=== PATIENT | female | born 1950 | race Hispanic/Latino ===

== ENCOUNTER 2017-10-15 10:19 | Outpatient (CLI) | payer MEDICARE ==
--- NOTE | 2017-10-15 12:25 | XRay Report ---
LEFT FOOT, 3 views: History: Left foot pain The bony architecture is intact. Bony alignment is normal. No soft tissue abnormalities are seen. The joint spaces appear preserved. Moderate plantar spur is noted. IMPRESSION: Plantar spur.
--- NOTE | 2017-10-15 15:50 | Mammography Report ---
BONE DEXA:10/15/17 09:45:00 CLINICAL: Postmenopausal. No comparison. TECHNIQUE: Two site bone DEXA performed on an Hologic scanner. FINDINGS: The average BMD of the lumbar spine L1-L4 is 0.831g/cm squared with a T-score of -2.0 and a Z-score of -0.1. The average BMD of the left hip is 0.734g/cm squared with a T-score of -1.7 and a Z-score of -0.4. IMPRESSION: 1. WHO classification: Osteopenia with increase fracture risk based on both spine and left hip measurements. 2. The FRAX 10 year fracture probability for a major osteoporotic fracture is 12%. 3. The FRAX 10 year fracture probability for hip fracture is 2.1%. Note: FRAX version 3.01. Fracture probability calculated for an untreated patient. Fracture probability may be lower if the patient has received treatment. RECOMMENDATION: Clinical correlation and routine screening. DEFINITIONS: BMD = Bone Mineral Density T-score = BMD related to mean peak bone mass of young adult (mean expressed in Standard Deviation) Z-score = Age matched BMD expressed in SD World Health Organization (WHO) Diagnostic Criteria Normal T-score > -1 SD Osteopenia T-score between -1 and -2.4 SD Osteoporosis T-score -2.5 SD or below NOTE: BMD is not the only risk factor for fracture; also consider factors such as the patient's age, risk of falling, previous osteoporotic fracture, family history of osteoporotic fractures, current smoker, and low body weight. All treatment decisions require clinical judgment and consideration of individual patient factors, including patient preferences, comorbidities, previous drug use and risk factors not captured in the FRAX model (e.g. frailty, falls, vitamin D deficiency, increased bone turnover, interval significant decline in BMD). Fracture probability is calculated for an untreated patient. Fracture probability may be lower if the patient has received treatment. Z-scores are not calculated if >80 years of age.
== END 2017-10-15 10:20 | disposition home or self-care (01) ==
LOC: MAMMO 10:19
PROVIDERS: ATTEND Orthopaedic Surgery
DX: M85.88 Other specified disorders of bone density and structure, other site (principal); M25.872 Other specified joint disorders, left ankle and foot; Z78.0 Asymptomatic menopausal state
CPT/HCPCS: 77080

== ENCOUNTER 2017-11-27 09:46 | Emergency (ER) | payer MEDICARE ==
--- NOTE | 2017-11-27 15:12 | Emergency Department Report ---
ED Fall HPI - General Chief Complaint: Fall Stated Complaint: FALL Time Seen by Provider: 11/27/17 14:32 Source: patient, family Mode of arrival: Ambulatory - History of Present Illness Initial Comments: Patient reports that she slipped and fell down a couple stairs today. She is complaining that she hit her head and she has headache on the right side of her head. She denies any loss of consciousness. Pain is locally advised to the right side of her head she is also complaining of bilateral hip pain and lumbar spine pain. Pain is 10 out of 10 and aching. Denies any loss of bowel or bladder control. Denies any neck pain or stiffness. Denies any numbness or tingling to extremities. No [id number] medication taken for pain. Patient records indicated that she is allergic to codeine which causes her throat to close up. Patient clarified that it doesn't close her throat up because she is taken hydrocodone and oxycodone in the past. 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 denies: neck pain, numbness, weakness, chest paint, shortness of breath, abdominal pain, hematuria, unable to walk, lightheaded, vertigo, confusion - Related Data Previous Rx's Medication Instructions Recorded Last Taken Type traMADol [Ultram] 50 mg PO Q12H PRN #6 tablet 11/27/17 Unknown Rx Allergies Allergy/AdvReac Type Severity Reaction Status Date / Time codeine Allergy THROAT Unverified 10/15/17 10:22 CLOSES Iodinated Contrast- Oral and Allergy ITCHES, Unverified 10/15/17 10:22 IV Dye FEELS LIKE SHE IS ON FIRE ketorolac [From Toradol] Allergy Headache Unverified 10/15/17 10:22 methocarbamol [From Robaxin] Allergy Headache Unverified 10/15/17 10:22 Penicillins Allergy Swelling Unverified 10/15/17 10:22 OF FACE HAND AND THROAT CLOSES strawberry Allergy Rash Unverified 10/15/17 10:22 ED Review of Systems ROS: Stated complaint: FALL Other details as noted in HPI Comment: All other systems reviewed and negative Constitutional: no symptoms reported Eyes: denies: eye pain, eye discharge ENT: denies: hearing loss, epistaxis Respiratory: no symptoms reported Cardiovascular: denies: chest pain, palpitations, dyspnea on exertion, edema, syncope, paroxysmal nocturnal dyspnea Gastrointestinal: denies: abdominal pain, nausea, vomiting, hematemesis Genitourinary: denies: dysuria, hematuria Musculoskeletal: back pain, arthralgia. denies: joint swelling Skin: denies: rash Neurological: headache. denies: weakness, numbness, paresthesias, confusion ED Past Medical Hx - Past Medical History Previous Medical History?: Yes Hx Hypertension: Yes Hx Arthritis: Yes Hx COPD: Yes Additional medical history: Fibromyalgia, MVP, - Surgical History Past Surgical History?: Yes Hx Cholecystectomy: Yes Additional Surgical History: right wrist metal plate, Right ovarian cyst removal - Family History Family history: hypertension - Social History Smoking Status: Current Every Day Smoker Substance Use Type: None, Non Opiate Pain, Prescribed - Medications Home Medications: Home Medications Medication Instructions Recorded Confirmed Last Taken Type traMADol [Ultram] 50 mg PO Q12H PRN #6 tablet 11/27/17 Unknown Rx ED Physical Exam - General Limitations: No Limitations General appearance: alert, in no apparent distress - Head Head exam: Present: atraumatic, normocephalic, normal inspection - Eye Eye exam: Present: normal appearance, PERRL, EOMI Pupils: Present: normal accommodation - ENT ENT exam: Present: normal exam, normal orophraynx, mucous membranes moist - Neck Neck exam: Present: normal inspection, full ROM, other. Absent: tenderness, meningismus, lymphadenopathy, thyromegaly - Respiratory Respiratory exam: Present: normal lung sounds bilaterally. Absent: respiratory distress, chest wall tenderness, accessory muscle use - Cardiovascular Cardiovascular Exam: Present: regular rate, normal rhythm, normal heart sounds. Absent: systolic murmur, diastolic murmur - GI/Abdominal GI/Abdominal exam: Present: soft, normal bowel sounds. Absent: distended, tenderness, guarding, rebound, rigid - Extremities Exam Extremities exam: Present: normal inspection, full ROM, normal capillary refill , other. Absent: tenderness, pedal edema, joint swelling, calf tenderness - Back Exam Back exam: Present: normal inspection, full ROM. Absent: tenderness, CVA tenderness (R), CVA tenderness (L), muscle spasm, paraspinal tenderness, vertebral tenderness, rash noted - Neurological Exam Neurological exam: Present: alert, oriented X3, normal gait - Psychiatric Psychiatric exam: Present: normal affect, normal mood - Skin Skin exam: Present: warm, dry, intact, normal color. Absent: rash ED Course Vital Signs 11/27/17 11/27/17 11/27/17 10:08 17:35 17:44 Temperature 97.6 F Pulse Rate 95 H 90 Respiratory 20 18 18 Rate Blood Pressure 168/91 Blood Pressure 162/88 [Right] O2 Sat by Pulse 98 97 Oximetry - Reevaluation(s) Reevaluation #1: 11/27/17 17:32 Patient given Ultram 50 mg by mouth in emergency room for pain. ED Medical Decision Making - Radiology Data Radiology results: report reviewed CT scan of head without contrast revealed no acute intracranial findings. CT scan of lumbar spine reveals no acute fracture or subluxation but degenerative disease seen. Ct scan of the pelvis or reveals patient with degenerative disease without any acute findings. - Medical Decision Making ED course: Patient is status post fall complaining of headache after she slipped on stairs and hit her head and also bilateral hip pain and lumbar spine pain. Physical findings are tenderness to lumbar spine and pain with movement of both hips. Head exam is normal and she is neurologically intact. CT finding of brain/head negative for intracranial findings, CT scan of pelvis reveals no acute fracture but patient has degenerative disease. CT scan of lumbar spine reveals degenerative disc disease without any acute fracture or subluxation. This was explained to patient and she voiced understanding. I discussed the patient if she has arthritis in her back and in her hips. I discussed with her she will need to follow-up with her primary care physician who will refer her to orthopedic doctor if necessary. I also discussed with her that she needs to have follow-up visit within 24 hours of incident since she has fall with closed head injury. Patient received Ultram 50 mg when necessary emergency room. Discharged home with her family member with prescription for Ultram. Critical care attestation.: If time is entered above; I have spent that time in minutes in the direct care of this critically ill patient, excluding procedure time. ED Disposition Clinical Impression: Fall from ground level, Acute post-traumatic headache, not intractable, Musculoskeletal pain Closed head injury without concussion Qualifiers: Encounter type: initial encounter Qualified Code(s): S09.90XA - Unspecified injury of head, initial encounter Back pain Qualifiers: Back pain location: low back pain Chronicity: acute Back pain laterality: midline Sciatica presence: without sciatica Qualified Code(s): M54.5 - Low back pain Disposition: DC-01 TO HOME OR SELFCARE Is pt being admited?: No Does the pt Need Aspirin: No Condition: Stable Instructions: Osteoarthritis (ED), Fall Prevention for Older Adults (ED), Minor Head Injury (ED), Acute Headache (ED), Back Pain (ED) Additional Instructions: Please follow up with a primary care physician tomorrow for follow-up exam status post fall with closed head injury Read-discharge instruction and closed head injury and if you experience any signs or symptoms return to emergency room Take Ultram for pain but please do not drive or operate heavy machinery while taking this medication. Prescriptions: traMADol [Ultram] 50 mg PO Q12H PRN #6 tablet PRN Reason: Pain Referrals: PAT ACOSTA MD [Primary Care Provider] - 11/28/17
--- NOTE | 2017-11-27 16:32 | Cat Scan Report ---
FINAL REPORT EXAM: CT HEAD/BRAIN WO CON HISTORY: fall with pain and head injury TECHNIQUE: CT head without contrast PRIORS: None. FINDINGS: No acute intra-axial or extra-axial hemorrhage is identified. There is no evidence of midline shift or mass effect. The ventricles and sulci are within normal limits. Carpenter-white matter differentiation is intact. No acute parenchymal abnormalities seen. Bony calvarium is grossly intact. Visualized portions of the mastoids and paranasal sinuses are unremarkable. IMPRESSION: Negative CT head
--- NOTE | 2017-11-27 16:38 | Cat Scan Report ---
FINAL REPORT EXAM: CT LUMBAR SPINE WO CON HISTORY: fall with lumbar spine pain TECHNIQUE: CT lumbar spine without contrast PRIORS: None. FINDINGS: Vertebral bodies demonstrate normal height and alignment. There is disc space narrowing at L5-S1 with vacuum disc. Few small marginal vertebral body osteophytes are noted. There is no evidence of spondylolisthesis. Transverse and spinous processes are intact SI joints are unremarkable. IMPRESSION: Degenerative disc disease at L5-S1 No acute traumatic abnormality identified
--- NOTE | 2017-11-27 16:44 | Cat Scan Report ---
FINAL REPORT EXAM: CT PELVIS WO CON HISTORY: fall with pelvis pain TECHNIQUE: CT pelvis PRIORS: None. FINDINGS: No acute fractures are identified. The pubic symphysis and SI joints are intact. No evidence of hip fracture or dislocation. No bony lesions are identified. No acute soft tissue abnormality identified Noted are degenerative disc changes at L5-S1 IMPRESSION: Degenerative disc change at L5-S1 No acute abnormality identified
[2017-11-27] MEDS ORDERED: ULTRAM PO ONE (17:28)
[2017-11-27] MEDS ORDERED: ZOFRAN ODT PO ONE (17:34)
[2017-11-27 17:45] VITALS: BP 162/88
== END 2017-11-27 17:45 | disposition home or self-care (01) ==
LOC: ED 09:46
DX: S09.8XXA Other specified injuries of head, initial encounter (principal); G44.319 Acute post-traumatic headache, not intractable; M25.551 Pain in right hip; M25.552 Pain in left hip; I10 Essential (primary) hypertension; M19.90 Unspecified osteoarthritis, unspecified site; J44.9 Chronic obstructive pulmonary disease, unspecified; Z88.0 Allergy status to penicillin; Z91.018 Allergy to other foods; Z88.5 Allergy status to narcotic agent; F17.200 Nicotine dependence, unspecified, uncomplicated; Z90.49 Acquired absence of other specified parts of digestive tract; W10.8XXA Fall (on) (from) other stairs and steps, initial encounter; Y93.89 Activity, other specified; Y92.89 Other specified places as the place of occurrence of the external cause; Y99.8 Other external cause status
CPT/HCPCS: 70450; 72131; 72192; Q0162

== ENCOUNTER 2017-12-19 17:07 | Emergency (ER) | payer MEDICARE ==
[2017-12-19 19:51] VITALS: BP 124/68
--- NOTE | 2017-12-19 23:28 | Emergency Department Report ---
HPI - General Chief Complaint: Fall Time Seen by Provider: 12/19/17 23:09 - HPI HPI: This is a 67-year-old female presents to the emergency department from home after she accidentally fell off the bed. She was playing with her grandchildren when she fell backwards off of her bed which she says is "high" and fell onto her back and left side. She says that she did hit her head and had some brief loss of consciousness. She now complains of a generalized headache, pain to the left heel up through the hip, pain to the left shoulder, and pain to the mid to lower back. She denies any numbness or paresthesias or any neurological deficits. She did not take anything for her symptoms prior to presentation. She has a past medical history of asthma, COPD , GERD, hypertension, fibromyalgia. The patient says that she usually takes hydrocodone for her discomfort. There is a listing for codeine as an allergy but she says that that was when she was younger and she thinks she has "outgrown it" but she does not have any allergy to hydrocodone. ED Past Medical Hx - Past Medical History Hx Hypertension: Yes Hx Heart Attack/AMI: No Hx Congestive Heart Failure: No Hx Diabetes: No Hx Deep Vein Thrombosis: No Hx Pulmonary Embolism: Yes (41yr age) Hx GERD: Yes Hx Sickle Cell Disease: No Hx Arthritis: Yes Hx Headaches / Migraines: Yes (MIGRAINES) Hx Kidney Stones: Yes Hx Asthma: Yes Hx COPD: Yes Hx HIV: No Additional medical history: Fibromyalgia, MVP, - Surgical History Hx Pacemaker: No Hx Internal Defibrillator: No Hx Cholecystectomy: Yes Additional Surgical History: right wrist metal plate, Right ovarian cyst removal - Social History Smoking Status: Never Smoker Substance Use Type: None - Medications Home Medications: Home Medications Medication Instructions Recorded Confirmed Last Taken Type Acetaminophen 1,000 mg PO Q6HR PRN #30 tablet 09/16/17 09/18/17 09/17/17 Rx ALBUTEROL Inhaler [ProAir HFA 2 puff IH QID PRN #1 inhalation 09/21/17 Unknown Rx Inhaler] ALBUTEROL NEB's [Proventil 0.083% 2.5 mg IH BID #60 nebu 09/21/17 Unknown Rx NEBS] ALPRAZolam [Xanax TAB] 1 mg PO BID PRN #30 tablet 09/21/17 Unknown Rx Amlodipine Besylate [Norvasc] 5 mg PO QDAY #30 tablet 09/21/17 Unknown Rx Gabapentin [Gralise] 300 mg PO TID #90 tab.er.24h 09/21/17 Unknown Rx methylPREDNISolone [Medrol Dose 4 mg PO QAM #1 tab.ds.pk 09/21/17 Unknown Rx Sriram] Levofloxacin [Levaquin TAB] 750 mg PO QDAY #7 tablet 09/22/17 Unknown Rx HYDROcodone/APAP 5-325 [Carlyle 1 each PO Q6H PRN #10 tablet 09/29/17 Unknown Rx 5-325 mg TAB] Cyclobenzaprine [Flexeril 10 MG 10 mg PO TID PRN #30 tablet 11/07/17 Unknown Rx TAB] traMADol [Ultram] 50 mg PO Q12H PRN #6 tablet 11/27/17 Unknown Rx Famotidine [Pepcid] 20 mg PO BID #60 tablet 12/14/17 Unknown Rx HYDROcodone/APAP 5-325 [Carlyle 1 each PO Q6HR PRN #6 tablet 12/20/17 Unknown Rx 5/325] ED Review of Systems ROS: Stated complaint: FALL/HEAD INJURY Other details as noted in HPI Comment: All other systems reviewed and negative Constitutional: denies: chills, fever Eyes: denies: eye pain, eye discharge, vision change ENT: denies: ear pain, throat pain Cardiovascular: denies: chest pain, palpitations Gastrointestinal: denies: abdominal pain, nausea, diarrhea Genitourinary: denies: urgency, dysuria, discharge Musculoskeletal: back pain, arthralgia, myalgia. denies: joint swelling Skin: denies: rash, lesions Neurological: headache. denies: numbness, paresthesias Physical Exam - Physical Exam Vital Signs: Vital Signs 12/19/17 19:44 Temperature 98.3 F Pulse Rate 93 H Respiratory 16 Rate Blood Pressure 124/68 O2 Sat by Pulse 97 Oximetry Physical Exam: GENERAL: The patient is well-developed well-nourished. HENT: Normocephalic. Atraumatic. Patient has moist mucous membranes. No septal hematoma. EYES: Extraocular motions are intact. Pupils equal reactive to light bilaterally. No nystagmus. NECK: Supple. Trachea is midline. No midline tenderness to palpation, step- off or deformity. CHEST/LUNGS: Clear to auscultation. There is no respiratory distress noted. HEART/CARDIOVASCULAR: Regular. There is no tachycardia. There is no murmur. ABDOMEN: Abdomen is soft, nontender. Patient has normal bowel sounds. There is no abdominal distention. SKIN: Skin is warm and dry. NEURO: The patient is awake, alert, and oriented. The patient is cooperative. The patient has no focal neurologic deficits. The patient has normal speech. Cranial nerves II through XII grossly intact. MUSCULOSKELETAL: There is tenderness to palpation to the left shoulder and the entire left lower extremity. No obvious deformity. There is no limitation range of motion. Neurovascularly intact. ED Course Vital Signs 12/19/17 19:44 Temperature 98.3 F Pulse Rate 93 H Respiratory 16 Rate Blood Pressure 124/68 O2 Sat by Pulse 97 Oximetry ED Medical Decision Making - Radiology Data Radiology results: report reviewed, image reviewed interpreted by me: X-ray of the left shoulder, left femur, left tib-fib, and left foot did not show any fracture, dislocation or any acute process. CT of the head does not show any acute intracranial process including no ischemia, shift, mass, bleeding or skull fracture. CT of the cervical spine does not show any fracture, subluxation or any acute process. - Medical Decision Making Patient presents after having fallen off her bed and having some questionable loss of consciousness. She has a headache and pain to the left shoulder and entire left leg. The left shoulder and left leg were x-rayed and did not show any fracture, dislocation or any acute process. CT of the head and cervical spine were done and were negative for any acute process. Vital signs stable. I looked at the [place] prescription monitoring and the patient has multiple visits and refills of medication for hydrocodone and follows with Dr. Romero, orthopedist. Patient declined crutches. She was given a handful of pain medication by prescription and encouraged to follow up with the orthopedist. She was encouraged to return with any worsening of her symptoms or any acute distress. - Differential Diagnosis fracture, dislocation, sprain, strain, concussion, brain bleed Critical Care Time: No Critical care attestation.: If time is entered above; I have spent that time in minutes in the direct care of this critically ill patient, excluding procedure time. ED Disposition Clinical Impression: Left leg pain, Minor head injury Fall Qualifiers: Encounter type: initial encounter Qualified Code(s): W19.XXXA - Unspecified fall, initial encounter Left shoulder pain Qualifiers: Chronicity: acute Qualified Code(s): M25.512 - Pain in left shoulder Back pain Qualifiers: Back pain location: low back pain Chronicity: unspecified Back pain laterality : bilateral Sciatica presence: without sciatica Qualified Code(s): M54.5 - Low back pain Disposition: TO HOME OR SELFCARE Is pt being admited?: No Condition: Stable Instructions: Minor Head Injury (ED), Arthralgia (ED) Additional Instructions: Please follow-up with your primary care physician in the next few days. Return to the emergency Department with any worsening of your symptoms or any acute distress. Please follow-up with your orthopedist, Dr. Romero, regarding your leg and arm pain. You have been prescribed a medication that is sedating and therefore should not be taken prior to driving, working, and responsible for children and in no way should be mixed with alcohol of any quantity. Prescriptions: HYDROcodone/APAP 5-325 [Carlyle 5/325] 1 each PO Q6HR PRN #6 tablet PRN Reason: Pain Referrals: PAT ACOSTA MD [Primary Care Provider] - 3-5 Days TEE ROMERO MD [Staff Physician] - 3-5 Days Time of Disposition: 02:16
[2017-12-19] MEDS ORDERED: NORCO 5/325 PO ONE (23:36)
--- NOTE | 2017-12-20 00:17 | XRay Report ---
FINAL REPORT EXAM: XR TIBIA FIBULA 2V LT HISTORY: Trauma TECHNIQUE: Three views of the left tibia-fibula were submitted. FINDINGS: There is osteoporosis. There is no evidence of fracture or soft tissue injury. IMPRESSION: Osteoporosis. No acute injury.
--- NOTE | 2017-12-20 00:17 | XRay Report ---
FINAL REPORT EXAM: XR FEMUR 2+V LT HISTORY: Trauma TECHNIQUE: Four views of the left femur were submitted. FINDINGS: There is no evidence of fracture or soft tissue injury. The hip and knee joints are well maintained. The soft tissues are unremarkable. IMPRESSION: No evidence of acute injury.
--- NOTE | 2017-12-20 00:18 | XRay Report ---
FINAL REPORT EXAM: XR SHOULDER 2+V LT HISTORY: Trauma TECHNIQUE: Three views of the left shoulder were submitted. FINDINGS: There is no evidence of acute fracture or soft tissue injury. The glenohumeral and AC joints appear intact. There is a well-healed fracture of the posterior aspect of the left 5th rib. IMPRESSION: No acute injury.
--- NOTE | 2017-12-20 00:19 | XRay Report ---
FINAL REPORT EXAM: XR FOOT 3+V LT HISTORY: Trauma TECHNIQUE: Three views of the left foot were submitted. FINDINGS: There is no evidence of fracture or soft tissue injury. There is spurring along the posterior and plantar margin of the calcaneus. IMPRESSION: Calcaneal spurs. No acute injury
--- NOTE | 2017-12-20 00:20 | XRay Report ---
FINAL REPORT EXAM: XR SPINE LUMBOSACRAL 2-3V HISTORY: back pain TECHNIQUE: Three images of the lumbar spine were submitted. FINDINGS: There is generalized osteoporosis. There is multilevel disc degeneration throughout the lumbar spine severe narrowing of the L5-S1 disc. There is a chronic compression deformity of the superior endplate of L5. No definite acute fracture is seen. The SI joints appear normal. The soft tissues reveal calcification of the abdominal aorta. IMPRESSION: Multilevel disc degeneration with chronic compression deformity of the superior endplate of L1. No acute injury identified.
--- NOTE | 2017-12-20 00:21 | XRay Report ---
FINAL REPORT EXAM: XR SPINE THORACIC 3V HISTORY: back pain TECHNIQUE: Three views of the thoracic spine were submitted. FINDINGS: There is generalized osteoporosis. There is no evidence of acute compression fracture. The disc heights reveal mild degenerative changes in the mid upper thoracic spine. The soft tissue lines otherwise are well maintained. IMPRESSION: Osteoporosis. Mild disc degeneration in the upper mid thoracic spine. No acute fracture.
--- NOTE | 2017-12-20 02:04 | Cat Scan Report ---
FINAL REPORT EXAM: CT HEAD/BRAIN WO CON HISTORY: head injury TECHNIQUE: Routine axial imaging was obtained of the brain without IV contrast. Comparison is made to the study of 11/27/2017. FINDINGS: There is diminished attenuation of the periventricular and deep white matter compatible with chronic microvascular disease changes. There is no evidence of acute stroke or hemorrhage. There is mild atrophy. There are benign basal ganglial calcifications. The ventricular system is appropriate in size. The visualized sinuses are clear. The mastoid air cells are well pneumatized. The calvarium appears intact IMPRESSION: Mild atrophy with chronic microvascular disease changes. No evidence of acute stroke or hemorrhage.
--- NOTE | 2017-12-20 02:07 | Cat Scan Report ---
FINAL REPORT EXAM: CT CERVICAL SPINE WO CON HISTORY: fall TECHNIQUE: Routine axial imaging was obtained of the cervical spine without IV contrast with sagittal and coronal reconstructions FINDINGS: There moderate to severe narrowing of the C5-C6 disc. There is mild left-sided neural foraminal corrosion at this level by spurring. The remaining disc heights and alignment appear normal. There is no evidence of fracture. The prevertebral soft tissues and C1-C2 articulation appear intact IMPRESSION: Degenerative arthritic changes of the C5-C6 level. No acute injury.
== END 2017-12-20 02:30 | disposition home or self-care (01) ==
LOC: ED 17:07
DX: S09.90XA Unspecified injury of head, initial encounter (principal); M25.512 Pain in left shoulder; M54.5 Low back pain; M79.605 Pain in left leg; I10 Essential (primary) hypertension; K21.9 Gastro-esophageal reflux disease without esophagitis; G43.909 Migraine, unspecified, not intractable, without status migrainosus; J44.9 Chronic obstructive pulmonary disease, unspecified; M79.7 Fibromyalgia; Z86.711 Personal history of pulmonary embolism; Z87.442 Personal history of urinary calculi; Z90.49 Acquired absence of other specified parts of digestive tract; Z98.890 Other specified postprocedural states; Z88.5 Allergy status to narcotic agent; Z91.041 Radiographic dye allergy status; Z88.6 Allergy status to analgesic agent; W06.XXXA Fall from bed, initial encounter; Y93.89 Activity, other specified; Y99.8 Other external cause status; Y92.009 Unspecified place in unspecified non-institutional (private) residence as the place of occurrence of the external cause
CPT/HCPCS: 70450; 72072; 72100; 72125

== ENCOUNTER 2018-01-10 10:22 | Emergency (ER) | payer MEDICARE ==
[2018-01-10 10:58] VITALS: BP 138/62
[2018-01-10 11:50] LABS: Bilirubin,Urine NEG (Negative); Blood,Urine LG (Negative); Color,Urine Yellow (Yellow); Mucus,Urine FEW /HPF; Protein,Urine <15 mg/dL mg/dL (Negative); Urobilinogen,Urine < 2.0 mg/dL (<2.0)
[2018-01-10 11:51] LABS: RBC,Urine > 182.0 /HPF (0.0-6.0)
[2018-01-10] MEDS ORDERED: TORADOL ONE (12:41)
[2018-01-10] MEDS ORDERED: NORCO 5/325 PO ONE (13:37)
[2018-01-10] MEDS ORDERED: XYLOCAINE 1% MPF 5 mL INFILTRATI ONE (13:38)
[2018-01-10] MEDS ORDERED: ROCEPHIN IM ONE (13:38)
[2018-01-10] MEDS ORDERED: BENADRYL PO ONE (13:39)
--- NOTE | 2018-01-10 13:40 | Emergency Department Report ---
HPI - General Chief Complaint: Urogenital-Female Time Seen by Provider: 01/10/18 13:10 - HPI HPI: Patient is a 67-year-old female who states she has a history of kidney stones who presents today complaining of left flank pain and hematuria 1 day. Patient states yesterday she started x-ray this flank pain and today when she went to urinate she saw that her urine was different change to it some pink blood. She admits nausea but denies vomiting. She admits pain as throbbing in aching some localized to her left flank region ED Past Medical Hx - Past Medical History Hx Hypertension: Yes Hx Heart Attack/AMI: No Hx Congestive Heart Failure: No Hx Diabetes: No Hx Deep Vein Thrombosis: No Hx Pulmonary Embolism: Yes (41yr age) Hx GERD: Yes Hx Sickle Cell Disease: No Hx Arthritis: Yes Hx Headaches / Migraines: Yes (MIGRAINES) Hx Kidney Stones: Yes Hx Asthma: Yes Hx COPD: Yes Hx HIV: No Additional medical history: Fibromyalgia, MVP, - Surgical History Hx Pacemaker: No Hx Internal Defibrillator: No Hx Cholecystectomy: Yes Additional Surgical History: right wrist metal plate, Right ovarian cyst removal - Social History Smoking Status: Never Smoker Substance Use Type: None - Medications Home Medications: Home Medications Medication Instructions Recorded Confirmed Last Taken Type Acetaminophen 1,000 mg PO Q6HR PRN #30 tablet 09/16/17 09/18/17 09/17/17 Rx ALBUTEROL Inhaler [ProAir HFA 2 puff IH QID PRN #1 inhalation 09/21/17 Unknown Rx Inhaler] ALBUTEROL NEB's [Proventil 0.083% 2.5 mg IH BID #60 nebu 09/21/17 Unknown Rx NEBS] ALPRAZolam [Xanax TAB] 1 mg PO BID PRN #30 tablet 09/21/17 Unknown Rx Amlodipine Besylate [Norvasc] 5 mg PO QDAY #30 tablet 09/21/17 Unknown Rx Gabapentin [Gralise] 300 mg PO TID #90 tab.er.24h 09/21/17 Unknown Rx methylPREDNISolone [Medrol Dose 4 mg PO QAM #1 tab.ds.pk 09/21/17 Unknown Rx Sriram] Levofloxacin [Levaquin TAB] 750 mg PO QDAY #7 tablet 09/22/17 Unknown Rx HYDROcodone/APAP 5-325 [[place] 1 each PO Q6H PRN #10 tablet 09/29/17 Unknown Rx 5-325 mg TAB] Cyclobenzaprine [Flexeril 10 MG 10 mg PO TID PRN #30 tablet 11/07/17 Unknown Rx TAB] traMADol [Ultram] 50 mg PO Q12H PRN #6 tablet 11/27/17 Unknown Rx Famotidine [Pepcid] 20 mg PO BID #60 tablet 12/14/17 Unknown Rx HYDROcodone/APAP 5-325 [[place] 1 each PO Q6HR PRN #6 tablet 01/10/18 Unknown Rx 5-325 mg TAB] Naproxen [Naprosyn] 500 mg PO BID #30 tablet 01/10/18 Unknown Rx Ondansetron [Zofran ODT TAB] 8 mg PO Q12HR #20 tab.rapdis 01/10/18 Unknown Rx ED Review of Systems ROS: Stated complaint: FLANK PAIN Other details as noted in HPI Constitutional: denies: chills, fever Eyes: denies: eye pain, eye discharge, vision change ENT: denies: ear pain, throat pain Respiratory: denies: cough, shortness of breath, wheezing Cardiovascular: denies: chest pain, palpitations Endocrine: no symptoms reported Gastrointestinal: nausea. denies: abdominal pain, vomiting, diarrhea, constipation Genitourinary: frequency, hematuria. denies: urgency, dysuria, discharge Musculoskeletal: denies: back pain, joint swelling, arthralgia Skin: denies: rash, lesions Neurological: denies: headache, weakness, paresthesias Psychiatric: denies: anxiety, depression Hematological/Lymphatic: denies: easy bleeding, easy bruising Physical Exam - Physical Exam Vital Signs: Vital Signs 01/10/18 10:53 Temperature 97.6 F Pulse Rate 67 Respiratory 20 Rate Blood Pressure 138/62 O2 Sat by Pulse 97 Oximetry Physical Exam: GENERAL: Alert and oriented x3, no apparent distress, Normal Gait, atraumatic. HEAD: Head is normocephalic and a-traumatic. LUNGS: Symetrical with respiration, No wheezing, no rales or crackles, CTAB. HEART: S1, S2 present, regular rate and rhythm without murmur, no rubs, no gallops. ABDOMEN: No organomegaly was noted,Positive bowel sounds, soft, and non- distended. Nontender to palpation on all Quadrants, right CVA tenderness. BACK: Full range of motion, no spinal tenderness, nontender to palpation. SKIN: Warm and dry, No lesions, No ulceration or induration present. ED Course Vital Signs 01/10/18 10:53 Temperature 97.6 F Pulse Rate 67 Respiratory 20 Rate Blood Pressure 138/62 O2 Sat by Pulse 97 Oximetry ED Medical Decision Making - Radiology Data This 67-year-old presents with flank pain ED course: Urinalysis positive for hematuria Patient received pain medication, Rocephin in ED I discussed the patient that she is getting prophylaxis treatment for urinary tract infection. Discussed the patient follow up with primary care physician Discussed the patient's symptoms worsen to return to ED vital signs are normal patient in no acute distress Critical care attestation.: If time is entered above; I have spent that time in minutes in the direct care of this critically ill patient, excluding procedure time. ED Disposition Clinical Impression: Hematuria, Hx of renal calculi Disposition: TO HOME OR SELFCARE Is pt being admited?: No Does the pt Need Aspirin: No Condition: Stable Instructions: Kidney Stones (ED), Urinary Tract Infection in Women (ED) Additional Instructions: Make sure to follow up with the primary care physician as discussed. Take all your medications as you've been prescribed. If you have any worsening symptoms or develop new symptoms please return to ED immediately. Prescriptions: HYDROcodone/APAP 5-325 [[place] 5-325 mg TAB] 1 each PO Q6HR PRN #6 tablet PRN Reason: Pain Naproxen [Naprosyn] 500 mg PO BID #30 tablet Ondansetron [Zofran ODT TAB] 8 mg PO Q12HR #20 tab.josette Referrals: PRIMARY CARE, [Primary Care Provider] - 3-5 Days [facility] [Outside] - 3-5 Days [facility] [Outside] - 3-5 Days [facility] [Outside] - 3-5 Days Forms: Accompanied Note, Work/School Release Form(ED) Time of Disposition: 13:53
[2018-01-10] MEDS ORDERED: TORADOL IM ONE (13:44)
== END 2018-01-10 14:09 | disposition home or self-care (01) ==
LOC: ED 10:22
DX: R31.9 Hematuria, unspecified (principal); I10 Essential (primary) hypertension; K21.9 Gastro-esophageal reflux disease without esophagitis; J44.9 Chronic obstructive pulmonary disease, unspecified
CPT/HCPCS: 81001; 96372; 99283; J0696; J1885

== ENCOUNTER 2018-01-20 16:54 | Emergency (ER) | payer MEDICARE ==
[2018-01-20 19:54] LABS: Basophils % (Auto) 0.3 % (0.0-1.8); Eosinophils # (Auto) 0.1 K/mm3 (0.0-0.4); Eosinophils % (Auto) 1.3 % (0.0-4.3); Hematocrit 44.1 % (30.3-42.9); Hemoglobin 14.1 gm/dl (10.1-14.3); Lymphocytes # (Auto) 2.7 K/mm3 (1.2-5.4); Lymphocytes % (Auto) 35.6 % (13.4-35.0); Mean Corpuscular HGB Conc 32 % (30-34); Mean Corpuscular Hemoglobin 28 pg (28-32); Mean Corpuscular Volume 88 fl (79-97); Monocytes # (Auto) 0.6 K/mm3 (0.0-0.8); Monocytes % (Auto) 7.3 % (0.0-7.3); Platelet Count 209 K/mm3 (140-440); Red Blood Count 4.98 M/mm3 (3.65-5.03); Red Cell Distribution Width 14.4 % (13.2-15.2)
[2018-01-20 20:12] LABS: BUN/Creatinine Ratio 15; Blood Urea Nitrogen 9 mg/dL (7-17); Calcium 9.2 mg/dL (8.4-10.2); Hemolysis Index 10
[2018-01-21 06:20] VITALS: BP 157/69
[2018-01-21] MEDS ORDERED: NORCO 5/325 PO ONE (06:29)
--- NOTE | 2018-01-21 06:40 | Emergency Department Report ---
ED Chest Pain HPI - General Chief Complaint: Chest Pain Stated Complaint: CP Time Seen by Provider: 01/21/18 06:13 Source: patient Mode of arrival: Ambulatory Limitations: No Limitations - History of Present Illness Initial Comments: 67-year-old female presents to the emergency department with complaint of several days of nausea and vomiting, heartburn. However, at this point, 2 nights ago the patient had some left shoulder pain radiated down under her armpit and down towards the ribs that was a sharp and aching discomfort. This brought her into an urgent care where she was found to have a blood pressure of 200/94 and some low heart rate and she was sent to the emergency department. At the time it was associated with some shortness of breath. She did not take anything or receive anything for her symptoms by presentation. The patient was here last month and admitted to [facility] and at that time had an echocardiogram that showed an ejection fraction of 55-60% and she had a normal stress test. She has a past medical history of asthma, arthritis, migraine headaches, hypertension, kidney stones, fibromyalgia, mitral valve prolapse and remote pulmonary embolism. Her primary care physician is Dr. Pat Acosta and her statistician applied is Dr. Chaves. No recent travel or sick contacts at home. Severity scale (0 -10): 10 - Related Data Previous Rx's Medication Instructions Recorded Last Taken Type Acetaminophen 1,000 mg PO Q6HR PRN #30 tablet 09/16/17 09/17/17 Rx ALBUTEROL Inhaler [ProAir HFA 2 puff IH QID PRN #1 inhalation 09/21/17 Unknown Rx Inhaler] ALBUTEROL NEB's [Proventil 0.083% 2.5 mg IH BID #60 nebu 09/21/17 Unknown Rx NEBS] ALPRAZolam [Xanax TAB] 1 mg PO BID PRN #30 tablet 09/21/17 Unknown Rx Amlodipine Besylate [Norvasc] 5 mg PO QDAY #30 tablet 09/21/17 Unknown Rx Gabapentin [Gralise] 300 mg PO TID #90 tab.er.24h 09/21/17 Unknown Rx methylPREDNISolone [Medrol Dose 4 mg PO QAM #1 tab.ds.pk 09/21/17 Unknown Rx Sriram] Levofloxacin [Levaquin TAB] 750 mg PO QDAY #7 tablet 11/19/17 Unknown Rx HYDROcodone/APAP 5-325 [[place] 1 each PO Q6H PRN #10 tablet 09/29/17 Unknown Rx 5-325 mg TAB] Cyclobenzaprine [Flexeril 10 MG 10 mg PO TID PRN #30 tablet 11/07/17 Unknown Rx TAB] traMADol [Ultram] 50 mg PO Q12H PRN #6 tablet 11/27/17 Unknown Rx Famotidine [Pepcid] 20 mg PO BID #60 tablet 12/14/17 Unknown Rx HYDROcodone/APAP 5-325 [[place] 1 each PO Q6HR PRN #6 tablet 01/10/18 Unknown Rx 5-325 mg TAB] Naproxen [Naprosyn] 500 mg PO BID #30 tablet 01/10/18 Unknown Rx Ondansetron [Zofran ODT TAB] 8 mg PO Q12HR #20 tab.rapdis 01/10/18 Unknown Rx Allergies Allergy/AdvReac Type Severity Reaction Status Date / Time codeine Allergy THROAT Unverified 10/15/17 10:22 CLOSES Iodinated Contrast- Oral and Allergy ITCHES, Unverified 10/15/17 10:22 IV Dye FEELS LIKE SHE IS ON FIRE ketorolac [From Toradol] Allergy Headache Unverified 10/15/17 10:22 ketorolac tromethamine Allergy Headache Verified 12/13/17 09:02 [From Toradol] methocarbamol [From Robaxin] Allergy Headache Unverified 10/15/17 10:22 Penicillins Allergy Swelling Unverified 10/15/17 10:22 OF FACE HAND AND THROAT CLOSES strawberry Allergy Rash Unverified 10/15/17 10:22 aspirin AdvReac Bleeding Verified 01/20/18 19:36 strawberry Allergy Hives Uncoded 12/13/17 09:02 Heart Score - HEART Score History: Slightly suspicious EKG: Non-specific Age: > 65 Risk factors: 1-2 risk factors Troponin: < normal limit HEART Score: 4 - Critical Actions Critical Actions: 4-6 pts:12-16.6% risk of adverse cardiac event. Should be admitted ED Review of Systems ROS: Stated complaint: CP Other details as noted in HPI Comment: All other systems reviewed and negative Constitutional: denies: chills, fever Eyes: denies: eye pain, eye discharge, vision change ENT: denies: ear pain, throat pain Respiratory: shortness of breath. denies: cough Cardiovascular: chest pain. denies: palpitations Gastrointestinal: nausea. denies: abdominal pain, diarrhea Genitourinary: denies: urgency, dysuria, discharge Musculoskeletal: arthralgia. denies: joint swelling Skin: denies: rash, lesions Neurological: denies: headache, weakness, paresthesias ED Past Medical Hx - Past Medical History Previous Medical History?: Yes Hx Hypertension: Yes Hx Heart Attack/AMI: No Hx Congestive Heart Failure: No Hx Diabetes: No Hx Deep Vein Thrombosis: No Hx Pulmonary Embolism: Yes (41yr age) Hx GERD: Yes Hx Sickle Cell Disease: No Hx Arthritis: Yes Hx Headaches / Migraines: Yes (MIGRAINES) Hx Kidney Stones: Yes Hx Asthma: Yes Hx COPD: Yes Hx HIV: No Additional medical history: Fibromyalgia, MVP, peptic ulcers - Surgical History Past Surgical History?: Yes Hx Pacemaker: No Hx Internal Defibrillator: No Hx Cholecystectomy: Yes Additional Surgical History: right wrist metal plate, Right ovarian cyst removal. cataract - Social History Smoking Status: Never Smoker Substance Use Type: None - Medications Home Medications: Home Medications Medication Instructions Recorded Confirmed Last Taken Type Acetaminophen 1,000 mg PO Q6HR PRN #30 tablet 09/16/17 09/18/17 09/17/17 Rx ALBUTEROL Inhaler [ProAir HFA 2 puff IH QID PRN #1 inhalation 09/21/17 Unknown Rx Inhaler] ALBUTEROL NEB's [Proventil 0.083% 2.5 mg IH BID #60 nebu 09/21/17 Unknown Rx NEBS] ALPRAZolam [Xanax TAB] 1 mg PO BID PRN #30 tablet 09/21/17 Unknown Rx Amlodipine Besylate [Norvasc] 5 mg PO QDAY #30 tablet 09/21/17 Unknown Rx Gabapentin [Gralise] 300 mg PO TID #90 tab.er.24h 09/21/17 Unknown Rx methylPREDNISolone [Medrol Dose 4 mg PO QAM #1 tab.ds.pk 09/21/17 Unknown Rx Sriram] Levofloxacin [Levaquin TAB] 750 mg PO QDAY #7 tablet 09/22/17 Unknown Rx HYDROcodone/APAP 5-325 [[place] 1 each PO Q6H PRN #10 tablet 09/29/17 Unknown Rx 5-325 mg TAB] Cyclobenzaprine [Flexeril 10 MG 10 mg PO TID PRN #30 tablet 11/07/17 Unknown Rx TAB] traMADol [Ultram] 50 mg PO Q12H PRN #6 tablet 11/27/17 Unknown Rx Famotidine [Pepcid] 20 mg PO BID #60 tablet 12/14/17 Unknown Rx HYDROcodone/APAP 5-325 [[place] 1 each PO Q6HR PRN #6 tablet 01/10/18 Unknown Rx 5-325 mg TAB] Naproxen [Naprosyn] 500 mg PO BID #30 tablet 01/10/18 Unknown Rx Ondansetron [Zofran ODT TAB] 8 mg PO Q12HR #20 tab.rapdis 01/10/18 Unknown Rx ED Physical Exam - General Limitations: No Limitations - Other Other exam information: GENERAL: The patient is well-developed well-nourished. HENT: Normocephalic. Atraumatic. Patient has moist mucous membranes. EYES: Extraocular motions are intact. Pupils equal reactive to light bilaterally. NECK: Supple. Trachea is midline. CHEST/LUNGS: Clear to auscultation. There is no respiratory distress noted. HEART/CARDIOVASCULAR: Regular. There is no tachycardia. There is no murmur. ABDOMEN: Abdomen is soft, nontender. Patient has normal bowel sounds. There is no abdominal distention. SKIN: Skin is warm and dry. NEURO: The patient is awake, alert, and oriented. The patient is cooperative. The patient has no focal neurologic deficits. The patient has normal speech and gait. MUSCULOSKELETAL: There is some reproducible tenderness to palpation along the left shoulder but no obvious deformity. There is no limitation range of motion. There is no evidence of acute injury. ED Course Vital Signs 01/20/18 01/20/18 01/21/18 19:28 22:24 03:11 Temperature 97.6 F 97.5 F L 97.8 F Pulse Rate 61 54 L 67 Respiratory 18 18 16 Rate Blood Pressure 169/69 195/59 164/84 O2 Sat by Pulse 100 100 Oximetry 01/21/18 01/21/18 01/21/18 05:10 05:15 05:20 Temperature Pulse Rate 60 48 L Respiratory 13 11 L 11 L Rate Blood Pressure 175/67 O2 Sat by Pulse 99 99 Oximetry 01/21/18 01/21/1801/21/18 05:30 05:45 06:01 Temperature Pulse Rate 49 L 49 L 64 Respiratory 15 14 16 Rate Blood Pressure 154/61 157/69 157/69 O2 Sat by Pulse 100 99 98 Oximetry 01/21/18 06:15 Temperature Pulse Rate 63 Respiratory 11 L Rate Blood Pressure 157/69 O2 Sat by Pulse 98 Oximetry JOSE score - Jose Score Age > 65: (1) Yes Aspirin use within the Past 7 Days: (0) No 3 or more CAD Risk Factors: (1) Yes 2 or more Angina events in past 24 hrs: (0) No Known CAD with more than 50% Stenosis: (0) No Elevated Cardiac Markers: (0) No ST Deviation Greater than 0.5mm: (0) No JOSE Score: 2 ED Medical Decision Making - Lab Data Result diagrams: 01/20/18 19:38 01/20/18 19:38 - EKG Data EKG shows normal: sinus rhythm, axis, intervals, QRS complexes (Q waves to the septal and anterior leads), ST-T waves Rate: bradycardia (51 bpm) - EKG Data When compared to previous EKG there are: no significant change Interpretation: unchanged when compared t (12/13/17) - Radiology Data Radiology results: image reviewed interpreted by me: Chest x-ray does not show any acute process. There are no pleural effusions, obvious pneumonia and there is no pneumothorax. X-ray of the left shoulder does not show any fracture, dislocation or any acute process. - Medical Decision Making Patient came in with elevated blood pressure and some left shoulder pain with radiation down the left side of the chest but more laterally over the axilla and rib cage. I do not see any lesions on the skin concerning for shingles. EKG does not show any signs of ST elevation [place] and is unchanged from her previous EKG. Chest and shoulder x-rays were done that did not show any fractures, dislocation, pneumonia, pneumothorax or any other acute process. Labs were mostly unremarkable including negative troponins 2 and a negative d- dimer. The patient had reasonable blood pressure since I have seen her in the emergency department since 6 AM. She has been in the emergency department for many hours and has remained stable and her symptoms have improved. She was just here last month and had a negative echocardiogram and a negative stress test. She has good follow-up with primary care, orthopedics and cardiology. For all these reasons, the patient appears safe for discharge home at this time. I checked the [place] prescription monitoring system and she should have some tramadol available for pain control. She has been encouraged to return to the emergency Department with any worsening of her symptoms or any acute distress. - Differential Diagnosis [place], PE, osteoarthritis, shingles, Critical Care Time: No Critical care attestation.: If time is entered above; I have spent that time in minutes in the direct care of this critically ill patient, excluding procedure time. ED Disposition Clinical Impression: Rib pain on left side Left shoulder pain Qualifiers: Chronicity: unspecified Qualified Code(s): M25.512 - Pain in left shoulder Hypertension Qualifiers: Hypertension type: essential hypertension Qualified Code(s): I10 - Essential ( primary) hypertension Disposition: TO HOME OR SELFCARE Is pt being admited?: No Condition: Stable Instructions: Chest Pain (ED), Hypertension (ED) Additional Instructions: Please follow-up with your primary care physician, orthopedist and statistician applied in the next few days if possible. Return to the emergency Department with any worsening of your symptoms or any acute distress. Referrals: PAT ACOSTA MD [Staff Physician] - 3-5 Days RENÉ CHAVES MD [Staff Physician] - 3-5 Days TEE ROMERO MD [Staff Physician] - 3-5 Days Time of Disposition: 07:48
--- NOTE | 2018-01-21 06:44 | XRay Report ---
FINAL REPORT EXAM: XR CHEST ROUTINE 2V HISTORY: CP TECHNIQUE: PA and lateral views of the chest were submitted. FINDINGS: The heart size and mediastinum appear normal. The lungs are clear. Pleural fluid is not seen. The bones and soft tissues do not show any acute changes. IMPRESSION: No active chest disease.
--- NOTE | 2018-01-21 07:55 | XRay Report ---
LEFT SHOULDER: History: Shoulder pain. Routine views demonstrate normal bony and soft tissue structures with normal joint alignment of the shoulder. Healed or healing left lateral fifth rib fracture is noted. IMPRESSION: Left shoulder within normal limits. No significant change since 12/19/17.
== END 2018-01-21 08:25 | disposition home or self-care (01) ==
LOC: ED 16:54
DX: M25.512 Pain in left shoulder (principal); R07.81 Pleurodynia; I10 Essential (primary) hypertension; K21.9 Gastro-esophageal reflux disease without esophagitis; M19.90 Unspecified osteoarthritis, unspecified site; G43.909 Migraine, unspecified, not intractable, without status migrainosus; J44.9 Chronic obstructive pulmonary disease, unspecified; Z88.6 Allergy status to analgesic agent; Z91.041 Radiographic dye allergy status; Z88.8 Allergy status to other drugs, medicaments and biological substances; Z91.018 Allergy to other foods
CPT/HCPCS: 36415; 71046; 80048; 84484; 85025; 85379; 93005; 93010; 99284

== ENCOUNTER 2018-02-05 15:08 | Emergency (ER) | payer MEDICAID, MEDICARE ==
[2018-02-05 15:36] VITALS: BP 174/89
[2018-02-05 16:19] LABS: Bilirubin,Urine NEG (Negative); Blood,Urine LG (Negative); Color,Urine Yellow (Yellow); Mucus,Urine FEW /HPF; Protein,Urine <15 mg/dL mg/dL (Negative); Urobilinogen,Urine < 2.0 mg/dL (<2.0)
[2018-02-05] MEDS ORDERED: PERCOCET 5/325 PO ONE (19:28)
[2018-02-05] MEDS ORDERED: ZOFRAN ODT PO ONE (19:28)
--- NOTE | 2018-02-05 20:40 | Cat Scan Report ---
FINAL REPORT PROCEDURE: CT ABDOMEN PELVIS WO CON TECHNIQUE: Computerized axial tomography of the abdomen and pelvis was performed without intravenous contrast. This study is performed without intravascular contrast material and its sensitivity for abdominal and pelvic pathology, including neoplasms, inflammation, abscess, free fluid, thrombosis, arterial dissection and infarction, is reduced compared with a contrast enhanced study. HISTORY: hematuria and flank pain (bilateral) COMPARISON: No prior studies are available for comparison. FINDINGS: Lower Lung elizabeth: No focal abnormality seen. Upper Abdomen: Gallbladder appears to be surgically absent. The intrahepatic ducts are not distended. The liver showed no focal abnormality. The adrenal glands, the pancreas and spleen are unremarkable. Kidneys, Ureters and Urinary bladder: There is an 8 millimeter low-density nodule projecting anteriorly from the lower 3rd of the left kidney which appears to represent a small renal cortical cyst.. The kidneys, the ureters and urinary bladder otherwise are unremarkable. No solid masses are seen. No renal or ureteral calculi are visualized. The urinary bladder showed no focal abnormality. Calcifications are seen in the lower pelvis which appear to represent phleboliths. Retroperitoneum: Atherosclerotic changes are seen in the abdominal aorta. No aneurysm is visualized. Nonspecific subcentimeter lymph nodes are seen in the retroperitoneum. No pathologically enlarged lymph nodes are identified. Bowel: Mild to moderate sigmoid diverticulosis is visualized without evidence of diverticulitis. Bowel loops otherwise unremarkable. No evidence of bowel obstruction or ascites. There is no free intraperitoneal gas. Normal-appearing appendix is seen in the right lower quadrant. Small umbilical hernia containing adipose tissue is visualized. No herniated loops of bowel are seen. Reproductive organs: Uterus is visualized in the midline and unremarkable. No abnormal adnexal masses are identified. Other: No acute bony abnormalities are seen. IMPRESSION: No acute abnormalities are identified. Small renal cortical cysts appears to be present on the left. Kidneys ureters and urinary bladder otherwise are unremarkable. Prior cholecystectomy and hysterectomy. Colonic diverticulosis without evidence of diverticulitis..
--- NOTE | 2018-02-05 21:23 | Emergency Department Report ---
ED Abdominal Pain HPI - General Chief Complaint: Abdominal Pain Stated Complaint: LWR ABD PAIN/KIDNEY PAIN Time Seen by Provider: 02/05/18 19:17 Source: patient Mode of arrival: Ambulatory Limitations: No Limitations - History of Present Illness Initial Comments: This is a 67-year-old female nontoxic, well nourished in appearance, no acute signs of distress presents to the ED with c/o of bilateral flank pain that started this morning. Patient describes pain as sharp with level of 8/10. Patient denies any trauma. Patient stated that currently his pain symptoms has subsided in the ED. Patient also stated that he has hematuria. Patient denies any abdominal pain, chest pain, shortness of breath, fever, chills, nausea, vomiting, headache, stiff neck. Patient denies any other urinary symptoms. MD Complaint: flank pain -: This morning Location: L flank, R flank Radiation: none Migration to: no migration Severity: mild Severity scale (0 -10): 4 Quality: cramping Consistency: now resolved Improves With: nothing Worsens With: nothing Associated Symptoms: hematuria. denies: nausea, vomiting, diarrhea, fever, chills, constipation, dysuria, hematemesis, hematochezia, melena, anorexia, syncope - Related Data Previous Rx's Medication Instructions Recorded Last Taken Type Acetaminophen 1,000 mg PO Q6HR PRN #30 tablet 09/16/17 09/17/17 Rx ALBUTEROL Inhaler [ProAir HFA 2 puff IH QID PRN #1 inhalation 09/21/17 Unknown Rx Inhaler] ALBUTEROL NEB's [Proventil 0.083% 2.5 mg IH BID #60 nebu 09/21/17 Unknown Rx NEBS] ALPRAZolam [Xanax TAB] 1 mg PO BID PRN #30 tablet 09/21/17 Unknown Rx Amlodipine Besylate [Norvasc] 5 mg PO QDAY #30 tablet 09/21/17 Unknown Rx Gabapentin [Gralise] 300 mg PO TID #90 tab.er.24h 09/21/17 Unknown Rx methylPREDNISolone [Medrol Dose 4 mg PO QAM #1 tab.ds.pk 09/21/17 Unknown Rx Sriram] Levofloxacin [Levaquin TAB] 750 mg PO QDAY #7 tablet 09/22/17 Unknown Rx HYDROcodone/APAP 5-325 [[place] 1 each PO Q6H PRN #10 tablet 09/29/17 Unknown Rx 5-325 mg TAB] Cyclobenzaprine [Flexeril 10 MG 10 mg PO TID PRN #30 tablet 11/07/17 Unknown Rx TAB] traMADol [Ultram] 50 mg PO Q12H PRN #6 tablet 11/27/17 Unknown Rx Famotidine [Pepcid] 20 mg PO BID #60 tablet 12/14/17 Unknown Rx HYDROcodone/APAP 5-325 [[place] 1 each PO Q6HR PRN #6 tablet 01/10/18 Unknown Rx 5-325 mg TAB] Naproxen [Naprosyn] 500 mg PO BID #30 tablet 01/10/18 Unknown Rx Ondansetron [Zofran ODT TAB] 8 mg PO Q12HR #20 tab.rapdis 01/10/18 Unknown Rx HYDROcodone/ACETAMINOPHEN [[place] 1 each PO Q8H PRN #8 tablet 01/21/18 Unknown Rx 5-325 Tablet] Ciprofloxacin [Ciprofloxacin ORAL 500 mg PO Q12H #14 ml 02/05/18 Unknown Rx LIQ] Allergies Allergy/AdvReac Type Severity Reaction Status Date / Time codeine Allergy THROAT Unverified 10/15/17 10:22 CLOSES Iodinated Contrast- Oral and Allergy ITCHES, Unverified 10/15/17 10:22 IV Dye FEELS LIKE SHE IS ON FIRE ketorolac [From Toradol] Allergy Headache Unverified 10/15/17 10:22 ketorolac tromethamine Allergy Headache Verified 12/13/17 09:02 [From Toradol] methocarbamol [From Robaxin] Allergy Headache Unverified 10/15/17 10:22 Penicillins Allergy Swelling Unverified 10/15/17 10:22 OF FACE HAND AND THROAT CLOSES strawberry Allergy Rash Unverified 10/15/17 10:22 aspirin AdvReac Bleeding Verified 01/20/18 19:36 strawberry Allergy Hives Uncoded 12/13/17 09:02 ED Review of Systems ROS: Stated complaint: LWR ABD PAIN/KIDNEY PAIN Other details as noted in HPI Constitutional: denies: chills, fever Eyes: denies: eye pain, eye discharge, vision change ENT: denies: ear pain, throat pain Respiratory: denies: cough, shortness of breath, wheezing Cardiovascular: denies: chest pain, palpitations Endocrine: no symptoms reported Gastrointestinal: denies: abdominal pain, nausea, diarrhea Genitourinary: hematuria. denies: urgency, dysuria, discharge Musculoskeletal: back pain. denies: joint swelling, arthralgia Skin: denies: rash, lesions Neurological: denies: headache, weakness, paresthesias Psychiatric: denies: anxiety, depression Hematological/Lymphatic: denies: easy bleeding, easy bruising ED Past Medical Hx - Past Medical History Previous Medical History?: Yes Hx Hypertension: Yes Hx Heart Attack/AMI: No Hx Congestive Heart Failure: No Hx Diabetes: No Hx Deep Vein Thrombosis: No Hx Pulmonary Embolism: Yes (41yr age) Hx GERD: Yes Hx Sickle Cell Disease: No Hx Arthritis: Yes Hx Headaches / Migraines: Yes (MIGRAINES) Hx Kidney Stones: Yes Hx Asthma: Yes Hx COPD: Yes Hx HIV: No Additional medical history: Fibromyalgia, MVP, peptic ulcers - Surgical History Past Surgical History?: Yes Hx Pacemaker: No Hx Internal Defibrillator: No Hx Cholecystectomy: Yes Additional Surgical History: right wrist metal plate, Right ovarian cyst removal. cataract - Social History Smoking Status: Never Smoker Substance Use Type: None - Medications Home Medications: Home Medications Medication Instructions Recorded Confirmed Last Taken Type Acetaminophen 1,000 mg PO Q6HR PRN #30 tablet 09/16/17 09/18/17 09/17/17 Rx ALBUTEROL Inhaler [ProAir HFA 2 puff IH QID PRN #1 inhalation 09/21/17 Unknown Rx Inhaler] ALBUTEROL NEB's [Proventil 0.083% 2.5 mg IH BID #60 nebu 09/21/17 Unknown Rx NEBS] ALPRAZolam [Xanax TAB] 1 mg PO BID PRN #30 tablet 09/21/17 Unknown Rx Amlodipine Besylate [Norvasc] 5 mg PO QDAY #30 tablet 09/21/17 Unknown Rx Gabapentin [Gralise] 300 mg PO TID #90 tab.er.24h 09/21/17 Unknown Rx methylPREDNISolone [Medrol Dose 4 mg PO QAM #1 tab.ds.pk 09/21/17 Unknown Rx Sriram] Levofloxacin [Levaquin TAB] 750 mg PO QDAY #7 tablet 09/22/17 Unknown Rx HYDROcodone/APAP 5-325 [[place] 1 each PO Q6H PRN #10 tablet 09/29/17 Unknown Rx 5-325 mg TAB] Cyclobenzaprine [Flexeril 10 MG 10 mg PO TID PRN #30 tablet 11/07/17 Unknown Rx TAB] traMADol [Ultram] 50 mg PO Q12H PRN #6 tablet 11/27/17 Unknown Rx Famotidine [Pepcid] 20 mg PO BID #60 tablet 12/14/17 Unknown Rx HYDROcodone/APAP 5-325 [[place] 1 each PO Q6HR PRN #6 tablet 01/10/18 Unknown Rx 5-325 mg TAB] Naproxen [Naprosyn] 500 mg PO BID #30 tablet 01/10/18 Unknown Rx Ondansetron [Zofran ODT TAB] 8 mg PO Q12HR #20 tab.rapdis 01/10/18 Unknown Rx HYDROcodone/ACETAMINOPHEN [[place] 1 each PO Q8H PRN #8 tablet 01/21/18 Unknown Rx 5-325 Tablet] Ciprofloxacin [Ciprofloxacin ORAL 500 mg PO Q12H #14 ml 02/05/18 Unknown Rx LIQ] ED Physical Exam - General Limitations: No Limitations General appearance: alert, in no apparent distress - Head Head exam: Present: atraumatic, normocephalic - Eye Eye exam: Present: normal appearance Pupils: Present: normal accommodation - ENT ENT exam: Present: normal exam, mucous membranes moist - Neck Neck exam: Present: normal inspection, full ROM - Respiratory Respiratory exam: Present: normal lung sounds bilaterally. Absent: respiratory distress, wheezes, rales, rhonchi, stridor, chest wall tenderness, accessory muscle use, decreased breath sounds, prolonged expiratory - Cardiovascular Cardiovascular Exam: Present: regular rate, normal rhythm, normal heart sounds. Absent: irregular rhythm, systolic murmur, diastolic murmur, rubs, gallop - GI/Abdominal GI/Abdominal exam: Present: soft, normal bowel sounds. Absent: distended, tenderness, guarding, rebound, rigid, diminished bowel sounds - Rectal Rectal exam: Present: deferred - Extremities Exam Extremities exam: Present: normal inspection, full ROM, normal capillary refill - Back Exam Back exam: Present: normal inspection, full ROM, CVA tenderness (R), CVA tenderness (L). Absent: tenderness, muscle spasm, paraspinal tenderness, vertebral tenderness, rash noted - Neurological Exam Neurological exam: Present: alert, oriented X3, normal gait - Psychiatric Psychiatric exam: Present: normal affect, normal mood - Skin Skin exam: Present: warm, dry, intact, normal color. Absent: rash ED Course Vital Signs 02/05/18 15:23 Temperature 97.8 F Pulse Rate 85 Respiratory 18 Rate Blood Pressure 174/89 O2 Sat by Pulse 98 Oximetry - Reevaluation(s) Reevaluation #1: 02/05/18 21:48 Patient is speaking in full sentences with no signs of distress noted. - Consultations Consultation #1: 02/05/18 21:48 Patient has been consulted with Dr. Thompson about patient history, physical exam , and labs and examined and screened patient and agrees to ED plan of care and discharge plan of care. ED Medical Decision Making - Medical Decision Making This is a 67-year-old female that presents with bilateral flank pain and hematuria area with possible UTI. Patient is stable and was examined by me and Dr. Thompson. CT obtained and dictated by the radiologist. I will treat patient with ciprofloxacin. Currently patient denies any flank pain and she stated it is subsided. Patient is discharged with Motrin. Patient was referred to Follow -up with a primary care doctor in 3-5 days or if symptoms worsen and continue return to emergency room as soon as possible. At time of discharge, the patient does not seem toxic or ill in appearance. No acute signs of distress noted. Patient agrees to discharge treatment plan of care. No further questions noted by the patient. Critical care attestation.: If time is entered above; I have spent that time in minutes in the direct care of this critically ill patient, excluding procedure time. ED Disposition Clinical Impression: Flank pain UTI (urinary tract infection) Qualifiers: Urinary tract infection type: site unspecified Hematuria presence: with hematuria Qualified Code(s): N39.0 - Urinary tract infection, site not specified ; R31.9 - Hematuria, unspecified Disposition: DC-01 TO HOME OR SELFCARE Is pt being admited?: No Does the pt Need Aspirin: No Condition: Stable Instructions: Urinary Tract Infection in Women (ED), Ciprofloxacin (By mouth) Additional Instructions: Follow-up with a primary care doctor in 3-5 days or if symptoms worsen and continue return to emergency room as soon as possible. Prescriptions: Ciprofloxacin [Ciprofloxacin ORAL LIQ] 500 mg PO Q12H #14 ml Referrals: PRIMARY CARE, [Primary Care Provider] - 3-5 Days PAT SYKES MD [Staff Physician] - 3-[address] [facility] [Outside] - 3-5 Days [facility] [Outside] - 3-5 Days Forms: Work/School Release Form(ED)
== END 2018-02-05 22:00 | disposition home or self-care (01) ==
LOC: ED 15:08
DX: N39.0 Urinary tract infection, site not specified (principal); I10 Essential (primary) hypertension; K21.9 Gastro-esophageal reflux disease without esophagitis; G43.909 Migraine, unspecified, not intractable, without status migrainosus; J44.9 Chronic obstructive pulmonary disease, unspecified; Z88.6 Allergy status to analgesic agent; Z91.041 Radiographic dye allergy status; Z88.0 Allergy status to penicillin; Z88.8 Allergy status to other drugs, medicaments and biological substances; Z91.018 Allergy to other foods
CPT/HCPCS: 74176; 81001; 87086; 99284; Q0162

== ENCOUNTER 2018-02-15 12:27 | Emergency (ER) | payer MEDICARE ==
--- NOTE | 2018-02-15 14:18 | Emergency Department Report ---
ED Lower Extremity HPI - General Chief Complaint: Extremity Injury, Lower Stated Complaint: LEFT FOOT PAIN Time Seen by Provider: 02/15/18 13:53 Source: patient Mode of arrival: Ambulatory Limitations: No Limitations - History of Present Illness Initial Comments: This is a 67 y.o. female that presents with left ankle pain from twisting foot yesterday on curb. Patient reports stepping out of car yesterday and missing the curb. She felt her foot twist outward and she fell to the ground. She is going to Dr. Gupta at [facility] next Saturday but don't think she can deal with the pain until then. The pain is worse with weight bearing and touch on the lateral side of left ankle and the top of left foot. She soaked foot last night in [place] salt and applied ice with no improvement of pain. Denies numbness , tingling, swelling, deformity, LOC, and redness. MD Complaint: ankle injury (left) -: Last night Injury: Ankle: Left, Foot: Left Type of Injury: eversion Place: street/outdoors Severity: moderate Severity scale (0 -10): 8 Improves With: nothing Worsens With: weight bearing, movement, palpation Context: fall Associated Symptoms: able to partially bear weight, ambulatory. denies: snap/ pop sensation, swelling, numbness, tingling, unable to bear weight Treatments Prior to Arrival: cold therapy - Related Data Previous Rx's Medication Instructions Recorded Last Taken Type Acetaminophen 1,000 mg PO Q6HR PRN #30 tablet 09/16/17 09/17/17 Rx ALBUTEROL Inhaler [ProAir HFA 2 puff IH QID PRN #1 inhalation 09/21/17 Unknown Rx Inhaler] ALBUTEROL NEB's [Proventil 0.083% 2.5 mg IH BID #60 nebu 09/21/17 Unknown Rx NEBS] ALPRAZolam [Xanax TAB] 1 mg PO BID PRN #30 tablet 09/21/17 Unknown Rx Amlodipine Besylate [Norvasc] 5 mg PO QDAY #30 tablet 09/21/17 Unknown Rx Gabapentin [Gralise] 300 mg PO TID #90 tab.er.24h 09/21/17 Unknown Rx methylPREDNISolone [Medrol Dose 4 mg PO QAM #1 tab.ds.pk 09/21/17 Unknown Rx Sriram] Levofloxacin [Levaquin TAB] 750 mg PO QDAY #7 tablet 09/22/17 Unknown Rx HYDROcodone/APAP 5-325 [[place] 1 each PO Q6H PRN #10 tablet 09/29/17 Unknown Rx 5-325 mg TAB] Cyclobenzaprine [Flexeril 10 MG 10 mg PO TID PRN #30 tablet 11/07/17 Unknown Rx TAB] traMADol [Ultram] 50 mg PO Q12H PRN #6 tablet 11/27/17 Unknown Rx Famotidine [Pepcid] 20 mg PO BID #60 tablet 12/14/17 Unknown Rx HYDROcodone/APAP 5-325 [[place] 1 each PO Q6HR PRN #6 tablet 01/10/18 Unknown Rx 5-325 mg TAB] Naproxen [Naprosyn] 500 mg PO BID #30 tablet 01/10/18 Unknown Rx Ondansetron [Zofran ODT TAB] 8 mg PO Q12HR #20 tab.rapdis 01/10/18 Unknown Rx HYDROcodone/ACETAMINOPHEN [[place] 1 each PO Q8H PRN #8 tablet 01/21/18 Unknown Rx 5-325 Tablet] Ciprofloxacin [Ciprofloxacin ORAL 500 mg PO Q12H #14 ml 02/05/18 Unknown Rx LIQ] traMADol [Ultram 50 MG tab] 50 mg PO Q6HR PRN #10 tablet 02/15/18 Unknown Rx Allergies Allergy/AdvReac Type Severity Reaction Status Date / Time codeine Allergy THROAT Verified 02/15/18 12:29 CLOSES Iodinated Contrast- Oral and Allergy ITCHES, Verified 02/15/18 12:29 IV Dye FEELS LIKE SHE IS ON FIRE ketorolac [From Toradol] Allergy Headache Verified 02/15/18 12:29 ketorolac tromethamine Allergy Headache Verified 02/15/18 12:29 [From Toradol] methocarbamol [From Robaxin] Allergy Headache Verified 02/15/18 12:29 Penicillins Allergy Swelling Verified 02/15/18 12:29 OF FACE HAND AND THROAT CLOSES strawberry Allergy Rash Verified 02/15/18 12:29 aspirin AdvReac Bleeding Verified 02/15/18 12:29 strawberry Allergy Hives Uncoded 12/13/17 09:02 ED Review of Systems ROS: Stated complaint: LEFT FOOT PAIN Other details as noted in HPI Constitutional: denies: chills, fever Respiratory: denies: cough, shortness of breath, wheezing Cardiovascular: denies: chest pain, palpitations Gastrointestinal: denies: abdominal pain, nausea, diarrhea Musculoskeletal: arthralgia (left foot and left ankle pain). denies: back pain , joint swelling Skin: denies: rash, lesions Neurological: denies: headache, weakness, numbness, paresthesias Psychiatric: denies: anxiety, depression ED Past Medical Hx - Past Medical History Hx Hypertension: Yes Hx Heart Attack/AMI: No Hx Congestive Heart Failure: No Hx Diabetes: No Hx Deep Vein Thrombosis: No Hx Pulmonary Embolism: Yes (41yr age) Hx GERD: Yes Hx Sickle Cell Disease: No Hx Arthritis: Yes Hx Headaches / Migraines: Yes (MIGRAINES) Hx Kidney Stones: Yes Hx Asthma: Yes Hx COPD: Yes Hx HIV: No Additional medical history: Fibromyalgia, MVP, peptic ulcers - Surgical History Hx Pacemaker: No Hx Internal Defibrillator: No Hx Cholecystectomy: Yes Additional Surgical History: right wrist metal plate, Right ovarian cyst removal. cataract - Social History Smoking Status: Never Smoker Substance Use Type: None - Medications Home Medications: Home Medications Medication Instructions Recorded Confirmed Last Taken Type Acetaminophen 1,000 mg PO Q6HR PRN #30 tablet 09/16/17 09/18/17 09/17/17 Rx ALBUTEROL Inhaler [ProAir HFA 2 puff IH QID PRN #1 inhalation 09/21/17 Unknown Rx Inhaler] ALBUTEROL NEB's [Proventil 0.083% 2.5 mg IH BID #60 nebu 09/21/17 Unknown Rx NEBS] ALPRAZolam [Xanax TAB] 1 mg PO BID PRN #30 tablet 09/21/17 Unknown Rx Amlodipine Besylate [Norvasc] 5 mg PO QDAY #30 tablet 09/21/17 Unknown Rx Gabapentin [Gralise] 300 mg PO TID #90 tab.er.24h 09/21/17 Unknown Rx methylPREDNISolone [Medrol Dose 4 mg PO QAM #1 tab.ds.pk 09/21/17 Unknown Rx Sriram] Levofloxacin [Levaquin TAB] 750 mg PO QDAY #7 tablet 09/22/17 Unknown Rx HYDROcodone/APAP 5-325 [[place] 1 each PO Q6H PRN #10 tablet 09/29/17 Unknown Rx 5-325 mg TAB] Cyclobenzaprine [Flexeril 10 MG 10 mg PO TID PRN #30 tablet 11/07/17 Unknown Rx TAB] traMADol [Ultram] 50 mg PO Q12H PRN #6 tablet 11/27/17 Unknown Rx Famotidine [Pepcid] 20 mg PO BID #60 tablet 12/14/17 Unknown Rx HYDROcodone/APAP 5-325 [[place] 1 each PO Q6HR PRN #6 tablet 01/10/18 Unknown Rx 5-325 mg TAB] Naproxen [Naprosyn] 500 mg PO BID #30 tablet 01/10/18 Unknown Rx Ondansetron [Zofran ODT TAB] 8 mg PO Q12HR #20 tab.rapdis 01/10/18 Unknown Rx HYDROcodone/ACETAMINOPHEN [[place] 1 each PO Q8H PRN #8 tablet 01/21/18 Unknown Rx 5-325 Tablet] Ciprofloxacin [Ciprofloxacin ORAL 500 mg PO Q12H #14 ml 02/05/18 Unknown Rx LIQ] traMADol [Ultram 50 MG tab] 50 mg PO Q6HR PRN #10 tablet 02/15/18 Unknown Rx ED Physical Exam - General Limitations: No Limitations General appearance: alert, in no apparent distress - Respiratory Respiratory exam: Present: normal lung sounds bilaterally. Absent: respiratory distress, wheezes, rales, rhonchi, stridor, accessory muscle use, decreased breath sounds - Cardiovascular Cardiovascular Exam: Present: regular rate, normal rhythm, normal heart sounds. Absent: systolic murmur, diastolic murmur, rubs, gallop - GI/Abdominal GI/Abdominal exam: Present: soft, normal bowel sounds. Absent: distended, tenderness, guarding, rebound, rigid, organomegaly, mass - Extremities Exam Extremities exam: Present: normal inspection, full ROM, normal capillary refill. Absent: pedal edema, joint swelling, calf tenderness - Expanded Lower Extremity Exam Left Hip exam: Present: normal inspection, full ROM Upper Leg exam: Present: normal inspection, full ROM Knee exam: Present: normal inspection, full ROM Lower Leg exam: Present: normal inspection, full ROM Ankle exam: Present: full ROM, tenderness (tenderness to deep palpation on lateral). Absent: swelling, abrasion, laceration, ecchymosis, deformity, crepidus, dislocation, erythema, anterior draw sign Foot/Toe exam: Present: normal inspection, full ROM. Absent: tenderness, swelling, abrasion, laceration, ecchymosis, deformity, crepidus, erythema, foreign body Neuro vascular tendon exam: Present: no vascular compromise Gait: Positive: observed and limited by pain - Neurological Exam Neurological exam: Present: alert, oriented X3 - Psychiatric Psychiatric exam: Present: normal affect, normal mood - Skin Skin exam: Present: warm, dry, intact, normal color. Absent: rash ED Course Vital Signs 02/15/18 02/15/18 12:29 16:06 Temperature 97.5 F L Pulse Rate 76 61 Respiratory 18 Rate Blood Pressure 171/78 177/62 O2 Sat by Pulse 98 100 Oximetry ED Lower Extremity MDM - Radiology Data Radiology results: report reviewed XR of left foot: No acute soft tissue or bony abnormality noted. No interval change. XR of left ankle: No acute bony abnormality noted. Mild soft tissue swelling in the medial malleolus. - Medical Decision Making This is a 67 y.o. female that presents with left ankle and foot pain from fall last night. Patient is stable and examined by me. Xray of left ankle and foot obtained and read by radiologist. No acute signs of distress noted. XR of left foot: No acute soft tissue or bony abnormality noted. No interval change. XR of left ankle: No acute bony abnormality noted. Mild soft tissue swelling in the medial malleolus. Given tramadol 50 mg po once in ER. Applied sloane wrap and post op shoe to Left ankle and foot. Discussed results with patient and start tramadol 50 mg po q6h for pain #10. F/U with PCP in 2-3 days for ankle sprain. Critical care attestation.: If time is entered above; I have spent that time in minutes in the direct care of this critically ill patient, excluding procedure time. ED Disposition Clinical Impression: Sprain and strain of deltoid (ligament) of ankle Qualifiers: Encounter type: initial encounter Laterality: left Qualified Code(s): S93.422A - Sprain of deltoid ligament of left ankle, initial encounter Disposition: TO HOME OR SELFCARE Is pt being admited?: No Does the pt Need Aspirin: No Condition: Stable Instructions: Ankle Sprain (ED) Additional Instructions: Rest Use ice or heat on affected area for 20 minutes and off for 2 hours. Take pain medication as needed for pain. Follow up with Primary Care Provider in 2-3 days. Prescriptions: traMADol [Ultram 50 MG tab] 50 mg PO Q6HR PRN #10 tablet PRN Reason: Pain Referrals: PRIMARY CARE, [Primary Care Provider] - 3-5 Days [facility] [Outside] - 3-5 Days [facility] [Outside] - 3-5 Days [facility] [Outside] - 3-5 Days Time of Disposition: 16:44 Print Language: GHANAIAN
--- NOTE | 2018-02-15 16:07 | XRay Report ---
FINAL REPORT EXAM: XR ANKLE 3+V LT HISTORY: left ankle pain, s/p fall TECHNIQUE: AP, lateral, and oblique views of the left ankle PRIORS: None. FINDINGS: There is no evidence for acute fracture or dislocation. There is mild soft tissue swelling in the medial malleolus. No radiopaque foreign bodies are seen. The ankle mortise is intact. Bony mineralization is normal and joint spaces are maintained. Spurring off the posterior and plantar aspects of the calcaneus is seen. IMPRESSION: No acute bony abnormality noted. Mild soft tissue swelling in the medial malleolus.
--- NOTE | 2018-02-15 16:10 | XRay Report ---
FINAL REPORT EXAM: XR FOOT 3+V LT HISTORY: left foot pain s/p fall TECHNIQUE: AP, lateral, and oblique views of the left foot PRIORS: X-rays left foot 12/19/2017 FINDINGS: There is no evidence for acute fracture or dislocation. No soft tissue swelling or radiopaque foreign bodies are seen. Bony mineralization is normal. Joint spaces are maintained. Spurring off the plantar and posterior aspects of the calcaneus is again noted. IMPRESSION: No acute soft tissue or bony abnormality noted. No interval change.
[2018-02-15 16:13] VITALS: BP 177/62
[2018-02-15] MEDS ORDERED: ULTRAM ONE (16:36)
[2018-02-15] MEDS ORDERED: ULTRAM PO ONE (16:36)
== END 2018-02-15 16:56 | disposition home or self-care (01) ==
LOC: ED 12:27
DX: S93.422A Sprain of deltoid ligament of left ankle, initial encounter (principal); I10 Essential (primary) hypertension; K21.9 Gastro-esophageal reflux disease without esophagitis; J44.9 Chronic obstructive pulmonary disease, unspecified; W18.39XA Other fall on same level, initial encounter; Y93.89 Activity, other specified; Y92.89 Other specified places as the place of occurrence of the external cause; Y99.8 Other external cause status

== ENCOUNTER 2018-04-01 15:58 | Emergency (ER) | payer MEDICARE ==
[2018-04-01] MEDS ORDERED: ULTRAM PO ONE (17:32)
--- NOTE | 2018-04-01 17:32 | Emergency Department Report ---
HPI - General Chief Complaint: Extremity Injury, Lower Time Seen by Provider: 04/01/18 17:20 - HPI HPI: 67-year-old female presents to the emergency department via EMS from home with a complaint of left foot pain that is postsurgical after she had some type of surgery done [address] Kevin Contreras of [facility]. Patient says that she has a surgery in which they "took out part of my Achilles, part of my heel and I think a ganglion cyst." She says she has been using some type of chair or scooter to get around since this surgery but has trouble using that to take care of her ADLs. She says that she contacted the orthopedic group and was told to come to the emergency department. She denies any fever but says that she had some chills earlier today. She says that her pain is not controlled but there is a prescription seen from 03/26/18 which the patient filled 40 Percocet seen on the [place] prescription monitoring service. She also has a past medical history of asthma, COPD, GERD, migraine headaches, hypertension, fibromyalgia. ED Past Medical Hx - Past Medical History Previous Medical History?: Yes Hx Hypertension: Yes Hx Heart Attack/AMI: No Hx Congestive Heart Failure: No Hx Diabetes: No Hx Deep Vein Thrombosis: No Hx Pulmonary Embolism: Yes (41yr age) Hx GERD: Yes Hx Sickle Cell Disease: No Hx Arthritis: Yes Hx Headaches / Migraines: Yes (MIGRAINES) Hx Kidney Stones: Yes Hx Asthma: Yes Hx COPD: Yes Hx HIV: No Additional medical history: Fibromyalgia, MVP, peptic ulcers - Surgical History Past Surgical History?: Yes Hx Pacemaker: No Hx Internal Defibrillator: No Hx Cholecystectomy: Yes Additional Surgical History: right wrist metal plate, Right ovarian cyst removal. cataract - Social History Smoking Status: Never Smoker - Medications Home Medications: Home Medications Medication Instructions Recorded Confirmed Last Taken Type Acetaminophen 1,000 mg PO Q6HR PRN #30 tablet 09/16/17 09/18/17 09/17/17 Rx ALBUTEROL Inhaler [ProAir HFA 2 puff IH QID PRN #1 inhalation 09/21/17 Unknown Rx Inhaler] ALBUTEROL NEB's [Proventil 0.083% 2.5 mg IH BID #60 nebu 09/21/17 Unknown Rx NEBS] ALPRAZolam [Xanax TAB] 1 mg PO BID PRN #30 tablet 09/21/17 Unknown Rx Amlodipine Besylate [Norvasc] 5 mg PO QDAY #30 tablet 09/21/17 Unknown Rx Gabapentin [Gralise] 300 mg PO TID #90 tab.er.24h 09/21/17 Unknown Rx methylPREDNISolone [Medrol Dose 4 mg PO QAM #1 tab.ds.pk 09/21/17 Unknown Rx Sriram] Levofloxacin [Levaquin TAB] 750 mg PO QDAY #7 tablet 09/22/17 Unknown Rx HYDROcodone/APAP 5-325 [[place] 1 each PO Q6H PRN #10 tablet 09/29/17 Unknown Rx 5-325 mg TAB] Cyclobenzaprine [Flexeril 10 MG 10 mg PO TID PRN #30 tablet 11/07/17 Unknown Rx TAB] traMADol [Ultram] 50 mg PO Q12H PRN #6 tablet 11/27/17 Unknown Rx Famotidine [Pepcid] 20 mg PO BID #60 tablet 12/14/17 Unknown Rx HYDROcodone/APAP 5-325 [[place] 1 each PO Q6HR PRN #6 tablet 01/10/18 Unknown Rx 5-325 mg TAB] Naproxen [Naprosyn] 500 mg PO BID #30 tablet 01/10/18 Unknown Rx Ondansetron [Zofran ODT TAB] 8 mg PO Q12HR #20 tab.rapdis 01/10/18 Unknown Rx HYDROcodone/ACETAMINOPHEN [[place] 1 each PO Q8H PRN #8 tablet 01/21/18 Unknown Rx 5-325 Tablet] Ciprofloxacin [Ciprofloxacin ORAL 500 mg PO Q12H #14 ml 02/05/18 Unknown Rx LIQ] traMADol [Ultram 50 MG tab] 50 mg PO Q6HR PRN #10 tablet 02/15/18 Unknown Rx ED Review of Systems ROS: Stated complaint: LT FOOT PAIN Other details as noted in HPI Comment: All other systems reviewed and negative Constitutional: denies: chills, fever Eyes: denies: eye pain, eye discharge, vision change ENT: denies: ear pain, throat pain Respiratory: denies: cough, shortness of breath, wheezing Cardiovascular: denies: chest pain, palpitations Gastrointestinal: denies: abdominal pain, nausea, diarrhea Genitourinary: denies: urgency, dysuria, discharge Musculoskeletal: arthralgia. denies: back pain Skin: denies: rash, lesions Neurological: denies: headache, weakness, paresthesias Physical Exam - Physical Exam Vital Signs: Vital Signs 04/01/18 16:33 Temperature 98.3 F Pulse Rate 84 Respiratory 15 Rate Blood Pressure 132/74 [Right] O2 Sat by Pulse 98 Oximetry Physical Exam: GENERAL: The patient is well-developed well-nourished. HENT: Normocephalic. Atraumatic. Patient has moist mucous membranes. EYES: Extraocular motions are intact. Pupils equal reactive to light bilaterally. NECK: Supple. Trachea is midline. CHEST/LUNGS: Clear to auscultation. There is no respiratory distress noted. HEART/CARDIOVASCULAR: Regular. There is no tachycardia. There is no murmur. ABDOMEN: Abdomen is soft, nontender. Patient has normal bowel sounds. There is no abdominal distention. SKIN: Skin is warm and dry. NEURO: The patient is awake, alert, and oriented. The patient is cooperative. The patient has no focal neurologic deficits. The patient has normal speech. MUSCULOSKELETAL: There is tenderness palpation to the left foot which is in a splint. Cap refill of less than 2 seconds to the toes of the left foot. Palpable +2 over 4 left dorsalis pedis pulse. ED Course Vital Signs 04/01/18 16:33 Temperature 98.3 F Pulse Rate 84 Respiratory 15 Rate Blood Pressure 132/74 [Right] O2 Sat by Pulse 98 Oximetry - Consultations Consultation #1: I [facility] Dr Ba, who listened to the case presentation including the lab and imaging results and the patient's status and agrees that the patient can be discharged home to follow up with Dr. Contreras tomorrow in the office. 04/01/18 19:46 - Pulse Oximetry Interpretation Digit-Finger Initial Pulse Oximetry Readin O2 Sat by Pulse Oximetry: 94 Actions Taken: none Additional Comments: normal ED Medical Decision Making - Lab Data Result diagrams: 04/01/18 17:42 04/01/18 17:42 - Radiology Data Radiology results: image reviewed interpreted by me: X-ray of the left foot and ankle does not show any acute process including no fracture, dislocation. - Medical Decision Making The patient is a few days postop from some type of surgery on her left foot. There is no leukocytosis and she has a normal metabolic panel. X-ray of the left foot and ankle do not show any acute process. Vital signs stable including being afebrile. The patient has or should have pain medication as per the [place] prescription monitoring system. I spoke with the orthopedic surgeon pressure control supervisor for her orthopedic service, Dr. Ba, who agrees the patient appears safe for discharge home and that she can follow up tomorrow with Dr. Contreras in the office. All the labs and imaging results were discussed with the patient and the plan for follow-up tomorrow and she understands and agrees to the plan. - Differential Diagnosis compartment syndrome, cellulitis, fracture, postop pain Critical Care Time: No Critical care attestation.: If time is entered above; I have spent that time in minutes in the direct care of this critically ill patient, excluding procedure time. ED Disposition Clinical Impression: Left foot pain, Post-operative pain Disposition: DC-01 TO HOME OR SELFCARE Is pt being admited?: No Condition: Stable Instructions: Arthralgia (ED) Additional Instructions: Please follow up with Dr Contreras tomorrow in the office. Call prior to showing up but they are expecting you as we spoke with Dr Ba this evening. Return to the emergency Department with any worsening of your symptoms or any acute distress. Referrals: KEVIN CONTRERAS MD [Staff Physician] - 04/02/18 Time of Disposition: 19:48
[2018-04-01 17:59] LABS: Basophils # (Auto) 0.1 K/mm3 (0.0-0.1); Basophils % (Auto) 0.8 % (0.0-1.8); Eosinophils # (Auto) 0.1 K/mm3 (0.0-0.4); Eosinophils % (Auto) 1.4 % (0.0-4.3); Hematocrit 38.5 % (30.3-42.9); Hemoglobin 12.3 gm/dl (10.1-14.3); Lymphocytes # (Auto) 1.6 K/mm3 (1.2-5.4); Lymphocytes % (Auto) 22.6 % (13.4-35.0); Mean Corpuscular HGB Conc 32 % (30-34); Mean Corpuscular Hemoglobin 27 pg (28-32); Mean Corpuscular Volume 86 fl (79-97); Monocytes # (Auto) 0.8 K/mm3 (0.0-0.8); Monocytes % (Auto) 11.2 % (0.0-7.3); Platelet Count 260 K/mm3 (140-440); Red Cell Distribution Width 14.9 % (13.2-15.2)
[2018-04-01 18:02] LABS: BUN/Creatinine Ratio 18; Blood Urea Nitrogen 11 mg/dL (7-17); Calcium 9.2 mg/dL (8.4-10.2); Hemolysis Index 27
--- NOTE | 2018-04-01 18:35 | XRay Report ---
FINAL REPORT PROCEDURE: XR FOOT 3+V LT TECHNIQUE: Left foot, three views HISTORY: left foot pain COMPARISON: 02/15/2018 FINDINGS: There are three views of the left foot through splint material, which limits evaluation of bony details. No acute osseous abnormality is seen. No fracture or dislocation is visible. IMPRESSION: No acute osseous abnormality is identified, although there is limited evaluation of bony details.
--- NOTE | 2018-04-01 19:05 | XRay Report ---
FINAL REPORT PROCEDURE: XR ANKLE 3+V LT TECHNIQUE: Left ankle, three views HISTORY: left ankle pain COMPARISON: 02/15/2018 FINDINGS: Three views of the left ankle were submitted through splint material. This limits evaluation of bony details, however no acute fracture or dislocation is visible. Ankle mortise appears intact. IMPRESSION: No osseous abnormality is seen, although there is limited evaluation of bony details due to overlying splint material
[2018-04-01 19:35] VITALS: BP 137/66
== END 2018-04-01 20:26 | disposition home or self-care (01) ==
LOC: ED 15:58
DX: G89.18 Other acute postprocedural pain (principal); I10 Essential (primary) hypertension; K21.9 Gastro-esophageal reflux disease without esophagitis; M19.90 Unspecified osteoarthritis, unspecified site; G43.909 Migraine, unspecified, not intractable, without status migrainosus; J44.9 Chronic obstructive pulmonary disease, unspecified
CPT/HCPCS: 36415; 80048; 85025; 99283

== ENCOUNTER 2018-04-02 06:07 | Emergency (ER) | payer MEDICARE ==
--- NOTE | 2018-04-02 10:27 | Emergency Department Report ---
ED Fall HPI - General Chief Complaint: Extremity Injury, Lower Stated Complaint: LT FOOT PAIN Time Seen by Provider: 04/02/18 10:11 Source: patient Mode of arrival: Ambulatory - History of Present Illness Initial Comments: Patient is 67-year-old female history of COPD and asthma with recent left foot surgery. She was seen here last night for left foot pain evaluated by my colleague Dr. Paula. He discuss the patient with orthopedics Dr. Gutierrez. patient's to have an appointment with him this morning but she decided to come here today because she stated that she fell last night and hit her head and right chest. Patient denied any loss of consciousness, neck pain or injury, abdominal pain or injury, no focal weakness or numbness or tingling sensation. No bowel or bladder incontinence. MD Complaint: fall -: Last night Fall From: standing When Fall Occurred: [address] Fall Occurred: home Loss of Consciousness: none Prolonged Down Time?: no Symptoms Prior to Fall: none Location: head, chest Context: tripped/slipped - Related Data Previous Rx's Medication Instructions Recorded Last Taken Type Acetaminophen 1,000 mg PO Q6HR PRN #30 tablet 09/16/17 09/17/17 Rx ALBUTEROL Inhaler [ProAir HFA 2 puff IH QID PRN #1 inhalation 09/21/17 Unknown Rx Inhaler] ALBUTEROL NEB's [Proventil 0.083% 2.5 mg IH BID #60 nebu 09/21/17 Unknown Rx NEBS] ALPRAZolam [Xanax TAB] 1 mg PO BID PRN #30 tablet 09/21/17 Unknown Rx Amlodipine Besylate [Norvasc] 5 mg PO QDAY #30 tablet 09/21/17 Unknown Rx Gabapentin [Gralise] 300 mg PO TID #90 tab.er.24h 09/21/17 Unknown Rx methylPREDNISolone [Medrol Dose 4 mg PO QAM #1 tab.ds.pk 09/21/17 Unknown Rx Sriram] Levofloxacin [Levaquin TAB] 750 mg PO QDAY #7 tablet 09/22/17 Unknown Rx HYDROcodone/APAP 5-325 [[place] 1 each PO Q6H PRN #10 tablet 09/29/17 Unknown Rx 5-325 mg TAB] Cyclobenzaprine [Flexeril 10 MG 10 mg PO TID PRN #30 tablet 11/07/17 Unknown Rx TAB] traMADol [Ultram] 50 mg PO Q12H PRN #6 tablet 11/27/17 Unknown Rx Famotidine [Pepcid] 20 mg PO BID #60 tablet 12/14/17 Unknown Rx HYDROcodone/APAP 5-325 [[place] 1 each PO Q6HR PRN #6 tablet 01/10/18 Unknown Rx 5-325 mg TAB] Naproxen [Naprosyn] 500 mg PO BID #30 tablet 01/10/18 Unknown Rx Ondansetron [Zofran ODT TAB] 8 mg PO Q12HR #20 tab.rapdis 01/10/18 Unknown Rx HYDROcodone/ACETAMINOPHEN [[place] 1 each PO Q8H PRN #8 tablet 01/21/18 Unknown Rx 5-325 Tablet] Ciprofloxacin [Ciprofloxacin ORAL 500 mg PO Q12H #14 ml 02/05/18 Unknown Rx LIQ] traMADol [Ultram 50 MG tab] 50 mg PO Q6HR PRN #10 tablet 02/15/18 Unknown Rx Allergies Allergy/AdvReac Type Severity Reaction Status Date / Time codeine Allergy THROAT Verified 02/15/18 12:29 CLOSES Iodinated Contrast- Oral and Allergy ITCHES, Verified 02/15/18 12:29 IV Dye FEELS LIKE SHE IS ON FIRE ketorolac [From Toradol] Allergy Headache Verified 02/15/18 12:29 ketorolac tromethamine Allergy Headache Verified 02/15/18 12:29 [From Toradol] methocarbamol [From Robaxin] Allergy Headache Verified 02/15/18 12:29 Penicillins Allergy Swelling Verified 02/15/18 12:29 OF FACE HAND AND THROAT CLOSES strawberry Allergy Rash Verified 02/15/18 12:29 aspirin AdvReac Bleeding Verified 02/15/18 12:29 strawberry Allergy Hives Uncoded 12/13/17 09:02 ED Review of Systems ROS: Stated complaint: LT FOOT PAIN Other details as noted in HPI Comment: All other systems reviewed and negative Respiratory: denies: cough, orthopnea, shortness of breath, SOB with exertion, SOB at rest Cardiovascular: chest pain (right-sided chest pain to the area where she fell). denies: palpitations, dyspnea on exertion, orthopnea Gastrointestinal: denies: abdominal pain, nausea, vomiting, diarrhea, constipation, hematemesis, melena, hematochezia Genitourinary: denies: urgency, dysuria, frequency, hematuria, abnormal menses Neurological: denies: headache, weakness, numbness, paresthesias, confusion ED Past Medical Hx - Past Medical History Previous Medical History?: Yes Hx Hypertension: Yes Hx Heart Attack/AMI: No Hx Congestive Heart Failure: No Hx Diabetes: No Hx Deep Vein Thrombosis: No Hx Pulmonary Embolism: Yes (41yr age) Hx GERD: Yes Hx Sickle Cell Disease: No Hx Arthritis: Yes Hx Headaches / Migraines: Yes (MIGRAINES) Hx Kidney Stones: Yes Hx Asthma: Yes Hx COPD: Yes Hx HIV: No Additional medical history: Fibromyalgia, MVP, peptic ulcers - Surgical History Past Surgical History?: Yes Hx Pacemaker: No Hx Internal Defibrillator: No Hx Cholecystectomy: Yes Additional Surgical History: right wrist metal plate, Right ovarian cyst removal. cataract - Social History Smoking Status: Never Smoker Substance Use Type: None - Medications Home Medications: Home Medications Medication Instructions Recorded Confirmed Last Taken Type Acetaminophen 1,000 mg PO Q6HR PRN #30 tablet 09/16/17 09/18/17 09/17/17 Rx ALBUTEROL Inhaler [ProAir HFA 2 puff IH QID PRN #1 inhalation 09/21/17 Unknown Rx Inhaler] ALBUTEROL NEB's [Proventil 0.083% 2.5 mg IH BID #60 nebu 09/21/17 Unknown Rx NEBS] ALPRAZolam [Xanax TAB] 1 mg PO BID PRN #30 tablet 09/21/17 Unknown Rx Amlodipine Besylate [Norvasc] 5 mg PO QDAY #30 tablet 09/21/17 Unknown Rx Gabapentin [Gralise] 300 mg PO TID #90 tab.er.24h 09/21/17 Unknown Rx methylPREDNISolone [Medrol Dose 4 mg PO QAM #1 tab.ds.pk 09/21/17 Unknown Rx Sriram] Levofloxacin [Levaquin TAB] 750 mg PO QDAY #7 tablet 09/22/17 Unknown Rx HYDROcodone/APAP 5-325 [[place] 1 each PO Q6H PRN #10 tablet 09/29/17 Unknown Rx 5-325 mg TAB] Cyclobenzaprine [Flexeril 10 MG 10 mg PO TID PRN #30 tablet 11/07/17 Unknown Rx TAB] traMADol [Ultram] 50 mg PO Q12H PRN #6 tablet 11/27/17 Unknown Rx Famotidine [Pepcid] 20 mg PO BID #60 tablet 12/14/17 Unknown Rx HYDROcodone/APAP 5-325 [[place] 1 each PO Q6HR PRN #6 tablet 01/10/18 Unknown Rx 5-325 mg TAB] Naproxen [Naprosyn] 500 mg PO BID #30 tablet 01/10/18 Unknown Rx Ondansetron [Zofran ODT TAB] 8 mg PO Q12HR #20 tab.rapdis 01/10/18 Unknown Rx HYDROcodone/ACETAMINOPHEN [[place] 1 each PO Q8H PRN #8 tablet 01/21/18 Unknown Rx 5-325 Tablet] Ciprofloxacin [Ciprofloxacin ORAL 500 mg PO Q12H #14 ml 02/05/18 Unknown Rx LIQ] traMADol [Ultram 50 MG tab] 50 mg PO Q6HR PRN #10 tablet 02/15/18 Unknown Rx ED Physical Exam - General Limitations: No Limitations General appearance: alert, in no apparent distress - Head Head exam: Present: atraumatic, normocephalic, normal inspection - ENT ENT exam: Present: normal exam, normal orophraynx, mucous membranes moist - Neck Neck exam: Present: normal inspection, full ROM. Absent: tenderness, meningismus, lymphadenopathy, thyromegaly - Respiratory Respiratory exam: Present: normal lung sounds bilaterally, chest wall tenderness (right lower chest). Absent: respiratory distress, wheezes, rales, rhonchi, stridor, accessory muscle use, decreased breath sounds, prolonged expiratory - Cardiovascular Cardiovascular Exam: Present: regular rate, normal rhythm, normal heart sounds - GI/Abdominal GI/Abdominal exam: Present: soft, normal bowel sounds. Absent: distended, tenderness, guarding, rebound, rigid, mass, bruit, pulsatile mass, hernia - Extremities Exam Extremities exam: Present: full ROM, normal capillary refill, other (left foot in splint, no deformity, no redness or warmness and good pulses on both sides). Absent: pedal edema, joint swelling, calf tenderness - Back Exam Back exam: Present: normal inspection, full ROM. Absent: tenderness, CVA tenderness (R), CVA tenderness (L) - Neurological Exam Neurological exam: Present: alert, oriented X3, CN II-XII intact - Skin Skin exam: Present: warm, intact, normal color ED Course Vital Signs 04/02/18 06:32 Temperature 98.6 F Pulse Rate 84 Respiratory 17 Rate Blood Pressure 113/49 O2 Sat by Pulse 99 Oximetry ED Medical Decision Making - Radiology Data Radiology results: report reviewed CT brain is unremarkable for acute finding. Right rib x-ray with chest x-ray showed no acute finding. - Medical Decision Making Patient is in no acute distress. Patient received 40 tablets of Percocet from our orthopedics. I will not be able to refill her pain medication at this moment I advised her to follow-up with orthopedics as scheduled today. I discussed the patient the risk of taking too much narcotics that can cause to drowsiness and fall and possible injuries. Critical care attestation.: If time is entered above; I have spent that time in minutes in the direct care of this critically ill patient, excluding procedure time. ED Disposition Clinical Impression: Left foot pain, Fall, Head injury, Chest wall contusion Disposition: DC-01 TO HOME OR SELFCARE Is pt being admited?: No Condition: Stable Instructions: Minor Head Injury (ED), Fall Prevention for Older Adults (ED) Referrals: PAT ACOSTA MD [Primary Care Provider] - 3-5 Days
--- NOTE | 2018-04-02 12:07 | Cat Scan Report ---
CT HEAD WITHOUT CONTRAST: HISTORY: Head injury. TECHNIQUE: Sequential CT images without contrast. FINDINGS: Images obtained show bilateral prominence of the sulci and ventricles. There are no abnormal intra- or extra-axial blood or fluid collections. There are no focal masses or evidence of mass effect. The infante white matter differentiation appears within normal limits. Regions of periventricular decreased attenuation are consistent with microangiopathic ischemic disease. The posterior fossa structures including the fourth ventricle, cerebellum, and brainstem appear normal. IMPRESSION: Evidence of atrophy and microangiopathic ischemic disease. No acute intracranial process noted. No change since 12/20/17.
--- NOTE | 2018-04-02 12:13 | XRay Report ---
RIGHT RIBS, 3 VIEWS: History: Pain after fall. Routine views of the rib cage demonstrate normal mineralization with no significant contour abnormalities, fractures or destructive lesions. PA view of the chest demonstrates no underlying cardiopulmonary abnormalities, fluid or pneumothorax. IMPRESSION: Unremarkable right rib series.
[2018-04-02 13:05] VITALS: BP 122/58
== END 2018-04-02 13:04 | disposition home or self-care (01) ==
LOC: ED 06:07
DX: S20.211A Contusion of right front wall of thorax, initial encounter (principal); S09.90XA Unspecified injury of head, initial encounter; I10 Essential (primary) hypertension; M19.90 Unspecified osteoarthritis, unspecified site; J44.9 Chronic obstructive pulmonary disease, unspecified; K21.9 Gastro-esophageal reflux disease without esophagitis; Z86.711 Personal history of pulmonary embolism; Z90.49 Acquired absence of other specified parts of digestive tract; Z88.5 Allergy status to narcotic agent; Z91.041 Radiographic dye allergy status; Z88.6 Allergy status to analgesic agent; W01.0XXA Fall on same level from slipping, tripping and stumbling without subsequent striking against object, initial encounter; Y93.89 Activity, other specified; Y92.89 Other specified places as the place of occurrence of the external cause; Y99.8 Other external cause status
CPT/HCPCS: 70450; 99284

== ENCOUNTER 2018-04-04 08:33 | Emergency (ER) | payer MEDICARE ==
[2018-04-04 09:07] VITALS: BP 110/64
[2018-04-04] MEDS ORDERED: NORCO 5/325 PO ONE (10:23)
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
== END 2018-04-04 10:51 | disposition home or self-care (01) ==
LOC: ED 08:33
DX: G89.18 Other acute postprocedural pain (principal); Z76.0 Encounter for issue of repeat prescription; I10 Essential (primary) hypertension; J45.909 Unspecified asthma, uncomplicated; M19.90 Unspecified osteoarthritis, unspecified site; K21.9 Gastro-esophageal reflux disease without esophagitis; G43.909 Migraine, unspecified, not intractable, without status migrainosus; Z88.0 Allergy status to penicillin; Z87.442 Personal history of urinary calculi; Z86.711 Personal history of pulmonary embolism; Z88.5 Allergy status to narcotic agent; Z88.6 Allergy status to analgesic agent; Z90.49 Acquired absence of other specified parts of digestive tract
CPT/HCPCS: 99283

== ENCOUNTER 2018-04-09 09:06 | Emergency (ER) | payer MEDICARE ==
[2018-04-09] MEDS ORDERED: TYLENOL PO ONE (12:51)
--- NOTE | 2018-04-09 12:58 | Emergency Department Report ---
- General Chief Complaint: Extremity Injury, Lower Stated Complaint: LEFT LEG PAIN Time Seen by Provider: 04/09/18 12:47 Source: patient Mode of arrival: Ambulatory Limitations: No Limitations - History of Present Illness Initial Comments: This is a 67-year-old female nontoxic, well nourished in appearance, no acute signs of distress presents to the ED with c/o of chronic right leg pain and productive cough, rhinorrhea, and nasal congestion x1 week. Patient describes productive cough as yellow mucus production. Patient denies any sick contact. Patient stated she had surgery on achilles tendon on 03/26/2018 and sees orthopedic doctors in [place]. Patient denies any recent travels, long car, recent hospital stays. Patient denies any calf pain or calf tenderness. Patient denies any chest pain, short of breath, fever, chills, nausea, vomiting , hemoptysis, numbness, tingling, headache or stiff neck. MD Complaint: cough, rhinorrhea, nasal congestion -: week(s) (1) Severity: mild Severity scale (0 -10): 8 Quality: aching Consistency: constant Improves With: nothing Worsens With: nothing Associated Symptoms: rhinorrhea, nasal congestion, cough. denies: fever, chills , myalgias, diaphoresis, headache, sore throat, stiff neck, chest pain, shortness of breath, abdominal pain, nausea, vomiting, diarrhea, dysuria, rash, confusion, right sweats, weight loss, epistaxis, hoarseness, ear pain Treatments Prior to Arrival: none - Related Data Previous Rx's Medication Instructions Recorded Last Taken Type Acetaminophen 1,000 mg PO Q6HR PRN #30 tablet 09/16/17 09/17/17 Rx ALBUTEROL Inhaler [ProAir HFA 2 puff IH QID PRN #1 inhalation 09/21/17 Unknown Rx Inhaler] ALBUTEROL NEB's [Proventil 0.083% 2.5 mg IH BID #60 nebu 09/21/17 Unknown Rx NEBS] ALPRAZolam [Xanax TAB] 1 mg PO BID PRN #30 tablet 09/21/17 Unknown Rx Amlodipine Besylate [Norvasc] 5 mg PO QDAY #30 tablet 09/21/17 Unknown Rx Gabapentin [Gralise] 300 mg PO TID #90 tab.er.24h 09/21/17 Unknown Rx methylPREDNISolone [Medrol Dose 4 mg PO QAM #1 tab.ds.pk 09/21/17 Unknown Rx Sriram] Levofloxacin [Levaquin TAB] 750 mg PO QDAY #7 tablet 09/22/17 Unknown Rx Cyclobenzaprine [Flexeril 10 MG 10 mg PO TID PRN #30 tablet 11/07/17 Unknown Rx TAB] traMADol [Ultram] 50 mg PO Q12H PRN #6 tablet 11/27/17 Unknown Rx Famotidine [Pepcid] 20 mg PO BID #60 tablet 12/14/17 Unknown Rx HYDROcodone/APAP 5-325 [[place] 1 each PO Q6HR PRN #6 tablet 01/10/18 Unknown Rx 5-325 mg TAB] Naproxen [Naprosyn] 500 mg PO BID #30 tablet 01/10/18 Unknown Rx Ondansetron [Zofran ODT TAB] 8 mg PO Q12HR #20 tab.rapdis 01/10/18 Unknown Rx HYDROcodone/ACETAMINOPHEN [[place] 1 each PO Q8H PRN #8 tablet 01/21/18 Unknown Rx 5-325 Tablet] Ciprofloxacin [Ciprofloxacin ORAL 500 mg PO Q12H #14 ml 02/05/18 Unknown Rx LIQ] traMADol [Ultram 50 MG tab] 50 mg PO Q6HR PRN #10 tablet 02/15/18 Unknown Rx HYDROcodone/APAP 5-325 [[place] 1 each PO Q6H PRN #8 tablet 04/04/18 Unknown Rx 5-325 mg TAB] Acetaminophen 500 mg PO Q8H PRN #30 tablet 04/09/18 Unknown Rx Azithromycin [Zithromax Z-SRIRAM] 250 mg PO DAILY #6 tablet 04/09/18 Unknown Rx Allergies Allergy/AdvReac Type Severity Reaction Status Date / Time codeine Allergy THROAT Verified 02/15/18 12:29 CLOSES Iodinated Contrast- Oral and Allergy ITCHES, Verified 02/15/18 12:29 IV Dye FEELS LIKE SHE IS ON FIRE ketorolac [From Toradol] Allergy Headache Verified 02/15/18 12:29 ketorolac tromethamine Allergy Headache Verified 02/15/18 12:29 [From Toradol] methocarbamol [From Robaxin] Allergy Headache Verified 02/15/18 12:29 Penicillins Allergy Swelling Verified 02/15/18 12:29 OF FACE HAND AND THROAT CLOSES strawberry Allergy Rash Verified 02/15/18 12:29 aspirin AdvReac Bleeding Verified 02/15/18 12:29 strawberry Allergy Hives Uncoded 12/13/17 09:02 ED Review of Systems ROS: Stated complaint: LEFT LEG PAIN Other details as noted in HPI Constitutional: denies: chills, fever Eyes: denies: eye pain, eye discharge, vision change ENT: denies: ear pain, throat pain Respiratory: cough. denies: shortness of breath, wheezing Cardiovascular: denies: chest pain, palpitations Endocrine: no symptoms reported Gastrointestinal: denies: abdominal pain, nausea, diarrhea Genitourinary: denies: urgency, dysuria, discharge Musculoskeletal: arthralgia. denies: back pain, joint swelling Skin: denies: rash, lesions Neurological: denies: headache, weakness, paresthesias Psychiatric: denies: anxiety, depression Hematological/Lymphatic: denies: easy bleeding, easy bruising ED Past Medical Hx - Past Medical History Previous Medical History?: Yes Hx Hypertension: Yes Hx Heart Attack/AMI: No Hx Congestive Heart Failure: No Hx Diabetes: No Hx Deep Vein Thrombosis: No Hx Pulmonary Embolism: Yes (41yr age) Hx GERD: Yes Hx Sickle Cell Disease: No Hx Arthritis: Yes Hx Headaches / Migraines: Yes (MIGRAINES) Hx Kidney Stones: Yes Hx Asthma: Yes Hx COPD: Yes Hx HIV: No Additional medical history: Fibromyalgia, MVP, peptic ulcers - Surgical History Past Surgical History?: Yes Hx Pacemaker: No Hx Internal Defibrillator: No Hx Cholecystectomy: Yes Additional Surgical History: right wrist metal plate, Right ovarian cyst removal. cataract, left Achilles tendon repair and left ankle instrumentation - Social History Smoking Status: Former Smoker Substance Use Type: Alcohol, Prescribed - Medications Home Medications: Home Medications Medication Instructions Recorded Confirmed Last Taken Type Acetaminophen 1,000 mg PO Q6HR PRN #30 tablet 09/16/17 09/18/17 09/17/17 Rx ALBUTEROL Inhaler [ProAir HFA 2 puff IH QID PRN #1 inhalation 09/21/17 Unknown Rx Inhaler] ALBUTEROL NEB's [Proventil 0.083% 2.5 mg IH BID #60 nebu 09/21/17 Unknown Rx NEBS] ALPRAZolam [Xanax TAB] 1 mg PO BID PRN #30 tablet 09/21/17 Unknown Rx Amlodipine Besylate [Norvasc] 5 mg PO QDAY #30 tablet 09/21/17 Unknown Rx Gabapentin [Gralise] 300 mg PO TID #90 tab.er.24h 09/21/17 Unknown Rx methylPREDNISolone [Medrol Dose 4 mg PO QAM #1 tab.ds.pk 09/21/17 Unknown Rx Sriram] Levofloxacin [Levaquin TAB] 750 mg PO QDAY #7 tablet 09/22/17 Unknown Rx Cyclobenzaprine [Flexeril 10 MG 10 mg PO TID PRN #30 tablet 11/07/17 Unknown Rx TAB] traMADol [Ultram] 50 mg PO Q12H PRN #6 tablet 11/27/17 Unknown Rx Famotidine [Pepcid] 20 mg PO BID #60 tablet 12/14/17 Unknown Rx HYDROcodone/APAP 5-325 [Deep [place] 1 each PO Q6HR PRN #6 tablet 01/10/18 Unknown Rx 5-325 mg TAB] Naproxen [Naprosyn] 500 mg PO BID #30 tablet 01/10/18 Unknown Rx Ondansetron [Zofran ODT TAB] 8 mg PO Q12HR #20 tab.rapdis 01/10/18 Unknown Rx HYDROcodone/ACETAMINOPHEN [Deep [place] 1 each PO Q8H PRN #8 tablet 01/21/18 Unknown Rx 5-325 Tablet] Ciprofloxacin [Ciprofloxacin ORAL 500 mg PO Q12H #14 ml 02/05/18 Unknown Rx LIQ] traMADol [Ultram 50 MG tab] 50 mg PO Q6HR PRN #10 tablet 02/15/18 Unknown Rx HYDROcodone/APAP 5-325 [Deep [place] 1 each PO Q6H PRN #8 tablet 04/04/18 Unknown Rx 5-325 mg TAB] Acetaminophen 500 mg PO Q8H PRN #30 tablet 04/09/18 Unknown Rx Azithromycin [Zithromax Z-SRIRAM] 250 mg PO DAILY #6 tablet 04/09/18 Unknown Rx ED Physical Exam - General Limitations: No Limitations General appearance: alert, in no apparent distress - Head Head exam: Present: atraumatic, normocephalic - Eye Eye exam: Present: normal appearance Pupils: Present: normal accommodation - ENT ENT exam: Present: normal exam, mucous membranes moist - Neck Neck exam: Present: normal inspection, full ROM. Absent: tenderness, meningismus, lymphadenopathy - Respiratory Respiratory exam: Present: normal lung sounds bilaterally. Absent: respiratory distress, wheezes, rales, rhonchi, stridor, chest wall tenderness, accessory muscle use, decreased breath sounds, prolonged expiratory - Cardiovascular Cardiovascular Exam: Present: regular rate, normal rhythm, normal heart sounds. Absent: bradycardia, tachycardia, irregular rhythm, systolic murmur, diastolic murmur, rubs, gallop - GI/Abdominal GI/Abdominal exam: Present: soft, normal bowel sounds. Absent: distended, tenderness, guarding, rebound, rigid, diminished bowel sounds - Rectal Rectal exam: Present: deferred - Extremities Exam Extremities exam: Present: normal inspection, full ROM, tenderness, normal capillary refill. Absent: pedal edema, joint swelling, calf tenderness - Expanded Lower Extremity Exam Left Hip exam: Present: normal inspection, full ROM. Absent: tenderness, swelling Upper Leg exam: Present: normal inspection, full ROM. Absent: tenderness, swelling Knee exam: Present: normal inspection, full ROM. Absent: tenderness, swelling Lower Leg exam: Present: normal inspection, full ROM. Absent: tenderness, swelling, abrasion Ankle exam: Present: normal inspection, full ROM. Absent: tenderness, swelling , abrasion, laceration, ecchymosis, deformity, crepidus, dislocation, erythema, anterior draw sign Foot/Toe exam: Present: normal inspection, full ROM, tenderness. Absent: swelling, abrasion, laceration, ecchymosis, deformity, crepidus, dislocation, erythema, amputation, puncture wound, foreign body, calcaneal tenderness, tenderness at base of 5th metatarsal, nail avulsion, subungual hematoma Neuro vascular tendon exam: Present: no vascular compromise. Absent: pulse deficit, abnormal cap refill, motor deficit, sensory deficit, tendon deficit, extremity cold to touch, pallor, abnormal 2-point discrimination, decreased fine /light touch, foot drop, peroneal nerve deficit, significant pain with passive ROM of distal joint Gait: Positive: observed and limited by pain - Back Exam Back exam: Present: normal inspection, full ROM. Absent: tenderness, CVA tenderness (R) - Neurological Exam Neurological exam: Present: alert, oriented X3, normal gait - Psychiatric Psychiatric exam: Present: normal affect, normal mood - Skin Skin exam: Present: warm, dry, intact, normal color. Absent: rash ED Course Vital Signs 04/09/18 10:01 Temperature 97.6 F Pulse Rate 61 Respiratory 20 Rate Blood Pressure 116/94 O2 Sat by Pulse 100 Oximetry - Reevaluation(s) Reevaluation #1: 04/09/18 13:01 Patient is speaking in full sentences with no signs of distress noted. ED Medical Decision Making - Medical Decision Making This is a 67-year-old female that presents with bronchitis. Patient is stable and was examined by me. Chest x-ray has been obtained and dictated by radiologist with normal exam. Patient is notified of x-ray results with no questions noted. Due to patient having symptoms of bronchitis and worsening I will treat patient empirically with zpak. Patient was instructed to increase hydration, rest and take Tylenol for fever episodes. Vitals stable. Patient is nonfebrile and normal heart rate. Patient was instructed Follow-up with a primary care doctor in 3-5 days or if symptoms worsen and continue return to emergency room as soon as possible. At time time of discharge, the patient does not seem toxic or ill in appearance. No acute signs of distress noted. Patient agrees to discharge treatment plan of care. No further questions noted by the patient. Patient is also discharged with Tylenol for pain and was instructed to follow- up with Orthopedic doctor for chronic pain. Patient has a surgical boat on post surgery. The area does not look like cellulitits abscess pus or drainage. Critical care attestation.: If time is entered above; I have spent that time in minutes in the direct care of this critically ill patient, excluding procedure time. ED Disposition Clinical Impression: Bronchitis Arthralgia Qualifiers: Joint pain location: unspecified Qualified Code(s): M25.50 - Pain in unspecified joint Disposition: DC-01 TO HOME OR SELFCARE Is pt being admited?: No Does the pt Need Aspirin: No Condition: Stable Instructions: Acute Bronchitis (ED) Additional Instructions: Follow-up with a primary care/orthopedic doctor in 3-5 days or if symptoms worsen and continue return to emergency room as soon as possible. Prescriptions: Acetaminophen 500 mg PO Q8H PRN #30 tablet PRN Reason: Pain Azithromycin [Zithromax Z-SRIRAM] 250 mg PO DAILY #6 tablet Referrals: PAT ACOSTA MD [Primary Care Provider] - 3-5 Days PRIMARY MD NUZHAT [Referring] - 3-5 Days TEE ROMERO MD [Staff Physician] - 3-5 Days PAT SYKES MD [Staff Physician] - 3-5 Days [facility] [place] [Outside] - 3-5 Days [facility] [Outside] - 3-5 Days
--- NOTE | 2018-04-09 15:37 | XRay Report ---
CHEST 2 VIEWS INDICATION: Cough. COMPARISON: 04/02/2018. FINDINGS: PA and lateral chest radiographs demonstrate normal cardiomediastinal silhouette. Aortic knob calcifications. Clear lungs. Stable old healed deformity of left fourth or fifth rib. CONCLUSION: No acute disease in the chest. Thank you for the opportunity to participate in this patient's care.
[2018-04-09] MEDS ORDERED: ULTRAM PO ONE (16:08)
[2018-04-09 16:15] VITALS: BP 120/88
== END 2018-04-09 16:15 | disposition home or self-care (01) ==
LOC: ED 09:06
DX: J40 Bronchitis, not specified as acute or chronic (principal); M25.50 Pain in unspecified joint; K21.9 Gastro-esophageal reflux disease without esophagitis; G43.909 Migraine, unspecified, not intractable, without status migrainosus; I10 Essential (primary) hypertension; M19.90 Unspecified osteoarthritis, unspecified site; Z86.711 Personal history of pulmonary embolism; Z79.01 Long term (current) use of anticoagulants; Z87.442 Personal history of urinary calculi; Z87.891 Personal history of nicotine dependence; Z90.49 Acquired absence of other specified parts of digestive tract; Z88.6 Allergy status to analgesic agent; Z88.5 Allergy status to narcotic agent; Z91.018 Allergy to other foods
CPT/HCPCS: 71046

== ENCOUNTER 2018-04-18 20:04 | Emergency (ER) | payer MEDICARE ==
[2018-04-18 20:39] VITALS: BP 158/77
[2018-04-18] MEDS ORDERED: ZOFRAN ODT PO ONE (21:17)
[2018-04-18] MEDS ORDERED: NORCO 10/325 PO ONE (21:17)
--- NOTE | 2018-04-18 21:22 | Emergency Department Report ---
ED General Adult HPI - General Chief complaint: Extremity Injury, Lower Stated complaint: RIGHT FOOT PAIN Time Seen by Provider: 04/18/18 20:33 Source: patient Mode of arrival: Stretcher Limitations: No Limitations - History of Present Illness Initial comments: Patient states that she had an Achilles tendon repair done in March and yesterday went to orthopedist surgeon to have her sutures removed and since that time has had pain. Patient states she is out of pain medicine at home and came to the emergency department for help. The patient has no other complaints. Severity scale (0 -10): 10 - Related Data Previous Rx's Medication Instructions Recorded Last Taken Type Acetaminophen 1,000 mg PO Q6HR PRN #30 tablet 09/16/17 09/17/17 Rx ALBUTEROL Inhaler [ProAir HFA 2 puff IH QID PRN #1 inhalation 09/21/17 Unknown Rx Inhaler] ALBUTEROL NEB's [Proventil 0.083% 2.5 mg IH BID #60 nebu 09/21/17 Unknown Rx NEBS] ALPRAZolam [Xanax TAB] 1 mg PO BID PRN #30 tablet 09/21/17 Unknown Rx Amlodipine Besylate [Norvasc] 5 mg PO QDAY #30 tablet 09/21/17 Unknown Rx Gabapentin [Gralise] 300 mg PO TID #90 tab.er.24h 09/21/17 Unknown Rx methylPREDNISolone [Medrol Dose 4 mg PO QAM #1 tab.ds.pk 09/21/17 Unknown Rx Avinash] Levofloxacin [Levaquin TAB] 750 mg PO QDAY #7 tablet 09/22/17 Unknown Rx Cyclobenzaprine [Flexeril 10 MG 10 mg PO TID PRN #30 tablet 11/07/17 Unknown Rx TAB] traMADol [Ultram] 50 mg PO Q12H PRN #6 tablet 11/27/17 Unknown Rx Famotidine [Pepcid] 20 mg PO BID #60 tablet 12/14/17 Unknown Rx HYDROcodone/APAP 5-325 [[place] 1 each PO Q6HR PRN #6 tablet 01/10/18 Unknown Rx 5-325 mg TAB] Naproxen [Naprosyn] 500 mg PO BID #30 tablet 01/10/18 Unknown Rx Ondansetron [Zofran ODT TAB] 8 mg PO Q12HR #20 tab.rapdis 01/10/18 Unknown Rx HYDROcodone/ACETAMINOPHEN [[place] 1 each PO Q8H PRN #8 tablet 01/21/18 Unknown Rx 5-325 Tablet] Ciprofloxacin [Ciprofloxacin ORAL 500 mg PO Q12H #14 ml 02/05/18 Unknown Rx LIQ] traMADol [Ultram 50 MG tab] 50 mg PO Q6HR PRN #10 tablet 02/15/18 Unknown Rx HYDROcodone/APAP 5-325 [[place] 1 each PO Q6H PRN #8 tablet 04/04/18 Unknown Rx 5-325 mg TAB] Acetaminophen 500 mg PO Q8H PRN #30 tablet 04/09/18 Unknown Rx Azithromycin [Zithromax Z-AVINASH] 250 mg PO DAILY #6 tablet 04/09/18 Unknown Rx HYDROcodone/ACETAMINOPHEN [[place] 1 each PO Q6HR PRN #12 tablet 04/18/18 Unknown Rx 5-325 Tablet] Allergies Allergy/AdvReac Type Severity Reaction Status Date / Time codeine Allergy THROAT Verified 02/15/18 12:29 CLOSES Iodinated Contrast- Oral and Allergy ITCHES, Verified 02/15/18 12:29 IV Dye FEELS LIKE SHE IS ON FIRE ketorolac [From Toradol] Allergy Headache Verified 02/15/18 12:29 ketorolac tromethamine Allergy Headache Verified 02/15/18 12:29 [From Toradol] methocarbamol [From Robaxin] Allergy Headache Verified 02/15/18 12:29 Penicillins Allergy Swelling Verified 02/15/18 12:29 OF FACE HAND AND THROAT CLOSES strawberry Allergy Rash Verified 02/15/18 12:29 aspirin AdvReac Bleeding Verified 02/15/18 12:29 strawberry Allergy Hives Uncoded 12/13/17 09:02 ED Review of Systems ROS: Stated complaint: RIGHT FOOT PAIN Other details as noted in HPI Comment: All other systems reviewed and negative Constitutional: denies: chills, fever Eyes: denies: eye pain, eye discharge, vision change ENT: denies: ear pain, throat pain Respiratory: denies: cough, shortness of breath, wheezing Cardiovascular: denies: chest pain, palpitations Endocrine: no symptoms reported Gastrointestinal: denies: abdominal pain, nausea, diarrhea Genitourinary: denies: urgency, dysuria, discharge Musculoskeletal: denies: back pain, joint swelling, arthralgia Skin: denies: rash, lesions Neurological: denies: headache, weakness, paresthesias Psychiatric: denies: anxiety, depression Hematological/Lymphatic: denies: easy bleeding, easy bruising ED Past Medical Hx - Past Medical History Hx Hypertension: Yes Hx Heart Attack/AMI: No Hx Congestive Heart Failure: No Hx Diabetes: No Hx Deep Vein Thrombosis: No Hx Pulmonary Embolism: Yes (41yr age) Hx GERD: Yes Hx Sickle Cell Disease: No Hx Arthritis: Yes Hx Headaches / Migraines: Yes (MIGRAINES) Hx Kidney Stones: Yes Hx Asthma: Yes Hx COPD: Yes Hx HIV: No Additional medical history: Fibromyalgia, MVP, peptic ulcers - Surgical History Hx Pacemaker: No Hx Internal Defibrillator: No Hx Cholecystectomy: Yes Additional Surgical History: right wrist metal plate, Right ovarian cyst removal. cataract, left Achilles tendon repair and left ankle instrumentation - Social History Smoking Status: Unknown if ever smoked Substance Use Type: None - Medications Home Medications: Home Medications Medication Instructions Recorded Confirmed Last Taken Type Acetaminophen 1,000 mg PO Q6HR PRN #30 tablet 09/16/17 09/18/17 09/17/17 Rx ALBUTEROL Inhaler [ProAir HFA 2 puff IH QID PRN #1 inhalation 09/21/17 Unknown Rx Inhaler] ALBUTEROL NEB's [Proventil 0.083% 2.5 mg IH BID #60 nebu 09/21/17 Unknown Rx NEBS] ALPRAZolam [Xanax TAB] 1 mg PO BID PRN #30 tablet 09/21/17 Unknown Rx Amlodipine Besylate [Norvasc] 5 mg PO QDAY #30 tablet 09/21/17 Unknown Rx Gabapentin [Gralise] 300 mg PO TID #90 tab.er.24h 09/21/17 Unknown Rx methylPREDNISolone [Medrol Dose 4 mg PO QAM #1 tab.ds.pk 09/21/17 Unknown Rx Avinash] Levofloxacin [Levaquin TAB] 750 mg PO QDAY #7 tablet 09/22/17 Unknown Rx Cyclobenzaprine [Flexeril 10 MG 10 mg PO TID PRN #30 tablet 11/07/17 Unknown Rx TAB] traMADol [Ultram] 50 mg PO Q12H PRN #6 tablet 11/27/17 Unknown Rx Famotidine [Pepcid] 20 mg PO BID #60 tablet 12/14/17 Unknown Rx HYDROcodone/APAP 5-325 [[place] 1 each PO Q6HR PRN #6 tablet 01/10/18 Unknown Rx 5-325 mg TAB] Naproxen [Naprosyn] 500 mg PO BID #30 tablet 01/10/18 Unknown Rx Ondansetron [Zofran ODT TAB] 8 mg PO Q12HR #20 tab.rapdis 01/10/18 Unknown Rx HYDROcodone/ACETAMINOPHEN [[place] 1 each PO Q8H PRN #8 tablet 01/21/18 Unknown Rx 5-325 Tablet] Ciprofloxacin [Ciprofloxacin ORAL 500 mg PO Q12H #14 ml 02/05/18 Unknown Rx LIQ] traMADol [Ultram 50 MG tab] 50 mg PO Q6HR PRN #10 tablet 02/15/18 Unknown Rx HYDROcodone/APAP 5-325 [[place] 1 each PO Q6H PRN #8 tablet 04/04/18 Unknown Rx 5-325 mg TAB] Acetaminophen 500 mg PO Q8H PRN #30 tablet 04/09/18 Unknown Rx Azithromycin [Zithromax Z-AVINASH] 250 mg PO DAILY #6 tablet 04/09/18 Unknown Rx HYDROcodone/ACETAMINOPHEN [[place] 1 each PO Q6HR PRN #12 tablet 04/18/18 Unknown Rx 5-325 Tablet] ED Physical Exam - General Limitations: No Limitations General appearance: alert, in no apparent distress - Head Head exam: Present: atraumatic, normocephalic - Eye Eye exam: Present: normal appearance - ENT ENT exam: Present: mucous membranes moist - Neck Neck exam: Present: normal inspection - Respiratory Respiratory exam: Present: normal lung sounds bilaterally. Absent: respiratory distress - Cardiovascular Cardiovascular Exam: Present: regular rate, normal rhythm. Absent: systolic murmur, diastolic murmur, rubs, gallop - GI/Abdominal GI/Abdominal exam: Present: soft, normal bowel sounds - Extremities Exam Extremities exam: Present: normal inspection, other (left Achilles tendon area has no signs of infection and shows recent removal of sutures) - Back Exam Back exam: Present: normal inspection - Neurological Exam Neurological exam: Present: alert, oriented X3 - Psychiatric Psychiatric exam: Present: normal affect, normal mood - Skin Skin exam: Present: warm, dry, intact, normal color. Absent: rash ED Course Vital Signs 04/18/18 04/18/18 04/18/18 20:25 20:30 20:32 Temperature 97.8 F Blood Pressure 158/77 O2 Sat by Pulse 97 98 Oximetry ED Medical Decision Making - Medical Decision Making Discussed plan of care with patient Critical care attestation.: If time is entered above; I have spent that time in minutes in the direct care of this critically ill patient, excluding procedure time. ED Disposition Clinical Impression: Achilles tendon pain Disposition: TO HOME OR SELFCARE Is pt being admited?: No Does the pt Need Aspirin: No Condition: Stable Instructions: Achilles Tendinitis (ED) Additional Instructions: Return if worse Prescriptions: HYDROcodone/ACETAMINOPHEN [[place] 5-325 Tablet] 1 each PO Q6HR PRN #12 tablet PRN Reason: Pain Time of Disposition: 21:22
== END 2018-04-18 22:21 | disposition home or self-care (01) ==
LOC: ED 20:04
DX: M79.671 Pain in right foot (principal); I10 Essential (primary) hypertension; K21.9 Gastro-esophageal reflux disease without esophagitis; M19.90 Unspecified osteoarthritis, unspecified site; G43.909 Migraine, unspecified, not intractable, without status migrainosus; J44.9 Chronic obstructive pulmonary disease, unspecified; Z86.711 Personal history of pulmonary embolism; Z88.0 Allergy status to penicillin; Z88.8 Allergy status to other drugs, medicaments and biological substances; Z91.02 Food additives allergy status
CPT/HCPCS: 99283; Q0162

== ENCOUNTER 2018-05-09 07:59 | Emergency (ER) | payer MEDICARE ==
[2018-05-09 08:21] VITALS: BP 152/80
[2018-05-09] MEDS ORDERED: NORCO 5/325 PO ONE (09:25)
[2018-05-09] MEDS ORDERED: MOTRIN PO ONE (09:25)
--- NOTE | 2018-05-09 09:32 | Emergency Department Report ---
Blank Doc - Documentation Documentation: The patient is a 67-year-old female who is one month status post Achilles surgery on her left lower extremity and complaining of leg pain. Patient states that 2 days ago she started getting some increased redness in the area around the wound as well as in the posterior calf and distal left lower extremity. Patient's states the pain is 6 out of 10 in severity as a throbbing aching pain that radiates only to her left groin. Patient denies any chest pain shortness of breath fevers or chills at this time. Patient is worried about blood clots being in her leg. Patient will be taken for ultrasound of the leg to rule out DVT. Cellulitis and reactive edema also on the differential for this patient
--- NOTE | 2018-05-09 10:14 | Emergency Department Report ---
ED Extremity Problem HPI - General Chief complaint: Extremity Injury, Lower Stated complaint: L LEG PAIN Time Seen by Provider: 05/09/18 09:22 Source: patient Mode of arrival: Ambulatory Limitations: No Limitations - History of Present Illness Initial comments: The patient is a 67-year-old female who is one month status post Achilles surgery on her left lower extremity and complaining of leg pain. Patient states that 2 days ago she started getting some increased redness in the area around the wound as well as in the posterior calf and distal left lower extremity. Patient's states the pain is 6 out of 10 in severity as a throbbing aching pain that radiates only to her left groin. Patient denies any chest pain shortness of breath fevers or chills at this time. Patient is worried about blood clots being in her leg. - Related Data Previous Rx's Medication Instructions Recorded Last Taken Type Acetaminophen 1,000 mg PO Q6HR PRN #30 tablet 09/16/17 09/17/17 Rx ALBUTEROL Inhaler [ProAir HFA 2 puff IH QID PRN #1 inhalation 09/21/17 Unknown Rx Inhaler] ALBUTEROL NEB's [Proventil 0.083% 2.5 mg IH BID #60 nebu 09/21/17 Unknown Rx NEBS] ALPRAZolam [Xanax TAB] 1 mg PO BID PRN #30 tablet 09/21/17 Unknown Rx Amlodipine Besylate [Norvasc] 5 mg PO QDAY #30 tablet 09/21/17 Unknown Rx Gabapentin [Gralise] 300 mg PO TID #90 tab.er.24h 09/21/17 Unknown Rx methylPREDNISolone [Medrol Dose 4 mg PO QAM #1 tab.ds.pk 09/21/17 Unknown Rx Avinash] Levofloxacin [Levaquin TAB] 750 mg PO QDAY #7 tablet 09/22/17 Unknown Rx Cyclobenzaprine [Flexeril 10 MG 10 mg PO TID PRN #30 tablet 11/07/17 Unknown Rx TAB] traMADol [Ultram] 50 mg PO Q12H PRN #6 tablet 11/27/17 Unknown Rx Famotidine [Pepcid] 20 mg PO BID #60 tablet 12/14/17 Unknown Rx HYDROcodone/APAP 5-325 [[place] 1 each PO Q6HR PRN #6 tablet 01/10/18 Unknown Rx 5-325 mg TAB] Naproxen [Naprosyn] 500 mg PO BID #30 tablet 01/10/18 Unknown Rx Ondansetron [Zofran ODT TAB] 8 mg PO Q12HR #20 tab.rapdis 01/10/18 Unknown Rx HYDROcodone/ACETAMINOPHEN [[place] 1 each PO Q8H PRN #8 tablet 01/21/18 Unknown Rx 5-325 Tablet] Ciprofloxacin [Ciprofloxacin ORAL 500 mg PO Q12H #14 ml 02/05/18 Unknown Rx LIQ] traMADol [Ultram 50 MG tab] 50 mg PO Q6HR PRN #10 tablet 02/15/18 Unknown Rx HYDROcodone/APAP 5-325 [[place] 1 each PO Q6H PRN #8 tablet 04/04/18 Unknown Rx 5-325 mg TAB] Acetaminophen 500 mg PO Q8H PRN #30 tablet 04/09/18 Unknown Rx Azithromycin [Zithromax Z-AVINASH] 250 mg PO DAILY #6 tablet 04/09/18 Unknown Rx HYDROcodone/ACETAMINOPHEN [[place] 1 each PO Q6HR PRN #12 tablet 04/18/18 Unknown Rx 5-325 Tablet] HYDROcodone/APAP 5-325 [[place] 1 each PO Q4HR PRN #12 tablet 05/09/18 Unknown Rx 5/325] Ibuprofen [Motrin] 600 mg PO Q8H PRN #20 tablet 05/09/18 Unknown Rx Allergies Allergy/AdvReac Type Severity Reaction Status Date / Time codeine Allergy THROAT Verified 05/09/18 08:17 CLOSES Iodinated Contrast- Oral and Allergy ITCHES, Verified 05/09/18 08:17 IV Dye FEELS LIKE SHE IS ON FIRE ketorolac [From Toradol] Allergy Headache Verified 05/09/18 08:17 ketorolac tromethamine Allergy Headache Verified 05/09/18 08:17 [From Toradol] methocarbamol [From Robaxin] Allergy Headache Verified 05/09/18 08:17 Penicillins Allergy Swelling Verified 05/09/18 08:17 OF FACE HAND AND THROAT CLOSES strawberry Allergy Rash Verified 05/09/18 08:17 aspirin AdvReac Bleeding Verified 05/09/18 08:17 strawberry Allergy Hives Uncoded 12/13/17 09:02 ED Review of Systems ROS: Stated complaint: L LEG PAIN Other details as noted in HPI Comment: All other systems reviewed and negative ED Past Medical Hx - Past Medical History Hx Hypertension: Yes Hx Heart Attack/AMI: No Hx Congestive Heart Failure: No Hx Diabetes: No Hx Deep Vein Thrombosis: No Hx Pulmonary Embolism: Yes (41yr age) Hx GERD: Yes Hx Sickle Cell Disease: No Hx Arthritis: Yes Hx Headaches / Migraines: Yes (MIGRAINES) Hx Kidney Stones: Yes Hx Asthma: Yes Hx COPD: Yes Hx HIV: No Additional medical history: Fibromyalgia, MVP, peptic ulcers - Surgical History Hx Pacemaker: No Hx Internal Defibrillator: No Hx Cholecystectomy: Yes Additional Surgical History: right wrist metal plate, Right ovarian cyst removal. cataract, left Achilles tendon repair and left ankle instrumentation - Social History Smoking Status: Current Every Day Smoker Substance Use Type: None - Medications Home Medications: Home Medications Medication Instructions Recorded Confirmed Last Taken Type Acetaminophen 1,000 mg PO Q6HR PRN #30 tablet 09/16/17 09/18/17 09/17/17 Rx ALBUTEROL Inhaler [ProAir HFA 2 puff IH QID PRN #1 inhalation 09/21/17 Unknown Rx Inhaler] ALBUTEROL NEB's [Proventil 0.083% 2.5 mg IH BID #60 nebu 09/21/17 Unknown Rx NEBS] ALPRAZolam [Xanax TAB] 1 mg PO BID PRN #30 tablet 09/21/17 Unknown Rx Amlodipine Besylate [Norvasc] 5 mg PO QDAY #30 tablet 09/21/17 Unknown Rx Gabapentin [Gralise] 300 mg PO TID #90 tab.er.24h 09/21/17 Unknown Rx methylPREDNISolone [Medrol Dose 4 mg PO QAM #1 tab.ds.pk 09/21/17 Unknown Rx Avinash] Levofloxacin [Levaquin TAB] 750 mg PO QDAY #7 tablet 09/22/17 Unknown Rx Cyclobenzaprine [Flexeril 10 MG 10 mg PO TID PRN #30 tablet 11/07/17 Unknown Rx TAB] traMADol [Ultram] 50 mg PO Q12H PRN #6 tablet 11/27/17 Unknown Rx Famotidine [Pepcid] 20 mg PO BID #60 tablet 12/14/17 Unknown Rx HYDROcodone/APAP 5-325 [[place] 1 each PO Q6HR PRN #6 tablet 01/10/18 Unknown Rx 5-325 mg TAB] Naproxen [Naprosyn] 500 mg PO BID #30 tablet 01/10/18 Unknown Rx Ondansetron [Zofran ODT TAB] 8 mg PO Q12HR #20 tab.rapdis 01/10/18 Unknown Rx HYDROcodone/ACETAMINOPHEN [[place] 1 each PO Q8H PRN #8 tablet 01/21/18 Unknown Rx 5-325 Tablet] Ciprofloxacin [Ciprofloxacin ORAL 500 mg PO Q12H #14 ml 02/05/18 Unknown Rx LIQ] traMADol [Ultram 50 MG tab] 50 mg PO Q6HR PRN #10 tablet 02/15/18 Unknown Rx HYDROcodone/APAP 5-325 [[place] 1 each PO Q6H PRN #8 tablet 04/04/18 Unknown Rx 5-325 mg TAB] Acetaminophen 500 mg PO Q8H PRN #30 tablet 04/09/18 Unknown Rx Azithromycin [Zithromax Z-AVINASH] 250 mg PO DAILY #6 tablet 04/09/18 Unknown Rx HYDROcodone/ACETAMINOPHEN [[place] 1 each PO Q6HR PRN #12 tablet 04/18/18 Unknown Rx 5-325 Tablet] HYDROcodone/APAP 5-325 [[place] 1 each PO Q4HR PRN #12 tablet 05/09/18 Unknown Rx 5/325] Ibuprofen [Motrin] 600 mg PO Q8H PRN #20 tablet 05/09/18 Unknown Rx ED Physical Exam - General Limitations: No Limitations General appearance: alert, in no apparent distress - Head Head exam: Present: atraumatic, normocephalic - Eye Eye exam: Present: normal appearance - ENT ENT exam: Present: mucous membranes moist - Neck Neck exam: Present: normal inspection - Respiratory Respiratory exam: Present: normal lung sounds bilaterally. Absent: respiratory distress - Cardiovascular Cardiovascular Exam: Present: regular rate, normal rhythm. Absent: systolic murmur, diastolic murmur, rubs, gallop - GI/Abdominal GI/Abdominal exam: Present: soft, normal bowel sounds - Extremities Exam Extremities exam: Present: normal inspection, calf tenderness (with mild erythema) - Back Exam Back exam: Present: normal inspection - Neurological Exam Neurological exam: Present: alert, oriented X3 - Psychiatric Psychiatric exam: Present: normal affect, normal mood - Skin Skin exam: Present: warm, dry, intact, normal color. Absent: rash ED Course Vital Signs 05/09/18 08:17 Temperature 98.3 F Pulse Rate 74 Respiratory 16 Rate Blood Pressure 152/80 O2 Sat by Pulse 98 Oximetry ED Medical Decision Making - Radiology Data Ultrasound of the left lower extremity shows no DVT or SVT at this time. - Medical Decision Making Patient is a 67-year-old female who presented with some "lower leg erythema. This may constitute an early cellulitis. Patient's ultrasound Doppler shows no evidence of DVT at this time. Patient restarted on antibiotics will be discharged home Critical care attestation.: If time is entered above; I have spent that time in minutes in the direct care of this critically ill patient, excluding procedure time. ED Disposition Clinical Impression: Cellulitis Qualifiers: Site of cellulitis: extremity Site of cellulitis of extremity: lower extremity Laterality: left Qualified Code(s): L03.116 - Cellulitis of left lower limb Disposition: DC-01 TO HOME OR SELFCARE Is pt being admited?: No Does the pt Need Aspirin: No Condition: Stable Instructions: Cellulitis (ED) Referrals: PRIMARY CAREMD [Primary Care Provider] - 3-5 Days
== END 2018-05-09 10:46 | disposition home or self-care (01) ==
LOC: ED 07:59
DX: L03.116 Cellulitis of left lower limb (principal); I10 Essential (primary) hypertension; G43.909 Migraine, unspecified, not intractable, without status migrainosus; K21.9 Gastro-esophageal reflux disease without esophagitis; M19.90 Unspecified osteoarthritis, unspecified site; J44.9 Chronic obstructive pulmonary disease, unspecified; F17.200 Nicotine dependence, unspecified, uncomplicated; Z88.6 Allergy status to analgesic agent; Z91.041 Radiographic dye allergy status; Z88.0 Allergy status to penicillin; Z91.018 Allergy to other foods
CPT/HCPCS: 99283

== ENCOUNTER 2018-06-20 19:59 | Emergency (ER) | payer MEDICARE ==
[2018-06-20] MEDS ORDERED: NACL 0.9% 1000 ML 1,000 ML IV ONE (21:13)
[2018-06-20 21:28] LABS: Basophils % (Auto) 0.5 % (0.0-1.8); Eosinophils % (Auto) 0.6 % (0.0-4.3); Hematocrit 42.3 % (30.3-42.9); Hemoglobin 14.2 gm/dl (10.1-14.3); Lymphocytes # (Auto) 2.5 K/mm3 (1.2-5.4); Lymphocytes % (Auto) 29.6 % (13.4-35.0); Mean Corpuscular HGB Conc 34 % (30-34); Mean Corpuscular Hemoglobin 28 pg (28-32); Mean Corpuscular Volume 85 fl (79-97); Monocytes # (Auto) 0.6 K/mm3 (0.0-0.8); Monocytes % (Auto) 7.7 % (0.0-7.3); Platelet Count 266 K/mm3 (140-440); Red Blood Count 4.99 M/mm3 (3.65-5.03); Red Cell Distribution Width 15.8 % (13.2-15.2)
[2018-06-20 21:55] LABS: Alanine Aminotransferase 9 units/L (7-56); Albumin 4.5 g/dL (3.9-5); BUN/Creatinine Ratio 13; Blood Urea Nitrogen 9 mg/dL (7-17); Calcium 10.2 mg/dL (8.4-10.2); Hemolysis Index 24
[2018-06-20 22:16] LABS: Bilirubin,Urine NEG (Negative); Blood,Urine SM (Negative); Color,Urine Yellow (Yellow); Mucus,Urine FEW /HPF; Protein,Urine <15 mg/dL mg/dL (Negative); Urobilinogen,Urine < 2.0 mg/dL (<2.0)
[2018-06-21] MEDS ORDERED: ZOFRAN IV ONE (03:54)
[2018-06-21] MEDS ORDERED: DILAUDID IV ONE (03:54)
[2018-06-21] MEDS ORDERED: NACL 0.9% 500 ML 500 ML IV ONE (03:54)
--- NOTE | 2018-06-21 03:55 | Emergency Department Report ---
ED General Adult HPI - General Chief complaint: Abdominal Pain Stated complaint: LOWER RIGHT SIDE PAIN/EMESIS/DIARRHEA Time Seen by Provider: 06/21/18 03:46 Source: patient, RN notes reviewed, old records reviewed Mode of arrival: Ambulatory Limitations: No Limitations - History of Present Illness Initial comments: This is a 67-year-old female whom I have evaluated in the past. Please see my note from 03/26/2016, 06/28/2017 for complete details of patient's past medical history. Patient today complains of right lower quadrant pain intermittently radiates to the back. She's had a few episodes of nonbloody, nonbilious emesis. She further indicates that she has no urinary symptoms. She denies headache and neck pain, chest pain, obstructive irritative urinary symptoms. In the emergency room, the patient is given hydromorphone and Zofran as well IV fluids, which improved her symptoms. IV, -: Gradual Location: back, abdomen Radiation: back Quality: aching Consistency: other Improves with: other Worsens with: other Associated Symptoms: loss of appetite, malaise, nausea/vomiting. denies: confusion, chest pain, cough, diaphoresis, fever/chills, headaches, rash, seizure, shortness of breath, syncope, weakness - Related Data Previous Rx's Medication Instructions Recorded Last Taken Type Acetaminophen 1,000 mg PO Q6HR PRN #30 tablet 09/16/17 09/17/17 Rx ALBUTEROL Inhaler [ProAir HFA 2 puff IH QID PRN #1 inhalation 09/21/17 Unknown Rx Inhaler] ALBUTEROL NEB's [Proventil 0.083% 2.5 mg IH BID #60 nebu 09/21/17 Unknown Rx NEBS] ALPRAZolam [Xanax TAB] 1 mg PO BID PRN #30 tablet 09/21/17 Unknown Rx Amlodipine Besylate [Norvasc] 5 mg PO QDAY #30 tablet 09/21/17 Unknown Rx Gabapentin [Gralise] 300 mg PO TID #90 tab.er.24h 09/21/17 Unknown Rx methylPREDNISolone [Medrol Dose 4 mg PO QAM #1 tab.ds.pk 09/21/17 Unknown Rx Avinash] levoFLOXacin [Levaquin TAB] 750 mg PO QDAY #7 tablet 11/19/17 Unknown Rx Cyclobenzaprine [Flexeril 10 MG 10 mg PO TID PRN #30 tablet 11/07/17 Unknown Rx TAB] traMADol [Ultram] 50 mg PO Q12H PRN #6 tablet 11/27/17 Unknown Rx Famotidine [Pepcid] 20 mg PO BID #60 tablet 12/14/17 Unknown Rx HYDROcodone/APAP 5-325 [[place] 1 each PO Q6HR PRN #6 tablet 01/10/18 Unknown Rx 5-325 mg TAB] Naproxen [Naprosyn] 500 mg PO BID #30 tablet 01/10/18 Unknown Rx Ondansetron [Zofran ODT TAB] 8 mg PO Q12HR #20 tab.rapdis 01/10/18 Unknown Rx HYDROcodone/ACETAMINOPHEN [[place] 1 each PO Q8H PRN #8 tablet 01/21/18 Unknown Rx 5-325 Tablet] Ciprofloxacin [Ciprofloxacin ORAL 500 mg PO Q12H #14 ml 02/05/18 Unknown Rx LIQ] traMADol [Ultram 50 MG tab] 50 mg PO Q6HR PRN #10 tablet 02/15/18 Unknown Rx HYDROcodone/APAP 5-325 [[place] 1 each PO Q6H PRN #8 tablet 04/04/18 Unknown Rx 5-325 mg TAB] Acetaminophen 500 mg PO Q8H PRN #30 tablet 04/09/18 Unknown Rx Azithromycin [Zithromax Z-AVINASH] 250 mg PO DAILY #6 tablet 04/09/18 Unknown Rx HYDROcodone/ACETAMINOPHEN [[place] 1 each PO Q6HR PRN #12 tablet 04/18/18 Unknown Rx 5-325 Tablet] HYDROcodone/APAP 5-325 [[place] 1 each PO Q4HR PRN #12 tablet 05/09/18 Unknown Rx 5/325] Ibuprofen [Motrin] 600 mg PO Q8H PRN #20 tablet 05/09/18 Unknown Rx Acetaminophen [Tylenol Arthritis] 650 mg PO Q6HR PRN #30 tablet.er 06/21/18 Unknown Rx Ondansetron [Zofran Odt] 4 mg PO Q8HR PRN #20 tab.rapdis 06/21/18 Unknown Rx Allergies Allergy/AdvReac Type Severity Reaction Status Date / Time codeine Allergy THROAT Verified 05/09/18 08:17 CLOSES Iodinated Contrast- Oral and Allergy ITCHES, Verified 05/09/18 08:17 IV Dye FEELS LIKE SHE IS ON FIRE ketorolac [From Toradol] Allergy Headache Verified 05/09/18 08:17 ketorolac tromethamine Allergy Headache Verified 05/09/18 08:17 [From Toradol] methocarbamol [From Robaxin] Allergy Headache Verified 05/09/18 08:17 Penicillins Allergy Swelling Verified 05/09/18 08:17 OF FACE HAND AND THROAT CLOSES strawberry Allergy Rash Verified 05/09/18 08:17 aspirin AdvReac Bleeding Verified 05/09/18 08:17 strawberry Allergy Hives Uncoded 12/13/17 09:02 ED Review of Systems ROS: Stated complaint: LOWER RIGHT SIDE PAIN/EMESIS/DIARRHEA Other details as noted in HPI Comment: All other systems reviewed and negative ED Past Medical Hx - Past Medical History Hx Hypertension: Yes Hx Heart Attack/AMI: No Hx Congestive Heart Failure: No Hx Diabetes: No Hx Deep Vein Thrombosis: No Hx Pulmonary Embolism: Yes (41yr age) Hx GERD: Yes Hx Sickle Cell Disease: No Hx Arthritis: Yes Hx Headaches / Migraines: Yes (MIGRAINES) Hx Kidney Stones: Yes Hx Asthma: Yes Hx COPD: Yes Hx HIV: No Additional medical history: Fibromyalgia, MVP, peptic ulcers - Surgical History Hx Pacemaker: No Hx Internal Defibrillator: No Hx Cholecystectomy: Yes Additional Surgical History: right wrist metal plate, Right ovarian cyst removal. cataract, left Achilles tendon repair and left ankle instrumentation - Social History Smoking Status: Never Smoker Substance Use Type: None - Medications Home Medications: Home Medications Medication Instructions Recorded Confirmed Last Taken Type Acetaminophen 1,000 mg PO Q6HR PRN #30 tablet 09/16/17 09/18/17 09/17/17 Rx ALBUTEROL Inhaler [ProAir HFA 2 puff IH QID PRN #1 inhalation 09/21/17 Unknown Rx Inhaler] ALBUTEROL NEB's [Proventil 0.083% 2.5 mg IH BID #60 nebu 09/21/17 Unknown Rx NEBS] ALPRAZolam [Xanax TAB] 1 mg PO BID PRN #30 tablet 09/21/17 Unknown Rx Amlodipine Besylate [Norvasc] 5 mg PO QDAY #30 tablet 09/21/17 Unknown Rx Gabapentin [Gralise] 300 mg PO TID #90 tab.er.24h 09/21/17 Unknown Rx methylPREDNISolone [Medrol Dose 4 mg PO QAM #1 tab.ds.pk 09/21/17 Unknown Rx Avinash] levoFLOXacin [Levaquin TAB] 750 mg PO QDAY #7 tablet 09/22/17 Unknown Rx Cyclobenzaprine [Flexeril 10 MG 10 mg PO TID PRN #30 tablet 11/07/17 Unknown Rx TAB] traMADol [Ultram] 50 mg PO Q12H PRN #6 tablet 11/27/17 Unknown Rx Famotidine [Pepcid] 20 mg PO BID #60 tablet 12/14/17 Unknown Rx HYDROcodone/APAP 5-325 [[place] 1 each PO Q6HR PRN #6 tablet 01/10/18 Unknown Rx 5-325 mg TAB] Naproxen [Naprosyn] 500 mg PO BID #30 tablet 01/10/18 Unknown Rx Ondansetron [Zofran ODT TAB] 8 mg PO Q12HR #20 tab.rapdis 01/10/18 Unknown Rx HYDROcodone/ACETAMINOPHEN [[place] 1 each PO Q8H PRN #8 tablet 01/21/18 Unknown Rx 5-325 Tablet] Ciprofloxacin [Ciprofloxacin ORAL 500 mg PO Q12H #14 ml 02/05/18 Unknown Rx LIQ] traMADol [Ultram 50 MG tab] 50 mg PO Q6HR PRN #10 tablet 02/15/18 Unknown Rx HYDROcodone/APAP 5-325 [[place] 1 each PO Q6H PRN #8 tablet 04/04/18 Unknown Rx 5-325 mg TAB] Acetaminophen 500 mg PO Q8H PRN #30 tablet 04/09/18 Unknown Rx Azithromycin [Zithromax Z-AVINASH] 250 mg PO DAILY #6 tablet 04/09/18 Unknown Rx HYDROcodone/ACETAMINOPHEN [[place] 1 each PO Q6HR PRN #12 tablet 04/18/18 Unknown Rx 5-325 Tablet] HYDROcodone/APAP 5-325 [[place] 1 each PO Q4HR PRN #12 tablet 05/09/18 Unknown Rx 5/325] Ibuprofen [Motrin] 600 mg PO Q8H PRN #20 tablet 05/09/18 Unknown Rx Acetaminophen [Tylenol Arthritis] 650 mg PO Q6HR PRN #30 tablet.er 06/21/18 Unknown Rx Ondansetron [Zofran Odt] 4 mg PO Q8HR PRN #20 tab.rapdis 06/21/18 Unknown Rx ED Physical Exam - General Limitations: No Limitations General appearance: alert, in no apparent distress - Head Head exam: Present: atraumatic, normocephalic - Eye Eye exam: Present: normal appearance, EOMI. Absent: nystagmus - ENT ENT exam: Present: normal exam, normal orophraynx, mucous membranes moist, normal external ear exam - Neck Neck exam: Present: normal inspection, full ROM. Absent: tenderness, meningismus - Respiratory Respiratory exam: Present: normal lung sounds bilaterally. Absent: respiratory distress - Cardiovascular Cardiovascular Exam: Present: regular rate, normal rhythm, normal heart sounds. Absent: bradycardia, tachycardia, irregular rhythm, systolic murmur, diastolic murmur, rubs, gallop - GI/Abdominal GI/Abdominal exam: Present: soft, tenderness, normal bowel sounds, other (there is suprapubic and right lower quadrant tenderness. There is right CVA tenderness.). Absent: distended, guarding, rebound, rigid, pulsatile mass - Extremities Exam Extremities exam: Present: normal inspection, full ROM, normal capillary refill , other (2+ pulses noted in the bilateral upper, lower extremities. Compartments soft. No long bony tenderness. The pelvis is stable.). Absent: tenderness, pedal edema, joint swelling, calf tenderness - Back Exam Back exam: Present: normal inspection, full ROM, CVA tenderness (R). Absent: tenderness, CVA tenderness (L), paraspinal tenderness, vertebral tenderness - Neurological Exam Neurological exam: Present: alert, oriented X3, CN II-XII intact, normal gait, other (Extraocular movements intact. Tongue midline. No facial droop. Facial sensation intact to light touch in the V1, V2, V3 distribution bilaterally. 5 and 5 strength in 4 extremities.. Sensation is intact to light touch in 4 extremities.). Absent: motor sensory deficit - Psychiatric Psychiatric exam: Present: anxious - Skin Skin exam: Present: warm, dry, intact, normal color. Absent: rash ED Course Vital Signs 06/20/18 21:09 Temperature 97.6 F Pulse Rate 96 H Respiratory 16 Rate Blood Pressure 155/81 O2 Sat by Pulse 96 Oximetry ED Medical Decision Making - Lab Data Result diagrams: 06/20/18 21:17 06/20/18 21:17 Vital Signs 06/20/18 21:09 Temperature 97.6 F Pulse Rate 96 H Respiratory 16 Rate Blood Pressure 155/81 O2 Sat by Pulse 96 Oximetry Lab Results 06/20/18 06/20/18 06/20/18 Range/Units 21:17 21:17 21:44 WBC 8.4 (4.5-11.0) K/mm3 RBC 4.99 (3.65-5.03) M/mm3 Hgb 14.2 (10.1-14.3) gm/dl Hct 42.3 (30.3-42.9) % MCV 85 (79-97) fl MCH 28 (28-32) pg MCHC 34 (30-34) % RDW 15.8 H (13.2-15.2) % Plt Count 266 (140-440) K/mm3 Lymph % (Auto) 29.6 (13.4-35.0) % [place] % (Auto) 7.7 H (0.0-7.3) % Eos % (Auto) 0.6 (0.0-4.3) % Baso % (Auto) 0.5 (0.0-1.8) % Lymph # 2.5 (1.2-5.4) K/mm3 Porter # 0.6 (0.0-0.8) K/mm3 Eos # 0.0 (0.0-0.4) K/mm3 Baso # 0.0 (0.0-0.1) K/mm3 Seg Neutrophils % 61.6 (40.0-70.0) % Seg Neutrophils # 5.1 (1.8-7.7) K/mm3 Sodium 138 (137-145) mmol/L Potassium 3.5 L (3.6-5.0) mmol/L Chloride 103.0 (98-107) mmol/L Carbon Dioxide 19 L (22-30) mmol/L Anion Gap 20 mmol/L BUN 9 (7-17) mg/dL Creatinine 0.7 (0.7-1.2) mg/dL Estimated GFR > 60 ml/min BUN/Creatinine Ratio 13 % Glucose 111 H (65-100) mg/dL Calcium 10.2 (8.4-10.2) mg/dL Total Bilirubin 0.30 (0.1-1.2) mg/dL AST 17 (5-40) units/L ALT 9 (7-56) units/L Alkaline Phosphatase 93 (35-129) units/L Total Protein 7.4 (6.3-8.2) g/dL Albumin 4.5 (3.9-5) g/dL Albumin/Globulin Ratio 1.6 % Urine Color Yellow (Yellow) Urine Turbidity Clear (Clear) Urine pH 5.0 (5.0-7.0) Ur Specific [place] 1.008 (1.003-1.030) Urine Protein <15 mg/dl (Negative) mg/dL Urine Glucose (UA) Neg (Negative) mg/dL Urine Ketones Neg (Negative) mg/dL Urine Blood Sm (Negative) Urine Nitrite Neg (Negative) Urine Bilirubin Neg (Negative) Urine Urobilinogen < 2.0 (<2.0) mg/dL Ur Leukocyte Esterase Sm (Negative) Urine WBC (Auto) 11.0 H (0.0-6.0) /HPF Urine RBC (Auto) 5.0 (0.0-6.0) /HPF U Epithel Cells (Auto) 8.0 (0-13.0) /HPF Urine Mucus Few /HPF - Radiology Data Radiology results: report reviewed, image reviewed Noncontrast CT scan of the abdomen and pelvis is negative for acute disease - Medical Decision Making Differential diagnosis, including but not limited to: Appendicitis, renal colic , pyelonephritis, perforated viscus, constipation, functional abdominal pain Assessment and plan: 67-year-old female with acute on chronic right-sided abdominal pain. The patient has been seen for this complaint in the past. Laboratory studies unremarkable, noncontrast CT scan of the abdomen and pelvis negative for acute disease, urinalysis not strongly suggestive of urinary tract infection. Her symptoms are improved with appropriate supportive and symptomatic care, and she is resting comfortably at this time. There does not appear to be an emergent condition at this time, the patient can follow up expectantly as an outpatient. Critical care attestation.: If time is entered above; I have spent that time in minutes in the direct care of this critically ill patient, excluding procedure time. ED Disposition Clinical Impression: Abdominal pain Disposition: DC-01 TO HOME OR SELFCARE Is pt being admited?: No Does the pt Need Aspirin: No Condition: Good Instructions: Abdominal Pain (ED) Additional Instructions: Take the pain medication, nausea medication as needed/directed. Follow up with her primary care doctor within the next week. Return to the ER right away with new pain, worsened pain, migration of pain, vomiting, lethargy, irritability, inability to tolerate liquid feeds. Referrals: PRIMARY CARE, [Primary Care Provider] - 3-5 Days VERÓNICA DE LA FUENTE MD [Staff Physician] - 3-5 Days
--- NOTE | 2018-06-21 04:45 | Cat Scan Report ---
FINAL REPORT EXAM: CT ABDOMEN PELVIS WO CON HISTORY: flank pain, right, suspect stone TECHNIQUE: Axial imaging was obtained of the abdomen and pelvis without oral or IV contrast. Sagittal and coronal reconstructions were reviewed. Comparison is made to the study of 02/05/2018. FINDINGS: The lung bases do not show acute infiltrates or effusions. There is a small hiatal hernia. The gallbladder has been removed. The liver and biliary tree appear normal. The pancreas is mildly atrophic. The spleen and adrenal glands appear normal. The kidneys show no evidence of stones or hydronephrosis at this time. There are small cortical cysts in both kidneys measuring up to 10 mm in diameter. The abdominal aorta is normal in caliber. The bowel loops are normal in caliber and course. The appendix appears normal. In the pelvis there are multiple uncomplicated sigmoid diverticula. The uterus and bladder appear normal. There are multiple calcifications along the floor of the pelvis. The skeletal structures reveal multilevel disc degeneration in the lumbar spine. IMPRESSION: No evidence of renal stones or hydronephrosis. Small cortical cysts in both kidneys. Cholecystectomy. Normal appendix. Uncomplicated sigmoid diverticulosis. Multilevel disc degeneration in the lumbar spine.
[2018-06-21 05:37] VITALS: BP 197/89
== END 2018-06-21 05:53 | disposition home or self-care (01) ==
LOC: ED 19:59
DX: R10.31 Right lower quadrant pain (principal); I10 Essential (primary) hypertension; M79.7 Fibromyalgia; G43.909 Migraine, unspecified, not intractable, without status migrainosus; J44.9 Chronic obstructive pulmonary disease, unspecified; Z88.5 Allergy status to narcotic agent; Z88.6 Allergy status to analgesic agent; Z88.0 Allergy status to penicillin; Z91.018 Allergy to other foods; Z86.711 Personal history of pulmonary embolism; Z87.442 Personal history of urinary calculi; Z90.49 Acquired absence of other specified parts of digestive tract
CPT/HCPCS: 36415; 74176; 80053; 81001; 85025; 96361; 96374; 96375; 99284; J1170; J2405; J7040; 96367

== ENCOUNTER 2018-07-03 09:32 | Outpatient (CLI) | payer MEDICARE ==
--- NOTE | 2018-07-03 11:51 | Cat Scan Report ---
CT ABDOMEN PELVIS WITHOUT CONTRAST: HISTORY: Right upper quadrant abdominal pain. COMPARISON: 06/21/18. TECHNIQUE: Helical CT in 1.25mm intervals without IV contrast. Sagittal and coronal reconstructions. FINDINGS: Lung bases: Normal. Liver: Normal. Biliary system: Cholecystectomy changes. Mild postcholecystectomy dilatation of the common bile duct measures 9 mm. No evidence for choledocholithiasis. Pancreas: Normal. Spleen: Normal. Kidneys/ureters/bladder: Normal. Adrenal glands: Normal. Aorta: Moderate diffuse atherosclerotic plaques are identified. No large aneurysm. Intestines: Unremarkable given no oral contrast was administered. Minimal diverticulosis of the sigmoid colon. Appendix: Normal. Pelvic viscera: Normal. Ascites: None. Adenopathy: None. Musculoskeletal: Mild osteopenia is suspected. Mild degenerative changes in the thoracolumbar spine. No fracture or suspicious bony lesion. IMPRESSION: No acute abdominal process. Cholecystectomy. No clear explanation for right upper quadrant abdominal pain. Mild diverticulosis of the sigmoid colon.
== END 2018-07-03 09:33 | disposition home or self-care (01) ==
LOC: CT 09:32
PROVIDERS: ATTEND Urology
DX: K57.30 Diverticulosis of large intestine without perforation or abscess without bleeding (principal); M47.895 Other spondylosis, thoracolumbar region; J44.9 Chronic obstructive pulmonary disease, unspecified; I11.0 Hypertensive heart disease with heart failure; I50.9 Heart failure, unspecified; I25.10 Atherosclerotic heart disease of native coronary artery without angina pectoris; K21.9 Gastro-esophageal reflux disease without esophagitis; M19.90 Unspecified osteoarthritis, unspecified site; Z90.721 Acquired absence of ovaries, unilateral; Z90.49 Acquired absence of other specified parts of digestive tract
CPT/HCPCS: 74176

== ENCOUNTER 2018-12-08 13:22 | Outpatient (CLI) | payer MEDICARE ==
--- NOTE | 2018-12-08 14:07 | XRay Report ---
AP PELVIS: Pain AP view of the pelvis shows normal pelvic contour and soft tissues. The hips are symmetric and within normal limits as are the sacroiliac joints. IMPRESSION: Normal pelvis.
--- NOTE | 2018-12-08 14:47 | XRay Report ---
LEFT SHOULDER: Pain Routine views demonstrate normal bony and soft tissue structures with normal joint alignment of the shoulder. Old fracture of the posterior fifth rib. No interval change compared to January 21, 2018. IMPRESSION: Normal study.
== END 2018-12-08 13:23 | disposition home or self-care (01) ==
LOC: XRAY 13:22
PROVIDERS: ATTEND Orthopaedic Surgery
DX: M25.512 Pain in left shoulder (principal); R10.2 Pelvic and perineal pain; J44.9 Chronic obstructive pulmonary disease, unspecified; I10 Essential (primary) hypertension; K21.9 Gastro-esophageal reflux disease without esophagitis; M19.90 Unspecified osteoarthritis, unspecified site; Z90.49 Acquired absence of other specified parts of digestive tract; Z90.721 Acquired absence of ovaries, unilateral; Z87.891 Personal history of nicotine dependence
CPT/HCPCS: 72170

== ENCOUNTER 2019-01-11 15:21 | Inpatient (IN) | payer MEDICARE ==
--- NOTE | 2019-01-11 15:28 | Emergency Department Report ---
Blank Doc - Documentation Documentation: This is a 68-year-old female that presents with left lateral rib pain and shor tness of breathe. Denies any chest pain. This initial assessment/diagnostic orders/clinical plan/treatment(s) is/are subject to change based on patient's health status, clinical progression and re-assessment by fellow clinical providers in the ED. Further treatment and workup at subsequent clinical providers discretion. Patient/guardians urged not to elope from the ED as their condition may be serious if not clinically assessed and managed. Initial orders include: 1- Patient sent to MAIN ED for further evaluation and treatment 2- EKG 3- Labs
[2019-01-11 15:57] LABS: Basophils % (Auto) 0.3 % (0.0-1.8); Eosinophils # (Auto) 0.1 K/mm3 (0.0-0.4); Eosinophils % (Auto) 1.6 % (0.0-4.3); Hematocrit 41.4 % (30.3-42.9); Hemoglobin 13.8 gm/dl (10.1-14.3); Lymphocytes # (Auto) 2.4 K/mm3 (1.2-5.4); Lymphocytes % (Auto) 34.2 % (13.4-35.0); Mean Corpuscular HGB Conc 33 % (30-34); Mean Corpuscular Volume 88 fl (79-97); Monocytes # (Auto) 0.6 K/mm3 (0.0-0.8); Monocytes % (Auto) 8.4 % (0.0-7.3); Platelet Count 269 K/mm3 (140-440); Red Cell Distribution Width 14.6 % (13.2-15.2)
[2019-01-11 16:10] LABS: Creatine Kinase MB 1.5 ng/mL (0.0-4.0)
[2019-01-11 16:12] LABS: Alanine Aminotransferase 9 units/L (7-56); Albumin 4.3 g/dL (3.9-5); BUN/Creatinine Ratio 20; Blood Urea Nitrogen 14 mg/dL (7-17); Calcium 9.4 mg/dL (8.4-10.2); Hemolysis Index 9
[2019-01-11 16:20] LABS: INR 0.95 (0.87-1.13)
[2019-01-11 16:21] LABS: Partial Thromboplastin Time 27.4 Sec. (24.2-36.6)
--- NOTE | 2019-01-11 17:06 | XRay Report ---
PROCEDURE: XR CHEST ROUTINE 2V TECHNIQUE: Chest radiograph, frontal and lateral views. HISTORY: Dyspnea COMPARISONS: Chest x-ray September 24, 2018. FINDINGS: Cardiac silhouette is within normal limits. Aortic calcifications. There is no effusion. There is no pneumothorax. There is no consolidation. There are no suspicious osseous lesions. IMPRESSION: * No acute cardiopulmonary findings. This document is electronically signed by Jose Miguel MD., January 11 2019 05:04:03 PM ET
[2019-01-11] MEDS ORDERED: SUBLIMAZE IV ONE (17:14)
[2019-01-11] MEDS ORDERED: ZOFRAN IV ONE (17:14)
--- NOTE | 2019-01-11 17:19 | Emergency Department Report ---
HPI - General Chief Complaint: Dyspnea/Respdistress Time Seen by Provider: 01/11/19 15:25 - HPI HPI: Room 1 The patient is a 68-year-old female presenting with a chief complaint of left rib pain and back pain. Patient states for the past 2 days she's had pain in the left lateral aspect of her chest and left back. Patient states she also has had an increase in her cough over the past 2 days and her cough has been occasionally productive. Patient is to shortness of breath and nausea/vomiting with her pain. Patient currently gets her pain score of 9/10. The patient admits to pleurisy Location: [See above] Duration: [See above] Quality: [See above] Severity: 10 Modifying factors: [see above] Context: [see above] Mode of transportation: [not driving] ED Past Medical Hx - Past Medical History Hx Hypertension: Yes Hx Pulmonary Embolism: Yes (41yr age) Hx GERD: Yes Hx Arthritis: Yes Hx Headaches / Migraines: Yes Hx Kidney Stones: Yes Hx Asthma: Yes Hx COPD: Yes Additional medical history: Fibromyalgia, MVP, peptic ulcers - Surgical History Hx Cholecystectomy: Yes Additional Surgical History: right wrist metal plate, Right ovarian cyst removal. cataract, left Achilles tendon repair and left ankle instrumentation, gall bladder removal - Family History Family history: no significant - Social History Smoking Status: Current Every Day Smoker (1/3 pack per day) Substance Use Type: None (denies illicit drug use) - Medications Home Medications: Home Medications Medication Instructions Recorded Confirmed Last Taken Type ALBUTEROL NEB's [Proventil 0.083% 2.5 mg IH BID #60 nebu 09/21/17 09/24/18 Unknown Rx NEBS] ALPRAZolam [Xanax TAB] 1 mg PO BID PRN #30 tablet 09/21/17 09/24/18 Unknown Rx Amlodipine Besylate [Norvasc] 5 mg PO QDAY #30 tablet 09/21/17 09/24/18 Unknown Rx HYDROcodone/APAP 7.5-325 [[place] 1 each PO Q6HR PRN 09/24/18 09/24/18 Unknown History 7.5-325 mg TAB] Zolpidem [Ambien] 5 mg PO QHS PRN 09/24/18 09/24/18 Unknown History Cyclobenzaprine [Flexeril] 10 mg PO QHS PRN #20 tablet 10/10/18 Unknown Rx Naproxen [Naprosyn] 500 mg PO BID #30 tablet 10/10/18 Unknown Rx ED Review of Systems ROS: Stated complaint: (L) SIDE PAIN/SOB Other details as noted in HPI Constitutional: diaphoresis, fever Eyes: denies: eye pain ENT: denies: throat pain Respiratory: cough, shortness of breath Cardiovascular: denies: syncope Endocrine: no symptoms reported Gastrointestinal: nausea, vomiting Genitourinary: denies: dysuria Musculoskeletal: back pain Neurological: denies: headache Physical Exam - Physical Exam Vital Signs: Vital Signs 01/11/19 15:26 Temperature 97.9 F Pulse Rate 89 Respiratory 20 Rate Blood Pressure 138/55 O2 Sat by Pulse 97 Oximetry Physical Exam: GENERAL: The patient is well-developed well-nourished female lying on stretcher not appearing to be in acute distress. [] HEENT: Normocephalic. Atraumatic. Extraocular motions are intact. Patient has moist mucous membranes. NECK: Supple. No meningitic signs are noted. There is no adenopathy noted. CHEST/LUNGS: Clear to auscultation. There is no respiratory distress noted. HEART/CARDIOVASCULAR: Regular. There is no tachycardia. There is no gallop rub or murmur. ABDOMEN: Abdomen is soft, nontender. Patient has normal bowel sounds. There is no abdominal distention. SKIN: There is no rash. There is no diaphoresis. NEURO: The patient is awake, alert, and oriented. The patient is cooperative. The patient has normal speech MUSCULOSKELETAL: There is no evidence of acute injury. ED Course Vital Signs 01/11/19 15:26 Temperature 97.9 F Pulse Rate 89 Respiratory 20 Rate Blood Pressure 138/55 O2 Sat by Pulse 97 Oximetry ED Medical Decision Making - Lab Data Result diagrams: 01/11/19 15:37 01/11/19 15:37 - EKG Data -: EKG Interpreted by Me EKG shows normal: sinus rhythm Rate: normal - EKG Data When compared to previous EKG there are: no significant change Interpretation: no acute changes - Radiology Data Radiology results: pending (CT chest), report reviewed (chest x-ray), image reviewed (chest x-ray, CT chest) interpreted by me: Chest x-ray-no focal infiltrate, no pneumothorax CT chest-no definite focal infiltrates seen. [facility] [address] [place] [address] XRay Report Signed Patient: AMY BENTLEY MR#: [id number] [birth year] : 1950 Acct:[id number] Age/Sex: 68 / F ADM Date: 01/11/19 Loc: ED Attending Dr: Ordering Physician: MADHU RUIZ NP Date of Service: 01/11/19 Procedure(s): XR chest routine 2V Accession Number(s): [id number] cc: MADHU RUIZ NP Fluoro Time In Minutes: PROCEDURE: XR CHEST ROUTINE 2V TECHNIQUE: Chest radiograph, frontal and lateral views. HISTORY: Dyspnea COMPARISONS: Chest x-ray September 24, 2018. FINDINGS: Cardiac silhouette is within normal limits. Aortic calcifications. There is no effusion. There is no pneumothorax. There is no consolidation. There are no suspicious osseous lesions. IMPRESSION: * No acute cardiopulmonary fi ndings. This document is electronically signed by Jose Parker MD., January 11 2019 05:04:03 PM ET Transcribed By: TYM Dictated By: JOSE PARKER MD Electronically Authenticated By: JOSE PARKER MD Signed Date/Time: 01/11/19 1706 DD/ 155 TD/TT: 01/11/19 1559 - Differential Diagnosis pneumonia, bronchitis, ACS, PE, pericarditis Critical care attestation.: If time is entered above; I have spent that time in minutes in the direct care of this critically ill patient, excluding procedure time. ED Disposition Clinical Impression: Chest pain, Shortness of breath Disposition: -09 OP ADMIT IP TO THIS HOSP Is pt being admited?: Yes Does the pt Need Aspirin: No Condition: Fair Instructions: Chest Pain (ED) Referrals: PAT ACOSTA MD [Primary Care Provider] - 3-5 Days Time of Disposition: 18:42 (hospitalist paged (Dr Mccann))
[2019-01-11] MEDS ORDERED: NITRO-BID 2% TP ONE (18:37)
[2019-01-11] MEDS ORDERED: PLAVIX PO ONE (18:43)
--- NOTE | 2019-01-11 18:53 | History and Physical Report ---
History of Present Illness Chief complaint: My chest hurts on my left side History of present illness: 68 YO Female with Asthma, COPD, Fibromyalgia, MVP, PUD, Migraine, WAGGONER, HTN, PE, OA, GERD presents to ED for evaluation. Pt states that she has experienced pain in her chest over the past 1 day. Pt states that she was awakened from sleep around 0300hrs. Pt states that symptoms have gotten progressively worse over the ensuing 12 hours. Pt states that pain is 9/10, localized to the left chest, radiates to the left back region, worsened with coughing and deep breathing, associated with shortness of breath, nausea. Pt acknowledges dypsnea with exertion, decreased exercise tolerance, as leg edema. Pt denies fever, chills, palpitations, BRBPR, Prolonged Travel/Immoblity, Unilateral leg swelling, Calf pain, Skin Rash, or Recent ill contacts. Pt transported to [facility] via private vehicle. Pt seen and evaluated in ED and found to have symptoms consistent with CHF Decompensation as well as Angina. Pt admitted to Telemetry. Cardiology consulted in ED. Past History Past Medical History: arthritis, COPD, GERD, hypertension, pulmonary embolism, other (Fibromyalgia, PUD, MVP) Past Surgical History: cholecystectomy, Other (right wrist metal plate, Right ovarian cyst removal. cataract, left Achilles tendon repair and left ankle instrumentation) Social history: . denies: smoking, alcohol abuse, prescription drug abuse Family history: hypertension Medications and Allergies Allergies Allergy/AdvReac Type Severity Reaction Status Date / Time codeine Allergy THROAT Verified 01/11/19 15:23 CLOSES Iodinated Contrast- Oral and Allergy ITCHES, Verified 01/11/19 15:23 IV Dye FEELS LIKE SHE IS ON FIRE ketorolac [From Toradol] Allergy Headache Verified 01/11/19 15:23 ketorolac tromethamine Allergy Headache Verified 01/11/19 15:23 [From Toradol] methocarbamol [From Robaxin] Allergy Headache Verified 01/11/19 15:23 Penicillins Allergy Swelling Verified 01/11/19 15:23 OF FACE HAND AND THROAT CLOSES strawberry Allergy Rash Verified 01/11/19 15:23 aspirin AdvReac Bleeding Verified 01/11/19 15:23 strawberry Allergy Hives Uncoded 12/13/17 09:02 Home Medications Medication Instructions Recorded Confirmed Last Taken Type ALBUTEROL NEB's [Proventil 0.083% 2.5 mg IH BID #60 nebu 09/21/17 09/24/18 Unknown Rx NEBS] ALPRAZolam [Xanax TAB] 1 mg PO BID PRN #30 tablet 09/21/17 09/24/18 Unknown Rx Amlodipine Besylate [Norvasc] 5 mg PO QDAY #30 tablet 09/21/17 09/24/18 Unknown Rx HYDROcodone/APAP 7.5-325 [[place] 1 each PO Q6HR PRN 09/24/18 09/24/18 Unknown History 7.5-325 mg TAB] Zolpidem [Ambien] 5 mg PO QHS PRN 09/24/18 09/24/18 Unknown History Cyclobenzaprine [Flexeril] 10 mg PO QHS PRN #20 tablet 10/10/18 Unknown Rx Naproxen [Naprosyn] 500 mg PO BID #30 tablet 10/10/18 Unknown Rx Review of Systems Constitutional: no weight loss, no weight gain, no fever, no chills Ears, nose, mouth and throat: no ear pain, no ear discharge, no tinnitis, no decreased hearing, no nose pain, no nasal congestion Breasts: no change in shape, no swelling, no mass Cardiovascular: chest pain, shortness of breath, leg edema, decreased exercise tolerance, no rapid/irregular heart beat, no syncope, no claudication Respiratory: no cough, no cough with sputum, no excessive sputum, no hemoptysis Gastrointestinal: no nausea, no vomiting, no diarrhea, no constipation Genitourinary Female: no pelvic pain, no flank pain, no menorrhagia, no dysuria, no urinary frequency, no urgency Rectal: no pain, no incontinence, no bleeding Musculoskeletal: no neck stiffness, no neck pain, no shooting arm pain, no arm numbness/tingling, no low back pain, no shooting leg pain Integumentary: no rash, no pruritis, no redness, no sores, no wounds Neurological: no transient paralysis, no paralysis, no weakness, no parathesias, no numbness, no tingling, no seizures Psychiatric: no anxiety, no memory loss, no change in sleep habits, no sleep disturbances, no insomnia, no hypersomnia, no change in appetite Endocrine: no cold intolerance, no heat intolerance, no polyphagia, no excessive thirst, no polydipsia, no polyuria Hematologic/Lymphatic: no easy bruising, no easy bleeding, no lymphadenopathy, no lymphedema Allergic/Immunologic: no urticaria, no allergic rhinitis, no wheezing, no persistent infections, no anaphylaxis, no angioedema Exam - Constitutional Vitals: Temp Pulse Resp BP Pulse Ox 97.9 F 89 20 133/68 97 01/11/19 15:26 01/11/19 15:26 01/11/19 15:26 01/11/19 18:46 01/11/19 15:26 General appearance: Present: mild distress - EENT Eyes: Present: PERRL ENT: hearing intact, clear oral mucosa - Neck Neck: Present: supple, normal ROM - Respiratory Respiratory effort: normal Respiratory: bilateral: CTA - Cardiovascular Heart Sounds: Present: S1 & S2. Absent: rub, click - Extremities Extremity abnormal: edema Peripheral Pulses: within normal limits - Abdominal General gastrointestinal: Present: soft, non-tender, non-distended, normal bowel sounds Female genitourinary: Present: normal - Integumentary Integumentary: Present: clear, warm, dry - Musculoskeletal Musculoskeletal: gait normal, strength equal bilaterally - Psychiatric Psychiatric: appropriate mood/affect, intact judgment & insight - Neurologic Neurologic: CNII-XII intact, moves all extremities Results - Labs CBC & Chem 7: 01/11/19 15:37 01/11/19 15:37 Labs: Abnormal lab results 01/11/19 01/11/19 Range/Units 15:37 15:37 [place] % (Auto) 8.4 H (0.0-7.3) % Chloride 107.2 H (98-107) mmol/L Carbon Dioxide 19 L (22-30) mmol/L Glucose 140 H (65-100) mg/dL Assessment and Plan - Patient Problems (1) Chest pain Current Visit: Yes Status: Acute Qualifiers: Ischemic chest pain type: stable angina pectoris Plan to address problem: Admit to telemetry, serial cardiac enzymes, ekg, telemetry, cardiology consulted in ED, morphine, supplemental oxygen, nitro, aspirin, (2) Acute exacerbation of CHF (congestive heart failure) Current Visit: No Status: Acute Qualifiers: Qualified Code(s): I50.33 - Acute on chronic diastolic (congestive) heart failure Plan to address problem: Admit to Telemetry, Strict I/O, Daily weight, monitor uop q shift, afterload reduction, echo, bnp, (3) COPD (chronic obstructive pulmonary disease) Current Visit: No Status: Acute Qualifiers: COPD type: chronic bronchitis Chronic bronchitis type: unspecified Qualified Code(s): J42 - Unspecified chronic bronchitis Plan to address problem: supplemental oxygen, nebulizer therapy, steroid therapy, NIPPV as clinically indicated. (4) HTN (hypertension) Current Visit: Yes Status: Acute Qualifiers: Hypertension type: essential hypertension Qualified Code(s): I10 - Essential (primary) hypertension Plan to address problem: monitor BP q shift, continue current therapy. (5) DVT prophylaxis Current Visit: No Status: Acute Plan to address problem: SCD to BLE while in bed.
[2019-01-11] MEDS ORDERED: SODIUM CHLORIDE FLUSH SYRINGE 10 ML IV PRN ×2 (19:01)
[2019-01-11] MEDS ORDERED: ZOFRAN IV PRN (19:01)
[2019-01-11] MEDS ORDERED: TYLENOL PO PRN (19:01)
[2019-01-11] MEDS ORDERED: NITROSTAT SL PRN (19:01)
[2019-01-11] MEDS ORDERED: BABY ASPIRIN PO STA (19:01)
[2019-01-11] MEDS ORDERED: FLEXERIL PO PRN (19:04)
[2019-01-11] MEDS ORDERED: BABY ASPIRIN ONE (20:14)
[2019-01-11] MEDS: NORCO 7.5/325 PO PRN (20:16)
[2019-01-11] MEDS ORDERED: NORCO 7.5/325 ONE (20:18)
[2019-01-11] MEDS ORDERED: SOLU-Medrol IV ONE (20:36)
--- NOTE | 2019-01-11 20:36 | Cat Scan Report ---
PROCEDURE: CT CHEST WO CON TECHNIQUE: Computerized axial tomography of the chest was performed without contrast material. This study is performed without intravenous contrast and the sensitivity for pathology, including neoplasm s, adenopathy, abscess, pulmonary embolism and aortic dissection, is reduced. CT DOSE LENGTH PRODUCT: mGycm HISTORY: left rib and left back pain, cough COMPARISONS: None . FINDINGS: Heart and pericardium: Normal. Thoracic aorta: Normal. Pulmonary vasculature: Normal. Lymph nodes: No enlarged thoracic lymph nodes. Lungs: There are mild emphysematous changes. There are no infiltrates, effusions or pneumothoraces.. Musculoskeletal structures: There are no rib fractures. Thoracic spine and sternum are intact.. Upper abdominal structures: No significant abnormality. IMPRESSION: There is no acute cardiopulmonary abnormality. There are no rib fractures.. This document is electronically signed by Severo Wells MD., January 11 2019 08:34:08 PM ET
[2019-01-11] MEDS: PROVENTIL IH SCH (21:55)
[2019-01-11] MEDS: NAPROSYN PO SCH (21:57)
[2019-01-11] MEDS: PEPCID PO SCH (21:58)
[2019-01-11] MEDS: XANAX PO PRN (21:58)
[2019-01-11] MEDS ORDERED: AMBIEN PO PRN (22:00)
[2019-01-11] MEDS: SODIUM CHLORIDE FLUSH SYRINGE 10 ML IV SCH (22:00)
[2019-01-12 05:04] LABS: BUN/Creatinine Ratio TNR; Blood Urea Nitrogen TNR mg/dL (7-17); Calcium TNR mg/dL (8.4-10.2); Hemolysis Index TNR
[2019-01-12 06:24] LABS: BUN/Creatinine Ratio 21; Blood Urea Nitrogen 15 mg/dL (7-17); Calcium 9.3 mg/dL (8.4-10.2); Hemolysis Index 29
[2019-01-12] MEDS: PROVENTIL IH SCH ×2 (08:23→19:08)
[2019-01-12] MEDS: PEPCID PO SCH ×2 (09:44→21:02)
[2019-01-12] MEDS: NORVASC PO SCH (09:44)
[2019-01-12] MEDS: NAPROSYN PO SCH ×2 (09:44→21:14)
[2019-01-12] MEDS: SODIUM CHLORIDE FLUSH SYRINGE 10 ML IV SCH ×2 (09:49→21:14)
[2019-01-12] MEDS: XANAX PO PRN ×2 (09:58→21:02)
--- NOTE | 2019-01-12 10:38 | Progress Note ---
Assessment and Plan Assessment and plan: Chest pain. We'll continue to follow cardiac isoenzymes and EKGs. Patient with normal myocardial perfusion scan September 2018. Await cardiology recommendations. Acute on chronic diastolic heart failure exacerbation. Continue diuresis. COPD exacerbation. Continue bronchodilators/nebulizer treatments, systemic steroids. Acute hypoxemic respiratory failure. Etiology secondary to above. Continue O2 and BiPAP as clinically indicated. Hypertension. Continue anti-hypertensive medications. GERD/PUD. Continue PPI. History of PE. Fibromyalgia/migraine headaches. Supportive care. History Interval history: No new issues overnight. Hospitalist Physical - Constitutional Vitals: Temp Pulse Resp BP Pulse Ox 97.9 F 75 18 146/63 98 01/12/19 07:47 01/12/19 07:47 01/12/19 07:47 01/12/19 07:47 01/12/19 07:47 General appearance: Present: no acute distress - EENT Eyes: Present: PERRL, EOM intact ENT: hearing intact, clear oral mucosa, dentition normal - Neck Neck: Present: supple, normal ROM - Respiratory Respiratory effort: normal Respiratory: bilateral: CTA - Cardiovascular Rhythm: regular Heart Sounds: Present: S1 & S2. Absent: gallop, rub - Extremities Extremities: no ischemia, No edema, Full ROM - Abdominal General gastrointestinal: soft, non-tender, non-distended, normal bowel sounds - Integumentary Integumentary: Present: clear, warm, dry - Neurologic Neurologic: CNII-XII intact, moves all extremities Results - Labs CBC & Chem 7: 01/11/19 15:37 01/12/19 05:09 Labs: Laboratory Last Values WBC 6.9 K/mm3 (4.5-11.0) 01/11/19 15:37 RBC 4.70 M/mm3 (3.65-5.03) 01/11/19 15:37 Hgb 13.8 gm/dl (10.1-14.3) 01/11/19 15:37 Hct 41.4 % (30.3-42.9) 01/11/19 15:37 MCV 88 fl (79-97) 01/11/19 15:37 MCH 29 pg (28-32) 01/11/19 15:37 MCHC 33 % (30-34) 01/11/19 15:37 RDW 14.6 % (13.2-15.2) 01/11/19 15:37 Plt Count 269 K/mm3 (140-440) 01/11/19 15:37 Lymph % (Auto) 34.2 % (13.4-35.0) 01/11/19 15:37 [place] % (Auto) 8.4 % (0.0-7.3) H 01/11/19 15:37 Eos % (Auto) 1.6 % (0.0-4.3) 01/11/19 15:37 Baso % (Auto) 0.3 % (0.0-1.8) 01/11/19 15:37 Lymph # 2.4 K/mm3 (1.2-5.4) 01/11/19 15:37 [place] # 0.6 K/mm3 (0.0-0.8) 01/11/19 15:37 Eos # 0.1 K/mm3 (0.0-0.4) 01/11/19 15:37 Baso # 0.0 K/mm3 (0.0-0.1) 01/11/19 15:37 Seg Neutrophils % 55.5 % (40.0-70.0) 01/11/19 15:37 Seg Neutrophils # 3.8 K/mm3 (1.8-7.7) 01/11/19 15:37 PT 13.3 Sec. (12.2-14.9) 01/11/19 15:37 INR 0.95 (0.87-1.13) 01/11/19 15:37 APTT 27.4 Sec. (24.2-36.6) 01/11/19 15:37 D-Dimer < 135.00 ng/mlDDU (0-234) 01/11/19 15:37 Sodium 140 mmol/L (137-145) 01/12/19 05:09 Potassium 4.4 mmol/L (3.6-5.0) 01/12/19 05:09 Chloride 107.6 mmol/L (98-107) H 01/12/19 05:09 Carbon Dioxide 20 mmol/L (22-30) L 01/12/19 05:09 Anion Gap 17 mmol/L 01/12/19 05:09 BUN 15 mg/dL (7-17) 01/12/19 05:09 Creatinine 0.7 mg/dL (0.7-1.2) 01/12/19 05:09 Estimated GFR > 60 ml/min 01/12/19 05:09 BUN/Creatinine Ratio 21 % 01/12/19 05:09 Glucose 169 mg/dL (65-100) H 01/12/19 05:09 Calcium 9.3 mg/dL (8.4-10.2) 01/12/19 05:09 Total Bilirubin 0.30 mg/dL (0.1-1.2) 01/11/19 15:37 AST 15 units/L (5-40) 01/11/19 15:37 ALT 9 units/L (7-56) 01/11/19 15:37 Alkaline Phosphatase 82 units/L (35-129) 01/11/19 15:37 Total Creatine Kinase 81 units/L (30-135) 01/11/19 15:37 CK-MB (CK-2) 1.5 ng/mL (0.0-4.0) 01/11/19 15:37 CK-MB (CK-2) Rel Index 1.8 (0-4) 01/11/19 15:37 Troponin T < 0.010 ng/mL (0.00-0.029) 01/12/19 00:35 NT-Pro-B Natriuret Pep 19.05 pg/mL (0-900) 01/11/19 18:58 Total Protein 6.8 g/dL (6.3-8.2) 01/11/19 15:37 Albumin 4.3 g/dL (3.9-5) 01/11/19 15:37 Albumin/Globulin Ratio 1.7 % 01/11/19 15:37
--- NOTE | 2019-01-12 11:20 | Consultation ---
History of Present Illness Consult date: 01/12/19 Consult reason: chest pain, congestive heart failure History of present illness: Patient is a 68 year old woman who gives a history of Asthma, Bronchitis, COPD and continued tobacco abuse who presented with shortness of breath and chest pain. Cardiac consultation was requested. Patient describes pain under her left rib cage, worse with deep inspirations and position changes. Chest x-ray is negative, cardiac enzymes are normal and her ECG is sinus rhythm with no acute ischemic changes. Patient has had extensive work up in the past. She has had 2 cardiac catheterizations, in May 2015 and again February 2016. Both catheterizations demonstrated luminal irregularities and normal left ventricle systolic function with ejection fraction Late at 60-65%. Recommended for risk factor modification including smoking cessation. In addition, just 3 months ago she underwent a thallium stress test which was normal. Past History Social history: . denies: smoking, alcohol abuse, prescription drug abu se Family history: hypertension Medications and Allergies Allergies Allergy/AdvReac Type Severity Reaction Status Date / Time codeine Allergy THROAT Verified 01/11/19 15:23 CLOSES Iodinated Contrast- Oral and Allergy ITCHES, Verified 01/11/19 15:23 IV Dye FEELS LIKE SHE IS ON FIRE ketorolac [From Toradol] Allergy Headache Verified 01/11/19 15:23 ketorolac tromethamine Allergy Headache Verified 01/11/19 15:23 [From Toradol] methocarbamol [From Robaxin] Allergy Headache Verified 01/11/19 15:23 Penicillins Allergy Swelling Verified 01/11/19 15:23 OF FACE HAND AND THROAT CLOSES strawberry Allergy Rash Verified 01/11/19 15:23 aspirin AdvReac Bleeding Verified 01/11/19 15:23 strawberry Allergy Hives Uncoded 12/13/17 09:02 Home Medications Medication Instructions Recorded Confirmed Last Taken Type ALBUTEROL NEB's [Proventil 0.083% 2.5 mg IH BID #60 nebu 09/21/17 01/12/19 Unknown Rx NEBS] ALPRAZolam [Xanax TAB] 1 mg PO BID PRN #30 tablet 09/21/17 01/12/19 Unknown Rx Amlodipine Besylate [Norvasc] 5 mg PO QDAY #30 tablet 09/21/17 01/12/19 Unknown Rx HYDROcodone/APAP 7.5-325 [[place] 1 each PO Q6HR PRN 09/24/18 01/12/19 Unknown History 7.5-325 mg TAB] Zolpidem [Ambien] 5 mg PO QHS PRN 09/24/18 01/12/19 Unknown History Cyclobenzaprine [Flexeril] 10 mg PO QHS PRN #20 tablet 10/10/18 01/12/19 Unknown Rx Naproxen [Naprosyn] 500 mg PO BID #30 tablet 10/10/18 01/12/19 Unknown Rx Active Meds: Active Medications Acetaminophen (Tylenol) 650 mg PO Q4H PRN PRN Reason: Pain MILD(1-3)/Fever >100.5/WAGGONER Acetaminophen/Hydrocodone Bitart ([place] 7.5/325) 1 each PO Q6H PRN PRN Reason: Pain, Moderate Last Admin: 01/11/19 20:16 Dose: 1 each Documented by: Albuterol (Proventil) 2.5 mg IH BIDRT [facility] Last Admin: 01/12/19 08:23 Dose: 2.5 mg Documented by: Alprazolam (Xanax) 1 mg PO BID PRN PRN Reason: Anxiety Last Admin: 01/12/19 09:58 Dose: 1 mg Documented by: Amlodipine Besylate (Norvasc) 5 mg PO QDAY [facility] Last Admin: 01/12/19 09:44 Dose: 5 mg Documented by: Cyclobenzaprine HCl (Flexeril) 10 mg PO QHS PRN PRN Reason: Muscle Spasm Famotidine (Pepcid) 20 mg PO BID [facility] Last Admin: 01/12/19 09:44 Dose: 20 mg Documented by: Naproxen (Naprosyn) 500 mg PO BID [facility] Last Admin: 01/12/19 09:44 Dose: 500 mg Documented by: Nitroglycerin (Nitrostat) 0.4 mg SL Q5M PRN PRN Reason: Chest Pain Ondansetron HCl (Zofran) 4 mg IV Q8H PRN PRN Reason: Nausea And Vomiting Last Admin: 01/12/19 09:43 Dose: 4 mg Documented by: Sodium Chloride (Sodium Chloride Flush Syringe 10 Ml) 10 ml IV BID [facility] Last Admin: 01/12/19 09:49 Dose: 10 ml Documented by: Sodium Chloride (Sodium Chloride Flush Syringe 10 Ml) 10 ml IV PRN PRN PRN Reason: LINE FLUSH Zolpidem Tartrate (Ambien) 5 mg PO QHS PRN PRN Reason: Sleep Physical Examination Vital Signs Temp Pulse Resp BP Pulse Ox 97.9 F 89 20 138/55 97 01/11/19 15:26 01/11/19 15:26 01/11/19 15:26 01/11/19 15:26 01/11/19 15:26 General appearance: no acute distress HEENT: Positive: PERRL Cardiac: Positive: Reg Rate and Rhythm Lungs: Positive: Decreased Breath Sounds Neuro: Positive: Grossly Intact Extremities: Absent: edema Results 01/11/19 15:37 01/12/19 05:09 Cardiac Enzymes 01/11/19 Range/Units 15:37 AST 15 (5-40) units/L CK-MB (CK-2) 1.5 (0.0-4.0) ng/mL Coagulation 01/11/19 Range/Units 15:37 PT 13.3 (12.2-14.9) Sec. INR 0.95 (0.87-1.13) APTT 27.4 (24.2-36.6) Sec. CBC 01/11/19 Range/Units 15:37 WBC 6.9 (4.5-11.0) K/mm3 RBC 4.70 (3.65-5.03) M/mm3 Hgb 13.8 (10.1-14.3) gm/dl Hct 41.4 (30.3-42.9) % Plt Count 269 (140-440) K/mm3 Lymph # 2.4 (1.2-5.4) K/mm3 [place] # 0.6 (0.0-0.8) K/mm3 Eos # 0.1 (0.0-0.4) K/mm3 Baso # 0.0 (0.0-0.1) K/mm3 Comprehensive Metabolic Panel 01/11/19 01/12/19 01/12/19 Range/Units 15:37 03:07 05:09 Sodium 142 TNR 140 (137-145) mmol/L Potassium 3.9 TNR 4.4 (3.6-5.0) mmol/L Chloride 107.2 H TNR 107.6 H (98-107) mmol/L Carbon Dioxide 19 L TNR 20 L (22-30) mmol/L BUN 14 TNR 15 (7-17) mg/dL Creatinine 0.7 TNR 0.7 (0.7-1.2) mg/dL Glucose 140 H TNR 169 H (65-100) mg/dL Calcium 9.4 TNR 9.3 (8.4-10.2) mg/dL AST 15 (5-40) units/L ALT 9 (7-56) units/L Alkaline Phosphatase 82 (35-129) units/L Total Protein 6.8 (6.3-8.2) g/dL Albumin 4.3 (3.9-5) g/dL Assessment and Plan Chest pain, musculoskeletal Hx of COPD/Asthma Tobacco abuse [facility] 02/2016: luminal irregularities Echo 12/2017: 55-60% MPI 09/2018: normal scan
[2019-01-12] MEDS ORDERED: ULTRAM PO ONE (12:17)
[2019-01-12] MEDS ORDERED: APRESOLINE IV ONE (20:25)
[2019-01-12] MEDS: NORCO 7.5/325 PO PRN (21:02)
[2019-01-13 06:09] LABS: Basophils % (Auto) 0.3 % (0.0-1.8); Eosinophils % (Auto) 0.5 % (0.0-4.3); Hematocrit 38.5 % (30.3-42.9); Hemoglobin 12.9 gm/dl (10.1-14.3); Lymphocytes # (Auto) 2.5 K/mm3 (1.2-5.4); Lymphocytes % (Auto) 37.4 % (13.4-35.0); Mean Corpuscular HGB Conc 33 % (30-34); Mean Corpuscular Volume 89 fl (79-97); Monocytes # (Auto) 0.6 K/mm3 (0.0-0.8); Monocytes % (Auto) 8.8 % (0.0-7.3); Platelet Count 227 K/mm3 (140-440); Red Blood Count 4.35 M/mm3 (3.65-5.03); Red Cell Distribution Width 14.5 % (13.2-15.2)
[2019-01-13 06:36] LABS: BUN/Creatinine Ratio 17; Blood Urea Nitrogen 12 mg/dL (7-17); Hemolysis Index 43
[2019-01-13] MEDS: NORCO 7.5/325 PO PRN (07:53)
[2019-01-13 08:01] VITALS: BP 115/61
[2019-01-13] MEDS: PROVENTIL IH SCH (09:40)
[2019-01-13] MEDS: NAPROSYN PO SCH (09:47)
[2019-01-13] MEDS: PEPCID PO SCH (09:47)
[2019-01-13] MEDS: NORVASC PO SCH (09:47)
[2019-01-13] MEDS: SODIUM CHLORIDE FLUSH SYRINGE 10 ML IV SCH (09:48)
[2019-01-13] MEDS: XANAX PO PRN (11:20)
--- NOTE | 2019-01-13 11:38 | Progress Note ---
Assessment and Plan Chest pain, musculoskeletal pt reports GI related issues when she takes anti-inflammatory medications. Hx of COPD/Asthma Tobacco abuse [facility] 02/2016: luminal irregularities Echo 12/2017: 55-60% MPI 09/2018: normal scan Recommendations: Advised smoking cessation. Consider a chest CTA PE protocol. We will recommend Tramadol for pleuritic chest pain. Subjective Date of service: 01/13/19 Interval history: Patient reports chest pain overnight, worse with palpation and position changes. Objective Vital Signs Temp Pulse Pulse Resp Resp BP Pulse Ox 01/13/19 09:53 68 18 01/13/19 09:47 115/61 01/13/19 09:42 64 18 01/13/19 09:41 97 01/13/19 07:59 98.0 F 54 L 20 115/61 98 01/13/19 05:01 98.0 F 63 18 115/53 96 01/13/19 03:00 61 01/13/19 00:37 98.0 F 83 18 101/44 97 01/12/19 19:38 98.0 F 114 H 18 180/79 96 01/12/19 19:18 79 17 01/12/19 19:11 94 01/12/19 19:08 74 17 01/12/19 16:14 65 01/12/19 15:28 98.0 F 69 20 122/58 99 - Physical Examination General: No Apparent Distress HEENT: Positive: PERRL Neck: Positive: trachea midline Cardiac: Positive: Reg Rate and Rhythm Lungs: Positive: Decreased Breath Sounds Neuro: Positive: Grossly Intact Extremities: Absent: edema - Labs and Meds CBC 01/13/19 Range/Units 04:14 WBC 6.7 (4.5-11.0) K/mm3 RBC 4.35 (3.65-5.03) M/mm3 Hgb 12.9 (10.1-14.3) gm/dl Hct 38.5 (30.3-42.9) % Plt Count 227 (140-440) K/mm3 Lymph # 2.5 (1.2-5.4) K/mm3 [place] # 0.6 (0.0-0.8) K/mm3 Eos # 0.0 (0.0-0.4) K/mm3 Baso # 0.0 (0.0-0.1) K/mm3 Comprehensive Metabolic Panel 01/13/19 Range/Units 04:14 Sodium 145 (137-145) mmol/L Potassium 3.5 L D (3.6-5.0) mmol/L Chloride 109.6 H (98-107) mmol/L Carbon Dioxide 19 L (22-30) mmol/L BUN 12 (7-17) mg/dL Creatinine 0.7 (0.7-1.2) mg/dL Glucose 115 H (65-100) mg/dL Calcium 9.0 (8.4-10.2) mg/dL
--- NOTE | 2019-01-13 14:25 | Nuclear Medicine Report ---
LUNG SCAN, VENTILATION AND PERFUSION: History: Pleuritic chest pain. Technique: 5mci of Tc99m MAA was infused for the perfusion images. 15mci XE 133 gas was inhaled for the ventilatory images. Correlation is made with a chest x-ray dated 01/11/19. Findings: Inhalation of Xenon gas demonstrates a normal distribution of the activity throughout both lungs. The wash out phases show no focal retention of activity. After injection of Technetium 99m macroaggregated albumin gamma camera imaging of the lungs in multiple projections demonstrates normal pulmonary contours with a homogeneous distribution of activity. No focal areas of perfusion deficiency are identified. IMPRESSION: Low probability for pulmonary embolus.
--- NOTE | 2019-01-13 14:49 | XRay Report ---
AP CHEST: HISTORY: Pleuritic chest pain There is poor inspiration. AP view of the chest demonstrates a normal mediastinal and cardiac contour with clear lungs and normal bony and soft tissue structures. IMPRESSION: Unremarkable AP chest.
--- NOTE | 2019-01-13 14:51 | Discharge Summary ---
Providers - Providers Date of Admission: 01/11/19 19:02 Attending physician: GABRIELE JACQUES MD 01/11/19 Consult to Cardiac Rehabilitation [CONS] Routine Reason For Exam: Phase I 01/11/19 19:02 Consult to Cardiology [CONS] Routine Consulting Provider: RENÉ CHAVES Reason For Exam: chest pain/chf Primary care physician: PAT ACOSTA Hospitalization Reason for admission: atypical chest pain Condition: Fair Pertinent studies: VQ scan; low probability for PE Hospital course: Admission H&P 68 YO Female with Asthma, COPD, Fibromyalgia, MVP, PUD, Migraine, WAGGONER, HTN, PE, OA, GERD presents to ED for evaluation. Pt states that she has experienced pain in her chest over the past 1 day. Pt states that she was awakened from sleep around 0300hrs. Pt states that symptoms have gotten progressively worse over the ensuing 12 hours. Pt states that pain is 9/10, localized to the left chest, radiates to the left back region, worsened with coughing and deep breathing, associated with shortness of breath, nausea. Pt acknowledges dypsnea with exertion, decreased exercise tolerance, as leg edema. Pt denies fever, chills, palpitations, BRBPR, Prolonged Travel/Immoblity, Unilateral leg swelling, Calf pain, Skin Rash, or Recent ill contacts. Pt transported to [facility] via private vehicle. Pt seen and evaluated in ED and found to have symptoms consistent with CHF Decompensation as well as Angina. Pt admitted to Telemetry. Patient was admitted to telemetry and cardiology evaluated her and recommended no further cardiac workup, she was evaluated by cardiology previously and workup was done which was negative. Her current presentation looks like a typical chest pain. VQ scan was done to rule out PE and was negative. CT chest without contrast no abnormality. Patient has history of COPD and currently not in exacerbation. Patient has nebulizer treatment at home and advised to continue. Patient is hemodynamically stable and discharge her home. Disposition: DC-30 STILL A PATIENT Time spent for discharge: 34 minutes - Discharge Diagnoses (1) Chest pain Status: Acute Qualifiers: Ischemic chest pain type: stable angina pectoris (2) HTN (hypertension) Status: Acute Qualifiers: Hypertension type: essential hypertension Qualified Code(s): I10 - Essential (primary) hypertension (3) Shortness of breath Status: Acute (4) COPD (chronic obstructive pulmonary disease) Status: Acute Qualifiers: COPD type: chronic bronchitis Chronic bronchitis type: unspecified Qualified Code(s): J42 - Unspecified chronic bronchitis Core Measure Documentation - Palliative Care Palliative Care/ Comfort Measures: Not Applicable - Core Measures Any of the following diagnoses?: none Exam - Physical Exam Narrative exam: Not in cardiopulmonary distress. The patient appeared well nourished and normally developed. Vital signs as documented. Head exam is unremarkable. No scleral icterus . Neck is without jugular venous distension, thyromegaly, or carotid bruits. Lungs are clear to auscultation. Cardiac exam reveals regular rate and Rhythm. First and second heart sounds normal. No murmurs, rubs or gallops. Abdominal exam reveals normal bowel sounds, no masses, no organomegaly and no aortic enlargement. Extremities are nonedematous and both femoral and pedal pulses are normal. [employer]: Alert and oriented 3. No focal weakness. - Constitutional Vitals: Temp Pulse Resp BP Pulse Ox 98.0 F 68 18 115/61 97 01/13/19 07:59 01/13/19 09:53 01/13/19 09:53 01/13/19 09:47 01/13/19 09:41 Plan Activity: no restrictions Weight Bearing Status: Full Weight Bearing Diet: low salt Follow up with: PAT ACOSTA MD [Primary Care Provider] - 3-5 Days Prescriptions: traMADol [Ultram 50 MG tab] 50 mg PO Q6HR PRN #20 tablet PRN Reason: Pain
== END 2019-01-13 16:35 | disposition home or self-care (01) | DRG 291 ==
LOC: ED 15:21 → 4A 19:02
PROVIDERS: ADMIT Internal Medicine; ATTEND Internal Medicine
DX: I11.0 Hypertensive heart disease with heart failure (principal); J96.01 Acute respiratory failure with hypoxia; I50.33 Acute on chronic diastolic (congestive) heart failure; J44.9 Chronic obstructive pulmonary disease, unspecified; G43.909 Migraine, unspecified, not intractable, without status migrainosus; K21.9 Gastro-esophageal reflux disease without esophagitis; F17.210 Nicotine dependence, cigarettes, uncomplicated; Z86.711 Personal history of pulmonary embolism; Z87.11 Personal history of peptic ulcer disease; Z82.49 Family history of ischemic heart disease and other diseases of the circulatory system; Z88.5 Allergy status to narcotic agent; Z88.0 Allergy status to penicillin; Z88.8 Allergy status to other drugs, medicaments and biological substances; Z88.6 Allergy status to analgesic agent; Z91.041 Radiographic dye allergy status; Z91.02 Food additives allergy status; Z79.51 Long term (current) use of inhaled steroids; Z79.899 Other long term (current) drug therapy; Z79.01 Long term (current) use of anticoagulants; Z87.442 Personal history of urinary calculi; Z90.49 Acquired absence of other specified parts of digestive tract; Z71.6 Tobacco abuse counseling
CPT/HCPCS: 36415; 71045; 71046; 71250; 78582; 80048; 80053; 82550; 82553; 83880; 84484; 85025; 85379; 85610; 85730; 93005; 93010; 94640; 99406; G0378; A9540; A9558; J0360; J2405; J2920; J3010

== ENCOUNTER 2019-01-29 10:55 | Emergency (ER) | payer MEDICARE ==
--- NOTE | 2019-01-29 11:15 | Emergency Department Report ---
Blank Doc - Documentation Documentation: This is a 68-year-old female that presents with URI symptoms. Stated has some wheezing and SOB. Denies any chest pain. This initial assessment/diagnostic orders/clinical plan/treatment(s) is/are subject to change based on patient's health status, clinical progression and re- assessment by fellow clinical providers in the ED. Further treatment and workup at subsequent clinical providers discretion. Patient/guardians urged not to elope from the ED as their condition may be serious if not clinically assessed and managed. Initial orders include: 1- Patient sent to [facility] for further evaluation and treatment 2- CXR
[2019-01-29] MEDS ORDERED: DUONEB *Not for PRN Use IH ONE (11:16)
--- NOTE | 2019-01-29 11:47 | Emergency Department Report ---
ED Chest Pain HPI - General Chief Complaint: Dyspnea/Respdistress Stated Complaint: SOB/LFT SIDE PAIN/BACK PAIN Time Seen by Provider: 01/29/19 11:13 Source: patient Mode of arrival: Ambulatory Limitations: No Limitations - History of Present Illness Initial Comments: 68-year-old female history of COPD presents to ED with complaints of chest pain and shortness of breath. The patient was admitted and discharged for same complaint 2 weeks ago. Patient had negative CT chest without contrast, low probability V/Q scan, and negative cardiac workup. Patient was discharged with the diagnosis of atypical chest pain and prescription for tramadol. Patient states pain she is experiencing today is the same as it was and she was admitted, states it has continued since discharge. Patient states now she is having a productive cough, denies fever, denies leg swelling. Reports pain is left-sided, located in the chest and back, worse with cough, palpation, and laying on the left side. Patient reports tobacco use Bellstand Attendant: Dr Darryl MENENDEZ Complaint: chest pain -: week(s) (2) Onset: during rest Pain Location: left chest, other (left back) Severity: moderate Severity scale (0 -10): 10 Quality: sharp Consistency: intermittent Improves With: nothing Worsens With: palpation, movement, other (cough) re: dyspnea. denies: nausea, vomting Other Symptoms: cough. denies: fever, leg swelling - Related Data Home Medications Medication Instructions Recorded Confirmed Last Taken HYDROcodone/APAP 7.5-325 [[place] 1 each PO Q6HR PRN 09/24/18 01/12/19 Unknown 7.5-325 mg TAB] Zolpidem [Ambien] 5 mg PO QHS PRN 09/24/18 01/12/19 Unknown Previous Rx's Medication Instructions Recorded Last Taken Type ALBUTEROL NEB's [Proventil 0.083% 2.5 mg IH BID #60 nebu 09/21/17 Unknown Rx NEBS] ALPRAZolam [Xanax TAB] 1 mg PO BID PRN #30 tablet 09/21/17 Unknown Rx Amlodipine Besylate [Norvasc] 5 mg PO QDAY #30 tablet 09/21/17 Unknown Rx Cyclobenzaprine [Flexeril 10 MG 10 mg PO QHS PRN #20 tablet 10/10/18 Unknown Rx TAB] Naproxen [Naprosyn TAB] 500 mg PO BID #30 tablet 10/10/18 Unknown Rx traMADol [Ultram 50 MG tab] 50 mg PO Q6HR PRN #20 tablet 01/13/19 Unknown Rx Benzonatate [Tessalon Perles] 100 mg PO Q8HR PRN #20 capsule 01/29/19 Unknown Rx Cyclobenzaprine [Flexeril] 10 mg PO BID PRN #20 tablet 01/29/19 Unknown Rx Allergies Allergy/AdvReac Type Severity Reaction Status Date / Time codeine Allergy THROAT Verified 01/11/19 15:23 CLOSES Iodinated Contrast- Oral and Allergy ITCHES, Verified 01/11/19 15:23 IV Dye FEELS LIKE SHE IS ON FIRE ketorolac [From Toradol] Allergy Headache Verified 01/11/19 15:23 ketorolac tromethamine Allergy Headache Verified 01/11/19 15:23 [From Toradol] methocarbamol [From Robaxin] Allergy Headache Verified 01/11/19 15:23 Penicillins Allergy Swelling Verified 01/11/19 15:23 OF FACE HAND AND THROAT CLOSES strawberry Allergy Rash Verified 01/11/19 15:23 aspirin AdvReac Bleeding Verified 01/11/19 15:23 strawberry Allergy Hives Uncoded 12/13/17 09:02 Heart Score - HEART Score History: Slightly suspicious EKG: Normal Age: < 45 Risk factors: No known risk factors Troponin: < normal limit HEART Score: 0 ED Review of Systems ROS: Stated complaint: SOB/LFT SIDE PAIN/BACK PAIN Other details as noted in HPI Comment: All other systems reviewed and negative Constitutional: denies: chills, fever Respiratory: cough, shortness of breath Cardiovascular: chest pain Gastrointestinal: denies: nausea, vomiting Musculoskeletal: other (denies leg pain or swelling) ED Past Medical Hx - Past Medical History Hx Hypertension: Yes Hx Pulmonary Embolism: Yes (40 years ago) Hx GERD: Yes Hx Sickle Cell Disease: No Hx Arthritis: Yes Hx Headaches / Migraines: Yes Hx Kidney Stones: Yes Hx Asthma: Yes Hx COPD: Yes Additional medical history: Fibromyalgia, MVP, peptic ulcers - Surgical History Hx Pacemaker: No Hx Internal Defibrillator: No Hx Cholecystectomy: Yes Additional Surgical History: right wrist metal plate, Right ovarian cyst removal. cataract, left Achilles tendon repair and left ankle instrumentation, gall bladder removal - Social History Smoking Status: Current Every Day Smoker Substance Use Type: None - Medications Home Medications: Home Medications Medication Instructions Recorded Confirmed Last Taken Type ALBUTEROL NEB's [Proventil 0.083% 2.5 mg IH BID #60 nebu 09/21/17 01/12/19 Unknown Rx NEBS] ALPRAZolam [Xanax TAB] 1 mg PO BID PRN #30 tablet 09/21/17 01/12/19 Unknown Rx Amlodipine Besylate [Norvasc] 5 mg PO QDAY #30 tablet 09/21/17 01/12/19 Unknown Rx HYDROcodone/APAP 7.5-325 [[place] 1 each PO Q6HR PRN 09/24/18 01/12/19 Unknown History 7.5-325 mg TAB] Zolpidem [Ambien] 5 mg PO QHS PRN 09/24/18 01/12/19 Unknown History Cyclobenzaprine [Flexeril 10 MG 10 mg PO QHS PRN #20 tablet 10/10/18 01/12/19 Unknown Rx TAB] Naproxen [Naprosyn TAB] 500 mg PO BID #30 tablet 10/10/18 01/12/19 Unknown Rx traMADol [Ultram 50 MG tab] 50 mg PO Q6HR PRN #20 tablet 01/13/19 Unknown Rx Benzonatate [Tessalon Perles] 100 mg PO Q8HR PRN #20 capsule 01/29/19 Unknown Rx Cyclobenzaprine [Flexeril] 10 mg PO BID PRN #20 tablet 01/29/19 Unknown Rx ED Physical Exam - General Limitations: No Limitations General appearance: alert, in no apparent distress - Head Head exam: Present: atraumatic, normocephalic - Eye Eye exam: Present: normal appearance - ENT ENT exam: Present: mucous membranes moist - Neck Neck exam: Present: normal inspection - Respiratory Respiratory exam: Present: normal lung sounds bilaterally, chest wall tenderness (left anterolateral). Absent: respiratory distress - Cardiovascular Cardiovascular Exam: Present: regular rate, normal rhythm - GI/Abdominal GI/Abdominal exam: Present: soft. Absent: distended - Extremities Exam Extremities exam: Present: normal inspection. Absent: pedal edema, calf tenderness - Neurological Exam Neurological exam: Present: alert, oriented X3 - Psychiatric Psychiatric exam: Present: normal affect, normal mood - Skin Skin exam: Present: warm, dry, intact, normal color. Absent: rash ED Course Vital Signs 01/29/19 01/29/19 01/29/19 11:11 11:43 12:00 Temperature 97.5 F L 97.9 F Pulse Rate 78 65 Pulse Rate [ 60 Right] Respiratory 18 22 Rate Respiratory 17 Rate [Right] Blood Pressure 160/70 Blood Pressure 132/67 [Left] O2 Sat by Pulse 99 Oximetry 01/29/19 01/29/19 12:10 13:30 Temperature Pulse Rate 78 Pulse Rate [ 63 Right] Respiratory 20 Rate Respiratory 16 Rate [Right] Blood Pressure Blood Pressure 146/69 [Left] O2 Sat by Pulse 99 Oximetry KATI score - Kati Score Age > 65: (1) Yes Aspirin use within the Past 7 Days: (0) No 3 or more CAD Risk Factors: (1) Yes 2 or more Angina events in past 24 hrs: (0) No Known CAD with more than 50% Stenosis: (0) No Elevated Cardiac Markers: (0) No ST Deviation Greater than 0.5mm: (0) No KATI Score: 2 ED Medical Decision Making - Radiology Data Radiology results: report reviewed, image reviewed - Medical Decision Making 68-year-old female recently worked up for same left-sided chest pain a few weeks ago. Cardiac workup was negative, patient felt to have atypical chest pain. Patient has chest wall tenderness on exam, worse with cough, landed on her left side. Today, lungs are clear, O2 sats normal, patient in no respiratory distress. Chest x-ray negative. Patient was discharged with prescription for tramadol during her last admission. Today in ED patient given Flexeril, which seemed to help with her discomfort. Patient will be given a prescription for Flexeril and also Tessalon Perles for her cough. She states she has an apparent appointment with her cartographic designer on February 12. Return precautions given. Will d/c home at this time. - Differential Diagnosis pneumonia, chest wall pain, pulm edema Critical care attestation.: If time is entered above; I have spent that time in minutes in the direct care of this critically ill patient, excluding procedure time. ED Disposition Clinical Impression: Chest wall pain, COPD (chronic obstructive pulmonary disease) Disposition: TO HOME OR SELFCARE Is pt being admited?: No Condition: Stable Instructions: Chest Pain (ED), Chronic Obstructive Pulmonary Disease (ED) Prescriptions: Cyclobenzaprine [Flexeril] 10 mg PO BID PRN #20 tablet PRN Reason: pain Benzonatate [Tessalon Perles] 100 mg PO Q8HR PRN #20 capsule PRN Reason: Cough Referrals: VLAD MEADOWS [Other] - 3-5 Days Time of Disposition: 13:12
[2019-01-29] MEDS ORDERED: FLEXERIL PO ONE (11:49)
--- NOTE | 2019-01-29 12:05 | XRay Report ---
ROUTINE CHEST, TWO VIEWS: HISTORY: Cough. The trachea, heart, mediastinal contour, lung elizabeth and bony thorax are unremarkable. IMPRESSION: Unremarkable chest x-ray.
[2019-01-29 13:47] VITALS: BP 146/69
== END 2019-01-29 13:35 | disposition home or self-care (01) ==
LOC: ED 10:55
DX: J44.9 Chronic obstructive pulmonary disease, unspecified (principal); I10 Essential (primary) hypertension; K21.9 Gastro-esophageal reflux disease without esophagitis; M19.90 Unspecified osteoarthritis, unspecified site; G43.909 Migraine, unspecified, not intractable, without status migrainosus; F17.200 Nicotine dependence, unspecified, uncomplicated; Z87.442 Personal history of urinary calculi; Z90.49 Acquired absence of other specified parts of digestive tract; Z86.711 Personal history of pulmonary embolism; Z88.5 Allergy status to narcotic agent; Z91.041 Radiographic dye allergy status; Z88.6 Allergy status to analgesic agent; Z88.0 Allergy status to penicillin; Z91.018 Allergy to other foods
CPT/HCPCS: 71046; 94640

== ENCOUNTER 2019-04-21 07:41 | Emergency (ER) | payer MEDICARE ==
[2019-04-21 08:28] LABS: Basophils % (Auto) 0.2 % (0.0-1.8); Eosinophils % (Auto) 0.1 % (0.0-4.3); Hematocrit 49.4 % (30.3-42.9); Hemoglobin 16.9 gm/dl (10.1-14.3); Lymphocytes # (Auto) 1.1 K/mm3 (1.2-5.4); Lymphocytes % (Auto) 10.7 % (13.4-35.0); Mean Corpuscular HGB Conc 34 % (30-34); Mean Corpuscular Volume 85 fl (79-97); Monocytes # (Auto) 0.8 K/mm3 (0.0-0.8); Platelet Count 320 K/mm3 (140-440); Red Blood Count 5.83 M/mm3 (3.65-5.03); Red Cell Distribution Width 15.1 % (13.2-15.2)
[2019-04-21 08:46] LABS: Albumin 4.9 g/dL (3.9-5); Calcium 10.1 mg/dL (8.4-10.2)
[2019-04-21] MEDS ORDERED: MORPHINE IV ONE (10:33)
[2019-04-21] MEDS ORDERED: NACL 0.9% 1000 ML 1,000 ML IV ONE ×2 (10:33→12:39)
[2019-04-21] MEDS ORDERED: ZOFRAN IV ONE (10:33)
--- NOTE | 2019-04-21 11:24 | Emergency Department Report ---
ED Abdominal Pain HPI - General Chief Complaint: Abdominal Pain Stated Complaint: ABD PAIN Time Seen by Provider: 04/21/19 10:13 Source: patient Mode of arrival: Stretcher Limitations: No Limitations - History of Present Illness Initial Comments: 68-year-old female with a past medical history multiple chronic medical conditions including but not limited to peptic ulcer disease, fibromyalgia, cholecystectomy since the hospital abdominal pain, nausea, vomiting, and diarrhea but opacified days. Patient reports rarely poor by mouth tolerance due to symptoms. She denies fever, melena, hematochezia, hematemesis, or dysuria. She's had generalized abdominal pain greatest in the left lower quadrant described as cramping, intermittent, and worse with palpation. She also has had a generalized headache since yesterday. No blurry vision or focal weakness reported. PMD: Dr. Demarcus Alba Severity scale (0 -10): 10 - Related Data Home Medications Medication Instructions Recorded Confirmed Last Taken HYDROcodone/APAP 7.5-325 [[place] 1 each PO Q6HR PRN 09/24/18 01/12/19 Unknown 7.5-325 mg TAB] Zolpidem [Ambien] 5 mg PO QHS PRN 09/24/18 01/12/19 Unknown Previous Rx's Medication Instructions Recorded Last Taken Type ALBUTEROL NEB's [Proventil 0.083% 2.5 mg IH BID #60 nebu 09/21/17 Unknown Rx NEBS] ALPRAZolam [Xanax TAB] 1 mg PO BID PRN #30 tablet 09/21/17 Unknown Rx Amlodipine Besylate [Norvasc] 5 mg PO QDAY #30 tablet 09/21/17 Unknown Rx Cyclobenzaprine [Flexeril 10 MG 10 mg PO QHS PRN #20 tablet 10/10/18 Unknown Rx TAB] Naproxen [Naprosyn TAB] 500 mg PO BID #30 tablet 10/10/18 Unknown Rx traMADol [Ultram 50 MG tab] 50 mg PO Q6HR PRN #20 tablet 01/13/19 Unknown Rx Benzonatate [Tessalon Perles] 100 mg PO Q8HR PRN #20 capsule 01/29/19 Unknown Rx Cyclobenzaprine [Flexeril] 10 mg PO BID PRN #20 tablet 01/29/19 Unknown Rx Loperamide [Imodium] 2 mg PO Q2HR PRN #20 capsule 04/21/19 Unknown Rx Ondansetron [Zofran Odt] 4 mg PO Q8HR PRN #20 tab.rapdis 04/21/19 Unknown Rx traMADol [Ultram 50 MG tab] 50 mg PO Q4HR PRN #20 tablet 04/21/19 Unknown Rx Allergies Allergy/AdvReac Type Severity Reaction Status Date / Time codeine Allergy THROAT Verified 01/11/19 15:23 CLOSES Iodinated Contrast- Oral and Allergy ITCHES, Verified 01/11/19 15:23 IV Dye FEELS LIKE SHE IS ON FIRE ketorolac [From Toradol] Allergy Headache Verified 01/11/19 15:23 ketorolac tromethamine Allergy Headache Verified 01/11/19 15:23 [From Toradol] methocarbamol [From Robaxin] Allergy Headache Verified 01/11/19 15:23 Penicillins Allergy Swelling Verified 01/11/19 15:23 OF FACE HAND AND THROAT CLOSES strawberry Allergy Rash Verified 01/11/19 15:23 aspirin AdvReac Bleeding Verified 01/11/19 15:23 strawberry Allergy Hives Uncoded 12/13/17 09:02 ED Review of Systems ROS: Stated complaint: ABD PAIN Other details as noted in HPI Comment: All other systems reviewed and negative ED Past Medical Hx - Past Medical History Hx Hypertension: Yes Hx Pulmonary Embolism: Yes (40 years ago) Hx GERD: Yes Hx Sickle Cell Disease: No Hx Arthritis: Yes Hx Headaches / Migraines: Yes Hx Kidney Stones: Yes Hx Asthma: Yes Hx COPD: Yes Additional medical history: Fibromyalgia, MVP, peptic ulcers - Surgical History Hx Pacemaker: No Hx Internal Defibrillator: No Hx Cholecystectomy: Yes Additional Surgical History: right wrist metal plate, Right ovarian cyst remov al. cataract, left Achilles tendon repair and left ankle instrumentation, gall bladder removal - Social History Smoking Status: Current Every Day Smoker Substance Use Type: None - Medications Home Medications: Home Medications Medication Instructions Recorded Confirmed Last Taken Type ALBUTEROL NEB's [Proventil 0.083% 2.5 mg IH BID #60 nebu 09/21/17 01/12/19 Unknown Rx NEBS] ALPRAZolam [Xanax TAB] 1 mg PO BID PRN #30 tablet 09/21/17 01/12/19 Unknown Rx Amlodipine Besylate [Norvasc] 5 mg PO QDAY #30 tablet 09/21/17 01/12/19 Unknown Rx HYDROcodone/APAP 7.5-325 [[place] 1 each PO Q6HR PRN 09/24/18 01/12/19 Unknown History 7.5-325 mg TAB] Zolpidem [Ambien] 5 mg PO QHS PRN 09/24/18 01/12/19 Unknown History Cyclobenzaprine [Flexeril 10 MG 10 mg PO QHS PRN #20 tablet 10/10/18 01/12/19 Unknown Rx TAB] Naproxen [Naprosyn TAB] 500 mg PO BID #30 tablet 10/10/18 01/12/19 Unknown Rx traMADol [Ultram 50 MG tab] 50 mg PO Q6HR PRN #20 tablet 01/13/19 Unknown Rx Benzonatate [Tessalon Perles] 100 mg PO Q8HR PRN #20 capsule 01/29/19 Unknown Rx Cyclobenzaprine [Flexeril] 10 mg PO BID PRN #20 tablet 01/29/19 Unknown Rx Loperamide [Imodium] 2 mg PO Q2HR PRN #20 capsule 04/21/19 Unknown Rx Ondansetron [Zofran Odt] 4 mg PO Q8HR PRN #20 tab.rapdis 04/21/19 Unknown Rx traMADol [Ultram 50 MG tab] 50 mg PO Q4HR PRN #20 tablet 04/21/19 Unknown Rx ED Physical Exam - General Limitations: No Limitations - Other Other exam information: General: No limitations, patient is alert in no acute distress Head exam: Atraumatic, normocephalic Eyes exam: Normal appearance ENT: Moist mucous membrane, normal oropharynx Neck exam: Normal inspection, full range of motion, no meningismus nontender Respiratory exam: Clear to auscultation bilateral, no wheezes, rales, crackles Cardiovascular: Normal rate and rhythm, normal heart sounds Abdomen: Soft, nondistended, generalized abdominal tenderness greatest in the left lower quadrant. Right upper Quadrant cholecystectomy scar. Normal bowel sounds, no rebound or guarding Extremity: Full range of motion normal inspection no deformity Back: Normal Inspection, full range of motion, no tenderness Neurologic: Alert, oriented x3, cranial nerves intact, no motor or sensory deficit Psychiatric: normal affect, normal mood Skin: Warm, dry, intact ED Course Vital Signs 0604/21/19 04/21/19 08:01 08:03 10:05 Temperature 98.1 F 98.1 F Pulse Rate 89 89 94 H Respiratory 18 18 18 Rate Blood Pressure 167/93 197/94 [Left] O2 Sat by Pulse 98 99 Oximetry 04/21/19 04/21/19 11:00 13:18 Temperature Pulse Rate 84 15 L Respiratory 16 15 Rate Blood Pressure 198/97 159/69 [Left] O2 Sat by Pulse 98 98 Oximetry ED Medical Decision Making - Lab Data Result diagrams: 04/21/19 08:15 04/21/19 08:15 Lab Results 04/21/19 04/21/19 04/21/19 Range/Units 08:15 08:15 13:00 WBC 10.1 (4.5-11.0) K/mm3 RBC 5.83 H (3.65-5.03) M/mm3 Hgb 16.9 H (10.1-14.3) gm/dl Hct 49.4 H (30.3-42.9) % MCV 85 (79-97) fl MCH 29 (28-32) pg MCHC 34 (30-34) % RDW 15.1 (13.2-15.2) % Plt Count 320 (140-440) K/mm3 Lymph % (Auto) 10.7 L (13.4-35.0) % [place] % (Auto) 8.0 H (0.0-7.3) % Eos % (Auto) 0.1 (0.0-4.3) % Baso % (Auto) 0.2 (0.0-1.8) % Lymph # 1.1 L (1.2-5.4) K/mm3 [place] # 0.8 (0.0-0.8) K/mm3 Eos # 0.0 (0.0-0.4) K/mm3 Baso # 0.0 (0.0-0.1) K/mm3 Seg Neutrophils % 81.0 H (40.0-70.0) % Seg Neutrophils # 8.2 H (1.8-7.7) K/mm3 Sodium 139 (137-145) mmol/L Potassium 3.7 (3.6-5.0) mmol/L Chloride 101.1 (98-107) mmol/L Carbon Dioxide 17 L (22-30) mmol/L Anion Gap 25 mmol/L BUN 24 H (7-17) mg/dL Creatinine 1.3 H (0.7-1.2) mg/dL Estimated GFR 41 ml/min BUN/Creatinine Ratio 18 % Glucose 131 H (65-100) mg/dL Calcium 10.1 (8.4-10.2) mg/dL Total Bilirubin 0.70 (0.1-1.2) mg/dL AST 18 (5-40) units/L ALT 15 (7-56) units/L Alkaline Phosphatase 98 (35-129) units/L Total Protein 8.6 H (6.3-8.2) g/dL Albumin 4.9 (3.9-5) g/dL Albumin/Globulin Ratio 1.3 % Urine Color Yellow (Yellow) Urine Turbidity Hazy (Clear) Urine pH 5.0 (5.0-7.0) Ur Specific [place] 1.025 (1.003-1.030) Urine Protein 100 mg/dl (Negative) mg/dL Urine Glucose (UA) Neg (Negative) mg/dL Urine Ketones Tr (Negative) mg/dL Urine Blood Mod (Negative) Urine Nitrite Neg (Negative) Urine Bilirubin Neg (Negative) Urine Urobilinogen < 2.0 (<2.0) mg/dL Ur Leukocyte Esterase Neg (Negative) Urine WBC (Auto) 1.0 (0.0-6.0) /HPF Urine RBC (Auto) < 1.0 (0.0-6.0) /HPF U Epithel Cells (Auto) 1.0 (0-13.0) /HPF Urine Mucus Few /HPF - Radiology Data Radiology results: report reviewed PROCEDURE: CT HEAD/BRAIN WO CON TECHNIQUE: Computerized tomography of the head was performed without contrast material. CT DOSE LENGTH PRODUCT: 1047.2 mGycm HISTORY: headache COMPARISONS: CT of the head performed on 10/19/2018 . FINDINGS: There is no parenchymal hemorrhage or extra-axial fluid collection. There is no mass or mass effect. There is no acute territorial infarct. There are scattered areas of decreased attenuation in the subcortical and periventricular white matter, likely field representatives director of chronic microvascular ischemic disease, similar in appearance the previous study. The ventricles are midline. The subarachnoid spaces and basilar cisterns are clear. No skull fracture. The paranasal sinuses and mastoid air cells are clear. IMPRESSION: No acute intracranial abnormality . PROCEDURE: CT ABDOMEN PELVIS WO CON TECHNIQUE: Computerized axial tomography of the abdomen and pelvis was performed without intravenous contrast. This study is performed without intravascular contrast material and its sensitivity for abdominal and pelvic pathology, including neoplasms, inflammation, abscess, free fluid, thrombosis, arterial dissection and infarction, is reduced compared with a contrast enhanced study. CT DOSE LENGTH PRODUCT: 1184.1 mGycm HISTORY: abd pain n,v,d COMPARISONS: None . FINDINGS: Visualized lower thorax: No significant abnormality. Liver: Normal size and attenuation. Spleen: Normal size and attenuation. Gallbladder and biliary system: The gallbladder is surgically absent. There is mild dilatation of the common bile duct, which measures up to 1 cm in diameter. Pancreas: Normal. Adrenals: Normal. Kidneys: No hydronephrosis. Punctate nonobstructive scattered right renal calculi. GI tract: No focal wall thickening. No evidence of obstruction. Normal appendix without surrounding inflammatory change. Diverticulosis of the descending and sigmoid colon without evidence of diverticulitis . Lymph nodes and mesentery: Normal. Vasculature: Mild ectasia of the infrarenal abdominal aorta, measuring up to 2.3 cm in diameter. Peripheral atheromatous calcifications. Bladder: Normal. Reproductive organs: Normal. Peritoneum: No free fluid. Musculoskeletal structures: No acute bony abnormality. Soft tissues are normal. Other: None. IMPRESSION: No evidence of bowel obstruction. Diverticulosis of the descending and sigmoid colon without evidence of diverticulitis. 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 Punctate nonobstructive right renal calculi. No hydronephrosis. - Medical Decision Making She feel and better with ED treatment. Treated with morphine, Zofran, and 2 L of normal saline. Tolerated a food tray in the ED prior to discharge. She will be treated symptomatically for gastroenteritis. - Differential Diagnosis gastroenteritis, dehydration, viral syndrome, intra-abdominal infection Critical Care Time: No Critical care attestation.: If time is entered above; I have spent that time in minutes in the direct care of this critically ill patient, excluding procedure time. ED Disposition Clinical Impression: Acute gastroenteritis Disposition: DC-01 TO HOME OR SELFCARE Is pt being admited?: No Does the pt Need Aspirin: No Condition: Stable Instructions: Gastroenteritis (ED) Additional Instructions: Take the medication as prescribed. Follow up with your doctor or the clinic/doctor provided. Return if symptoms worsen as indicated by your discharge instructions Prescriptions: Loperamide [Imodium] 2 mg PO Q2HR PRN #20 capsule PRN Reason: Diarrhea traMADol [Ultram 50 MG tab] 50 mg PO Q4HR PRN #20 tablet PRN Reason: Pain , Severe (7-10) Ondansetron [Zofran Odt] 4 mg PO Q8HR PRN #20 tab.rapdis PRN Reason: Nausea And Vomiting Referrals: DEMARCUS ALBA MD [Primary Care Provider] - 3-5 Days Time of Disposition: 15:32
--- NOTE | 2019-04-21 11:48 | Cat Scan Report ---
PROCEDURE: CT HEAD/BRAIN WO CON TECHNIQUE: Computerized tomography of the head was performed without contrast material. CT DOSE LENGTH PRODUCT: 1047.2 mGycm HISTORY: headache COMPARISONS: CT of the head performed on 10/19/2018 . FINDINGS: There is no parenchymal hemorrhage or extra-axial fluid collection. There is no mass or mas s effect. There is no acute territorial infarct. There are scattered areas of decreased attenuation i n the subcortical and periventricular white matter, likely sales representative malt liquors of chronic microvascular is chemic disease, similar in appearance the previous study. The ventricles are midline. The subarachnoi d spaces and basilar cisterns are clear. No skull fracture. The paranasal sinuses and mastoid air mayela ls are clear. IMPRESSION: No acute intracranial abnormality . This document is electronically signed by Che Scherer MD., April 21 2019 11:46:41 AM ET
--- NOTE | 2019-04-21 12:28 | Cat Scan Report ---
PROCEDURE: CT ABDOMEN PELVIS WO CON TECHNIQUE: Computerized axial tomography of the abdomen and pelvis was performed without intravenous contrast. This study is performed without intravascular contrast material and its sensitivity for ab dominal and pelvic pathology, including neoplasms, inflammation, abscess, free fluid, thrombosis, art erial dissection and infarction, is reduced compared with a contrast enhanced study. CT DOSE LENGTH PRODUCT: 1184.1 mGycm HISTORY: abd pain n,v,d COMPARISONS: None . FINDINGS: Visualized lower thorax: No significant abnormality. Liver: Normal size and attenuation. Spleen: Normal size and attenuation. Gallbladder and biliary system: The gallbladder is surgically absent. There is mild dilatation of the common bile duct, which measures up to 1 cm in diameter. Pancreas: Normal. Adrenals: Normal. Kidneys: No hydronephrosis. Punctate nonobstructive scattered right renal calculi. GI tract: No focal wall thickening. No evidence of obstruction. Normal appendix without surrounding inflammatory change. Diverticulosis of the descending and sigmoid colon without evidence of diverticu litis . Lymph nodes and mesentery: Normal. Vasculature: Mild ectasia of the infrarenal abdominal aorta, measuring up to 2.3 cm in diameter. [place] pheral atheromatous calcifications. Bladder: Normal. Reproductive organs: Normal. Peritoneum: No free fluid. Musculoskeletal structures: No acute bony abnormality. Soft tissues are normal. Other: None. IMPRESSION: No evidence of bowel obstruction. Diverticulosis of the descending and sigmoid colon without evidence of diverticulitis. 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 Punctate nonobstructive right renal calculi. No hydronephrosis. This document is electronically signed by Che Scherer MD., April 21 2019 12:26:39 PM ET
[2019-04-21 13:15] LABS: Bilirubin,Urine NEG (Negative); Blood,Urine MOD (Negative); Color,Urine Yellow (Yellow); Mucus,Urine FEW /HPF; RBC,Urine < 1.0 /HPF (0.0-6.0); Urobilinogen,Urine < 2.0 mg/dL (<2.0)
[2019-04-21 16:02] VITALS: BP 172/77
== END 2019-04-21 16:03 | disposition home or self-care (01) ==
LOC: ED 07:41
DX: K52.9 Noninfective gastroenteritis and colitis, unspecified (principal); I10 Essential (primary) hypertension; K21.9 Gastro-esophageal reflux disease without esophagitis; M19.90 Unspecified osteoarthritis, unspecified site; G43.909 Migraine, unspecified, not intractable, without status migrainosus; J44.9 Chronic obstructive pulmonary disease, unspecified; F17.200 Nicotine dependence, unspecified, uncomplicated; Z90.49 Acquired absence of other specified parts of digestive tract; Z79.899 Other long term (current) drug therapy; Z88.8 Allergy status to other drugs, medicaments and biological substances; Z88.6 Allergy status to analgesic agent; Z91.041 Radiographic dye allergy status; Z98.890 Other specified postprocedural states; Z88.0 Allergy status to penicillin; Z91.018 Allergy to other foods
CPT/HCPCS: 36415; 70450; 74176; 80053; 81001; 85025; 96361; 96374; 96375; 99284; J2270; J2405; J7030

== ENCOUNTER 2019-05-06 18:43 | Emergency (ER) | payer MEDICARE ==
[2019-05-06 19:07] VITALS: BP 140/61
--- NOTE | 2019-05-06 19:07 | Event Note ---
ED Screening Note Date of service: 05/06/19 Time: 19:05 ED Screening Note: 68 y/o female comes in for lower abd pain, also complains of kidney pain that started this morning. Admits to nausea. Hx/o COPD, This initial assessment/diagnostic orders/clinical plan/treatment(s) is/are subject to change based on patients health status, clinical progression and re- assessment by fellow clinical providers in the ED. Further treatment and workup at subsequent clinical providers discretion. Patient/guardian urged not to elope from the ED as their condition may be serious if not clinically assessed and managed. Initial orders include:
[2019-05-06 19:38] LABS: Bacteria,Urine 1+ /HPF (Negative); Bilirubin,Urine NEG (Negative); Blood,Urine LG (Negative); Color,Urine Yellow (Yellow); Mucus,Urine FEW /HPF; Urobilinogen,Urine < 2.0 mg/dL (<2.0)
[2019-05-06 19:53] LABS: RBC,Urine > 182.0 /HPF (0.0-6.0)
[2019-05-06 19:58] LABS: Basophils # (Auto) 0.1 K/mm3 (0.0-0.1); Basophils % (Auto) 0.8 % (0.0-1.8); Eosinophils # (Auto) 0.1 K/mm3 (0.0-0.4); Eosinophils % (Auto) 1.4 % (0.0-4.3); Hematocrit 41.1 % (30.3-42.9); Hemoglobin 13.8 gm/dl (10.1-14.3); Lymphocytes # (Auto) 2.2 K/mm3 (1.2-5.4); Mean Corpuscular HGB Conc 34 % (30-34); Mean Corpuscular Volume 87 fl (79-97); Monocytes # (Auto) 0.6 K/mm3 (0.0-0.8); Monocytes % (Auto) 8.1 % (0.0-7.3); Platelet Count 192 K/mm3 (140-440); Red Blood Count 4.74 M/mm3 (3.65-5.03)
[2019-05-06 20:18] LABS: Alanine Aminotransferase 8 units/L (7-56); Albumin 4.2 g/dL (3.9-5); BUN/Creatinine Ratio 20; Blood Urea Nitrogen 16 mg/dL (7-17); Calcium 9.7 mg/dL (8.4-10.2); Hemolysis Index 28
[2019-05-06] MEDS ORDERED: NACL 0.9% 1000 ML 1,000 ML IV ONE (20:24)
[2019-05-06] MEDS ORDERED: ZOFRAN IV ONE (20:24)
[2019-05-06] MEDS ORDERED: MORPHINE IV ONE (20:26)
[2019-05-06] MEDS ORDERED: LEVAQUIN 750MG/150ML 750 MG/150 ML BAG IV ONE (20:26)
--- NOTE | 2019-05-06 22:01 | Emergency Department Report ---
ED Abdominal Pain HPI - General Chief Complaint: Abdominal Pain Stated Complaint: ABD PAIN Time Seen by Provider: 05/06/19 19:05 Source: patient Mode of arrival: Ambulatory Limitations: No Limitations - History of Present Illness Initial Comments: This is a 68-year-old female nontoxic, well nourished in appearance, no acute signs of distress presents to the ED with c/o of dysuria, bilateral flank pain, and abdominal discomfort x1 day. Patient denies any vaginal discharge, bleeding, ulcers or lesions. Patient denies any nausea, vomiting, chest pain, shortness of breathe, fever, chills, headache, back pain, numbness, tingling, stiff neck. Patient denies any other urinary symptoms. MD Complaint: abdominal pain, flank pain -: days(s) (1) Location: L flank, R flank Radiation: LUQ, RUQ Severity: mild Severity scale (0 -10): 8 Quality: cramping, aching Consistency: constant Improves With: nothing Worsens With: nothing Associated Symptoms: dysuria. denies: nausea, vomiting, diarrhea, fever, chills, constipation, hematemesis, hematochezia, melena, hematuria, anorexia, syncope - Related Data Home Medications Medication Instructions Recorded Confirmed Last Taken HYDROcodone/APAP 7.5-325 [[place] 1 each PO Q6HR PRN 09/24/18 01/12/19 Unknown 7.5-325 mg TAB] Zolpidem [Ambien] 5 mg PO QHS PRN 09/24/18 01/12/19 Unknown Previous Rx's Medication Instructions Recorded Last Taken Type ALBUTEROL NEB's [Proventil 0.083% 2.5 mg IH BID #60 nebu 09/21/17 Unknown Rx NEBS] ALPRAZolam [Xanax TAB] 1 mg PO BID PRN #30 tablet 09/21/17 Unknown Rx Amlodipine Besylate [Norvasc] 5 mg PO QDAY #30 tablet 09/21/17 Unknown Rx Cyclobenzaprine [Flexeril 10 MG 10 mg PO QHS PRN #20 tablet 10/10/18 Unknown Rx TAB] Naproxen [Naprosyn TAB] 500 mg PO BID #30 tablet 10/10/18 Unknown Rx traMADol [Ultram 50 MG tab] 50 mg PO Q6HR PRN #20 tablet 01/13/19 Unknown Rx Benzonatate [Tessalon Perles] 100 mg PO Q8HR PRN #20 capsule 01/29/19 Unknown Rx Cyclobenzaprine [Flexeril] 10 mg PO BID PRN #20 tablet 01/29/19 Unknown Rx Loperamide [Imodium] 2 mg PO Q2HR PRN #20 capsule 04/21/19 Unknown Rx Ondansetron [Zofran Odt] 4 mg PO Q8HR PRN #20 tab.rapdis 04/21/19 Unknown Rx traMADol [Ultram 50 MG tab] 50 mg PO Q4HR PRN #20 tablet 04/21/19 Unknown Rx Ciprofloxacin HCl [Ciprofloxacin 500 mg PO Q12HR #14 tab 05/06/19 Unknown Rx TAB] Ondansetron [Zofran Odt] 4 mg PO Q8HR PRN #12 tab.rapdis 05/06/19 Unknown Rx traMADol [Ultram 50 MG tab] 50 mg PO Q4HR PRN #12 tablet 05/06/19 Unknown Rx Allergies Allergy/AdvReac Type Severity Reaction Status Date / Time codeine Allergy THROAT Verified 05/06/19 19:07 CLOSES Iodinated Contrast- Oral and Allergy ITCHES, Verified 05/06/19 19:07 IV Dye FEELS LIKE SHE IS ON FIRE ketorolac [From Toradol] Allergy Headache Verified 05/06/19 19:07 ketorolac tromethamine Allergy Headache Verified 05/06/19 19:07 [From Toradol] methocarbamol [From Robaxin] Allergy Headache Verified 05/06/19 19:07 Penicillins Allergy Swelling Verified 05/06/19 19:07 OF FACE HAND AND THROAT CLOSES strawberry Allergy Rash Verified 05/06/19 19:07 aspirin AdvReac Bleeding Verified 05/06/19 19:07 strawberry Allergy Hives Uncoded 05/06/19 19:07 ED Review of Systems ROS: Stated complaint: ABD PAIN Other details as noted in HPI Constitutional: denies: chills, fever Eyes: denies: eye pain, eye discharge, vision change ENT: denies: ear pain, throat pain Respiratory: denies: cough, shortness of breath, wheezing Cardiovascular: denies: chest pain, palpitations Endocrine: no symptoms reported Gastrointestinal: abdominal pain. denies: nausea, diarrhea Genitourinary: dysuria, other (flank pain). denies: urgency, discharge Musculoskeletal: denies: back pain, joint swelling, arthralgia Skin: denies: rash, lesions Neurological: denies: headache, weakness, paresthesias Psychiatric: denies: anxiety, depression Hematological/Lymphatic: denies: easy bleeding, easy bruising ED Past Medical Hx - Past Medical History Previous Medical History?: Yes Hx Hypertension: Yes Hx Pulmonary Embolism: Yes (40 years ago) Hx GERD: Yes Hx Sickle Cell Disease: No Hx Arthritis: Yes Hx Headaches / Migraines: Yes Hx Kidney Stones: Yes Hx Asthma: Yes Hx COPD: Yes Additional medical history: Fibromyalgia, MVP, peptic ulcers - Surgical History Hx Pacemaker: No Hx Internal Defibrillator: No Hx Cholecystectomy: Yes Additional Surgical History: right wrist metal plate, Right ovarian cyst removal. cataract, left Achilles tendon repair and left ankle instrumentation, gall bladder removal - Social History Smoking Status: Current Every Day Smoker Substance Use Type: None - Medications Home Medications: Home Medications Medication Instructions Recorded Confirmed Last Taken Type ALBUTEROL NEB's [Proventil 0.083% 2.5 mg IH BID #60 nebu 09/21/17 01/12/19 Un known Rx NEBS] ALPRAZolam [Xanax TAB] 1 mg PO BID PRN #30 tablet 09/21/17 01/12/19 Unknown Rx Amlodipine Besylate [Norvasc] 5 mg PO QDAY #30 tablet 09/21/17 01/12/19 Unknown Rx HYDROcodone/APAP 7.5-325 [[place] 1 each PO Q6HR PRN 09/24/18 01/12/19 Unknown History 7.5-325 mg TAB] Zolpidem [Ambien] 5 mg PO QHS PRN 09/24/18 01/12/19 Unknown History Cyclobenzaprine [Flexeril 10 MG 10 mg PO QHS PRN #20 tablet 10/10/18 01/12/19 Unknown Rx TAB] Naproxen [Naprosyn TAB] 500 mg PO BID #30 tablet 10/10/18 01/12/19 Unknown Rx traMADol [Ultram 50 MG tab] 50 mg PO Q6HR PRN #20 tablet 01/13/19 Unknown Rx Benzonatate [Tessalon Perles] 100 mg PO Q8HR PRN #20 capsule 01/29/19 Unknown Rx Cyclobenzaprine [Flexeril] 10 mg PO BID PRN #20 tablet 01/29/19 Unknown Rx Loperamide [Imodium] 2 mg PO Q2HR PRN #20 capsule 04/21/19 Unknown Rx Ondansetron [Zofran Odt] 4 mg PO Q8HR PRN #20 tab.rapdis 04/21/19 Unknown Rx traMADol [Ultram 50 MG tab] 50 mg PO Q4HR PRN #20 tablet 04/21/19 Unknown Rx Ciprofloxacin HCl [Ciprofloxacin 500 mg PO Q12HR #14 tab 05/06/19 Unknown Rx TAB] Ondansetron [Zofran Odt] 4 mg PO Q8HR PRN #12 tab.rapdis 05/06/19 Unknown Rx traMADol [Ultram 50 MG tab] 50 mg PO Q4HR PRN #12 tablet 05/06/19 Unknown Rx ED Physical Exam - General Limitations: No Limitations General appearance: alert, in no apparent distress - Head Head exam: Present: atraumatic, normocephalic - Eye Eye exam: Present: normal appearance - Neck Neck exam: Present: normal inspection, full ROM. Absent: tenderness, meningismus, lymphadenopathy - Respiratory Respiratory exam: Present: normal lung sounds bilaterally. Absent: respiratory distress, wheezes, rales, rhonchi, stridor, chest wall tenderness, accessory muscle use, decreased breath sounds, prolonged expiratory - Cardiovascular Cardiovascular Exam: Present: regular rate, normal rhythm, normal heart sounds. Absent: bradycardia, tachycardia, irregular rhythm, systolic murmur, diastolic murmur, rubs, gallop - GI/Abdominal GI/Abdominal exam: Present: soft, normal bowel sounds. Absent: distended, tenderness, guarding, rebound, rigid, diminished bowel sounds - Extremities Exam Extremities exam: Present: normal inspection, full ROM, normal capillary refill. Absent: tenderness - Back Exam Back exam: Present: normal inspection, full ROM. Absent: tenderness, CVA tenderness (R), CVA tenderness (L), muscle spasm, paraspinal tenderness, vertebral tenderness, rash noted - Neurological Exam Neurological exam: Present: alert, oriented X3, normal gait - Psychiatric Psychiatric exam: Present: normal affect, normal mood - Skin Skin exam: Present: warm, dry, intact, normal color. Absent: rash ED Course Vital Signs 05/06/19 19:05 Temperature 97.9 F Pulse Rate 78 Respiratory 18 Rate Blood Pressure 140/61 [Right] O2 Sat by Pulse 97 Oximetry - Reevaluation(s) Reevaluation #1: 05/06/19 21:58 Patient is speaking in full sentences with no signs of distress noted. ED Medical Decision Making - Lab Data Result diagrams: 05/06/19 19:43 05/06/19 19:43 - Medical Decision Making This is a 68-year-old female that presents with UTI. Patient is stable and was examined by me. UA obtained. Patient does not have any CVA tenderness. No signs or symptoms of pyelonephritis. Patient received Levo in the ED. Labs obtained. UA obtained. Urine culture pending. Patient received normal saline and Dilaudid which she stated that symptoms of pain are resolving. CT scan without contrast has been obtained due to a dye allergy and dictated by radiologist. Patient is notified of the CT results with no questions noted by the patient. Patient is discharged with Cipro. Patient was instructed to Follow-up with a primary care doctor in 3-5 days or if symptoms worsen and continue return to emergency room as soon as possible. At time of discharge, the patient does not seem toxic or ill in appearance. No acute signs of distress noted. Patient agrees to discharge treatment plan of care. No further questions noted by the patient. Otherwise is to light Critical care attestation.: If time is entered above; I have spent that time in minutes in the direct care of this critically ill patient, excluding procedure time. ED Disposition Clinical Impression: UTI (urinary tract infection) Qualifiers: Urinary tract infection type: acute cystitis Hematuria presence: without hematuria Qualified Code(s): N30.00 - Acute cystitis without hematuria Disposition: - TO HOME OR SELFCARE Is pt being admited?: No Does the pt Need Aspirin: No Condition: Stable Instructions: Urinary Tract Infection in Women (ED) Additional Instructions: Follow-up with a primary care doctor in 3-5 days or if symptoms worsen and continue return to emergency room as soon as possible. Prescriptions: Ciprofloxacin HCl [Ciprofloxacin TAB] 500 mg PO Q12HR #14 tab traMADol [Ultram 50 MG tab] 50 mg PO Q4HR PRN #12 tablet PRN Reason: Pain Ondansetron [Zofran Odt] 4 mg PO Q8HR PRN #12 tab.rapdis PRN Reason: Nausea Referrals: BINH ORTIZ MD [Primary Care Provider] - 3-5 Days [facility] [Referring] - 3-5 Days PAT SYKES MD [Staff Physician] - 3-5 Days [facility] [Outside] - 3-5 Days
--- NOTE | 2019-05-13 10:54 | Cat Scan Report ---
CT of the abdomen and pelvis without contrast INDICATION / CLINICAL INFORMATION: Abdominal and flank pain. TECHNIQUE: All CT scans at this location are performed using CT dose reduction for ALARA by means of automated e xposure control. COMPARISON: 04/21/2019. FINDINGS: ABDOMEN: The gallbladder is surgically absent. The liver, spleen, bile ducts, pancreas, adrenal gland s, kidneys and bowel demonstrate no acute abnormality. There is mild ectasia of the infrarenal abdomi nal aorta which has not changed. No adenopathy is seen. The lung bases are clear. PELVIS: The distal ureters and urinary bladder are normal. There is mild sigmoid diverticulosis witho ut evidence of diverticulitis. A normal appendix is present. The uterus and adnexal regions are unrem arkable. I do not identify a hernia. There is moderate spondylosis. IMPRESSION: No acute abnormality or significant change since 04/21/2019. Signer Name: Augustus Farrell MD Signed: 05/06/2019 9:42 PM Workstation Name: [id number]
== END 2019-05-07 00:15 | disposition home or self-care (01) ==
LOC: ED 18:43
DX: N30.00 Acute cystitis without hematuria (principal); I10 Essential (primary) hypertension; K21.9 Gastro-esophageal reflux disease without esophagitis; M19.90 Unspecified osteoarthritis, unspecified site; G43.909 Migraine, unspecified, not intractable, without status migrainosus; J45.909 Unspecified asthma, uncomplicated; J44.9 Chronic obstructive pulmonary disease, unspecified; M79.7 Fibromyalgia; I34.1 Nonrheumatic mitral (valve) prolapse; F17.200 Nicotine dependence, unspecified, uncomplicated; Z90.49 Acquired absence of other specified parts of digestive tract; Z98.890 Other specified postprocedural states; Z87.442 Personal history of urinary calculi; Z79.899 Other long term (current) drug therapy; Z88.5 Allergy status to narcotic agent; Z88.8 Allergy status to other drugs, medicaments and biological substances; Z86.711 Personal history of pulmonary embolism
CPT/HCPCS: 36415; 74176; 80053; 81001; 83690; 85025; 96365; 96366; 96375; 99284; J1956; J2270; J2405; J7030

== ENCOUNTER 2019-05-25 12:37 | Emergency (ER) | payer MEDICARE ==
--- NOTE | 2019-05-25 12:44 | Emergency Department Report ---
Blank Doc - Documentation Documentation: This is ia 68-year-old female that presents with left shoulder pain and left rib pain s/p fall. Denies any head injuries or LOC. denies any other complaints or symptoms. This initial assessment/diagnostic orders/clinical plan/treatment(s) is/are subject to change based on patient's health status, clinical progression and re- assessment by fellow clinical providers in the ED. Further treatment and workup at subsequent clinical providers discretion. Patient/guardians urged not to elope from the ED as their condition may be serious if not clinically assessed and managed. Initial orders include: 1- Patient sent to [facility] for further evaluation and treatment 2- xrays
[2019-05-25 12:46] VITALS: BP 170/59
--- NOTE | 2019-05-25 14:12 | XRay Report ---
Chest with left RIBS 3 views 1345 INDICATION: Fall today, left chest wall pain An old fracture of the posterior lateral aspect of the left fifth rib is seen with healing noted. No acute fractures are identified. No mediastinal widening seen. No pneumothorax is noted. Heart size an d pulmonary vascularity appear within normal limits. Lung elizabeth are clear of infiltrates. Left shoulder 3 views 1341 INDICATION: Fall today, left shoulder pain Mild acromioclavicular and minimal glenohumeral degenerative changes are seen. No shoulder fractures or dislocations are noted. An old left rib fracture is noted as above. IMPRESSION: No acute abnormalities are seen Signer Name: Pablo Dennis MD Signed: 05/25/2019 2:07 PM Workstation Name: [id number]
[2019-05-25] MEDS ORDERED: NORCO 5/325 PO ONE (15:09)
[2019-05-25] MEDS ORDERED: ZOFRAN ODT PO ONE (15:09)
--- NOTE | 2019-05-25 15:15 | Emergency Department Report ---
ED General Adult HPI - General Chief complaint: Fall Stated complaint: LFT SIDE RIB/SHOULDER PAIN Time Seen by Provider: 05/25/19 12:43 Source: patient Mode of arrival: Ambulatory Limitations: No Limitations - History of Present Illness Initial comments: She presents to the emergency Department for chief complaint of falling while trying to get out shower. Patient states she slammed her left shoulder and left ribs onto the side of the tube. Patient denies hitting her head or any loss consciousness. -: Sudden Radiation: non-radiation Severity scale (0 -10): 5 Quality: aching Consistency: constant Improves with: rest Worsens with: movement Associated Symptoms: denies other symptoms Treatments Prior to Arrival: none - Related Data Home Medications Medication Instructions Recorded Confirmed Last Taken HYDROcodone/APAP 7.5-325 [[place] 1 each PO Q6HR PRN 09/24/18 01/12/19 Unknown 7.5-325 mg TAB] Zolpidem [Ambien] 5 mg PO QHS PRN 09/24/18 01/12/19 Unknown Previous Rx's Medication Instructions Recorded Last Taken Type ALBUTEROL NEB's [Proventil 0.083% 2.5 mg IH BID #60 nebu 09/21/17 Unknown Rx NEBS] ALPRAZolam [Xanax TAB] 1 mg PO BID PRN #30 tablet 09/21/17 Unknown Rx Amlodipine Besylate [Norvasc] 5 mg PO QDAY #30 tablet 09/21/17 Unknown Rx Cyclobenzaprine [Flexeril 10 MG 10 mg PO QHS PRN #20 tablet 10/10/18 Unknown Rx TAB] Naproxen [Naprosyn TAB] 500 mg PO BID #30 tablet 10/10/18 Unknown Rx traMADol [Ultram 50 MG tab] 50 mg PO Q6HR PRN #20 tablet 01/13/19 Unknown Rx Benzonatate [Tessalon Perles] 100 mg PO Q8HR PRN #20 capsule 01/29/19 Unknown Rx Cyclobenzaprine [Flexeril] 10 mg PO BID PRN #20 tablet 01/29/19 Unknown Rx Loperamide [Imodium] 2 mg PO Q2HR PRN #20 capsule 04/21/19 Unknown Rx Ondansetron [Zofran Odt] 4 mg PO Q8HR PRN #20 tab.rapdis 04/21/19 Unknown Rx traMADol [Ultram 50 MG tab] 50 mg PO Q4HR PRN #20 tablet 04/21/19 Unknown Rx Ciprofloxacin HCl [Ciprofloxacin 500 mg PO Q12HR #14 tab 05/06/19 Unknown Rx TAB] Ondansetron [Zofran Odt] 4 mg PO Q8HR PRN #12 tab.rapdis 05/06/19 Unknown Rx traMADol [Ultram 50 MG tab] 50 mg PO Q4HR PRN #12 tablet 05/06/19 Unknown Rx HYDROcodone/APAP 5-325 [[place] 1 each PO Q6HR PRN #12 tablet 05/25/19 Unknown Rx 5/325] Allergies Allergy/AdvReac Type Severity Reaction Status Date / Time codeine Allergy THROAT Verified 05/06/19 19:07 CLOSES Iodinated Contrast- Oral and Allergy ITCHES, Verified 05/06/19 19:07 IV Dye FEELS LIKE SHE IS ON FIRE ketorolac [From Toradol] Allergy Headache Verified 05/06/19 19:07 ketorolac tromethamine Allergy Headache Verified 05/06/19 19:07 [From Toradol] methocarbamol [From Robaxin] Allergy Headache Verified 05/06/19 19:07 Penicillins Allergy Swelling Verified 05/06/19 19:07 OF FACE HAND AND THROAT CLOSES strawberry Allergy Rash Verified 05/06/19 19:07 aspirin AdvReac Bleeding Verified 05/06/19 19:07 strawberry Allergy Hives Uncoded 05/06/19 19:07 ED Review of Systems ROS: Stated complaint: LFT SIDE RIB/SHOULDER PAIN Other details as noted in HPI Comment: All other systems reviewed and negative Constitutional: denies: chills, fever Eyes: denies: eye pain, eye discharge, vision change ENT: denies: ear pain, throat pain Respiratory: denies: cough, shortness of breath, wheezing Cardiovascular: denies: chest pain, palpitations Endocrine: no symptoms reported Gastrointestinal: denies: abdominal pain, nausea, diarrhea Genitourinary: denies: urgency, dysuria, discharge Musculoskeletal: denies: back pain, joint swelling, arthralgia Skin: denies: rash, lesions Neurological: denies: headache, weakness, paresthesias Psychiatric: denies: anxiety, depression Hematological/Lymphatic: denies: easy bleeding, easy bruising ED Past Medical Hx - Past Medical History Hx Hypertension: Yes Hx Pulmonary Embolism: Yes (40 years ago) Hx GERD: Yes Hx Sickle Cell Disease: No Hx Arthritis: Yes Hx Headaches / Migraines: Yes Hx Kidney Stones: Yes Hx Asthma: Yes Hx COPD: Yes Additional medical history: Fibromyalgia, MVP, peptic ulcers - Surgical History Hx Pacemaker: No Hx Internal Defibrillator: No Hx Cholecystectomy: Yes Additional Surgical History: right wrist metal plate, Right ovarian cyst removal. cataract, left Achilles tendon repair and left ankle instrumentation, gall bladder removal - Social History Smoking Status: Unknown if ever smoked Substance Use Type: None - Medications Home Medications: Home Medications Medication Instructions Recorded Confirmed Last Taken Type ALBUTEROL NEB's [Proventil 0.083% 2.5 mg IH BID #60 nebu 09/21/17 01/12/19 Unknown Rx NEBS] ALPRAZolam [Xanax TAB] 1 mg PO BID PRN #30 tablet 09/21/17 01/12/19 Unknown Rx Amlodipine Besylate [Norvasc] 5 mg PO QDAY #30 tablet 09/21/17 01/12/19 Unknown Rx HYDROcodone/APAP 7.5-325 [[place] 1 each PO Q6HR PRN 09/24/18 01/12/19 Unknown History 7.5-325 mg TAB] Zolpidem [Ambien] 5 mg PO QHS PRN 09/24/18 01/12/19 Unknown History Cyclobenzaprine [Flexeril 10 MG 10 mg PO QHS PRN #20 tablet 10/10/18 01/12/19 Unknown Rx TAB] Naproxen [Naprosyn TAB] 500 mg PO BID #30 tablet 10/10/18 01/12/19 Unknown Rx traMADol [Ultram 50 MG tab] 50 mg PO Q6HR PRN #20 tablet 01/13/19 Unknown Rx Benzonatate [Tessalon Perles] 100 mg PO Q8HR PRN #20 capsule 01/29/19 Unknown R x Cyclobenzaprine [Flexeril] 10 mg PO BID PRN #20 tablet 01/29/19 Unknown Rx Loperamide [Imodium] 2 mg PO Q2HR PRN #20 capsule 04/21/19 Unknown Rx Ondansetron [Zofran Odt] 4 mg PO Q8HR PRN #20 tab.rapdis 04/21/19 Unknown Rx traMADol [Ultram 50 MG tab] 50 mg PO Q4HR PRN #20 tablet 04/21/19 Unknown Rx Ciprofloxacin HCl [Ciprofloxacin 500 mg PO Q12HR #14 tab 05/06/19 Unknown Rx TAB] Ondansetron [Zofran Odt] 4 mg PO Q8HR PRN #12 tab.rapdis 05/06/19 Unknown Rx traMADol [Ultram 50 MG tab] 50 mg PO Q4HR PRN #12 tablet 05/06/19 Unknown Rx HYDROcodone/APAP 5-325 [[place] 1 each PO Q6HR PRN #12 tablet 05/25/19 Unknown Rx 5/325] ED Physical Exam - General Limitations: No Limitations General appearance: alert, in no apparent distress - Head Head exam: Present: atraumatic, normocephalic - Eye Eye exam: Present: normal appearance, PERRL, EOMI - ENT ENT exam: Present: mucous membranes moist - Neck Neck exam: Present: normal inspection - Respiratory Respiratory exam: Present: normal lung sounds bilaterally, other (tender to palpation of ribs 4 through 8 left side). Absent: respiratory distress - Cardiovascular Cardiovascular Exam: Present: regular rate, normal rhythm. Absent: systolic murmur, diastolic murmur, rubs, gallop - GI/Abdominal GI/Abdominal exam: Present: soft, normal bowel sounds. Absent: distended, tenderness - Extremities Exam Extremities exam: Present: full ROM, other (chest tenderness to palpation of the AC joint left side) - Back Exam Back exam: Present: normal inspection - Neurological Exam Neurological exam: Present: alert, oriented X3 - Psychiatric Psychiatric exam: Present: normal affect, normal mood - Skin Skin exam: Present: warm, dry, intact, normal color. Absent: rash ED Course Vital Signs 05/25/19 12:43 Temperature 97.9 F Pulse Rate 88 Respiratory 18 Rate Blood Pressure 170/59 O2 Sat by Pulse 99 Oximetry ED Medical Decision Making - Radiology Data Radiology results: report reviewed - Medical Decision Making discussed results with patient politely declined CT of her head. Critical care attestation.: If time is entered above; I have spent that time in minutes in the direct care of this critically ill patient, excluding procedure time. ED Disposition Clinical Impression: Contusion of rib on left side, Acute shoulder pain Disposition: TO HOME OR SELFCARE Is pt being admited?: No Does the pt Need Aspirin: No Condition: Stable Instructions: Shoulder Sprain (ED) Additional Instructions: return if worse Referrals: BINH ORTIZ MD [Primary Care Provider] - 3-5 Days [facility] [Provider Group] - 3-5 Days [facility] [Provider Group] - 3-5 Days Time of Disposition: 15:13
== END 2019-05-25 15:21 | disposition home or self-care (01) ==
LOC: ED 12:37
DX: S20.212A Contusion of left front wall of thorax, initial encounter (principal); M25.512 Pain in left shoulder; I10 Essential (primary) hypertension; K21.0 Gastro-esophageal reflux disease with esophagitis; M19.90 Unspecified osteoarthritis, unspecified site; J44.9 Chronic obstructive pulmonary disease, unspecified; Z90.49 Acquired absence of other specified parts of digestive tract; Z79.899 Other long term (current) drug therapy; Z88.6 Allergy status to analgesic agent; Z91.041 Radiographic dye allergy status; Z88.8 Allergy status to other drugs, medicaments and biological substances; Z91.018 Allergy to other foods; W18.30XA Fall on same level, unspecified, initial encounter; Y93.E1 Activity, personal bathing and showering; Y92.89 Other specified places as the place of occurrence of the external cause; Y99.8 Other external cause status
CPT/HCPCS: 99283; Q0162

== ENCOUNTER 2019-06-13 17:01 | Emergency (ER) | payer MEDICARE ==
--- NOTE | 2019-06-13 17:16 | Event Note ---
ED Screening Note Date of service: 06/13/19 Time: 17:12 ED Screening Note: This is a 68 y.o. F. that presents to the ER with chest pain and headache since yesterday. PMH of NENO, HTN, COPD, & DVT This initial assessment/diagnostic orders/clinical plan/treatment(s) is/are subject to change based on patients health status, clinical progression and re- assessment by fellow clinical providers in the ED. Further treatment and workup at subsequent clinical providers discretion. Patient/guardian urged not to elope from the ED as their condition may be serious if not clinically assessed and managed. Initial orders include: Labs, EKG, and CXR
[2019-06-13 17:34] LABS: Basophils % (Auto) 0.6 % (0.0-1.8); Eosinophils # (Auto) 0.1 K/mm3 (0.0-0.4); Eosinophils % (Auto) 0.8 % (0.0-4.3); Hematocrit 41.2 % (30.3-42.9); Hemoglobin 13.7 gm/dl (10.1-14.3); Lymphocytes # (Auto) 2.1 K/mm3 (1.2-5.4); Lymphocytes % (Auto) 25.7 % (13.4-35.0); Mean Corpuscular HGB Conc 33 % (30-34); Mean Corpuscular Volume 87 fl (79-97); Monocytes # (Auto) 0.7 K/mm3 (0.0-0.8); Monocytes % (Auto) 8.5 % (0.0-7.3); Platelet Count 328 K/mm3 (140-440); Red Blood Count 4.75 M/mm3 (3.65-5.03); Red Cell Distribution Width 15.5 % (13.2-15.2)
--- NOTE | 2019-06-13 17:40 | XRay Report ---
CHEST 2 VIEWS INDICATION / CLINICAL INFORMATION: Chest Pain. Productive cough. COMPARISON: 05/25/19 FINDINGS: SUPPORT DEVICES: None. HEART / MEDIASTINUM: No significant abnormality. LUNGS / PLEURA: Interval development of patchy parenchymal density in the superior segment of the rig ht lower lobe likely representing focal pneumonia. Left lung is clear. No pneumothorax. ADDITIONAL FINDINGS: Old healed fracture of the left 5th rib. IMPRESSION: 1. Interval development of patchy right lower lobe pneumonia. Signer Name: Carol Lubin MD Signed: 06/13/2019 5:35 PM Workstation Name: [id number]
[2019-06-13 17:53] LABS: BUN/Creatinine Ratio 11; Blood Urea Nitrogen 8 mg/dL (7-17); Calcium 9.7 mg/dL (8.4-10.2); Hemolysis Index 3
[2019-06-13] MEDS ORDERED: NORCO 5/325 PO ONE (20:35)
[2019-06-13] MEDS ORDERED: TESSALON PERLES PO ONE (20:36)
[2019-06-13] MEDS ORDERED: LEVAQUIN PO ONE (20:36)
--- NOTE | 2019-06-13 20:42 | Emergency Department Report ---
HPI - General Chief Complaint: Chest Pain Time Seen by Provider: 06/13/19 17:12 - HPI HPI: Room 17 The patient is a 68-year-old female presenting with a chief complaint of cough and chest pain. The patient states she's had a productive cough for the past. Patient states her cough has been productive of green yellow sputum. Patient complains of chest pain with cough. Patient also admits to shortness of breath. He states at one time she had substernal chest pain not associated with a cough that lasted approximately 1 minute before resolving. The patient states she developed a headache today prompting her to come to the emergency department. Patient gives her chest pain with cough or score of 9.5/10 Location: [See above] Duration: [See above] Quality: [See above] Severity: [See above] Modifying factors: [see above] Context: [see above] Mode of transportation: [not driving] ED Past Medical Hx - Past Medical History Hx Hypertension: Yes Hx Pulmonary Embolism: Yes (40 years ago) Hx GERD: Yes Hx Arthritis: Yes Hx Headaches / Migraines: Yes Hx Kidney Stones: Yes Hx Asthma: Yes Hx COPD: Yes (no home O2) Additional medical history: Fibromyalgia, MVP, peptic ulcers - Surgical History Hx Cholecystectomy: Yes Additional Surgical History: right wrist metal plate, Right ovarian cyst removal. cataract, left Achilles tendon repair and left ankle instrumentation, gall bladder removal - Family History Family history: no significant - Social History Smoking Status: Former Smoker (none 1 month) Substance Use Type: None (denies illicit drug use) - Medications Home Medications: Home Medications Medication Instructions Recorded Confirmed Last Taken Type ALBUTEROL NEB's [Proventil 0.083% 2.5 mg IH BID #60 nebu 09/21/17 01/12/19 Unknown Rx NEBS] ALPRAZolam [Xanax TAB] 1 mg PO BID PRN #30 tablet 09/21/17 01/12/19 Unknown Rx Amlodipine Besylate [Norvasc] 5 mg PO QDAY #30 tablet 09/21/17 01/12/19 Unknown Rx HYDROcodone/APAP 7.5-325 [[place] 1 each PO Q6HR PRN 09/24/18 01/12/19 Unknown History 7.5-325 mg TAB] Zolpidem [Ambien] 5 mg PO QHS PRN 09/24/18 01/12/19 Unknown History Cyclobenzaprine [Flexeril 10 MG 10 mg PO QHS PRN #20 tablet 10/10/18 01/12/19 Unknown Rx TAB] Naproxen [Naprosyn TAB] 500 mg PO BID #30 tablet 10/10/18 01/12/19 Unknown Rx traMADol [Ultram 50 MG tab] 50 mg PO Q6HR PRN #20 tablet 01/13/19 Unknown Rx Benzonatate [Tessalon Perles] 100 mg PO Q8HR PRN #20 capsule 01/29/19 Unknown Rx Cyclobenzaprine [Flexeril] 10 mg PO BID PRN #20 tablet 01/29/19 Unknown Rx Loperamide [Imodium] 2 mg PO Q2HR PRN #20 capsule 04/21/19 Unknown Rx Ondansetron [Zofran Odt] 4 mg PO Q8HR PRN #20 tab.rapdis 04/21/19 Unknown Rx traMADol [Ultram 50 MG tab] 50 mg PO Q4HR PRN #20 tablet 04/21/19 Unknown Rx Ciprofloxacin HCl [Ciprofloxacin 500 mg PO Q12HR #14 tab 05/06/19 Unknown Rx TAB] Ondansetron [Zofran Odt] 4 mg PO Q8HR PRN #12 tab.rapdis 05/06/19 Unknown Rx traMADol [Ultram 50 MG tab] 50 mg PO Q4HR PRN #12 tablet 05/06/19 Unknown Rx HYDROcodone/APAP 5-325 [[place] 1 each PO Q6HR PRN #12 tablet 05/25/19 Unknown Rx 5/325] Benzonatate [Tessalon Perles] 100 mg PO Q8HR #30 capsule 06/13/19 Unknown Rx HYDROcodone/APAP 5-325 [[place] 1 - 2 each PO Q6HR PRN #14 tablet 06/13/19 Unknown Rx 5/325] levoFLOXacin [Levaquin] 750 mg PO QDAY #10 tablet 06/13/19 Unknown Rx ED Review of Systems ROS: Stated complaint: CHEST PAIN/HEADACHE Other details as noted in HPI Constitutional: diaphoresis. denies: fever Eyes: denies: eye pain ENT: denies: throat pain Respiratory: cough, shortness of breath Cardiovascular: chest pain Endocrine: no symptoms reported Gastrointestinal: denies: abdominal pain Genitourinary: denies: dysuria Musculoskeletal: denies: back pain Neurological: headache Physical Exam - Physical Exam Vital Signs: Vital Signs 06/13/19 17:13 Temperature 98.3 F Pulse Rate 80 Respiratory 16 Rate Blood Pressure 124/55 [Left] O2 Sat by Pulse 96 Oximetry Vital Signs 06/13/19 06/13/19 17:13 20:59 Temperature 98.3 F Pulse Rate 80 70 Respiratory 16 18 Rate Blood Pressure 124/55 151/73 [Left] O2 Sat by Pulse 96 100 Oximetry Physical Exam: GENERAL: The patient is well-developed well-nourished female lying on stretcher not appearing to be in acute distress. [] HEENT: Normocephalic. Atraumatic. Extraocular motions are intact. Patient has moist mucous membranes. NECK: Supple. Trachea midline CHEST/LUNGS: Clear to auscultation. There is no respiratory distress noted. HEART/CARDIOVASCULAR: Regular. There is no tachycardia. There is no gallop rub or murmur. ABDOMEN: Abdomen is soft, nontender. Patient has normal bowel sounds. There is no abdominal distention. SKIN: There is no rash. There is no edema. There is no diaphoresis. NEURO: The patient is awake, alert, and oriented. The patient is cooperative. The patient has normal speech MUSCULOSKELETAL: There is no evidence of acute injury. ED Course Vital Signs 06/13/19 17:13 Temperature 98.3 F Pulse Rate 80 Respiratory 16 Rate Blood Pressure 124/55 [Left] O2 Sat by Pulse 96 Oximetry ED Medical Decision Making - Lab Data Result diagrams: 06/13/19 17:20 06/13/19 17:16 Vital Signs 06/13/19 17:13 Temperature 98.3 F Pulse Rate 80 Respiratory 16 Rate Blood Pressure 124/55 [Left] O2 Sat by Pulse 96 Oximetry - EKG Data -: EKG Interpreted by Me EKG shows normal: sinus rhythm Rate: normal - EKG Data When compared to previous EKG there are: no significant change Interpretation: nonspecific ST-T wave malcom (T-wave inversion in lead 3) - Radiology Data Radiology results: report reviewed (chest x-ray), image reviewed (chest x-ray) interpreted by me: Chest x-ray- right lower lobe infiltrate. No pneumothorax [facility] [address] [place] [address] XRay Report Signed Patient: AMY BENTLEY MR#: [id number] 21 : 1950 Acct:[id number] Age/Sex: 68 / F ADM Date: 06/13/19 Loc: ED Attending Dr: Ordering Physician: MINH KRAMER Date of Service: 06/13/19 Procedure(s): XR chest routine 2V Accession Number(s): [id number] cc: MINH KRAMER Fluoro Time In Minutes: CHEST 2 VIEWS INDICATION / CLINICAL INFO RMATION: Chest Pain. Productive cough. COMPARISON: 05/25/19 FINDINGS: SUPPORT DEVICES: None. HEART / MEDIASTINUM: No significant abnormality. LUNGS / PLEURA: Interval development of patchy parenchymal density in the superior segment of the right lower lobe likely representing focal pneumonia. Left lung is clear. No pneumothorax. ADDITIONAL FINDINGS: Old healed fracture of the left 5th rib. IMPRESSION: 1. Interval development of patchy right lower lobe pneumonia. Signer Name: Carol Lubin MD Signed: 06/13/2019 5:35 PM Workstation Name: [id number] Transcribed By: DT Dictated By: Reuben Lubin MD Electronically Authenticated By: Reuben Lubin MD Signed Date/Time: 06/13/191734 DD/ 33 TD/TT: - Differential Diagnosis pneumonia, bronchitis, ACS, pericarditis, GERD Critical care attestation.: If time is entered above; I have spent that time in minutes in the direct care of this critically ill patient, excluding procedure time. ED Disposition Clinical Impression: Pneumonia, Cough Disposition: -01 TO HOME OR SELFCARE Is pt being admited?: No Does the pt Need Aspirin: No Condition: Stable Instructions: Bacterial Pneumonia (ED) Additional Instructions: Return to the emergency department immediately should you develop worsening symptoms, fever, inability to tolerate food or liquid or any other concerns. Prescriptions: levoFLOXacin [Levaquin] 750 mg PO QDAY #10 tablet HYDROcodone/APAP 5-325 [[place] 5/325] 1 - 2 each PO Q6HR PRN #14 tablet PRN Reason: Pain Benzonatate [Tessalon Perles] 100 mg PO Q8HR #30 capsule Referrals: STEVE LUND MD [Primary Care Provider] - 3-5 Days Time of Disposition: 20:51
[2019-06-13 21:00] VITALS: BP 151/73
== END 2019-06-13 21:15 | disposition home or self-care (01) ==
LOC: ED 17:01
DX: J18.9 Pneumonia, unspecified organism (principal); I10 Essential (primary) hypertension; K21.9 Gastro-esophageal reflux disease without esophagitis; M19.90 Unspecified osteoarthritis, unspecified site; G43.909 Migraine, unspecified, not intractable, without status migrainosus; J44.9 Chronic obstructive pulmonary disease, unspecified; Z79.899 Other long term (current) drug therapy; Z86.711 Personal history of pulmonary embolism; Z87.442 Personal history of urinary calculi; Z90.49 Acquired absence of other specified parts of digestive tract; Z87.891 Personal history of nicotine dependence; Z88.5 Allergy status to narcotic agent; Z91.041 Radiographic dye allergy status; Z88.6 Allergy status to analgesic agent
CPT/HCPCS: 36415; 71046; 80048; 84484; 85025; 93005; 93010

== ENCOUNTER 2019-06-26 17:25 | Emergency (ER) | payer MEDICARE ==
[2019-06-26 17:34] VITALS: BP 125/102
--- NOTE | 2019-06-26 17:37 | Event Note ---
ED Screening Note ED Screening Note: 10 er visit this year here for follow up from oj mcwilliams on 06/13 no fever smoker non toxic ambulatory This initial assessment/diagnostic orders/clinical plan/treatment(s) is/are subject to change based on patients health status, clinical progression and re- assessment by fellow clinical providers in the ED. Further treatment and workup at subsequent clinical providers discretion. Patient/guardian urged not to elope from the ED as their condition may be serious if not clinically assessed and managed. Initial orders include: basic labs repeat xray
--- NOTE | 2019-06-26 18:01 | XRay Report ---
CHEST 2 VIEWS INDICATION: short of breath. COMPARISON: 06/13/2019. FINDINGS: Support devices: None. Heart: Within normal limits. Lungs/Pleura: Infiltrate seen per segment of right lower lobe is slightly more localized. No signif icant pleural effusion. IMPRESSION: Mild worsening right-sided pneumonia. Recommend follow-up to complete resolution. Signer Name: Brock Lawler MD Signed: 06/26/2019 5:57 PM Workstation Name: [id number]
[2019-06-26 18:29] LABS: Hematocrit 41.7 % (30.3-42.9); Hemoglobin 14.4 gm/dl (10.1-14.3); Mean Corpuscular HGB Conc 35 % (30-34); Mean Corpuscular Volume 85 fl (79-97); Platelet Count 278 K/mm3 (140-440); Red Blood Count 4.91 M/mm3 (3.65-5.03); Red Cell Distribution Width 15.2 % (13.2-15.2)
[2019-06-26] MEDS ORDERED: NORCO 5/325 PO ONE (18:43)
[2019-06-26 18:50] LABS: BUN/Creatinine Ratio 18; Blood Urea Nitrogen 14 mg/dL (7-17); Calcium 10.1 mg/dL (8.4-10.2); Hemolysis Index 11
--- NOTE | 2019-06-26 21:33 | Nuclear Medicine Report ---
TECHNICAL DATA: Inhaled administration followed by immediate static images of chest in multiple projections coordin ed with breathing instructions. Followed by immediate static images of chest in multiple projections post I.V. injection. 22.4 millicuries of 133 Xenon is administered by inhalation. Pulmonary wash-in, equilibrium, and washout phases are performed. Then, 3.99 millicuries of 99m Tc MA A is administered intravenously. FINDINGS: The ventilation scan demonstrates mild air trapping in both bases, especially on the left. Perfusion scan demonstrates homogeneous uptake bilaterally without evidence of segmental or subsegmental defect s in the left lung. There is defect noted in the right midlung which corresponds to area of parenchym al disease on chest radiograph. The remainder of the right lung is clear.. IMPRESSION: Low probability for pulmonary thromboembolism. There is a single segmental perfusion defect in the right midlung, corresponding to area of parenchym al disease on the chest radiograph.. Mild air trapping in the lung bases. Signer Name: Lizzy Vasquez MD Signed: 06/26/2019 9:28 PM Workstation Name: [id number]
--- NOTE | 2019-06-26 22:05 | Emergency Department Report ---
ED Shortness of Breath HPI - General Chief Complaint: Dyspnea/Respdistress Stated Complaint: FOLLOW UP FOR PNEUMONIA Time Seen by Provider: 06/26/19 17:32 Source: patient Mode of arrival: Ambulatory Limitations: No Limitations - History of Present Illness Initial Comments: Patient is a 68-year-old female with a past medical history of COPD hypertension and pulmonary embolus 40 years ago who is presenting with continued right-sided chest pain with shortness of breath. Patient states that her cough is nonproductive. Patient was diagnosed with a right middle lobe infiltrate consistent with pneumonia approximately 2 weeks ago. Patient is on her second round of Levaquin but states she still doesn't feel well. Patient says some subjective fevers. Patient has had some mild nausea vomiting diarrhea for the last 2 days. Patient has pain with inspiration. - Related Data Home Medications Medication Instructions Recorded Confirmed Last Taken HYDROcodone/APAP 7.5-325 [[place] 1 each PO Q6HR PRN 09/24/18 01/12/19 Unknown 7.5-325 mg TAB] Zolpidem [Ambien] 5 mg PO QHS PRN 09/24/18 01/12/19 Unknown Previous Rx's Medication Instructions Recorded Last Taken Type ALBUTEROL NEB's [Proventil 0.083% 2.5 mg IH BID #60 nebu 09/21/17 Unknown Rx NEBS] ALPRAZolam [Xanax TAB] 1 mg PO BID PRN #30 tablet 09/21/17 Unknown Rx Amlodipine Besylate [Norvasc] 5 mg PO QDAY #30 tablet 09/21/17 Unknown Rx Cyclobenzaprine [Flexeril 10 MG 10 mg PO QHS PRN #20 tablet 10/10/18 Unknown Rx TAB] Naproxen [Naprosyn TAB] 500 mg PO BID #30 tablet 10/10/18 Unknown Rx traMADol [Ultram 50 MG tab] 50 mg PO Q6HR PRN #20 tablet 01/13/19 Unknown Rx Benzonatate [Tessalon Perles] 100 mg PO Q8HR PRN #20 capsule 01/29/19 Unknown Rx Cyclobenzaprine [Flexeril] 10 mg PO BID PRN #20 tablet 01/29/19 Unknown Rx Loperamide [Imodium] 2 mg PO Q2HR PRN #20 capsule 04/21/19 Unknown Rx Ondansetron [Zofran Odt] 4 mg PO Q8HR PRN #20 tab.rapdis 04/21/19 Unknown Rx traMADol [Ultram 50 MG tab] 50 mg PO Q4HR PRN #20 tablet 04/21/19 Unknown Rx Ciprofloxacin HCl [Ciprofloxacin 500 mg PO Q12HR #14 tab 05/06/19 Unknown Rx TAB] Ondansetron [Zofran Odt] 4 mg PO Q8HR PRN #12 tab.rapdis 05/06/19 Unknown Rx traMADol [Ultram 50 MG tab] 50 mg PO Q4HR PRN #12 tablet 05/06/19 Unknown Rx HYDROcodone/APAP 5-325 [[place] 1 each PO Q6HR PRN #12 tablet 05/25/19 Unknown Rx 5/325] Benzonatate [Tessalon Perles] 100 mg PO Q8HR #30 capsule 06/13/19 Unknown Rx HYDROcodone/APAP 5-325 [[place] 1 - 2 each PO Q6HR PRN #14 tablet 06/13/19 Unknown Rx 5/325] levoFLOXacin [Levaquin] 750 mg PO QDAY #10 tablet 06/13/19 Unknown Rx Azithromycin [Zithromax Z-AVINASH] 250 mg PO DAILY #6 tablet 06/26/19 Unknown Rx Benzonatate [Tessalon Perles] 100 mg PO Q8HR #10 capsule 06/26/19 Unknown Rx DOXYCYCLINE Hyclate [Vibramycin 100 mg PO Q12HR #14 capsule 06/26/19 Unknown Rx CAP] HYDROcodone/APAP 5-325 [[place] 1 each PO Q6HR PRN #14 tablet 06/26/19 Unknown Rx 5/325] predniSONE [Deltasone] 20 mg PO QDAY #5 tab 06/26/19 Unknown Rx Allergies Allergy/AdvReac Type Severity Reaction Status Date / Time codeine Allergy THROAT Verified 06/13/19 17:05 CLOSES Iodinated Contrast- Oral and Allergy ITCHES, Verified 06/13/19 17:05 IV Dye FEELS LIKE SHE IS ON FIRE ketorolac [From Toradol] Allergy Headache Verified 06/13/19 17:05 ketorolac tromethamine Allergy Headache Verified 06/13/19 17:05 [From Toradol] methocarbamol [From Robaxin] Allergy Headache Verified 06/13/19 17:05 Penicillins Allergy Swelling Verified 06/13/19 17:05 OF FACE HAND AND THROAT CLOSES strawberry Allergy Rash Verified 06/13/19 17:05 aspirin AdvReac Bleeding Verified 06/13/19 17:05 strawberry Allergy Hives Uncoded 06/13/19 17:05 ED Review of Systems ROS: Stated complaint: FOLLOW UP FOR PNEUMONIA Other details as noted in HPI Comment: All other systems reviewed and negative ED Past Medical Hx - Past Medical History Previous Medical History?: Yes Hx Hypertension: Yes Hx Pulmonary Embolism: Yes (40 years ago) Hx GERD: Yes Hx Sickle Cell Disease: No Hx Arthritis: Yes Hx Headaches / Migraines: Yes Hx Kidney Stones: Yes Hx Asthma: Yes Hx COPD: Yes (no home O2) Additional medical history: Fibromyalgia, MVP, peptic ulcers - Surgical History Past Surgical History?: Yes Hx Pacemaker: No Hx Internal Defibrillator: No Hx Cholecystectomy: Yes Additional Surgical History: right wrist metal plate, Right ovarian cyst removal. cataract, left Achilles tendon repair and left ankle instrumentation, gall bladder removal - Social History Smoking Status: Current Every Day Smoker Substance Use Type: None - Medications Home Medications: Home Medications Medication Instructions Recorded Confirmed Last Taken Type ALBUTEROL NEB's [Proventil 0.083% 2.5 mg IH BID #60 nebu 09/21/17 01/12/19 Unknown Rx NEBS] ALPRAZolam [Xanax TAB] 1 mg PO BID PRN #30 tablet 09/21/17 01/12/19 Unknown Rx Amlodipine Besylate [Norvasc] 5 mg PO QDAY #30 tablet 09/21/17 01/12/19 Unknown Rx HYDROcodone/APAP 7.5-325 [[place] 1 each PO Q6HR PRN 09/24/18 01/12/19 Unknown History 7.5-325 mg TAB] Zolpidem [Ambien] 5 mg PO QHS PRN 09/24/18 01/12/19 Unknown History Cyclobenzaprine [Flexeril 10 MG 10 mg PO QHS PRN #20 tablet 10/10/18 01/12/19 Unknown Rx TAB] Naproxen [Naprosyn TAB] 500 mg PO BID #30 tablet 10/10/18 01/12/19 Unknown Rx traMADol [Ultram 50 MG tab] 50 mg PO Q6HR PRN #20 tablet 01/13/19 Unknown Rx Benzonatate [Tessalon Perles] 100 mg PO Q8HR PRN #20 capsule 01/29/19 Unknown Rx Cyclobenzaprine [Flexeril] 10 mg PO BID PRN #20 tablet 01/29/19 Unknown Rx Loperamide [Imodium] 2 mg PO Q2HR PRN #20 capsule 04/21/19 Unknown Rx Ondansetron [Zofran Odt] 4 mg PO Q8HR PRN #20 tab.rapdis 04/21/19 Unknown Rx traMADol [Ultram 50 MG tab] 50 mg PO Q4HR PRN #20 tablet 04/21/19 Unknown Rx Ciprofloxacin HCl [Ciprofloxacin 500 mg PO Q12HR #14 tab 05/06/19 Unknown Rx TAB] Ondansetron [Zofran Odt] 4 mg PO Q8HR PRN #12 tab.rapdis 05/06/19 Unknown Rx traMADol [Ultram 50 MG tab] 50 mg PO Q4HR PRN #12 tablet 05/06/19 Unknown Rx HYDROcodone/APAP 5-325 [[place] 1 each PO Q6HR PRN #12 tablet 05/25/19 Unknown Rx 5/325] Benzonatate [Tessalon Perles] 100 mg PO Q8HR #30 capsule 06/13/19 Unknown Rx HYDROcodone/APAP 5-325 [[place] 1 - 2 each PO Q6HR PRN #14 tablet 06/13/19 Unknown Rx 5/325] levoFLOXacin [Levaquin] 750 mg PO QDAY #10 tablet 06/13/19 Unknown Rx Azithromycin [Zithromax Z-AVINASH] 250 mg PO DAILY #6 tablet 06/26/19 Unknown Rx Benzonatate [Tessalon Perles] 100 mg PO Q8HR #10 capsule 06/26/19 Unknown Rx DOXYCYCLINE Hyclate [Vibramycin 100 mg PO Q12HR #14 capsule 06/26/19 Unknown Rx CAP] HYDROcodone/APAP 5-325 [[place] 1 each PO Q6HR PRN #14 tablet 06/26/19 Unknown Rx 5/325] predniSONE [Deltasone] 20 mg PO QDAY #5 tab 06/26/19 Unknown Rx ED Physical Exam - General Limitations: No Limitations General appearance: alert, in no apparent distress - Head Head exam: Present: atraumatic, normocephalic - Eye Eye exam: Present: normal appearance, PERRL, EOMI - ENT ENT exam: Present: mucous membranes moist - Neck Neck exam: Present: normal inspection - Respiratory Respiratory exam: Present: normal lung sounds bilaterally. Absent: respiratory distress, wheezes, rales, rhonchi, stridor - Cardiovascular Cardiovascular Exam: Present: regular rate, normal rhythm, normal heart sounds. Absent: systolic murmur, diastolic murmur, rubs, gallop - GI/Abdominal GI/Abdominal exam: Present: soft, normal bowel sounds. Absent: distended, tenderness, guarding, rebound - Extremities Exam Extremities exam: Present: normal inspection - Back Exam Back exam: Present: normal inspection - Neurological Exam Neurological exam: Present: alert, oriented X3 - Psychiatric Psychiatric exam: Present: normal affect, normal mood - Skin Skin exam: Present: warm, dry, intact, normal color. Absent: rash ED Course Vital Signs 06/26/19 17:32 Temperature 98.1 F Pulse Rate 105 H Respiratory 20 Rate Blood Pressure 125/102 O2 Sat by Pulse 98 Oximetry ED Medical Decision Making - Lab Data Result diagrams: 06/26/19 18:14 06/26/19 18:14 Lab Results 06/26/19 06/26/19 Range/Units 18:14 18:14 WBC 8.3 (4.5-11.0) K/mm3 RBC 4.91 (3.65-5.03) M/mm3 Hgb 14.4 H (10.1-14.3) gm/dl Hct 41.7 (30.3-42.9) % MCV 85 (79-97) fl MCH 29 (28-32) pg MCHC 35 H (30-34) % RDW 15.2 (13.2-15.2) % Plt Count 278 (140-440) K/mm3 Sodium 140 (137-145) mmol/L Potassium 3.9 (3.6-5.0) mmol/L Chloride 104.1 (98-107) mmol/L Carbon Dioxide 20 L (22-30) mmol/L Anion Gap 20 mmol/L BUN 14 (7-17) mg/dL Creatinine 0.8 (0.7-1.2) mg/dL Estimated GFR > 60 ml/min BUN/Creatinine Ratio 18 % Glucose 91 (65-100) mg/dL Calcium 10.1 (8.4-10.2) mg/dL - Radiology Data [address] [address] XRay Report Signed Patient: AMY BENTLEY MR#: [id number] [birth year] : 1950 Acct:[id number] Age/Sex: 68 / F ADM Date: 06/26/19 Loc: ED Attending Dr: Ordering Physician: ELDA HENSON Date of Service: 06/26/19 Procedure(s): XR chest routine 2V Accession Number(s): [id number] cc: ELDA HENSON Fluoro Time In Minutes: CHEST 2 VIEWS INDICATION: short of breath. COMPARISON: 06/13/2019. FINDINGS: Support devices: None. Heart: Within normal limits. Lungs/Pleura: Infiltrate seen per segment of right lower lobe is slightly more localized. No significant pleural effusion. IMPRESSION: Mild worsening right-sided pneumonia. Recommend follow-up to complete resolution. Signer Name: Brock Lawler MD Signed: 06/26/2019 5:57 PM Workstation Name: [id number] Transcribed By: ES Dictated By: Brock Lawler MD Electronically Authenticated By: Brock Lawler MD Signed Date/Time: 06/26/[address] [address] Nuclear Medicine Report Signed Patient: AMY BENTLEY MR#: [id number] [birth year] : 1950 Acct:[id number] Age/Sex: 68 / F ADM Date: 06/26/19 Loc: ED Attending Dr: Ordering Physician: FRANTZ EWING MD Date of Service: 06/26/19 Procedure(s): NM lung scan perf/vent Accession Number(s): [id number] cc: FRANTZ EWING MD TECHNICAL DATA: Inhaled administration followed by immediate static images of chest in multiple projections coordinated with breathing instructions. Followed by immediate static images of chest in multiple projections post I.V. injection. 22.4 millicuries of 133 Xenon is administered by inhalation. Pulmonary wash-in, equilibrium, and washout phases are performed. Then, 3.99 m illicuries of 99m Tc MAA is administered intravenously. FINDINGS: The ventilation scan demonstrates mild air trapping in both bases, especially on the left. Perfusion scan demonstrates homogeneous uptake bilaterally without evidence of segmental or subsegmental defects in the left lung. There is defect noted in the right midlung which corresponds to area of parenchymal disease on chest radiograph. The remainder of the right lung is clear.. IMPRESSION: Low probability for pulmonary thromboembolism. There is a single segmental perfusion defect in the right midlung, corresponding to area of parenchymal disease on the chest radiograph.. Mild air trapping in the lung bases. Signer Name: Lizzy Vaqsuez MD Signed: 06/26/2019 9:28 PM Workstation Name: [id number] Transcribed By: Dictated By: Lizzy Vasquez MD Electronically Authenticated By: Lizzy Vasquez MD Signed Date/Time: 06/26/192127 - Medical Decision Making Patient is a 68-year-old female who is presenting with right-sided chest pain cough. Patient saw her second course of Levaquin and states she is not feeling much better. X-ray shows a continued infiltrate in the right middle lobe which is slightly worsened. Patient's O2 sat is 98% she does appear to be stable. Laboratory studies are unremarkable. Patient's does have a remote history of PE and because her infiltrate is not improving Pulm Embolism is on her differential. Patient has a contrast allergy and therefore VQ scan was ordered. VQ scan is low probability for pulmonary embolus. Patient will be started on Augmentin and doxycycline and removed from her Levaquin. 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 Critical Care Time: Yes (30) Critical care attestation.: If time is entered above; I have spent that time in minutes in the direct care of this critically ill patient, excluding procedure time. ED Disposition Clinical Impression: Pneumonia Qualifiers: Pneumonia type: due to unspecified organism Laterality: right Lung location: middle lobe of lung Qualified Code(s): J18.1 - Lobar pneumonia, unspecified organism Disposition: - TO HOME OR SELFCARE Is pt being admited?: No Does the pt Need Aspirin: No Condition: Stable Instructions: Bacterial Pneumonia (ED) Referrals: PAT ACOSTA MD [Primary Care Provider] - 3-5 Days Time of Disposition: 22:08
== END 2019-06-26 22:28 | disposition home or self-care (01) ==
LOC: ED 17:25
DX: J18.9 Pneumonia, unspecified organism (principal); I10 Essential (primary) hypertension; K21.9 Gastro-esophageal reflux disease without esophagitis; M19.90 Unspecified osteoarthritis, unspecified site; J44.9 Chronic obstructive pulmonary disease, unspecified; F17.200 Nicotine dependence, unspecified, uncomplicated; Z90.49 Acquired absence of other specified parts of digestive tract; Z79.899 Other long term (current) drug therapy; Z88.6 Allergy status to analgesic agent; Z91.041 Radiographic dye allergy status; Z88.0 Allergy status to penicillin; Z88.8 Allergy status to other drugs, medicaments and biological substances; Z91.018 Allergy to other foods
CPT/HCPCS: 36415; 71046; 78582; 80048; 85027; 99291; A9540; A9558; 99284

== ENCOUNTER 2019-07-05 13:24 | Emergency (ER) | payer MEDICARE ==
[2019-07-05 13:49] VITALS: BP 115/60
--- NOTE | 2019-07-05 13:49 | Event Note ---
ED Screening Note Date of service: 07/05/19 Time: 13:47 ED Screening Note: 68 y o f presents s/p fall cc of left foot pain This initial assessment/diagnostic orders/clinical plan/treatment(s) is/are subject to change based on patients health status, clinical progression and re- assessment by fellow clinical providers in the ED. Further treatment and workup at subsequent clinical providers discretion. Patient/guardian urged not to elope from the ED as their condition may be serious if not clinically assessed and managed. Initial orders include: xr lft foot
--- NOTE | 2019-07-05 14:49 | XRay Report ---
LEFT FOOT 3 VIEWS INDICATION / CLINICAL INFORMATION: MAIN: lt foot pain/patient complaining of lt 1st digit pain fell down 2 steps.. COMPARISON: None available. FINDINGS: Small plantar calcaneal spur. No other significant skeletal abnormality. No change from 10/19/2018. Signer Name: Oseas Armstrong MD FACBrii Signed: 07/05/2019 2:45 PM Workstation Name: [email or web address]
[2019-07-05] MEDS ORDERED: TYLENOL PO ONE (15:46)
--- NOTE | 2019-07-05 15:50 | Emergency Department Report ---
ED Fall HPI - General Chief Complaint: Fall Stated Complaint: FALL/LT FOOT/BACK PAIN Time Seen by Provider: 07/05/19 13:47 Source: patient, EMS Mode of arrival: Ambulatory - History of Present Illness Initial Comments: This is a 68-year-old male nontoxic, well nourished in appearance, no acute signs of distress presents to the ED with c/o of left foot pain 1 day. Patient stated that she had a ground level trip and fall. Patient denies any other trauma. Denies any neck or back pains. Patient denies any numbness, tingling, fever, chills, nausea, vomiting, chest pain, shortness of breath, headache, stiff neck. Patient denies any joint swelling or joint redness. Patient denies decreased range of motion. Patient stated has decreased gait due to pain. MD Complaint: fall -: days(s) (1) Fall From: standing Fall Witnessed: no Place Fall Occurred: home Loss of Consciousness: none Prolonged Down Time?: no Symptoms Prior to Fall: none Location - Extremities: Left: Foot Severity: mild Severity scale (0 -10): 8 Quality: aching Context: tripped/slipped Associated Symptoms: denies. denies: headache, neck pain, numbness, weakness, chest paint, shortness of breath, abdominal pain, hematuria, unable to walk, lightheaded, vertigo, confusion - Related Data Home Medications Medication Instructions Recorded Confirmed Last Taken HYDROcodone/APAP 7.5-325 [Randolph 1 each PO Q6HR PRN 09/24/18 01/12/19 Unknown 7.5-325 mg TAB] Zolpidem [Ambien] 5 mg PO QHS PRN 09/24/18 01/12/19 Unknown Previous Rx's Medication Instructions Recorded Last Taken Type ALBUTEROL NEB's [Proventil 0.083% 2.5 mg IH BID #60 nebu 09/21/17 Unknown Rx NEBS] ALPRAZolam [Xanax TAB] 1 mg PO BID PRN #30 tablet 09/21/17 Unknown Rx Amlodipine Besylate [Norvasc] 5 mg PO QDAY #30 tablet 09/21/17 Unknown Rx Cyclobenzaprine [Flexeril 10 MG 10 mg PO QHS PRN #20 tablet 10/10/18 Unknown Rx TAB] Naproxen [Naprosyn TAB] 500 mg PO BID #30 tablet 10/10/18 Unknown Rx traMADol [Ultram 50 MG tab] 50 mg PO Q6HR PRN #20 tablet 01/13/19 Unknown Rx Benzonatate [Tessalon Perles] 100 mg PO Q8HR PRN #20 capsule 01/29/19 Unknown Rx Cyclobenzaprine [Flexeril] 10 mg PO BID PRN #20 tablet 01/29/19 Unknown Rx Loperamide [Imodium] 2 mg PO Q2HR PRN #20 capsule 04/21/19 Unknown Rx Ondansetron [Zofran Odt] 4 mg PO Q8HR PRN #20 tab.rapdis 04/21/19 Unknown Rx traMADol [Ultram 50 MG tab] 50 mg PO Q4HR PRN #20 tablet 04/21/19 Unknown Rx Ciprofloxacin HCl [Ciprofloxacin 500 mg PO Q12HR #14 tab 05/06/19 Unknown Rx TAB] Ondansetron [Zofran Odt] 4 mg PO Q8HR PRN #12 tab.rapdis 05/06/19 Unknown Rx traMADol [Ultram 50 MG tab] 50 mg PO Q4HR PRN #12 tablet 05/06/19 Unknown Rx HYDROcodone/APAP 5-325 [Randolph 1 each PO Q6HR PRN #12 tablet 05/25/19 Unknown Rx 5/325] Benzonatate [Tessalon Perles] 100 mg PO Q8HR #30 capsule 06/13/19 Unknown Rx HYDROcodone/APAP 5-325 [Randolph 1 - 2 each PO Q6HR PRN #14 tablet 06/13/19 Unknown Rx 5/325] levoFLOXacin [Levaquin] 750 mg PO QDAY #10 tablet 06/13/19 Unknown Rx Azithromycin [Zithromax Z-AVINASH] 250 mg PO DAILY #6 tablet 06/26/19 Unknown Rx Benzonatate [Tessalon Perles] 100 mg PO Q8HR #10 capsule 06/26/19 Unknown Rx DOXYCYCLINE Hyclate [Vibramycin 100 mg PO Q12HR #14 capsule 06/26/19 Unknown Rx CAP] HYDROcodone/APAP 5-325 [Randolph 1 each PO Q6HR PRN #14 tablet 06/26/19 Unknown Rx 5/325] HYDROcodone/APAP 5-325 [Randolph 1 each PO Q6HR PRN #14 tablet 06/26/19 Unknown Rx 5/325] predniSONE [Deltasone] 20 mg PO QDAY #5 tab 06/26/19 Unknown Rx Acetaminophen [Acetaminophen 8 650 mg PO Q8H PRN #20 tablet.er 07/05/19 Unknown Rx Hour] Allergies Allergy/AdvReac Type Severity Reaction Status Date / Time codeine Allergy THROAT Verified 06/13/19 17:05 CLOSES Iodinated Contrast- Oral and Allergy ITCHES, Verified 06/13/19 17:05 IV Dye FEELS LIKE SHE IS ON FIRE ketorolac [From Toradol] Allergy Headache Verified 06/13/19 17:05 ketorolac tromethamine Allergy Headache Verified 06/13/19 17:05 [From Toradol] methocarbamol [From Robaxin] Allergy Headache Verified 06/13/19 17:05 Penicillins Allergy Swelling Verified 06/13/19 17:05 OF FACE HAND AND THROAT CLOSES strawberry Allergy Rash Verified 06/13/19 17:05 aspirin AdvReac Bleeding Verified 06/13/19 17:05 strawberry Allergy Hives Uncoded 06/13/19 17:05 ED Review of Systems ROS: Stated complaint: FALL/LT FOOT/BACK PAIN Other details as noted in HPI Constitutional: denies: chills, fever Eyes: denies: eye pain, eye discharge, vision change ENT: denies: ear pain, throat pain Respiratory: denies: cough, shortness of breath, wheezing Cardiovascular: denies: chest pain, palpitations Endocrine: no symptoms reported Gastrointestinal: denies: abdominal pain, nausea, diarrhea Genitourinary: denies: urgency, dysuria, discharge Musculoskeletal: denies: back pain, joint swelling, arthralgia Skin: denies: rash, lesions Neurological: denies: headache, weakness, paresthesias Psychiatric: denies: anxiety, depression Hematological/Lymphatic: denies: easy bleeding, easy bruising ED Past Medical Hx - Past Medical History Hx Hypertension: Yes Hx Pulmonary Embolism: Yes (40 years ago) Hx GERD: Yes Hx Sickle Cell Disease: No Hx Arthritis: Yes Hx Headaches / Migraines: Yes Hx Kidney Stones: Yes Hx Asthma: Yes Hx COPD: Yes (no home O2) Additional medical history: Fibromyalgia, MVP, peptic ulcers, repeat pneumonia - Surgical History Hx Pacemaker: No Hx Internal Defibrillator: No Hx Cholecystectomy: Yes Additional Surgical History: right wrist metal plate, Right ovarian cyst removal. cataract, left Achilles tendon repair and left ankle instrumentation, gall bladder removal - Social History Smoking Status: Current Every Day Smoker Substance Use Type: None - Medications Home Medications: Home Medications Medication Instructions Recorded Confirmed Last Taken Type ALBUTEROL NEB's [Proventil 0.083% 2.5 mg IH BID #60 nebu 09/21/17 01/12/19 Unknown Rx NEBS] ALPRAZolam [Xanax TAB] 1 mg PO BID PRN #30 tablet 09/21/17 01/12/19 Unknown Rx Amlodipine Besylate [Norvasc] 5 mg PO QDAY #30 tablet 09/21/17 01/12/19 Unknown Rx HYDROcodone/APAP 7.5-325 [Randolph 1 each PO Q6HR PRN 09/24/18 01/12/19 Unknown History 7.5-325 mg TAB] Zolpidem [Ambien] 5 mg PO QHS PRN 09/24/18 01/12/19 Unknown History Cyclobenzaprine [Flexeril 10 MG 10 mg PO QHS PRN #20 tablet 10/10/18 01/12/19 Unknown Rx TAB] Naproxen [Naprosyn TAB] 500 mg PO BID #30 tablet 10/10/18 01/12/19 Unknown Rx traMADol [Ultram 50 MG tab] 50 mg PO Q6HR PRN #20 tablet 01/13/19 Unknown Rx Benzonatate [Tessalon Perles] 100 mg PO Q8HR PRN #20 capsule 01/29/19 Unknown Rx Cyclobenzaprine [Flexeril] 10 mg PO BID PRN #20 tablet 01/29/19 Unknown Rx Loperamide [Imodium] 2 mg PO Q2HR PRN #20 capsule 04/21/19 Unknown Rx Ondansetron [Zofran Odt] 4 mg PO Q8HR PRN #20 tab.rapdis 04/21/19 Unknown Rx traMADol [Ultram 50 MG tab] 50 mg PO Q4HR PRN #20 tablet 04/21/19 Unknown Rx Ciprofloxacin HCl [Ciprofloxacin 500 mg PO Q12HR #14 tab 05/06/19 Unknown Rx TAB] Ondansetron [Zofran Odt] 4 mg PO Q8HR PRN #12 tab.rapdis 05/06/19 Unknown Rx traMADol [Ultram 50 MG tab] 50 mg PO Q4HR PRN #12 tablet 05/06/19 Unknown Rx HYDROcodone/APAP 5-325 [Randolph 1 each PO Q6HR PRN #12 tablet 05/25/19 Unknown Rx 5/325] Benzonatate [Tessalon Perles] 100 mg PO Q8HR #30 capsule 06/13/19 Unknown Rx HYDROcodone/APAP 5-325 [Randolph 1 - 2 each PO Q6HR PRN #14 tablet 06/13/19 Unknown Rx 5/325] levoFLOXacin [Levaquin] 750 mg PO QDAY #10 tablet 06/13/19 Unknown Rx Azithromycin [Zithromax Z-AVINASH] 250 mg PO DAILY #6 tablet 06/26/19 Unknown Rx Benzonatate [Tessalon Perles] 100 mg PO Q8HR #10 capsule 06/26/19 Unknown Rx DOXYCYCLINE Hyclate [Vibramycin 100 mg PO Q12HR #14 capsule 06/26/19 Unknown Rx CAP] HYDROcodone/APAP 5-325 [Randolph 1 each PO Q6HR PRN #14 tablet 06/26/19 Unknown Rx 5/325] HYDROcodone/APAP 5-325 [Randolph 1 each PO Q6HR PRN #14 tablet 06/26/19 Unknown Rx 5/325] predniSONE [Deltasone] 20 mg PO QDAY #5 tab 06/26/19 Unknown Rx Acetaminophen [Acetaminophen 8 650 mg PO Q8H PRN #20 tablet.er 07/05/19 Unknown Rx Hour] ED Physical Exam - General Limitations: Physical Limitation General appearance: alert, in no apparent distress - Head Head exam: Present: atraumatic, normocephalic - Neck Neck exam: Present: normal inspection, full ROM. Absent: tenderness, meningismus, lymphadenopathy - Extremities Exam Extremities exam: Present: normal inspection, full ROM, tenderness, normal capillary refill. Absent: joint swelling, calf tenderness - Expanded Lower Extremity Exam Left Hip exam: Present: normal inspection, full ROM. Absent: tenderness, swelling Upper Leg exam: Present: normal inspection, full ROM. Absent: tenderness, swelling Knee exam: Present: normal inspection, full ROM. Absent: tenderness, swelling Lower Leg exam: Present: normal inspection, full ROM. Absent: tenderness, swelling Ankle exam: Present: normal inspection, full ROM. Absent: tenderness, swelling, abrasion, laceration, ecchymosis, deformity, crepidus, dislocation, erythema, anterior draw sign Foot/Toe exam: Present: normal inspection, full ROM, tenderness. Absent: swelling, abrasion, laceration, ecchymosis, deformity, crepidus, dislocation, erythema, amputation, puncture wound, foreign body, calcaneal tenderness, tenderness at base of 5th metatarsal, nail avulsion, subungual hematoma Neuro vascular tendon exam: Present: no vascular compromise Gait: Positive: observed and limited by pain - Back Exam Back exam: Present: normal inspection, full ROM. Absent: tenderness, CVA tenderness (R), CVA tenderness (L), muscle spasm, paraspinal tenderness, vertebral tenderness, rash noted - Neurological Exam Neurological exam: Present: alert, oriented X3, normal gait - Psychiatric Psychiatric exam: Present: normal affect, normal mood - Skin Skin exam: Present: warm, dry, intact, normal color. Absent: rash ED Course Vital Signs 07/05/19 13:47 Temperature 97.8 F Pulse Rate 88 Respiratory 18 Rate Blood Pressure 115/60 O2 Sat by Pulse 98 Oximetry - Reevaluation(s) Reevaluation #1: 07/05/19 15:48 Patient is speaking in full sentences with no signs of distress noted. ED Medical Decision Making - Medical Decision Making This is a 68-year-old female that presents with left foot strain. Patient is stable and was examined by me. I referred patient to an orthopedic doctor for further evaluation for possible MRI. X-ray has been obtained and dictated by the radiologist. Patient is notified of the x-ray report with noted by the patient. Patient does have normal gait with no tenderness and no joint swelling. No ecchymosis. no joint redness or swelling. Not warm to touch. No signs of cellulites present. Patient received sloane wrap. Patient was instructed to RICE therapy. Patient received Tylenol for pain. Patient is discharged with Tylenol. At time of discharge, the patient does not seem toxic or ill in appearance. No acute signs of distress noted. Patient agrees to discharge treatment plan of care. No further questions noted by the patient. Critical care attestation.: If time is entered above; I have spent that time in minutes in the direct care of this critically ill patient, excluding procedure time. ED Disposition Clinical Impression: Strain of left foot Qualifiers: Encounter type: initial encounter Qualified Code(s): S96.912A - Strain of unspecified muscle and tendon at ankle and foot level, left foot, initial encounter Disposition: TO HOME OR SELFCARE Is pt being admited?: No Does the pt Need Aspirin: No Condition: Stable Instructions: RICE Therapy (ED) Additional Instructions: Follow-up with a orthopedic doctor in 3-5 days or if symptoms worsen and continue return to emergency room as soon as possible. Prescriptions: Acetaminophen [Acetaminophen 8 Hour] 650 mg PO Q8H PRN #20 tablet.er PRN Reason: Pain, Moderate (4-6) Referrals: PRIMARY CAREMD [Referring] - 3-5 Days TEE ROMERO MD [Staff Physician] - 3-5 Days [facility] [Outside] - 3-5 Days
== END 2019-07-05 16:00 | disposition home or self-care (01) ==
LOC: ED 13:24
DX: S96.912A Strain of unspecified muscle and tendon at ankle and foot level, left foot, initial encounter (principal); I10 Essential (primary) hypertension; G43.909 Migraine, unspecified, not intractable, without status migrainosus; M19.90 Unspecified osteoarthritis, unspecified site; F17.200 Nicotine dependence, unspecified, uncomplicated; J44.9 Chronic obstructive pulmonary disease, unspecified; Z86.711 Personal history of pulmonary embolism; Z87.442 Personal history of urinary calculi; Z90.49 Acquired absence of other specified parts of digestive tract; Z88.5 Allergy status to narcotic agent; Z91.041 Radiographic dye allergy status; Z88.6 Allergy status to analgesic agent; Z88.0 Allergy status to penicillin; Z91.018 Allergy to other foods; Z79.899 Other long term (current) drug therapy; W01.0XXA Fall on same level from slipping, tripping and stumbling without subsequent striking against object, initial encounter; Y93.89 Activity, other specified; Y92.009 Unspecified place in unspecified non-institutional (private) residence as the place of occurrence of the external cause; Y99.8 Other external cause status

== ENCOUNTER 2019-07-19 08:25 | Emergency (ER) | payer MEDICARE ==
[2019-07-19 08:43] VITALS: BP 150/64
--- NOTE | 2019-07-19 09:21 | XRay Report ---
CHEST 1 VIEW INDICATION: Chest Pain. COMPARISON: 06/26/2019. FINDINGS: Support devices: None. Heart: Normal. Lungs/Pleura: Previously seen focal airspace disease in the mid right lung has significantly improved . No new pulmonary or pleural findings. IMPRESSION: 1. Improving right midlung airspace disease. No new findings. Signer Name: Johann Ross MD Signed: 07/19/2019 9:17 AM Workstation Name: [id number]
[2019-07-19] MEDS ORDERED: DUONEB *Not for PRN Use IH ONE (09:42)
[2019-07-19] MEDS ORDERED: TYLENOL PO ONE (09:42)
--- NOTE | 2019-07-19 09:45 | Emergency Department Report ---
ED Chest Pain HPI - General Chief Complaint: Chest Pain Stated Complaint: CHEST PAIN/SOB Time Seen by Provider: 07/19/19 09:38 Source: patient Mode of arrival: Ambulatory Limitations: No Limitations - History of Present Illness Initial Comments: CC: "I have been fighting bacterial pneumonia for a month and a half." Mrs. Stuart is a 68 yo female with hx of COPD, tobacco abuse, anxiety disorder, HTN, PNA who presents with right chest pain, mild dyspnea. NO fever. Chronic cough. She finished antibiotics 3 days ago. [employer] Dr. Hall VQ scan obtained 06/26/2009, low probability for pulmonary thromboembolism, perfusion defect in the right midline corresponded to parenchymal disease in the chest MD Complaint: chest pain -: Gradual, month(s) (1.5) Onset: during rest Pain Location: right chest Severity: moderate Quality: sharp Consistency: constant Improves With: nothing Worsens With: nothing Treatments Prior to Arrival: none - Related Data Home Medications Medication Instructions Recorded Confirmed Last Taken HYDROcodone/APAP 7.5-325 [Lawrence 1 each PO Q6HR PRN 09/24/18 01/12/19 Unknown 7.5-325 mg TAB] Zolpidem [Ambien] 5 mg PO QHS PRN 09/24/18 01/12/19 Unknown Previous Rx's Medication Instructions Recorded Last Taken Type ALBUTEROL NEB's [Proventil 0.083% 2.5 mg IH BID #60 nebu 09/21/17 Unknown Rx NEBS] ALPRAZolam [Xanax TAB] 1 mg PO BID PRN #30 tablet 09/21/17 Unknown Rx Amlodipine Besylate [Norvasc] 5 mg PO QDAY #30 tablet 09/21/17 Unknown Rx Cyclobenzaprine [Flexeril 10 MG 10 mg PO QHS PRN #20 tablet 10/10/18 Unknown Rx TAB] Naproxen [Naprosyn TAB] 500 mg PO BID #30 tablet 10/10/18 Unknown Rx traMADol [Ultram 50 MG tab] 50 mg PO Q6HR PRN #20 tablet 01/13/19 Unknown Rx Benzonatate [Tessalon Perles] 100 mg PO Q8HR PRN #20 capsule 01/29/19 Unknown Rx Cyclobenzaprine [Flexeril] 10 mg PO BID PRN #20 tablet 01/29/19 Unknown Rx Loperamide [Imodium] 2 mg PO Q2HR PRN #20 capsule 04/21/19 Unknown Rx Ondansetron [Zofran Odt] 4 mg PO Q8HR PRN #20 tab.rapdis 04/21/19 Unknown Rx traMADol [Ultram 50 MG tab] 50 mg PO Q4HR PRN #20 tablet 04/21/19 Unknown Rx Ciprofloxacin HCl [Ciprofloxacin 500 mg PO Q12HR #14 tab 05/06/19 Unknown Rx TAB] Ondansetron [Zofran Odt] 4 mg PO Q8HR PRN #12 tab.rapdis 05/06/19 Unknown Rx traMADol [Ultram 50 MG tab] 50 mg PO Q4HR PRN #12 tablet 05/06/19 Unknown Rx HYDROcodone/APAP 5-325 [Lawrence 1 each PO Q6HR PRN #12 tablet 05/25/19 Unknown Rx 5/325] Benzonatate [Tessalon Perles] 100 mg PO Q8HR #30 capsule 06/13/19 Unknown Rx HYDROcodone/APAP 5-325 [Lawrence 1 - 2 each PO Q6HR PRN #14 tablet 06/13/19 Unknown Rx 5/325] levoFLOXacin [Levaquin] 750 mg PO QDAY #10 tablet 06/13/19 Unknown Rx Azithromycin [Zithromax Z-AVINASH] 250 mg PO DAILY #6 tablet 06/26/19 Unknown Rx Benzonatate [Tessalon Perles] 100 mg PO Q8HR #10 capsule 06/26/19 Unknown Rx DOXYCYCLINE Hyclate [Vibramycin 100 mg PO Q12HR #14 capsule 06/26/19 Unknown Rx CAP] HYDROcodone/APAP 5-325 [Lawrence 1 each PO Q6HR PRN #14 tablet 06/26/19 Unknown Rx 5/325] HYDROcodone/APAP 5-325 [Lawrence 1 each PO Q6HR PRN #14 tablet 06/26/19 Unknown Rx 5/325] predniSONE [Deltasone] 20 mg PO QDAY #5 tab 06/26/19 Unknown Rx Acetaminophen [Acetaminophen 8 650 mg PO Q8H PRN #20 tablet.er 07/05/19 Unknown Rx Hour] levoFLOXacin [Levaquin TAB] 500 mg PO QDAY 7 Days #7 tablet 07/19/19 Unknown Rx traMADol [Ultram 50 MG tab] 50 mg PO Q6HR PRN #10 tablet 07/19/19 Unknown Rx Allergies Allergy/AdvReac Type Severity Reaction Status Date / Time codeine Allergy THROAT Verified 06/13/19 17:05 CLOSES Iodinated Contrast Media Allergy ITCHES, Verified 06/13/19 17:05 [Iodinated Contrast- Oral FEELS LIKE and IV Dye] SHE IS ON FIRE ketorolac [From Toradol] Allergy Headache Verified 06/13/19 17:05 ketorolac tromethamine Allergy Headache Verified 06/13/19 17:05 [From Toradol] methocarbamol [From Robaxin] Allergy Headache Verified 06/13/19 17:05 Penicillins Allergy Swelling Verified 06/13/19 17:05 OF FACE HAND AND THROAT CLOSES strawberry Allergy Rash Verified 06/13/19 17:05 aspirin AdvReac Bleeding Verified 06/13/19 17:05 strawberry Allergy Hives Uncoded 06/13/19 17:05 Heart Score - HEART Score History: Slightly suspicious EKG: Non-specific Age: > 65 Risk factors: 1-2 risk factors Troponin: < normal limit HEART Score: 4 ED Review of Systems ROS: Stated complaint: CHEST PAIN/SOB Other details as noted in HPI Comment: Unobtainable due to pts medical conditions Constitutional: denies: fever, malaise Respiratory: cough, shortness of breath Cardiovascular: chest pain ED Past Medical Hx - Past Medical History Previous Medical History?: Yes Hx Hypertension: Yes Hx Pulmonary Embolism: Yes (40 years ago) Hx GERD: Yes Hx Sickle Cell Disease: No Hx Arthritis: Yes Hx Headaches / Migraines: Yes Hx Kidney Stones: Yes Hx Asthma: Yes Hx COPD: Yes (no home O2) Additional medical history: Fibromyalgia, MVP, peptic ulcers, repeat pneumonia - Surgical History Past Surgical History?: Yes Hx Pacemaker: No Hx Internal Defibrillator: No Hx Cholecystectomy: Yes Additional Surgical History: right wrist metal plate, Right ovarian cyst removal. cataract, left Achilles tendon repair and left ankle instrumentation, gall bladder removal - Social History Smoking Status: Current Every Day Smoker Substance Use Type: Prescribed - Medications Home Medications: Home Medications Medication Instructions Recorded Confirmed Last Taken Type ALBUTEROL NEB's [Proventil 0.083% 2.5 mg IH BID #60 nebu 09/21/17 01/12/19 Unknown Rx NEBS] ALPRAZolam [Xanax TAB] 1 mg PO BID PRN #30 tablet 09/21/17 01/12/19 Unknown Rx Amlodipine Besylate [Norvasc] 5 mg PO QDAY #30 tablet 09/21/17 01/12/19 Unknown Rx HYDROcodone/APAP 7.5-325 [Lawrence 1 each PO Q6HR PRN 09/24/18 01/12/19 Unknown History 7.5-325 mg TAB] Zolpidem [Ambien] 5 mg PO QHS PRN 09/24/18 01/12/19 Unknown History Cyclobenzaprine [Flexeril 10 MG 10 mg PO QHS PRN #20 tablet 10/10/18 01/12/19 Unknown Rx TAB] Naproxen [Naprosyn TAB] 500 mg PO BID #30 tablet 10/10/18 01/12/19 Unknown Rx traMADol [Ultram 50 MG tab] 50 mg PO Q6HR PRN #20 tablet 01/13/19 Unknown Rx Benzonatate [Tessalon Perles] 100 mg PO Q8HR PRN #20 capsule 01/29/19 Unknown Rx Cyclobenzaprine [Flexeril] 10 mg PO BID PRN #20 tablet 01/29/19 Unknown Rx Loperamide [Imodium] 2 mg PO Q2HR PRN #20 capsule 04/21/19 Unknown Rx Ondansetron [Zofran Odt] 4 mg PO Q8HR PRN #20 tab.rapdis 04/21/19 Unknown Rx traMADol [Ultram 50 MG tab] 50 mg PO Q4HR PRN #20 tablet 04/21/19 Unknown Rx Ciprofloxacin HCl [Ciprofloxacin 500 mg PO Q12HR #14 tab 05/06/19 Unknown Rx TAB] Ondansetron [Zofran Odt] 4 mg PO Q8HR PRN #12 tab.rapdis 05/06/19 Unknown Rx traMADol [Ultram 50 MG tab] 50 mg PO Q4HR PRN #12 tablet 05/06/19 Unknown Rx HYDROcodone/APAP 5-325 [Lawrence 1 each PO Q6HR PRN #12 tablet 05/25/19 Unknown Rx 5/325] Benzonatate [Tessalon Perles] 100 mg PO Q8HR #30 capsule 06/13/19 Unknown Rx HYDROcodone/APAP 5-325 [Lawrence 1 - 2 each PO Q6HR PRN #14 tablet 06/13/19 Unknown Rx 5/325] levoFLOXacin [Levaquin] 750 mg PO QDAY #10 tablet 06/13/19 Unknown Rx Azithromycin [Zithromax Z-AVINASH] 250 mg PO DAILY #6 tablet 06/26/19 Unknown Rx Benzonatate [Tessalon Perles] 100 mg PO Q8HR #10 capsule 06/26/19 Unknown Rx DOXYCYCLINE Hyclate [Vibramycin 100 mg PO Q12HR #14 capsule 06/26/19 Unknown Rx CAP] HYDROcodone/APAP 5-325 [Lawrence 1 each PO Q6HR PRN #14 tablet 06/26/19 Unknown Rx 5/325] HYDROcodone/APAP 5-325 [Lawrence 1 each PO Q6HR PRN #14 tablet 06/26/19 Unknown Rx 5/325] predniSONE [Deltasone] 20 mg PO QDAY #5 tab 06/26/19 Unknown Rx Acetaminophen [Acetaminophen 8 650 mg PO Q8H PRN #20 tablet.er 07/05/19 Unknown Rx Hour] levoFLOXacin [Levaquin TAB] 500 mg PO QDAY 7 Days #7 tablet 07/19/19 Unknown Rx traMADol [Ultram 50 MG tab] 50 mg PO Q6HR PRN #10 tablet 07/19/19 Unknown Rx ED Physical Exam - General Limitations: No Limitations General appearance: alert, in no apparent distress - Head Head exam: Present: atraumatic, normocephalic - Eye Eye exam: Present: normal appearance - ENT ENT exam: Present: mucous membranes moist - Neck Neck exam: Present: normal inspection, full ROM - Respiratory Respiratory exam: Present: normal lung sounds bilaterally. Absent: respiratory distress, wheezes, rales, rhonchi - Cardiovascular Cardiovascular Exam: Present: regular rate, normal rhythm, normal heart sounds. Absent: systolic murmur, diastolic murmur, rubs, gallop - GI/Abdominal GI/Abdominal exam: Present: soft, normal bowel sounds. Absent: distended, tenderness, guarding, rebound - Extremities Exam Extremities exam: Present: normal inspection - Back Exam Back exam: Present: normal inspection - Neurological Exam Neurological exam: Present: alert, oriented X3 - Psychiatric Psychiatric exam: Present: normal affect, normal mood - Skin Skin exam: Present: warm, dry, intact, normal color. Absent: rash ED Course Vital Signs 07/19/19 08:40 Temperature 97.8 F Pulse Rate 51 L Respiratory 18 Rate Blood Pressure 150/64 O2 Sat by Pulse 96 Oximetry KATI score - Kati Score Age > 65: (1) Yes Aspirin use within the Past 7 Days: (0) No 3 or more CAD Risk Factors: (1) Yes 2 or more Angina events in past 24 hrs: (0) No Known CAD with more than 50% Stenosis: (0) No Elevated Cardiac Markers: (0) No ST Deviation Greater than 0.5mm: (0) No KATI Score: 2 ED Medical Decision Making - EKG Data 07/19/19 09:45 EKG obtained 0834 Sinus bradycardia rate 50 beats a minute normal axis normal intervals no ST elevation no signs of ischemia poor R wave progression in the anterior leads - Radiology Data Radiology results: report reviewed Improving right mid lung disease without acute findings on chest radiograph according to radiology report - Medical Decision Making Mrs. Card has had extensive evaluation of right sided pleuritic pain including 2 previous cardiac catheterization without significant coronary artery disease. Chest CTA and the VQ scan were also obtained. She does have improving airspace disease seen on today's chest radiograph. She will benefit from extending her antibiotic regimen. I have prescribed additional days of Levaquin. 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 Also prescribed tramadol for pain. Discharge home. She received DuoNeb and Tylenol in the emergency department. Cardiac catheterization in 2016 reveal no obstructive lesions in the coronary arteries estimated ejection fraction 65%, several myocardial perfusion scans thereafter revealed no ischemic changes. Chest 1 view reveals improving right mid lung airspace disease without new Findings Critical care attestation.: If time is entered above; I have spent that time in minutes in the direct care of this critically ill patient, excluding procedure time. ED Disposition Clinical Impression: Pneumonia, Chronic chest pain, COPD (chronic obstructive pulmonary disease) Disposition: [id number] TO HOME OR SELFCARE Is pt being admited?: No Does the pt Need Aspirin: No Condition: Stable Instructions: Bacterial Pneumonia (ED), Chest Pain (ED), Chronic Obstructive Pulmonary Disease (ED) Prescriptions: levoFLOXacin [Levaquin TAB] 500 mg PO QDAY 7 Days #7 tablet traMADol [Ultram 50 MG tab] 50 mg PO Q6HR PRN #10 tablet PRN Reason: Pain Referrals: PRIMARY CARE, [Primary Care Provider] - LYNETTE
== END 2019-07-19 10:14 | disposition home or self-care (01) ==
LOC: ED 08:25
DX: J44.9 Chronic obstructive pulmonary disease, unspecified (principal); J18.9 Pneumonia, unspecified organism; I10 Essential (primary) hypertension; K21.9 Gastro-esophageal reflux disease without esophagitis; G43.909 Migraine, unspecified, not intractable, without status migrainosus; M19.90 Unspecified osteoarthritis, unspecified site; Z90.49 Acquired absence of other specified parts of digestive tract; F17.200 Nicotine dependence, unspecified, uncomplicated; Z79.899 Other long term (current) drug therapy; Z88.8 Allergy status to other drugs, medicaments and biological substances; Z88.6 Allergy status to analgesic agent; Z91.041 Radiographic dye allergy status; Z88.0 Allergy status to penicillin; Z91.018 Allergy to other foods
CPT/HCPCS: 71045; 93005; 93010; 94640; 99283

== ENCOUNTER 2019-08-07 11:34 | Outpatient (CLI) | payer MEDICARE ==
--- NOTE | 2019-08-07 13:49 | Cat Scan Report ---
CT CHEST WITHOUT CONTRAST INDICATION / CLINICAL INFORMATION: J18.9) PNEUMONIA. TECHNIQUE: Axial CT images were obtained through the chest without contrast. Sagittal and coronal reformatted im ages. All CT scans at this location are performed using CT dose reduction for ALARA by means of autom ated exposure control. COMPARISON: None available. FINDINGS: HEART: No significant abnormality. THORACIC AORTA: No significant abnormality. MEDIASTINUM and EKATERINA: No significant abnormality. LUNGS: Mild emphysematous changes are identified in the upper lung zones. Focal scarring is identifie d in the superior segment of the right lower lobe probably represents chronic residua of right lung i nfiltrate. No persistent infiltrate with air bronchograms. The remainder of the lungs are clear. PLEURA: No significant pleural effusion. No pneumothorax. SKELETAL SYSTEM: Mild osteopenia and degenerative changes in the spine. UPPER ABDOMEN: No significant abnormality. ADDITIONAL FINDINGS: None. IMPRESSION: Focal scarring in the superior segment of the right lung as described. Mild emphysematous changes. Signer Name: Darrion Echeverria Jr, MD Signed: 08/07/2019 1:45 PM Workstation Name: [id number]
== END 2019-08-07 11:35 | disposition home or self-care (01) ==
LOC: CT 11:34
PROVIDERS: ATTEND Specialist
DX: J18.9 Pneumonia, unspecified organism (principal)
CPT/HCPCS: 71250

== ENCOUNTER 2019-08-10 10:50 | Emergency (ER) | payer MEDICARE ==
[2019-08-10 11:25] VITALS: BP 159/62
[2019-08-10] MEDS ORDERED: SULFAMETHOXAZOLE/TRIMETHOPRIM 800/160MG DS TAB PO ONE (11:39)
--- NOTE | 2019-08-10 11:44 | Emergency Department Report ---
ED Female HPI - General Chief complaint: Abdominal Pain Stated complaint: BLOOD IN URINE/ABD PAIN Time Seen by Provider: 08/10/19 11:27 Source: patient Mode of arrival: Ambulatory Limitations: No Limitations - History of Present Illness Initial comments: Mrs. Stuart is a 68 yo female who presents with suprapubic pain bilaterally flank pain and hematuria. +generalized malaise. Gradual onset of pain one day. Past medical history includes migraine headache, hypertension, kidney stones, PE, fibromyalgia, mitral valve prolapse, peptic ulcer disease, pneumonia MD Complaint: other (hematuria flank pain) -: Gradual, days(s) (1) Severity: mild Quality: other (hematuria) Consistency: constant Improves with: none Worsens with: urination - Related Data Home Medications Medication Instructions Recorded Confirmed Last Taken HYDROcodone/APAP 7.5-325 [[place] 1 each PO Q6HR PRN 09/24/18 01/12/19 Unknown 7.5-325 mg TAB] Zolpidem [Ambien] 5 mg PO QHS PRN 09/24/18 01/12/19 Unknown Previous Rx's Medication Instructions Recorded Last Taken Type ALBUTEROL NEB's [Proventil 0.083% 2.5 mg IH BID #60 nebu 09/21/17 Unknown Rx NEBS] ALPRAZolam [Xanax TAB] 1 mg PO BID PRN #30 tablet 09/21/17 Unknown Rx Amlodipine Besylate [Norvasc] 5 mg PO QDAY #30 tablet 09/21/17 Unknown Rx Cyclobenzaprine [Flexeril 10 MG 10 mg PO QHS PRN #20 tablet 10/10/18 Unknown Rx TAB] Naproxen [Naprosyn TAB] 500 mg PO BID #30 tablet 10/10/18 Unknown Rx traMADol [Ultram 50 MG tab] 50 mg PO Q6HR PRN #20 tablet 01/13/19 Unknown Rx Benzonatate [Tessalon Perles] 100 mg PO Q8HR PRN #20 capsule 01/29/19 Unknown Rx Cyclobenzaprine [Flexeril] 10 mg PO BID PRN #20 tablet 01/29/19 Unknown Rx Loperamide [Imodium] 2 mg PO Q2HR PRN #20 capsule 04/21/19 Unknown Rx Ondansetron [Zofran Odt] 4 mg PO Q8HR PRN #20 tab.rapdis 04/21/19 Unknown Rx traMADol [Ultram 50 MG tab] 50 mg PO Q4HR PRN #20 tablet 04/21/19 Unknown Rx Ciprofloxacin HCl [Ciprofloxacin 500 mg PO Q12HR #14 tab 05/06/19 Unknown Rx TAB] Ondansetron [Zofran Odt] 4 mg PO Q8HR PRN #12 tab.rapdis 05/06/19 Unknown Rx traMADol [Ultram 50 MG tab] 50 mg PO Q4HR PRN #12 tablet 05/06/19 Unknown Rx HYDROcodone/APAP 5-325 [[place] 1 each PO Q6HR PRN #12 tablet 05/25/19 Unknown Rx 5/325] Benzonatate [Tessalon Perles] 100 mg PO Q8HR #30 capsule 06/13/19 Unknown Rx HYDROcodone/APAP 5-325 [[place] 1 - 2 each PO Q6HR PRN #14 tablet 06/13/19 Unknown Rx 5/325] levoFLOXacin [Levaquin] 750 mg PO QDAY #10 tablet 06/13/19 Unknown Rx Azithromycin [Zithromax Z-AVINASH] 250 mg PO DAILY #6 tablet 06/26/19 Unknown Rx Benzonatate [Tessalon Perles] 100 mg PO Q8HR #10 capsule 06/26/19 Unknown Rx DOXYCYCLINE Hyclate [Vibramycin 100 mg PO Q12HR #14 capsule 06/26/19 Unknown Rx CAP] HYDROcodone/APAP 5-325 [[place] 1 each PO Q6HR PRN #14 tablet 06/26/19 Unknown Rx 5/325] HYDROcodone/APAP 5-325 [[place] 1 each PO Q6HR PRN #14 tablet 06/26/19 Unknown Rx 5/325] predniSONE [Deltasone] 20 mg PO QDAY #5 tab 06/26/19 Unknown Rx Acetaminophen [Acetaminophen 8 650 mg PO Q8H PRN #20 tablet.er 07/05/19 Unknown Rx Hour] levoFLOXacin [Levaquin TAB] 500 mg PO QDAY 7 Days #7 tablet 07/19/19 Unknown Rx traMADol [Ultram 50 MG tab] 50 mg PO Q6HR PRN #10 tablet 07/19/19 Unknown Rx Sulfamethoxazole/Trimethoprim 1 each PO BID 5 Days #10 tablet 08/10/19 Unknown Rx [Bactrim DS TAB] Allergies Allergy/AdvReac Type Severity Reaction Status Date / Time codeine Allergy THROAT Verified 06/13/19 17:05 CLOSES Iodinated Contrast Media Allergy ITCHES, Verified 06/13/19 17:05 [Iodinated Contrast- Oral FEELS LIKE and IV Dye] SHE IS ON FIRE ketorolac [From Toradol] Allergy Headache Verified 06/13/19 17:05 ketorolac tromethamine Allergy Headache Verified 06/13/19 17:05 [From Toradol] methocarbamol [From Robaxin] Allergy Headache Verified 06/13/19 17:05 Penicillins Allergy Swelling Verified 06/13/19 17:05 OF FACE HAND AND THROAT CLOSES strawberry Allergy Rash Verified 06/13/19 17:05 aspirin AdvReac Bleeding Verified 06/13/19 17:05 strawberry Allergy Hives Uncoded 06/13/19 17:05 ED Review of Systems ROS: Stated complaint: BLOOD IN URINE/ABD PAIN Other details as noted in HPI Comment: All other systems reviewed and negative Constitutional: malaise. denies: fever Gastrointestinal: nausea Genitourinary: hematuria ED Past Medical Hx - Past Medical History Previous Medical History?: Yes Hx Hypertension: Yes Hx Pulmonary Embolism: Yes (40 years ago) Hx GERD: Yes Hx Sickle Cell Disease: No Hx Arthritis: Yes Hx Headaches / Migraines: Yes Hx Kidney Stones: Yes Hx Asthma: Yes Hx COPD: Yes (no home O2) Additional medical history: Fibromyalgia, MVP, peptic ulcers, repeat pneumonia - Surgical History Past Surgical History?: Yes Hx Pacemaker: No Hx Internal Defibrillator: No Hx Cholecystectomy: Yes Additional Surgical History: right wrist metal plate, Right ovarian cyst removal. cataract, left Achilles tendon repair and left ankle instrumentation, gall bladder removal - Social History Smoking Status: Former Smoker Substance Use Type: None - Medications Home Medications: Home Medications Medication Instructions Recorded Confirmed Last Taken Type ALBUTEROL NEB's [Proventil 0.083% 2.5 mg IH BID #60 nebu 09/21/17 01/12/19 Unknown Rx NEBS] ALPRAZolam [Xanax TAB] 1 mg PO BID PRN #30 tablet 09/21/17 01/12/19 Unknown Rx Amlodipine Besylate [Norvasc] 5 mg PO QDAY #30 tablet 09/21/17 01/12/19 Unknown Rx HYDROcodone/APAP 7.5-325 [[place] 1 each PO Q6HR PRN 09/24/18 01/12/19 Unknown History 7.5-325 mg TAB] Zolpidem [Ambien] 5 mg PO QHS PRN 09/24/18 01/12/19 Unknown History Cyclobenzaprine [Flexeril 10 MG 10 mg PO QHS PRN #20 tablet 10/10/18 01/12/19 Unknown Rx TAB] Naproxen [Naprosyn TAB] 500 mg PO BID #30 tablet 10/10/18 01/12/19 Unknown Rx traMADol [Ultram 50 MG tab] 50 mg PO Q6HR PRN #20 tablet 01/13/19 Unknown Rx Benzonatate [Tessalon Perles] 100 mg PO Q8HR PRN #20 capsule 01/29/19 Unknown Rx Cyclobenzaprine [Flexeril] 10 mg PO BID PRN #20 tablet 01/29/19 Unknown Rx Loperamide [Imodium] 2 mg PO Q2HR PRN #20 capsule 04/21/19 Unknown Rx Ondansetron [Zofran Odt] 4 mg PO Q8HR PRN #20 tab.rapdis 04/21/19 Unknown Rx traMADol [Ultram 50 MG tab] 50 mg PO Q4HR PRN #20 tablet 04/21/19 Unknown Rx Ciprofloxacin HCl [Ciprofloxacin 500 mg PO Q12HR #14 tab 05/06/19 Unknown Rx TAB] Ondansetron [Zofran Odt] 4 mg PO Q8HR PRN #12 tab.rapdis 05/06/19 Unknown Rx traMADol [Ultram 50 MG tab] 50 mg PO Q4HR PRN #12 tablet 05/06/19 Unknown Rx HYDROcodone/APAP 5-325 [[place] 1 each PO Q6HR PRN #12 tablet 05/25/19 Unknown Rx 5/325] Benzonatate [Tessalon Perles] 100 mg PO Q8HR #30 capsule 06/13/19 Unknown Rx HYDROcodone/APAP 5-325 [[place] 1 - 2 each PO Q6HR PRN #14 tablet 06/13/19 Unknown Rx 5/325] levoFLOXacin [Levaquin] 750 mg PO QDAY #10 tablet 06/13/19 Unknown Rx Azithromycin [Zithromax Z-AVINASH] 250 mg PO DAILY #6 tablet 06/26/19 Unknown Rx Benzonatate [Tessalon Perles] 100 mg PO Q8HR #10 capsule 06/26/19 Unknown Rx DOXYCYCLINE Hyclate [Vibramycin 100 mg PO Q12HR #14 capsule 06/26/19 Unknown Rx CAP] HYDROcodone/APAP 5-325 [[place] 1 each PO Q6HR PRN #14 tablet 06/26/19 Unknown Rx 5/325] HYDROcodone/APAP 5-325 [[place] 1 each PO Q6HR PRN #14 tablet 06/26/19 Unknown Rx 5/325] predniSONE [Deltasone] 20 mg PO QDAY #5 tab 06/26/19 Unknown Rx Acetaminophen [Acetaminophen 8 650 mg PO Q8H PRN #20 tablet.er 07/05/19 Unknown Rx Hour] levoFLOXacin [Levaquin TAB] 500 mg PO QDAY 7 Days #7 tablet 07/19/19 Unknown Rx traMADol [Ultram 50 MG tab] 50 mg PO Q6HR PRN #10 tablet 07/19/19 Unknown Rx Sulfamethoxazole/Trimethoprim 1 each PO BID 5 Days #10 tablet 08/10/19 Unknown Rx [Bactrim DS TAB] ED Physical Exam - General Limitations: No Limitations General appearance: alert, in no apparent distress, other (appears well appears comfortable nontoxic) - Head Head exam: Present: atraumatic, normocephalic - Eye Eye exam: Present: normal appearance - ENT ENT exam: Present: mucous membranes moist - Neck Neck exam: Present: normal inspection, full ROM - Respiratory Respiratory exam: Present: normal lung sounds bilaterally. Absent: respiratory distress, wheezes, rales, rhonchi - Cardiovascular Cardiovascular Exam: Present: regular rate, normal rhythm, normal heart sounds. Absent: systolic murmur, diastolic murmur, rubs, gallop - GI/Abdominal GI/Abdominal exam: Present: soft, normal bowel sounds. Absent: distended, tenderness, guarding, rebound - Extremities Exam Extremities exam: Present: normal inspection - Back Exam Back exam: Present: normal inspection - Neurological Exam Neurological exam: Present: alert, oriented X3 - Psychiatric Psychiatric exam: Present: normal affect, normal mood - Skin Skin exam: Present: warm, dry, intact, normal color. Absent: rash ED Course Vital Signs 08/10/19 11:22 Temperature 98.3 F Pulse Rate 64 Respiratory 16 Rate Blood Pressure 159/62 O2 Sat by Pulse 99 Oximetry ED Medical Decision Making - Medical Decision Making Mrs. Stuart presents with suprapubic discomfort bilateral flank pain hematuria. She appears well. She appears comfortable. Without fever or CVA tenderness, without significant pain, I do not suspect kidney stone and colic or palmar arthritis. No signs of systemic infection. Will treat for urinary tract infection with Bactrim. Critical care attestation.: If time is entered above; I have spent that time in minutes in the direct care of this critically ill patient, excluding procedure time. ED Disposition Clinical Impression: UTI (urinary tract infection) Disposition: TO HOME OR SELFCARE Is pt being admited?: No Does the pt Need Aspirin: No Condition: Stable Instructions: Urinary Tract Infection in Women (ED) Prescriptions: Sulfamethoxazole/Trimethoprim [Bactrim DS TAB] 1 each PO BID 5 Days #10 tablet Referrals: PRIMARY CARE, [Primary Care Provider] - 3-5 Days
[2019-08-10 12:36] LABS: Bilirubin,Urine NEG (Negative); Blood,Urine MOD (Negative); Color,Urine Yellow (Yellow); Mucus,Urine 2+ /HPF; Urobilinogen,Urine < 2.0 mg/dL (<2.0)
[2019-08-10 12:38] LABS: RBC,Urine > 182.0 /HPF (0.0-6.0)
== END 2019-08-10 11:49 | disposition home or self-care (01) ==
LOC: ED 10:50
DX: N39.0 Urinary tract infection, site not specified (principal); I10 Essential (primary) hypertension; K21.9 Gastro-esophageal reflux disease without esophagitis; G43.909 Migraine, unspecified, not intractable, without status migrainosus; M19.90 Unspecified osteoarthritis, unspecified site; J44.9 Chronic obstructive pulmonary disease, unspecified; Z86.711 Personal history of pulmonary embolism; Z90.49 Acquired absence of other specified parts of digestive tract; Z98.890 Other specified postprocedural states; Z87.891 Personal history of nicotine dependence; Z79.899 Other long term (current) drug therapy; Z88.5 Allergy status to narcotic agent; Z91.041 Radiographic dye allergy status; Z88.6 Allergy status to analgesic agent; Z88.0 Allergy status to penicillin; Z91.018 Allergy to other foods
CPT/HCPCS: 81001

== ENCOUNTER 2019-08-18 18:02 | Emergency (ER) | payer MEDICARE ==
--- NOTE | 2019-08-18 19:00 | Event Note ---
ED Screening Note ED Screening Note: This initial assessment/diagnostic orders/clinical plan/treatment(s) is/are subject to change based on patients health status, clinical progression and re- assessment by fellow clinical providers in the ED. Further treatment and workup at subsequent clinical providers discretion. Patient/guardian urged not to elope from the ED as their condition may be serious if not clinically assessed and managed. Initial orders include: 68yo WF states that she has L side chest pain when she takes deep breaths x 1 day. She states that she had a COPD exacerbation 5 months ago.
[2019-08-18 19:38] LABS: Basophils % (Auto) 0.4 % (0.0-1.8); Eosinophils # (Auto) 0.1 K/mm3 (0.0-0.4); Eosinophils % (Auto) 1.4 % (0.0-4.3); Hematocrit 40.7 % (30.3-42.9); Hemoglobin 13.3 gm/dl (10.1-14.3); Lymphocytes # (Auto) 1.8 K/mm3 (1.2-5.4); Lymphocytes % (Auto) 27.6 % (13.4-35.0); Mean Corpuscular HGB Conc 33 % (30-34); Mean Corpuscular Volume 87 fl (79-97); Monocytes # (Auto) 0.6 K/mm3 (0.0-0.8); Monocytes % (Auto) 9.3 % (0.0-7.3); Platelet Count 215 K/mm3 (140-440); Red Blood Count 4.68 M/mm3 (3.65-5.03); Red Cell Distribution Width 15.9 % (13.2-15.2)
[2019-08-18 20:09] LABS: Alanine Aminotransferase 9 units/L (7-56); Albumin 4.1 g/dL (3.9-5); BUN/Creatinine Ratio 20; Blood Urea Nitrogen 14 mg/dL (7-17); Calcium 9.4 mg/dL (8.4-10.2); Hemolysis Index 3
--- NOTE | 2019-08-18 20:44 | XRay Report ---
CHEST 2 VIEWS 1945 INDICATION / CLINICAL INFORMATION: CP with deep breaths COMPARISON: 07/19/2019 FINDINGS: SUPPORT DEVICES: None. HEART / MEDIASTINUM: No significant abnormality. LUNGS / PLEURA: The area of linearly arranged atelectasis and possible infiltrate in the superior seg ment of the right lower lobe is again noted with slight improvement in extent. No new areas of infilt rate or atelectasis are obvious. No pleural effusions are seen. No pneumothorax. Calcified granuloma is seen in the retrosternal area on lateral view. ADDITIONAL FINDINGS: No significant additional findings. IMPRESSION: Slight improvement of right lower lobe infiltrate/atelectasis as above. Continued follow- up. Signer Name: Pablo Dennis MD Signed: 08/18/2019 8:40 PM Workstation Name: [id number]
[2019-08-18 21:48] LABS: Bilirubin,Urine NEG (Negative); Blood,Urine NEG (Negative); Color,Urine Straw (Yellow); Protein,Urine <15 mg/dL mg/dL (Negative); Urobilinogen,Urine < 2.0 mg/dL (<2.0)
[2019-08-18] MEDS ORDERED: TYLENOL PO ONE (22:36)
[2019-08-18] MEDS ORDERED: LIDODERM 5% TD STA (22:36)
[2019-08-18] MEDS ORDERED: PROVENTIL IH ONE (22:36)
[2019-08-18] MEDS ORDERED: PEPCID PO ONE (22:37)
--- NOTE | 2019-08-18 22:38 | Emergency Department Report ---
ED General Adult HPI - General Chief complaint: Chest Pain Stated complaint: CHEST PAIN/LUNG PAIN Time Seen by Provider: 08/18/19 20:30 Source: patient, RN notes reviewed, old records reviewed Mode of arrival: Ambulatory Limitations: No Limitations - History of Present Illness Initial comments: Primary care Dr.: Dr. Rigoberto Meadows Pulmonology: Dr. Andrews Cardiology: Dr. Conrado Chaves Asked medical history: COPD, sleep apnea, noncompliant with CPAP, arthritis, asthma, hypertension, mitral valve prolapse, possible pulmonary embolism while in her 30s, cardiac catheterization performed in 2016, which demonstrated mild diffuse nonobstructive disease, ejection fraction 65%. Patient had a nuclear stress test for cardiology risk stratification at this hospital 2017, which was read as normal and negative for ischemic findings. The patient had a low probability pulmonary embolism study performed June 2019. The patient recently had a CAT scan of her chest, at this facility, noncontrast, which demonstrated no acute findings, only chronic-appearing scar tissue. During the patient's history and physical, I am chaperoned by nurse Amirah Cornejo The patient presents to the ER today with complaint of "my lungs are burning." The symptoms have been present since around 2:00 yesterday evening. She has chronic right sided hemithorax pain, and over the past 24 hours, has developed throbbing sharp aching left-sided hemithorax pain. She has chronic shortness of breath. She denies DVT, pulmonary embolism risk factors, except as noted. The pain increases with palpation. It decreases with rest. She does not endorse any urinary symptoms. -: Gradual, hour(s) Location: back Radiation: non-radiation Severity scale (0 -10): 9 Quality: other Consistency: other Improves with: other Worsens with: other Associated Symptoms: shortness of breath - Related Data Home Medications Medication Instructions Recorded Confirmed Last Taken Zolpidem [Ambien] 5 mg PO QHS PRN 09/24/18 08/18/19 Unknown Previous Rx's Medication Instructions Recorded Last Taken Type ALPRAZolam [Xanax TAB] 1 mg PO BID PRN #30 tablet 09/21/17 Unknown Rx Amlodipine Besylate [Norvasc] 5 mg PO QDAY #30 tablet 09/21/17 Unknown Rx Acetaminophen [Non-Aspirin Extra 500 mg PO Q6HR PRN #30 tablet 08/18/19 Unknown Rx Strength] Albuterol Sulfate [Proair 90 mcg IH Q4HR PRN #2 aer.pow.ba 08/18/19 Unknown Rx Respiclick] Aspirin [Aspirin BABY CHEW TAB] 81 mg PO QDAY #30 tab.chew 08/18/19 Unknown Rx Famotidine [Pepcid] 20 mg PO BID #10 tablet 08/18/19 Unknown Rx Allergies Allergy/AdvReac Type Severity Reaction Status Date / Time codeine Allergy THROAT Verified 08/18/19 18:55 CLOSES Iodinated Contrast Media Allergy ITCHES, Verified 08/18/19 18:55 [Iodinated Contrast- Oral FEELS LIKE and IV Dye] SHE IS ON FIRE ketorolac [From Toradol] Allergy Headache Verified 08/18/19 18:55 ketorolac tromethamine Allergy Headache Verified 08/18/19 18:55 [From Toradol] methocarbamol [From Robaxin] Allergy Headache Verified 08/18/19 18:55 Penicillins Allergy Swelling Verified 08/18/19 18:55 OF FACE HAND AND THROAT CLOSES strawberry Allergy Rash Verified 08/18/19 18:55 aspirin AdvReac Bleeding Verified 08/18/19 18:55 strawberry Allergy Hives Uncoded 06/13/19 17:05 ED Review of Systems ROS: Stated complaint: CHEST PAIN/LUNG PAIN Other details as noted in HPI Constitutional: malaise, weakness ENT: congestion Respiratory: shortness of breath Cardiovascular: denies: chest pain Gastrointestinal: denies: vomiting Genitourinary: denies: dysuria Musculoskeletal: back pain Skin: denies: lesions Neurological: weakness Psychiatric: anxiety ED Past Medical Hx - Past Medical History Previous Medical History?: Yes Hx Hypertension: Yes Hx Pulmonary Embolism: Yes (40 years ago) Hx GERD: Yes Hx Sickle Cell Disease: No Hx Arthritis: Yes Hx Headaches / Migraines: Yes Hx Kidney Stones: Yes Hx Asthma: Yes Hx COPD: Yes (no home O2) Additional medical history: Fibromyalgia, MVP, peptic ulcers, repeat pneumonia - Surgical History Past Surgical History?: Yes Hx Pacemaker: No Hx Internal Defibrillator: No Hx Cholecystectomy: Yes Additional Surgical History: right wrist metal plate, Right ovarian cyst removal. cataract, left Achilles tendon repair and left ankle instrumentation, gall bladder removal - Social History Smoking Status: Current Every Day Smoker - Medications Home Medications: Home Medications Medication Instructions Recorded Confirmed Last Taken Type ALPRAZolam [Xanax TAB] 1 mg PO BID PRN #30 tablet 09/21/17 08/18/19 Unknown Rx Amlodipine Besylate [Norvasc] 5 mg PO QDAY #30 tablet 09/21/17 08/18/19 Unknown Rx Zolpidem [Ambien] 5 mg PO QHS PRN 09/24/18 08/18/19 Unknown History Acetaminophen [Non-Aspirin Extra 500 mg PO Q6HR PRN #30 tablet 08/18/19 Unknown Rx Strength] Albuterol Sulfate [Proair 90 mcg IH Q4HR PRN #2 aer.pow.ba 08/18/19 Unknown Rx Respiclick] Aspirin [Aspirin BABY CHEW TAB] 81 mg PO QDAY #30 tab.chew 08/18/19 Unknown Rx Famotidine [Pepcid] 20 mg PO BID #10 tablet 08/18/19 Unknown Rx ED Physical Exam - General Limitations: No Limitations, Other (during history and physical examination, chaperoned by nurse Paolo Cornejo) General appearance: alert, in no apparent distress - Head Head exam: Present: atraumatic, normocephalic - Eye Eye exam: Present: normal appearance, EOMI. Absent: nystagmus - ENT ENT exam: Present: normal exam, normal orophraynx, mucous membranes moist, normal external ear exam - Neck Neck exam: Present: normal inspection, full ROM. Absent: tenderness, meningismus - Respiratory Respiratory exam: Present: chest wall tenderness, decreased breath sounds. Absent: respiratory distress, wheezes, rales, rhonchi, stridor - Cardiovascular Cardiovascular Exam: Present: regular rate, normal rhythm, normal heart sounds. Absent: bradycardia, tachycardia, irregular rhythm, systolic murmur, diastolic murmur, rubs, gallop - GI/Abdominal GI/Abdominal exam: Present: soft. Absent: distended, tenderness, guarding, rebound, rigid, pulsatile mass - Extremities Exam Extremities exam: Present: normal inspection, full ROM, other (2+ pulses noted in the bilateral upper, lower extremities. There is no long bone tenderness. Musculoskeletal compartments are soft. The pelvis is stable.). Absent: pedal edema, joint swelling, calf tenderness (is no palpable cord. There is negative Homans sign.) - Back Exam Back exam: Present: normal inspection, full ROM, paraspinal tenderness. Absent: tenderness, vertebral tenderness - Neurological Exam Neurological exam: Present: alert, other (there is no facial droop. The tongue is midline. Extraocular movements are intact bilaterally. Patient speaking in full complete sentences. Shoulder shrug is intact bilaterally. Hearing is grossly intact bilaterally. Visual acuity intact to finger counting and color perception at a close distance. 5/5 strength 4 extremities. Sensation intact to light touch in 4 extremities.). Absent: motor sensory deficit - Psychiatric Psychiatric exam: Present: anxious - Skin Skin exam: Present: warm, dry, intact, normal color. Absent: rash ED Course Vital Signs 08/18/19 08/18/19 08/18/19 18:54 20:09 20:13 Temperature 97.8 F Pulse Rate 56 L Respiratory 20 18 Rate Blood Pressure Blood Pressure 131/62 [Right] O2 Sat by Pulse 98 99 100 Oximetry 08/18/19 08/18/19 08/18/19 20:16 20:30 20:46 Temperature Pulse Rate 56 L 53 L 56 L Respiratory 20 13 13 Rate Blood Pressure 164/73 141/57 141/57 Blood Pressure [Right] O2 Sat by Pulse 98 99 99 Oximetry 08/18/19 08/18/19 08/18/19 21:00 21:18 21:30 Temperature Pulse Rate 73 64 48 L Respiratory 17 22 12 Rate Blood Pressure 141/57 170/68 145/67 Blood Pressure [Right] O2 Sat by Pulse 98 99 98 Oximetry 08/18/19 08/18/19 08/18/19 21:46 22:00 22:32 Temperature Pulse Rate 58 L 57 L Respiratory 12 14 Rate Blood Pressure 170/68 170/68 164/66 Blood Pressure [Right] O2 Sat by Pulse 98 97 97 Oximetry 08/18/19 08/18/19 22:49 23:00 Temperature Pulse Rate Respiratory 22 17 Rate Blood Pressure 178/88 Blood Pressure [Right] O2 Sat by Pulse 99 99 Oximetry ED Medical Decision Making - Lab Data Result diagrams: 08/18/19 19:17 08/18/19 19:17 Vital Signs 08/18/19 08/18/19 08/18/19 18:54 20:09 20:13 Temperature 97.8 F Pulse Rate 56 L Respiratory 20 18 Rate Blood Pressure Blood Pressure 131/62 [Right] O2 Sat by Pulse 98 99 100 Oximetry 08/18/19 08/18/19 08/18/19 20:16 20:30 20:46 Temperature Pulse Rate 56 L 53 L 56 L Respiratory 20 13 13 Rate Blood Pressure 164/73 141/57 141/57 Blood Pressure [Right] O2 Sat by Pulse 98 99 99 Oximetry 08/18/19 08/18/19 08/18/19 21:00 21:18 21:30 Temperature Pulse Rate 73 64 48 L Respiratory 17 22 12 Rate Blood Pressure 141/57 170/68 145/67 Blood Pressure [Right] O2 Sat by Pulse 98 99 98 Oximetry 08/18/19 08/18/19 08/18/19 21:46 22:00 22:32 Temperature Pulse Rate 58 L 57 L Respiratory 12 14 Rate Blood Pressure 170/68 170/68 164/66 Blood Pressure [Right] O2 Sat by Pulse 98 97 97 Oximetry 08/18/19 08/18/19 22:49 23:00 Temperature Pulse Rate Respiratory 22 17 Rate Blood Pressure 178/88 Blood Pressure [Right] O2 Sat by Pulse 99 99 Oximetry Labs 08/18/19 08/18/19 08/18/19 19:17 19:17 19:17 WBC 6.5 RBC 4.68 Hgb 13.3 Hct 40.7 MCV 87 MCH 29 MCHC 33 RDW 15.9 H Plt Count 215 Lymph % (Auto) 27.6 [place] % (Auto) 9.3 H Eos % (Auto) 1.4 Baso % (Auto) 0.4 Lymph # 1.8 [place] # 0.6 Eos # 0.1 Baso # 0.0 Seg Neutrophils % 61.3 Seg Neutrophils # 4.0 D-Dimer < 135.00 Sodium 141 Potassium 3.8 Chloride 104.1 Carbon Dioxide 22 Anion Gap 19 BUN 14 Creatinine 0.7 Estimated GFR > 60 BUN/Creatinine Ratio 20 Glucose 107 H Calcium 9.4 Total Bilirubin 0.30 AST 15 ALT 9 Alkaline Phosphatase 97 Troponin T Total Protein 7.3 Albumin 4.1 Albumin/Globulin Ratio 1.3 Urine Color Urine Turbidity Urine pH Ur Specific [place] Urine Protein Urine Glucose (UA) Urine Ketones Urine Blood Urine Nitrite Urine Bilirubin Urine Urobilinogen Ur Leukocyte Esterase Urine WBC (Auto) Urine RBC (Auto) U Epithel Cells (Auto) 08/18/19 08/18/19 20:48 Unknown WBC RBC Hgb Hct MCV MCH MCHC RDW Plt Count Lymph % (Auto) [place] % (Auto) Eos % (Auto) Baso % (Auto) Lymph # [place] # Eos # Baso # Seg Neutrophils % Seg Neutrophils # D-Dimer Sodium Potassium Chloride Carbon Dioxide Anion Gap BUN Creatinine Estimated GFR BUN/Creatinine Ratio Glucose Calcium Total Bilirubin AST ALT Alkaline Phosphatase Troponin T < 0.010 Total Protein Albumin Albumin/Globulin Ratio Urine Color Straw Urine Turbidity Clear Urine pH 6.0 Ur Specific [place] 1.008 Urine Protein <15 mg/dl Urine Glucose (UA) Neg Urine Ketones Neg Urine Blood Neg Urine Nitrite Neg Urine Bilirubin Neg Urine Urobilinogen < 2.0 Ur Leukocyte Esterase Neg Urine WBC (Auto) 2.0 Urine RBC (Auto) 3.0 U Epithel Cells (Auto) < 1.0 - EKG Data -: EKG Interpreted by Ne EKG shows normal: sinus rhythm Rate: normal - EKG Data When compared to previous EKG there are: no significant change 08/18/19 23:20 EKG #1 shows a sinus rhythm, 61 bpm, normal axis, QTC is 432 ms, there is left ventricular hypertrophy, there is poor R wave progression, the QTC is within normal limits, the EKG is abnormal, the EKG is unchanged from prior from July 2019, the EKG is not consistent with ST elevation myocardial infarction. EKG #2 appears to be unchanged from prior. neither EKG is consistent with ST elevation myocardial infarction. - Radiology Data Radiology results: report reviewed, image reviewed Print Report Referring Physician: KODAK WOOTEN Patient Name: AMY BENTLEY Date of : 1950 Sex: Female Report Date: 2019-08-18 Report Status: Finalized Findings [facility] [address] [place] [address] XRay Report Signed Patient: AMY BENTLEY MR#: [id number] : 1950 Acct :[id number] Age/Sex: 68 / F ADM Date: 08/18/19 Loc: ED Attending Dr: Ordering Physician: KODAK WOOTEN PA-C Date of Service: 08/18/19 Procedure(s): XR chest routine 2V Accession Number(s): [id number] cc: KODAK WOOTEN PA-C Fluoro Time In Minutes: CHEST 2 VIEWS 1944 INDICATION / CLINICAL INFORMATION: CP with deep breaths COMPARISON: 07/19/2019 FINDINGS: SUPPORT DEVICES: None. HEART / MEDIASTINUM: No significant abnormality. LUNGS / PLEURA: The area of linearly arranged atelectasis and possible infiltrate in the superior segment of the right lower lobe is again noted with slight improvement in extent. No new areas of infiltrate or atelectasis are obvious. No pleural effusions are seen. No pneu mothorax. Calcified granuloma is seen in the retrosternal area on lateral view. ADDITIONAL FINDINGS: No significant additional findings. IMPRESSION: Slight improvement of right lower lobe infiltrate/atelectasis as above. Continued follow-up. Signer Name: Pablo Dennis MD Signed: 08/18/2019 8:40 PM Workstation Name: [id number] Transcribed By: GJ Dictated By: Pablo Dennis MD Electronically Authenticated By: Pablo Dennis MD Signed Date/Time: 08/18/192039 Print Report Referring Physician: BHUMI LEAHY Patient Name: AMY BENTLEY Date of : 1950 Sex: Female Report Date: 2019-08-07 Report Status: Finalized Findings [facility] [address] [place] [address] Cat Scan Report Signed Patient: AMY BENTLEY MR#: [id number] 21 : 1950 Acct:[id number] Age/Sex: 68 / F ADM Date: 08/07/19 Loc: CT Attending Dr: BHUMI LEAHY MD Ordering Physician: BHUMI LEAHY MD Date of Service: 08/07/19 Procedure(s): CT chest wo con Accession Number(s): [id number] cc: BHUMI LEAHY MD CT CHEST WITHOUT CONTRAST INDICATION / CLINICAL INFORMATION: J18.9) PNEUMONIA. TECHNIQUE: Axial CT images were obtained through the chest without contrast. Sagittal and coronal reformatted images. All CT scans at this location are performed using CT dose reduction for ALARA by means of automated exposure control. COMPARISON: None available. FINDINGS: HEART: No significant abnormality. THORACIC AORTA: No significant abnormality. MEDIASTINUM and EKATERINA: No significant abnormality. LUNGS: Mild emphysematous changes are identified in the upper lung zones. Focal scarring is identified in the superior segment of the right lower lobe probably represents chronic residua of right lung infiltrate. No persistent infiltrate with air bronchograms. The remainder of the lungs are clear. PLEURA: No significant pleural effusion. No pneumothorax. SKELETAL SYSTEM: Mild osteopenia and degenerative changes in the spine. UPPER ABDOMEN: No significant abnormality. ADDITIONAL FINDINGS: None. IMPRESSION: Focal scarring in the superior segment of the right lung as described. Mild emphysematous changes. Signer Name: Darrion Echeverria Jr, MD Signed: 08/07/2019 1:45 PM Workstation Name: [id number] Transcribed By: TTR Dictated By: DARRION ECHEVERRIA JR, MD Electronically Authenticated By: DARRION ECHEVERRIA JR, MD Signed Date/Time: 08/07/19 0815 - Medical Decision Making Differential diagnosis, including not limited to: Costochondritis, mu sculoskeletal thorax pain, pneumonia, acute coronary syndrome, urinary tract infection, pulmonary embolism, acute on chronic pain syndrome Assessment and plan: 68-year-old female reporting acute on chronic increase in bilateral hemithorax pain, left greater than right. EKG unchanged 2. Troponin negative 1. Patient not tachycardic, not tachypneic, I find her to be very unlikely from her pretest probability to have a pulmonary embolism, and her d- dimer was also negative. In addition, she recently had a low probability nuclear medicine study. The urinalysis is not consistent with urinary tract infection. The patient at this point time does not meet criteria for narcotic or sedating medications. She is reportedly allergic and intolerant to NSAIDs, so we offer the patient alternative pain medication which she refused. The patient refused an additional troponin which I recommended. The patient is going to sign out AGAINST MEDICAL ADVICE. The patient is alert and oriented 3, clinically sober, and free from distracting injury. The risks of leaving without a complete workup were discussed extensively with the patient, including , disability, paralysis, permanent loss of quality of life. Patient able to articulate this in her own words, and exhibits decision-making capacity. This conversation is witnessed by nurse Paolo Cornejo Patient was encouraged to return to the emergency room right away if and when she changes her mind. Critical care attestation.: If time is entered above; I have spent that time in minutes in the direct care of this critically ill patient, excluding procedure time. ED Disposition Clinical Impression: Back pain, thoracic Qualifiers: Chronicity: unspecified Back pain laterality: bilateral Qualified Code(s): M54.6 - Pain in thoracic spine Disposition: DC-07 LEFT AGAINST MED ADVICE Is pt being admited?: No Does the pt Need Aspirin: No Condition: Undetermined Additional Instructions: As we discussed, you have left the hospital/emergency room AGAINST MEDICAL ADVIC E. By leaving, you risked , disability, paralysis, permanent loss of quality of life. The ER is open 24 hours a day, 7 days a week. It never closes. Please return to the emergency room right away if and when you change your mind. If you decide not to return to the emergency room, please follow-up with the listed physician referrals as soon as possible. Referrals: RENÉ CHAVES MD [Staff Physician] - 3-5 Days PANKAJ ANDREWS MD [Staff Physician] - 3-5 Days RIGOBERTO MEADOWS MD [Staff Physician] - 3-5 Days
[2019-08-18 23:06] VITALS: BP 178/88
== END 2019-08-18 23:35 | disposition left against medical advice (07) ==
LOC: ED 18:02
DX: M54.6 Pain in thoracic spine (principal); R06.02 Shortness of breath; I10 Essential (primary) hypertension; K21.9 Gastro-esophageal reflux disease without esophagitis; M19.90 Unspecified osteoarthritis, unspecified site; J44.9 Chronic obstructive pulmonary disease, unspecified; G43.909 Migraine, unspecified, not intractable, without status migrainosus; F17.200 Nicotine dependence, unspecified, uncomplicated; Z87.442 Personal history of urinary calculi; Z86.711 Personal history of pulmonary embolism; Z90.49 Acquired absence of other specified parts of digestive tract; Z98.890 Other specified postprocedural states; Z79.899 Other long term (current) drug therapy; Z88.5 Allergy status to narcotic agent; Z91.041 Radiographic dye allergy status; Z88.0 Allergy status to penicillin; Z88.6 Allergy status to analgesic agent; Z88.8 Allergy status to other drugs, medicaments and biological substances
CPT/HCPCS: 36415; 71046; 80053; 81001; 84484; 85025; 85379; 93005; 93010; 94640

== ENCOUNTER 2019-09-13 12:56 | Emergency (ER) | payer MEDICARE ==
--- NOTE | 2019-09-13 13:18 | Event Note ---
ED Screening Note Date of service: 09/13/19 Time: 13:14 ED Screening Note: Pt complains of SOB, productive cough, and right chest pain with deep inhalation hx of COPD and Asthma and PE and pneumonia last treatment for pneumonia was the beginning of July This initial assessment/diagnostic orders/clinical plan/treatment(s) is/are subject to change based on patients health status, clinical progression and re- assessment by fellow clinical providers in the ED. Further treatment and workup at subsequent clinical providers discretion. Patient/guardian urged not to elope from the ED as their condition may be serious if not clinically assessed and managed. Initial orders include:
--- NOTE | 2019-09-13 13:47 | XRay Report ---
CHEST 2 VIEWS INDICATION / CLINICAL INFORMATION: shortness of breath, right chest pain. COMPARISON: Chest x-ray 08/18/2019 FINDINGS: SUPPORT DEVICES: None. HEART / MEDIASTINUM: No significant abnormality. LUNGS / PLEURA: No significant pulmonary or pleural abnormality. No pneumothorax. ADDITIONAL FINDINGS: Old healed left fifth posterior rib fracture, unchanged. IMPRESSION: 1. No acute findings. Signer Name: Jerson Butler MD Signed: 09/13/2019 1:43 PM Workstation Name: [id number]
[2019-09-13] MEDS ORDERED: dexAMETHasone 20 MG/5 ML VIAL IV ONE (14:16)
[2019-09-13] MEDS ORDERED: ALBUTEROL 2.5 MG/3 ML NEBU IH ONE (14:16)
[2019-09-13] MEDS ORDERED: IPRATROPIUM 0.02% NEBU 2.5 ML IH ONE (14:16)
[2019-09-13] MEDS ORDERED: KETOROLAC 30 MG/1 ML INJ IV ONE (14:18)
[2019-09-13 14:38] LABS: Alanine Aminotransferase 11 units/L (7-56); Albumin 4.6 g/dL (3.9-5); BUN/Creatinine Ratio 17; Blood Urea Nitrogen 10 mg/dL (7-17); Calcium 9.9 mg/dL (8.4-10.2); Hemolysis Index 5
[2019-09-13 14:44] LABS: Hematocrit 41.8 % (30.3-42.9); Mean Corpuscular HGB Conc 34 % (30-34); Mean Corpuscular Volume 85 fl (79-97); Red Blood Count 4.89 M/mm3 (3.65-5.03); Red Cell Distribution Width 15.4 % (13.2-15.2)
[2019-09-13] MEDS ORDERED: HYDROcodone/ACETAMINOPHEN 5-325 MG TAB PO ONE (14:50)
--- NOTE | 2019-09-13 14:59 | Emergency Department Report ---
ED Shortness of Breath HPI - General Chief Complaint: Dyspnea/Respdistress Stated Complaint: DYANA Time Seen by Provider: 09/13/19 13:14 Source: patient Mode of arrival: Ambulatory Limitations: No Limitations - History of Present Illness Initial Comments: Patient is a 69-year-old female with past medical history of COPD recent pneumonia and a remote history of pulmonary embolus while . Patient is complaining of shortness of breath or cough has worsened over the last 2 days. Patient's cough is productive of yellow sputum. Patient states she has pain in the right lower ribs when coughing and taking deep breaths. Patient denies fever chills sore throat or neck stiffness. Patient states that since June 2019 she's been having worsening respiratory symptoms. Patient was diagnosed with pneumonia and has been on several rounds of antibiotics. Patient states after being seen she feels slightly better for some time but her symptoms returned. - Related Data Home Medications Medication Instructions Recorded Confirmed Last Taken Zolpidem [Ambien] 5 mg PO QHS PRN 09/24/18 08/18/19 Unknown Previous Rx's Medication Instructions Recorded Last Taken Type ALPRAZolam [Xanax TAB] 1 mg PO BID PRN #30 tablet 09/21/17 Unknown Rx Amlodipine Besylate [Norvasc] 5 mg PO QDAY #30 tablet 09/21/17 Unknown Rx Acetaminophen [Non-Aspirin Extra 500 mg PO Q6HR PRN #30 tablet 08/18/19 Unknown Rx Strength] Albuterol Sulfate [Proair 90 mcg IH Q4HR PRN #2 aer.pow.ba 08/18/19 Unknown Rx Respiclick] Aspirin [Aspirin BABY CHEW TAB] 81 mg PO QDAY #30 tab.chew 08/18/19 Unknown Rx Famotidine [Pepcid] 20 mg PO BID #10 tablet 08/18/19 Unknown Rx ALBUTEROL NEB's [Proventil 0.083% 5 mg IH TID PRN #20 neb 09/13/19 Unknown Rx NEBS] Benzonatate [Tessalon Perles] 100 mg PO Q8HR #10 capsule 09/13/19 Unknown Rx DOXYCYCLINE Hyclate [Vibramycin 100 mg PO Q12HR #14 capsule 09/13/19 Unknown Rx CAP] HYDROcodone/APAP 5-325 [[place] 1 each PO Q6HR PRN #14 tablet 09/13/19 Unknown Rx 5/325] predniSONE [Deltasone] 20 mg PO QDAY #5 tab 09/13/19 Unknown Rx Allergies Allergy/AdvReac Type Severity Reaction Status Date / Time codeine Allergy THROAT Verified 09/13/19 13:13 CLOSES Iodinated Contrast Media Allergy ITCHES, Verified 09/13/19 13:13 [Iodinated Contrast- Oral FEELS LIKE and IV Dye] SHE IS ON FIRE ketorolac [From Toradol] Allergy Headache Verified 09/13/19 13:13 ketorolac tromethamine Allergy Headache Verified 09/13/19 13:13 [From Toradol] methocarbamol [From Robaxin] Allergy Headache Verified 09/13/19 13:13 Penicillins Allergy Swelling Verified 09/13/19 13:13 OF FACE HAND AND THROAT CLOSES strawberry Allergy Rash Verified 09/13/19 13:13 aspirin AdvReac Bleeding Verified 09/13/19 13:13 strawberry Allergy Hives Uncoded 09/13/19 13:13 ED Review of Systems ROS: Stated complaint: DYANA Other details as noted in HPI Comment: All other systems reviewed and negative ED Past Medical Hx - Past Medical History Hx Hypertension: Yes Hx Pulmonary Embolism: Yes (40 years ago) Hx GERD: Yes Hx Sickle Cell Disease: No Hx Arthritis: Yes Hx Headaches / Migraines: Yes Hx Kidney Stones: Yes Hx Asthma: Yes Hx COPD: Yes (no home O2) Additional medical history: Fibromyalgia, MVP, peptic ulcers, repeat pneumonia - Surgical History Hx Pacemaker: No Hx Internal Defibrillator: No Hx Cholecystectomy: Yes Additional Surgical History: right wrist metal plate, Right ovarian cyst removal. cataract, left Achilles tendon repair and left ankle instrumentation, gall bladder removal - Social History Smoking Status: Former Smoker Substance Use Type: None - Medications Home Medications: Home Medications Medication Instructions Recorded Confirmed Last Taken Type ALPRAZolam [Xanax TAB] 1 mg PO BID PRN #30 tablet 09/21/17 08/18/19 Unknown Rx Amlodipine Besylate [Norvasc] 5 mg PO QDAY #30 tablet 09/21/17 08/18/19 Unknown Rx Zolpidem [Ambien] 5 mg PO QHS PRN 09/24/18 08/18/19 Unknown History Acetaminophen [Non-Aspirin Extra 500 mg PO Q6HR PRN #30 tablet 08/18/19 Unknown Rx Strength] Albuterol Sulfate [Proair 90 mcg IH Q4HR PRN #2 aer.pow.ba 08/18/19 Unknown Rx Respiclick] Aspirin [Aspirin BABY CHEW TAB] 81 mg PO QDAY #30 tab.chew 08/18/19 Unknown Rx Famotidine [Pepcid] 20 mg PO BID #10 tablet 08/18/19 Unknown Rx ALBUTEROL NEB's [Proventil 0.083% 5 mg IH TID PRN #20 neb 09/13/19 Unknown Rx NEBS] Benzonatate [Tessalon Perles] 100 mg PO Q8HR #10 capsule 09/13/19 Unknown Rx DOXYCYCLINE Hyclate [Vibramycin 100 mg PO Q12HR #14 capsule 09/13/19 Unknown Rx CAP] HYDROcodone/APAP 5-325 [[place] 1 each PO Q6HR PRN #14 tablet 09/13/19 Unknown Rx 5/325] predniSONE [Deltasone] 20 mg PO QDAY #5 tab 09/13/19 Unknown Rx ED Physical Exam - General Limitations: No Limitations General appearance: alert, in no apparent distress - Head Head exam: Present: atraumatic, normocephalic - Eye Eye exam: Present: normal appearance, PERRL, EOMI - ENT ENT exam: Present: mucous membranes moist - Neck Neck exam: Present: normal inspection - Respiratory Respiratory exam: Present: respiratory distress, wheezes, rhonchi. Absent: normal lung sounds bilaterally, rales - Cardiovascular Cardiovascular Exam: Present: regular rate, normal rhythm, normal heart sounds. Absent: systolic murmur, diastolic murmur, rubs, gallop - GI/Abdominal GI/Abdominal exam: Present: soft, normal bowel sounds. Absent: distended, tenderness, guarding, rebound, rigid - Extremities Exam Extremities exam: Present: normal inspection - Back Exam Back exam: Present: normal inspection - Neurological Exam Neurological exam: Present: alert, oriented X3 - Psychiatric Psychiatric exam: Present: normal affect, normal mood - Skin Skin exam: Present: warm, dry, intact, normal color. Absent: rash ED Course Vital Signs 09/13/19 09/13/19 09/13/19 13:01 14:44 15:12 Temperature 97.3 F L Pulse Rate 66 Pulse Rate [ 72 Throughout] Respiratory 18 20 Rate Respiratory 16 Rate [ Throughout] Blood Pressure 152/71 O2 Sat by Pulse 96 Oximetry 09/13/19 16:07 Temperature Pulse Rate Pulse Rate [ Throughout] Respiratory 16 Rate Respiratory Rate [ Throughout] Blood Pressure O2 Sat by Pulse Oximetry - Reevaluation(s) Reevaluation #1: 09/13/19 14:59 Patient has a bronchitic cough and some mild rhonchi. No treatment has been ordered. Also added a 2 mL's of 1% lidocaine to the neb treatments as the patient has a harsh cough ED Medical Decision Making - Lab Data Result diagrams: 09/13/19 13:55 09/13/19 13:55 - Radiology Data CHEST 2 VIEWS INDICATION / CLINICAL INFORMATION: shortness of breath, right chest pain. COMPARISON: Chest x-ray 08/18/2019 FINDINGS: SUPPORT DEVICES: None. HEART / MEDIASTINUM: No significant abnormality. LUNGS / PLEURA: No significant pulmonary or pleural abnormality. No pneumothorax. ADDITIONAL FINDINGS: Old healed left fifth posterior rib fracture, unchanged. IMPRESSION: 1. No acute findings. Signer Name: Jerson Butler MD Signed: 09/13/2019 1:43 PM Workstation Name: [employer] - Medical Decision Making Patient is a 69-year-old female who is presenting with cough and congestion. Patient presents with some rhonchi and wet cough and some mild wheezing with coughing. The patient received a neb treatment and is feeling much improved. Lidocaine has slowed her cough significantly. X-rays negative for pneumonia. Patient likely with a exacerbation of her chronic bronchitis. 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 Andrews this week. Patient to be started on a short course of antibiotics prednisone and medications for symptomatic relief and she'll be discharged home. Critical care attestation.: If time is entered above; I have spent that time in minutes in the direct care of this critically ill patient, excluding procedure time. ED Disposition Clinical Impression: COPD with acute exacerbation Chronic bronchitis Qualifiers: Chronic bronchitis type: mucopurulent Qualified Code(s): J41.1 - Mucopurulent chronic bronchitis Disposition: DC-01 TO HOME OR SELFCARE Is pt being admited?: No Does the pt Need Aspirin: No Condition: Stable Instructions: Chronic Obstructive Pulmonary Disease (ED), Chronic Bronchitis (ED) Prescriptions: predniSONE [Deltasone] 20 mg PO QDAY #5 tab HYDROcodone/APAP 5-325 [[place] 5/325] 1 each PO Q6HR PRN #14 tablet PRN Reason: Pain ALBUTEROL NEB's [Proventil 0.083% NEBS] 5 mg IH TID PRN #20 neb PRN Reason: Wheezing Benzonatate [Tessalon Perles] 100 mg PO Q8HR #10 capsule DOXYCYCLINE Hyclate [Vibramycin CAP] 100 mg PO Q12HR #14 capsule Time of Disposition: 16:10
[2019-09-13 15:01] LABS: Platelet Count 246 K/mm3 (140-440)
[2019-09-13 17:08] VITALS: BP 214/72
== END 2019-09-13 19:02 | disposition home or self-care (01) ==
LOC: ED 12:56
DX: J44.1 Chronic obstructive pulmonary disease with (acute) exacerbation (principal); I10 Essential (primary) hypertension; K21.9 Gastro-esophageal reflux disease without esophagitis; G43.909 Migraine, unspecified, not intractable, without status migrainosus; M79.7 Fibromyalgia; Z88.5 Allergy status to narcotic agent; Z91.041 Radiographic dye allergy status; Z86.711 Personal history of pulmonary embolism; Z79.899 Other long term (current) drug therapy; Z88.0 Allergy status to penicillin; Z79.82 Long term (current) use of aspirin; Z91.018 Allergy to other foods; Z87.442 Personal history of urinary calculi; Z90.49 Acquired absence of other specified parts of digestive tract; Z87.891 Personal history of nicotine dependence; Z98.890 Other specified postprocedural states
CPT/HCPCS: 36415; 71046; 80053; 83880; 84484; 85027; 85379; 94640; 96374; 99284; J1100; 94644

== ENCOUNTER 2019-10-01 11:30 | Emergency (ER) | payer MEDICARE ==
[2019-10-01 11:49] VITALS: BP 118/67
--- NOTE | 2019-10-01 11:55 | Event Note ---
ED Screening Note Date of service: 10/01/19 Time: 11:49 ED Screening Note: Patient reports that she slipped and fell down 14 steps. reports that she hit back of head on wooden steps . No LOC. Pain 10/10 and achy, throbbing. C/o groin pain going down to legs. H/O arthritis in back. No h/o radiculopathy. Denies neck or upper back pain. reports dizziness and vomiting after fall. C/o blurred vision. Denies open cuts to head or body. PE: TTP L spine and lumbar paraspinal area. Neck: NTTP .supple. NL ROM Head. Mariela This initial assessment/diagnostic orders/clinical plan/treatment(s) is/are subject to change based on patients health status, clinical progression and re- assessment by fellow clinical providers in the ED. Further treatment and workup at subsequent clinical providers discretion. Patient/guardian urged not to elope from the ED as their condition may be serious if not clinically assessed and managed. Initial orders include: back, neck and hed CT scan
[2019-10-01] MEDS ORDERED: traMADol 50 MG TAB PO ONE (12:49)
--- NOTE | 2019-10-01 12:58 | Emergency Department Report ---
ED Fall HPI - General Chief Complaint: Fall Stated Complaint: BACK/LEGS/GROIN INJURY Time Seen by Provider: 10/01/19 11:49 Source: patient Mode of arrival: Ambulatory - History of Present Illness Initial Comments: This is a 69-year-old female she presents to the ER complaining of lower back pain status post fall she slipped down 3 or 4 steps hitting her back on the stairs. she's complaining of back pain and a headache. Denies loss of consciousness. MD Complaint: fall -: Gradual, This morning Fall From: standing, other (slipped down the stairs hit her back on the steps) Fall Witnessed: no Place Fall Occurred: home Loss of Consciousness: none Prolonged Down Time?: no Symptoms Prior to Fall: none Location: back Severity: moderate Quality: aching Context: tripped/slipped Associated Symptoms: headache. denies: chest paint - Related Data Home Medications Medication Instructions Recorded Confirmed Last Taken Zolpidem [Ambien] 5 mg PO QHS PRN 09/24/18 08/18/19 Unknown Previous Rx's Medication Instructions Recorded Last Taken Type ALPRAZolam [Xanax TAB] 1 mg PO BID PRN #30 tablet 09/21/17 Unknown Rx Amlodipine Besylate [Norvasc] 5 mg PO QDAY #30 tablet 09/21/17 Unknown Rx Acetaminophen [Non-Aspirin Extra 500 mg PO Q6HR PRN #30 tablet 08/18/19 Unknown Rx Strength] Albuterol Sulfate [Proair 90 mcg IH Q4HR PRN #2 aer.pow.ba 08/18/19 Unknown Rx Respiclick] Aspirin [Aspirin BABY CHEW TAB] 81 mg PO QDAY #30 tab.chew 08/18/19 Unknown Rx Famotidine [Pepcid] 20 mg PO BID #10 tablet 08/18/19 Unknown Rx ALBUTEROL NEB's [Proventil 0.083% 5 mg IH TID PRN #20 neb 09/13/19 Unknown Rx NEBS] Benzonatate [Tessalon Perles] 100 mg PO Q8HR #10 capsule 09/13/19 Unknown Rx DOXYCYCLINE Hyclate [Vibramycin 100 mg PO Q12HR #14 capsule 09/13/19 Unknown Rx CAP] HYDROcodone/APAP 5-325 [[place] 1 each PO Q6HR PRN #14 tablet 09/13/19 Unknown Rx 5/325] predniSONE [Deltasone] 20 mg PO QDAY #5 tab 09/13/19 Unknown Rx Allergies Allergy/AdvReac Type Severity Reaction Status Date / Time codeine Allergy THROAT Verified 09/13/19 13:13 CLOSES Iodinated Contrast Media Allergy ITCHES, Verified 09/13/19 13:13 [Iodinated Contrast- Oral FEELS LIKE and IV Dye] SHE IS ON FIRE ketorolac [From Toradol] Allergy Headache Verified 09/13/19 13:13 ketorolac tromethamine Allergy Headache Verified 09/13/19 13:13 [From Toradol] methocarbamol [From Robaxin] Allergy Headache Verified 09/13/19 13:13 Penicillins Allergy Swelling Verified 09/13/19 13:13 OF FACE HAND AND THROAT CLOSES strawberry Allergy Rash Verified 09/13/19 13:13 aspirin AdvReac Bleeding Verified 09/13/19 13:13 strawberry Allergy Hives Uncoded 09/13/19 13:13 ED Review of Systems ROS: Stated complaint: BACK/LEGS/GROIN INJURY Other details as noted in HPI Comment: All other systems reviewed and negative Musculoskeletal: back pain Neurological: headache ED Past Medical Hx - Past Medical History Previous Medical History?: Yes Hx Hypertension: Yes Hx Pulmonary Embolism: Yes (40 years ago) Hx GERD: Yes Hx Sickle Cell Disease: No Hx Arthritis: Yes Hx Headaches / Migraines: Yes Hx Kidney Stones: Yes Hx Asthma: Yes Hx COPD: Yes (no home O2) Additional medical history: Fibromyalgia, MVP, peptic ulcers, repeat pneumonia - Surgical History Past Surgical History?: Yes Hx Pacemaker: No Hx Internal Defibrillator: No Hx Cholecystectomy: Yes Additional Surgical History: right wrist metal plate, Right ovarian cyst removal. cataract, left Achilles tendon repair and left ankle instrumentation, gall bladder removal - Social History Smoking Status: Current Every Day Smoker - Medications Home Medications: Home Medications Medication Instructions Recorded Confirmed Last Taken Type ALPRAZolam [Xanax TAB] 1 mg PO BID PRN #30 tablet 09/21/17 08/18/19 Unknown Rx Amlodipine Besylate [Norvasc] 5 mg PO QDAY #30 tablet 09/21/17 08/18/19 Unknown Rx Zolpidem [Ambien] 5 mg PO QHS PRN 09/24/18 08/18/19 Unknown History Acetaminophen [Non-Aspirin Extra 500 mg PO Q6HR PRN #30 tablet 08/18/19 Unknown Rx Strength] Albuterol Sulfate [Proair 90 mcg IH Q4HR PRN #2 aer.pow.ba 08/18/19 Unknown Rx Respiclick] Aspirin [Aspirin BABY CHEW TAB] 81 mg PO QDAY #30 tab.chew 08/18/19 Unknown Rx Famotidine [Pepcid] 20 mg PO BID #10 tablet 08/18/19 Unknown Rx ALBUTEROL NEB's [Proventil 0.083% 5 mg IH TID PRN #20 neb 09/13/19 Unknown Rx NEBS] Benzonatate [Tessalon Perles] 100 mg PO Q8HR #10 capsule 09/13/19 Unknown Rx DOXYCYCLINE Hyclate [Vibramycin 100 mg PO Q12HR #14 capsule 09/13/19 Unknown Rx CAP] HYDROcodone/APAP 5-325 [[place] 1 each PO Q6HR PRN #14 tablet 09/13/19 Unknown Rx 5/325] predniSONE [Deltasone] 20 mg PO QDAY #5 tab 09/13/19 Unknown Rx ED Physical Exam - General Limitations: No Limitations General appearance: alert, in no apparent distress - Head Head exam: Present: atraumatic, normal inspection - Eye Eye exam: Present: normal appearance, PERRL, EOMI. Absent: conjunctival injection - ENT ENT exam: Present: normal exam, mucous membranes moist - Neck Neck exam: Present: normal inspection - Respiratory Respiratory exam: Present: normal lung sounds bilaterally. Absent: respiratory distress, wheezes, rales, rhonchi, chest wall tenderness - Cardiovascular Cardiovascular Exam: Present: regular rate, normal heart sounds - GI/Abdominal GI/Abdominal exam: Present: soft. Absent: distended, tenderness, guarding - Extremities Exam Extremities exam: Present: normal inspection, full ROM, other (observed pt ambulate with steady gait). Absent: tenderness - Back Exam Back exam: Present: normal inspection - Neurological Exam Neurological exam: Present: alert, oriented X3, normal gait - Psychiatric Psychiatric exam: Present: normal affect - Skin Skin exam: Present: warm, dry, intact, normal color. Absent: cyanosis, petechiae, abrasion ED Course Vital Signs 10/01/19 11:48 Temperature 97.7 F Pulse Rate 104 H Respiratory 20 Rate Blood Pressure 118/67 O2 Sat by Pulse 97 Oximetry ED Medical Decision Making - Radiology Data CT Spine Lumbar spine IMPRESSION: 1. There are multilevel degenerative changes involving lumbar spine as detailed above without clear evidence of acute compression fracture. CT Head IMPRESSION: 1. There is continued extensive microvascular angiopathy without CT ends of acute intracranial hemorrhage. CT cervical spine IMPRESSION: 1. There is no CT evidence of acute fracture involving the cervical spine. 2. There are multilevel degenerative changes as detailed above. PARASPINAL SOFT TISSUES: No prevertebral soft tissue fluid collections are identified. There is notable atherosclerotic calcification involving the carotid bifurcations, greater on the left. There is a 1.1 cm well-circumscribed nodular lesion projected along the posterior left thyroid gland. This finding may reflect exophytic thyroid or possibly parathyroid lesion and correlation would be needed. - Medical Decision Making 69-year-old female who slipped and fallen down 3 stairs and struck her back. She denied any prior symptoms before the fall. She denies any loss of consciousness no head trauma. CAT scan done of her head cervical spine and lumbar spine were all negative for any acute traumatic findings. CAT scan of her cervical spine did reveal a 1.1 cm thyroid nodular lesion. Patient was notified verbally and written she is instructed to follow-up with her primary care doctor. Patient has history of chronic pain she is on pain medications at home. I offered patient ibuprofen for pain she refused she states that she cannot take NSAIDs. Instructed patient to take Tylenol as directed by package insert and to follow-up with her primary care doctor in 2-3 days. Critical Care Time: No Critical care attestation.: If time is entered above; I have spent that time in minutes in the direct care of this critically ill patient, excluding procedure time. ED Disposition Clinical Impression: Lumbar contusion Qualifiers: Encounter type: initial encounter Qualified Code(s): S30.0XXA - Contusion of lower back and pelvis, initial encounter Disposition: - TO HOME OR SELFCARE Is pt being admited?: No Does the pt Need Aspirin: No Condition: Stable Instructions: Contusion in Adults (ED), Chronic Back Pain (ED) Additional Instructions: The Cat scan of your cervical spine shows an 1.1 cm thyroid nodular lesion behind the back of your thyroid gland please follow up with your doctor about this finding. You have no acute fractures on all the Cat scan today. Resume your usual home medications Referrals: PRIMARY CARE, [Primary Care Provider] - 3-5 Days Time of Disposition: 14:51
--- NOTE | 2019-10-01 13:08 | Cat Scan Report ---
CT head/brain wo con INDICATION / CLINICAL INFORMATION: 69 years Female; Fall with WAGGONER, vomit, dizziness. TECHNIQUE: Routine CT head without contrast. All CT scans at this location are performed using CT dos e reduction for ALARA by means of automated exposure control. COMPARISON: The study is compared to the previous CT of 10/19/2018. FINDINGS: BRAIN / INTRACRANIAL CONTENTS: There is extensive cerebral white matter disease most consistent with microvascular angiopathy. The findings appear to correlate with the previous CTA. There are continued small foci of calcification within the basal ganglia. There is no definitive CT evidence of acute in tracranial hemorrhage or significant mass effect. The ventricular system is unchanged in size and con figuration. ORBITS: No significant abnormality of visualized orbits. SINUSES / MASTOIDS: There is minimal mucosal thickening within the ethmoid air cells. CRANIOCERVICAL JUNCTION: No significant abnormality. ADDITIONAL FINDINGS: None. IMPRESSION: 1. There is continued extensive microvascular angiopathy without CT ends of acute intracranial hemorr kathy. Signer Name: Alonzo Thomas MD Signed: 10/01/2019 1:03 PM Workstation Name: [id number]
--- NOTE | 2019-10-01 13:15 | Cat Scan Report ---
CT cervical spine wo con INDICATION / CLINICAL INFORMATION: 69 years Female; Fall with head injury.pain, vomit. TECHNIQUE: Axial CT images of the cervical spine were obtained. Sagittal and coronal reformatted images were pr oduced. All CT scans at this location are performed using CT dose reduction for ALARA by means of aut omated exposure control. COMPARISON: None available. FINDINGS: POST-SURGICAL CHANGES: None. ALIGNMENT: There is mild curvature the cervical spine, convex toward the left at. There is no signifi cant spondylolisthesis at. VERTEBRAE: There is no CT evidence of acute fracture involving the cervical spine. INTRAVERTEBRAL DISCS: The left facet and uncovertebral joint hypertrophy at C3-4 results in moderate to marked left neural foraminal narrowing. There is also associated effacement of the left lateral re cess. There is marked left neural foraminal narrowing with effacement of the left lateral recess at C 4-5. Moderate narrowing is seen on the right. There is moderate disc space narrowing at C5-6 with mild degenerative endplate changes. The spondylos is encroaches on the lateral recesses with marked neural foraminal narrowing, greater on the left. Th ere is mild left foraminal narrowing at C6-7. PARASPINAL SOFT TISSUES: No prevertebral soft tissue fluid collections are identified. There is notab le atherosclerotic calcification involving the carotid bifurcations, greater on the left. There is a 1.1 cm well-circumscribed nodular lesion projected along the posterior left thyroid gland. This findi ng may reflect exophytic thyroid or possibly parathyroid lesion and correlation would be needed. ADDITIONAL FINDINGS: None. IMPRESSION: 1. There is no CT evidence of acute fracture involving the cervical spine. 2. There are multilevel degenerative changes as detailed above. Signer Name: Alonzo Thomas MD Signed: 10/01/2019 1:11 PM Workstation Name: [id number]
--- NOTE | 2019-10-01 13:30 | Cat Scan Report ---
CT CERVICAL SPINE INDICATION: fall with lower back pain and radiculopathy to ext. TECHNIQUE: Axial CT images of the cervical spine were obtained. Sagittal and coronal reformatted images were pr oduced. All CT scans at this location are performed using CT dose reduction for ALARA by means of aut omated exposure control. COMPARISON: The study is compared to the previous CT of 11/27/2017 which included axial images only. FINDINGS: ALIGNMENT: There is mild levoscoliosis of the lumbar spine with apex at L3 at. VERTEBRAE: There are multilevel degenerative endplate changes including presence of multilevel Schmor l's nodes at. There is also irregularity of the left, anterior superior L5 vertebral body. There is c omponent of sclerosis and this finding appears a chronic and correlate with the axial images on the p revious CT. There is no clear CT evidence of acute compression fracture. There is diffuse osteopenia. INTRAVERTEBRAL DISCS: There is marked disc space narrowing at L5-S1, greater on the left with vacuum phenomenon and endplate changes at. The spondylosis and facet joint hypertrophy effacing left lateral recess at. Additionally, the left neural from narrowing mildly encroaches on the exiting left L5 ner ve root sheath. The disc bulge and facet joint hypertrophy at L4-5 result in mild degree of spinal stenosis. Addition ally, the left foraminal spondylosis contributes to moderate left neural foraminal narrowing. The bro ad-based disc bulge at L3-4 mildly flattens the ventral thecal. There is suggestion of minimal retrol isthesis at L2-3 with spondylosis which also mildly flattens the ventral thecal sac.. PARASPINAL SOFT TISSUES: No significant abnormality. ADDITIONAL FINDINGS: None. IMPRESSION: 1. There are multilevel degenerative changes involving lumbar spine as detailed above without clear e vidence of acute compression fracture. Signer Name: Alonzo Thomas MD Signed: 10/01/2019 1:25 PM Workstation Name: [id number]
== END 2019-10-01 14:35 | disposition home or self-care (01) ==
LOC: ED 11:30
DX: S30.0XXA Contusion of lower back and pelvis, initial encounter (principal); I10 Essential (primary) hypertension; K21.9 Gastro-esophageal reflux disease without esophagitis; M19.90 Unspecified osteoarthritis, unspecified site; G43.909 Migraine, unspecified, not intractable, without status migrainosus; J44.9 Chronic obstructive pulmonary disease, unspecified; F17.200 Nicotine dependence, unspecified, uncomplicated; W18.30XA Fall on same level, unspecified, initial encounter; Y93.89 Activity, other specified; Y92.89 Other specified places as the place of occurrence of the external cause; Y99.8 Other external cause status
CPT/HCPCS: 70450; 72125; 72131

== ENCOUNTER 2019-12-06 11:36 | Emergency (ER) | payer MEDICARE ==
[2019-12-06 13:22] LABS: Bilirubin,Urine NEG (Negative); Blood,Urine MOD (Negative); Color,Urine Straw (Yellow); Mucus,Urine FEW /HPF; Protein,Urine <15 mg/dL mg/dL (Negative); Urobilinogen,Urine < 2.0 mg/dL (<2.0)
[2019-12-06 13:49] LABS: Basophils % (Auto) 0.8 % (0.0-1.8); Eosinophils # (Auto) 0.1 K/mm3 (0.0-0.4); Eosinophils % (Auto) 1.7 % (0.0-4.3); Hemoglobin 12.9 gm/dl (10.1-14.3); Lymphocytes # (Auto) 1.8 K/mm3 (1.2-5.4); Lymphocytes % (Auto) 30.1 % (13.4-35.0); Monocytes # (Auto) 0.4 K/mm3 (0.0-0.8); Monocytes % (Auto) 7.2 % (0.0-7.3)
[2019-12-06 13:56] LABS: Hematocrit 37.7 % (30.3-42.9); Mean Corpuscular HGB Conc 34 % (30-34); Mean Corpuscular Volume 86 fl (79-97); Platelet Count 223 K/mm3 (140-440); Red Blood Count 4.41 M/mm3 (3.65-5.03); Red Cell Distribution Width 16.2 % (13.2-15.2)
[2019-12-06 14:12] LABS: Alanine Aminotransferase 10 units/L (7-56); Albumin 4.3 g/dL (3.9-5); BUN/Creatinine Ratio 11; Blood Urea Nitrogen 8 mg/dL (7-17); Calcium 9.9 mg/dL (8.4-10.2); Hemolysis Index 5
[2019-12-06] MEDS ORDERED: SODIUM CHLORIDE 0.9% 1000 ML 1,000 ML ONE (16:15)
[2019-12-06] MEDS ORDERED: ONDANSETRON 4 MG/2 ML INJ IV ONE (19:35)
[2019-12-06] MEDS ORDERED: FAMOTIDINE 20 MG/2 ML INJ IV ONE (19:35)
[2019-12-06] MEDS ORDERED: SODIUM CHLORIDE 0.9% 1000 ML 1,000 ML IV ONE (19:35)
[2019-12-06] MEDS ORDERED: MORPHINE 4 MG/1 ML INJ IV ONE (19:35)
--- NOTE | 2019-12-06 20:05 | Cat Scan Report ---
CT ABDOMEN AND PELVIS WITHOUT CONTRAST INDICATION / CLINICAL INFORMATION: abdominal pain. TECHNIQUE: Axial CT images were obtained through the abdomen and pelvis without IV contrast. All CT scans at [facility] location are performed using CT dose reduction for ALARA by means of automated exposure control. COMPARISON: None available. FINDINGS: LOWER CHEST: No significant abnormality. LIVER: No significant abnormality. GALLBLADDER: Not identified. BILE DUCTS: No significant abnormality. PANCREAS: No significant abnormality. SPLEEN: No significant abnormality. ADRENALS: No significant abnormality. RIGHT KIDNEY and URETER: No significant abnormality. LEFT KIDNEY and URETER: No significant abnormality. STOMACH and SMALL BOWEL: Distended with food material. COLON: Sigmoid diverticulosis without evidence of diverticulitis at this time.. APPENDIX: No significant abnormality. PERITONEUM: No free fluid. No free air. No fluid collection. LYMPH NODES: No significant adenopathy. AORTA and ARTERIES: No significant abnormality. IVC and VEINS: No significant abnormality. URINARY BLADDER: No significant abnormality. REPRODUCTIVE ORGANS: No significant abnormality. ADDITIONAL FINDINGS: None. SKELETAL SYSTEM: Thoracolumbar type degenerative changes. IMPRESSION: 1. No acute intra-abdominal abnormality. Sigmoid diverticulosis without diverticulitis. No obstructiv e ureteral calculus is identified. Signer Name: Harlan Lyons MD Signed: 12/06/2019 8:01 PM Workstation Name: [id number]
--- NOTE | 2019-12-06 20:45 | Emergency Department Report ---
ED Abdominal Pain HPI - General Chief Complaint: Abdominal Pain Stated Complaint: STOMACH Source: patient Mode of arrival: Ambulatory Limitations: No Limitations - History of Present Illness Initial Comments: Patient is a 69-year-old white female with a history of COPD and hypertension who presented to the ED with complaint of acute onset persistent diffuse lower abdominal pain with intermittent nausea and vomiting and diarrhea for the last 2 days. Patient states that the lower abdominal pain and radius of the lower back. Patient denies fever, chills, chest pain, shortness of breath, hematuria, dysuria, urinary frequency and urgency, vaginal discharge, vaginal bleeding, dizziness, cough, traumatic injury or heavy lifting. MD Complaint: abdominal pain, other (nausea, vomiting and diarrhea) -: Sudden, days(s) (2) Location: suprapubic, bilateral flank Radiation: suprapubic, bilateral flank, back (lower) Migration to: no migration Severity scale (0 -10): 9 Quality: cramping, aching, sharp Consistency: constant Improves With: nothing Worsens With: nothing Associated Symptoms: denies other symptoms, nausea, vomiting, diarrhea. denies: constipation, hematemesis, melena, anorexia, syncope - Related Data Home Medications Medication Instructions Recorded Confirmed Last Taken Zolpidem [Ambien] 5 mg PO QHS PRN 09/24/18 08/18/19 Unknown Previous Rx's Medication Instructions Recorded Last Taken Type ALPRAZolam [Xanax TAB] 1 mg PO BID PRN #30 tablet 09/21/17 Unknown Rx Amlodipine Besylate [Norvasc] 5 mg PO QDAY #30 tablet 09/21/17 Unknown Rx Acetaminophen [Non-Aspirin Extra 500 mg PO Q6HR PRN #30 tablet 08/18/19 Unknown Rx Strength] Albuterol Sulfate [Proair 90 mcg IH Q4HR PRN #2 aer.pow.ba 08/18/19 Unknown Rx Respiclick] Aspirin [Aspirin BABY CHEW TAB] 81 mg PO QDAY #30 tab.chew 08/18/19 Unknown Rx Famotidine [Pepcid] 20 mg PO BID #10 tablet 08/18/19 Unknown Rx ALBUTEROL NEB's [Proventil 0.083% 5 mg IH TID PRN #20 neb 09/13/19 Unknown Rx NEBS] Benzonatate [Tessalon Perles] 100 mg PO Q8HR #10 capsule 09/13/19 Unknown Rx DOXYCYCLINE Hyclate [Vibramycin 100 mg PO Q12HR #14 capsule 09/13/19 Unknown Rx CAP] HYDROcodone/APAP 5-325 [Redford 1 each PO Q6HR PRN #14 tablet 09/13/19 Unknown Rx 5/325] predniSONE [Deltasone] 20 mg PO QDAY #5 tab 09/13/19 Unknown Rx Dicyclomine [Bentyl] 20 mg PO Q6H PRN #24 tablet 12/06/19 Unknown Rx Ondansetron [Zofran Odt] 4 mg PO Q6HR PRN #20 tab.rapdis 12/06/19 Unknown Rx tiZANidine [Zanaflex 4mg TAB] 4 mg PO Q8H PRN #21 tablet 12/06/19 Unknown Rx traMADoL [Ultram] 50 mg PO Q6HR PRN #12 tablet 12/06/19 Unknown Rx Allergies Allergy/AdvReac Type Severity Reaction Status Date / Time codeine Allergy THROAT Verified 12/06/19 16:16 CLOSES Iodinated Contrast Media Allergy ITCHES, Verified 12/06/19 16:16 [Iodinated Contrast- Oral FEELS LIKE and IV Dye] SHE IS ON FIRE ketorolac [From Toradol] Allergy Headache Verified 12/06/19 16:16 ketorolac tromethamine Allergy Headache Verified 12/06/19 16:16 [From Toradol] methocarbamol [From Robaxin] Allergy Headache Verified 12/06/19 16:16 Penicillins Allergy Swelling Verified 12/06/19 16:16 OF FACE HAND AND THROAT CLOSES strawberry Allergy Rash Verified 12/06/19 16:16 aspirin AdvReac Bleeding Verified 12/06/19 16:16 strawberry Allergy Hives Uncoded 09/13/19 13:13 ED Review of Systems ROS: Stated complaint: STOMACH Other details as noted in HPI Constitutional: denies: chills, fever Eyes: denies: eye pain, eye discharge, vision change ENT: denies: ear pain, throat pain Respiratory: denies: cough, shortness of breath, wheezing Cardiovascular: denies: chest pain, palpitations Endocrine: no symptoms reported Gastrointestinal: abdominal pain, nausea, vomiting, diarrhea Genitourinary: denies: urgency, dysuria, discharge Musculoskeletal: back pain (lower back pain), arthralgia. denies: joint s welling Skin: denies: rash, lesions Neurological: denies: headache, weakness, paresthesias Psychiatric: denies: anxiety, depression Hematological/Lymphatic: denies: easy bleeding, easy bruising ED Past Medical Hx - Past Medical History Previous Medical History?: Yes Hx Hypertension: Yes Hx Pulmonary Embolism: Yes (40 years ago) Hx GERD: Yes Hx Sickle Cell Disease: No Hx Arthritis: Yes Hx Headaches / Migraines: Yes Hx Kidney Stones: Yes Hx Asthma: Yes Hx COPD: Yes (no home O2) Additional medical history: Fibromyalgia, MVP, peptic ulcers, repeat pneumonia - Surgical History Past Surgical History?: Yes Hx Pacemaker: No Hx Internal Defibrillator: No Hx Cholecystectomy: Yes Additional Surgical History: right wrist metal plate, Right ovarian cyst removal. cataract, left Achilles tendon repair and left ankle instrumentation, gall bladder removal - Social History Smoking Status: Never Smoker Substance Use Type: None - Medications Home Medications: Home Medications Medication Instructions Recorded Confirmed Last Taken Type ALPRAZolam [Xanax TAB] 1 mg PO BID PRN #30 tablet 09/21/17 08/18/19 Unknown Rx Amlodipine Besylate [Norvasc] 5 mg PO QDAY #30 tablet 09/21/17 08/18/19 Unknown Rx Zolpidem [Ambien] 5 mg PO QHS PRN 09/24/18 08/18/19 Unknown History Acetaminophen [Non-Aspirin Extra 500 mg PO Q6HR PRN #30 tablet 08/18/19 Unknown Rx Strength] Albuterol Sulfate [Proair 90 mcg IH Q4HR PRN #2 aer.pow.ba 08/18/19 Unknown Rx Respiclick] Aspirin [Aspirin BABY CHEW TAB] 81 mg PO QDAY #30 tab.chew 08/18/19 Unknown Rx Famotidine [Pepcid] 20 mg PO BID #10 tablet 08/18/19 Unknown Rx ALBUTEROL NEB's [Proventil 0.083% 5 mg IH TID PRN #20 neb 09/13/19 Unknown Rx NEBS] Benzonatate [Tessalon Perles] 100 mg PO Q8HR #10 capsule 09/13/19 Unknown Rx DOXYCYCLINE Hyclate [Vibramycin 100 mg PO Q12HR #14 capsule 09/13/19 Unknown Rx CAP] HYDROcodone/APAP 5-325 [Redford 1 each PO Q6HR PRN #14 tablet 09/13/19 Unknown Rx 5/325] predniSONE [Deltasone] 20 mg PO QDAY #5 tab 09/13/19 Unknown Rx Dicyclomine [Bentyl] 20 mg PO Q6H PRN #24 tablet 12/06/19 Unknown Rx Ondansetron [Zofran Odt] 4 mg PO Q6HR PRN #20 tab.rapdis 12/06/19 Unknown Rx tiZANidine [Zanaflex 4mg TAB] 4 mg PO Q8H PRN #21 tablet 12/06/19 Unknown Rx traMADoL [Ultram] 50 mg PO Q6HR PRN #12 tablet 12/06/19 Unknown Rx ED Physical Exam - General Limitations: No Limitations General appearance: alert, in no apparent distress - Head Head exam: Present: atraumatic, normocephalic, normal inspection - Eye Eye exam: Present: normal appearance, PERRL, EOMI Pupils: Present: normal accommodation - ENT ENT exam: Present: normal exam, normal orophraynx, mucous membranes moist, TM's normal bilaterally, normal external ear exam - Neck Neck exam: Present: normal inspection, full ROM - Respiratory Respiratory exam: Present: normal lung sounds bilaterally. Absent: respiratory distress, wheezes, rales, rhonchi, chest wall tenderness, accessory muscle use, decreased breath sounds - Cardiovascular Cardiovascular Exam: Present: regular rate, normal rhythm, normal heart sounds. Absent: systolic murmur, diastolic murmur, rubs, gallop - GI/Abdominal GI/Abdominal exam: Present: soft, tenderness (mildly tender diffuse lower abdomen, no guarding or rebound), normal bowel sounds. Absent: guarding, rebound, hyperactive bowel sounds, hypoactive bowel sounds, organomegaly - Extremities Exam Extremities exam: Present: normal inspection, full ROM, normal capillary refill - Back Exam Back exam: Present: normal inspection, full ROM, tenderness (palpable lumbosacral paraspinal musculoskeletal tenderness), muscle spasm, paraspinal tenderness. Absent: CVA tenderness (L) - Neurological Exam Neurological exam: Present: alert, oriented X3, CN II-XII intact, normal gait, reflexes normal - Psychiatric Psychiatric exam: Present: normal affect, normal mood - Skin Skin exam: Present: warm, dry, intact, normal color. Absent: rash ED Course Vital Signs 12/06/19 12/06/1912/06/20 12:37 16:30 16:59 Temperature 97.4 F L 97.5 F L Pulse Rate 73 70 Respiratory 18 Rate Blood Pressure 183/67 170/84 Blood Pressure 170/84 [Right] O2 Sat by Pulse 98 100 Oximetry ED Medical Decision Making - Lab Data Result diagrams: 12/06/19 13:09 12/06/19 13:09 - Radiology Data Radiology results: report reviewed, image reviewed Findings [facility] [address] [place] [address] Cat Scan Report Signed Patient: AMY BENTLEY MR#: [id number] [birth year] : 1950 Acct:[id number] Age/Sex: 69 / F ADM Date: 12/06/19 Loc: ED Attending Dr: Ordering Physician: PAULINA FALCON Date of Service: 12/06/19 Procedure(s): CT abdomen pelvis wo con Accession Number(s): [id number] cc: PAULINA FALCON CT ABDOMEN AND PELVIS WITHOUT CONTRAST INDICATION / CLINICAL INFORMATION: abdominal pain. TECHNIQUE: Axial CT images were obtained through the abdomen and pelvis without IV contrast. All CT scans at this location are performed using CT dose reduction for ALARA by means of automated exposure control. COMPARISON: None available. FINDINGS: LOWER CHEST: No significant abnormality. LIVER: No significant abnormality. GALLBLADDER: Not identified. BILE DUCTS: No significant abnormality. PANCREAS: No significant abnormality. SPLEEN: No significant abnormality. ADRENALS: No significant abnormality. RIGHT KIDNEY and URETER: No significant abnormality. LEFT KIDNEY and URETER: No significant abnormality. STOMACH and SMALL BOWEL: Distended with food material. COLON: Sigmoid diverticulosis without evidence of diverticulitis at this time.. APPENDIX: No significant abnormality. PERITONEUM: No free fluid. No free air. No fluid collection. LYMPH NODES: No significant adenopathy. AORTA and ARTERIES: No significant abnormality. IVC and VEINS: No significant abnormality. URINARY BLADDER: No significant abnormality. REPRODUCTIVE ORGANS: No significant abnormality. ADDITIONAL FINDINGS: None. SKELETAL SYSTEM: Thoracolumbar type degenerative changes. IMPRESSION: 1. No acute intra-abdominal abnormality. Sigmoid diverticulosis without diverticulitis. No obstructive ureteral calculus is identified. Signer Name: Harlan Lyons MD Signed: 12/06/2019 8:01 PM Workstation Name: [id number] - Medical Decision Making This is a 69-year-old white female with a history of COPD and hypertension who presented to the ED with acute onset persistent constant diffuse lower abdominal pain that radiates to the lower back with nausea, vomiting and diarrhea for the last 2 days. In the ED, patient is alert and oriented 3 and is not in distress appears to be in pain. Lab test results were reviewed and are all nonactionable except for urine that had hematuria. Abdomen pelvis CT scan witho ut contrast shows no acute intra-abdominal abnormality. It showed sigmoid diverticulosis without diverticulitis. It also showed no obstructive ureteral calculus is identified. Patient was treated for pain and on reevaluation, patient is well control as well as nausea and vomiting. Patient has not had any nausea or vomiting or diarrhea while in the ED. Patient's symptoms are likely due to a viral gastroenteritis. Patient is advised to follow-up with her primary care physician in 5-7 days for reevaluation or return to the ED immediately if symptoms get worse. - Differential Diagnosis gastroenteritis; Colitis; Diverticulitis; UTI; kidney stone; Muscle spasm; Critical care attestation.: If time is entered above; I have spent that time in minutes in the direct care of this critically ill patient, excluding procedure time. ED Disposition Clinical Impression: Nausea, vomiting and diarrhea, Viral gastroenteritis, Spasm of muscle of lower back Abdominal pain Qualifiers: Abdominal location: lower abdomen, unspecified Qualified Code(s): R10.30 - Lower abdominal pain, unspecified Disposition: DC-01 TO HOME OR SELFCARE Is pt being admited?: No Does the pt Need Aspirin: No Condition: Stable Instructions: Abdominal Pain (ED), Acute Nausea and Vomiting (ED), Gastroenteritis (ED), Back Pain (ED) Additional Instructions: Your lab test results and imaging reports are quite unremarkable. Therefore, take pain medications as needed, antiemetics and muscle relaxants and follow-up with your primary care physician and 5-7 days for reevaluation. Return to the ED immediately if symptoms get worse. Prescriptions: Dicyclomine [Bentyl] 20 mg PO Q6H PRN #24 tablet PRN Reason: abdominal pain traMADoL [Ultram] 50 mg PO Q6HR PRN #12 tablet PRN Reason: Pain tiZANidine [Zanaflex 4mg TAB] 4 mg PO Q8H PRN #21 tablet PRN Reason: Muscle Spasm Ondansetron [Zofran Odt] 4 mg PO Q6HR PRN #20 tab.rapdis PRN Reason: Nausea Referrals: BINH ORTIZ MD [Staff Physician] - 3-5 Days Time of Disposition: 20:44 Print Language: AUSTRALIAN
[2019-12-06 21:14] VITALS: BP 173/87
== END 2019-12-06 21:15 | disposition home or self-care (01) ==
LOC: ED 11:36
DX: A08.4 Viral intestinal infection, unspecified (principal); M62.830 Muscle spasm of back; R10.30 Lower abdominal pain, unspecified; I10 Essential (primary) hypertension; R11.2 Nausea with vomiting, unspecified; K21.9 Gastro-esophageal reflux disease without esophagitis; M19.90 Unspecified osteoarthritis, unspecified site; J45.909 Unspecified asthma, uncomplicated; Z90.49 Acquired absence of other specified parts of digestive tract; Z98.890 Other specified postprocedural states; Z79.899 Other long term (current) drug therapy; Z88.4 Allergy status to anesthetic agent; Z88.8 Allergy status to other drugs, medicaments and biological substances; Z91.018 Allergy to other foods; Z88.0 Allergy status to penicillin; Z88.6 Allergy status to analgesic agent; Z91.041 Radiographic dye allergy status
CPT/HCPCS: 36415; 74176; 80053; 81001; 83690; 85025; 96361; 96374; 96375; 99284; J2270; J2405; J7030

== ENCOUNTER 2020-08-06 17:20 | Emergency (ER) | payer MEDICARE ==
[2020-08-06] MEDS ORDERED: ACETAMINOPHEN 500 MG TAB PO ONE (20:18)
--- NOTE | 2020-08-06 21:21 | Cat Scan Report ---
. CT CERVICAL SPINE WITHOUT CONTRAST INDICATION: Fall - pain. TECHNIQUE: All CT scans at this location are performed using CT dose reduction for ALARA by means of automated e xposure control. Axial CT images were obtained through the cervical spine. Sagittal and coronal reformatted images we re produced. COMPARISON: CT C-spine 10/01/2019 FINDINGS: Fracture: None. Subluxation: None. Spinal canal: No significant compromise. Disc spaces: Moderate discogenic degenerative disease C5-6 and mild discogenic degenerative disease C 3-5, unchanged Facet joints: Normal. Paraspinal soft tissues: No soft tissue swelling. Normal. Additional findings: Extensive vascular calcifications within both carotid artery bulbs, unchanged. Lung apices: Normal. IMPRESSION: 1. No fracture cervical spine 2. Degenerative changes cervical spine, unchanged Signer Name: Jerson Butler MD Signed: 08/06/2020 9:17 PM Workstation Name: [id number]
--- NOTE | 2020-08-06 21:27 | XRay Report ---
LEFT SHOULDER 3 VIEW(S) INDICATION / CLINICAL INFORMATION: Fall - Pain COMPARISON: None available. FINDINGS: BONES / JOINT(S): No acute fracture or subluxation. No significant arthritis. SOFT TISSUES: No significant abnormality. ADDITIONAL FINDINGS: Old healed fracture left fifth posterior rib Signer Name: Jerson Butler MD Signed: 08/06/2020 9:23 PM Workstation Name: [id number]
--- NOTE | 2020-08-06 21:27 | Cat Scan Report ---
CT HEAD WITHOUT CONTRAST INDICATION / CLINICAL INFORMATION: Fall - pain. TECHNIQUE: All CT scans at this location are performed using CT dose reduction for ALARA by means of automated e xposure control. COMPARISON: Head CT 01/18/2020 FINDINGS: HEMORRHAGE: None. EXTRA-AXIAL SPACES: Normal in size and morphology for the patient's age. VENTRICULAR SYSTEM: Moderately advanced periventricular and deep white matter hypoattenuation again n oted characteristic for microangiopathy. Normal in size and morphology for the patient's age. CEREBRAL PARENCHYMA: No significant abnormality. No acute territorial infarct. MIDLINE SHIFT OR HERNIATION: None. CEREBELLUM / BRAINSTEM: No significant abnormality. ORBITS: Normal as visualized. SOFT TISSUES of HEAD: No significant abnormality. CALVARIUM: No significant abnormality. PARANASAL SINUSES / MASTOID AIR CELLS: Normal as visualized. ADDITIONAL FINDINGS: None. IMPRESSION: 1. No acute intracranial abnormality. 2. Moderately advanced stable microangiopathy Signer Name: Jerson Butler MD Signed: 08/06/2020 9:23 PM Workstation Name: [id number]
--- NOTE | 2020-08-06 21:29 | XRay Report ---
BILATERAL KNEE 3 VIEW(S) each INDICATION / CLINICAL INFORMATION: Fall - Pain COMPARISON: None available. FINDINGS: LEFT KNEE: BONES / JOINT(S): No acute fracture or subluxation. No significant arthritis. SOFT TISSUES: No significant abnormality. ADDITIONAL FINDINGS: None. RIGHT KNEE: BONES / JOINT(S): No acute fracture or subluxation. No significant arthritis. SOFT TISSUES: No significant abnormality. ADDITIONAL FINDINGS: None. Signer Name: Jerson Butler MD Signed: 08/06/2020 9:25 PM Workstation Name: [id number]
--- NOTE | 2020-08-06 21:34 | Cat Scan Report ---
CT LUMBAR SPINE WITHOUT CONTRAST INDICATION: Fall - pain. TECHNIQUE: All CT scans at this location are performed using CT dose reduction for ALARA by means of automated e xposure control. Axial CT images were obtained through the lumbar spine. Sagittal and coronal reforma tted images were produced. COMPARISON: Lumbar spine CT 10/01/2019 FINDINGS: Fracture: None. Subluxation: None. Mild levoscoliosis of lumbar spine again noted centered at L3 Spinal canal: No significant compromise. Disc spaces: Advanced discogenic degenerative disease with vacuum disc phenomenon L5-S1. Moderate dis cogenic degenerative disease L2-3 and mild discogenic degenerative disease L3-5. Facet joints: Moderate facet degenerative disease L1 4-S1. Paraspinal soft tissues: No soft tissue swelling. Normal. Additional findings: Extensive vascular calcifications again noted throughout nonaneurysmal aorta and both iliac arteries. Osteopenia is again noted. IMPRESSION: 1. Degenerative changes of lumbar spine, unchanged. No fracture Signer Name: Jerson Butler MD Signed: 08/06/2020 9:29 PM Workstation Name: [id number]
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
[2020-08-06 22:27] VITALS: BP 140/80
== END 2020-08-06 22:26 | disposition home or self-care (01) ==
LOC: ED 17:20
DX: S00.03XA Contusion of scalp, initial encounter (principal); S83.92XA Sprain of unspecified site of left knee, initial encounter; S83.91XA Sprain of unspecified site of right knee, initial encounter; I10 Essential (primary) hypertension; K21.9 Gastro-esophageal reflux disease without esophagitis; M19.91 Primary osteoarthritis, unspecified site; G43.909 Migraine, unspecified, not intractable, without status migrainosus; J44.9 Chronic obstructive pulmonary disease, unspecified; Z86.711 Personal history of pulmonary embolism; F17.200 Nicotine dependence, unspecified, uncomplicated; Z90.49 Acquired absence of other specified parts of digestive tract; Z98.890 Other specified postprocedural states; Z79.899 Other long term (current) drug therapy; Z88.8 Allergy status to other drugs, medicaments and biological substances; W01.0XXA Fall on same level from slipping, tripping and stumbling without subsequent striking against object, initial encounter; Y93.89 Activity, other specified; Y92.410 Unspecified street and highway as the place of occurrence of the external cause; Y99.8 Other external cause status
CPT/HCPCS: 70450; 72125; 72131

== ENCOUNTER 2020-10-01 09:33 | Emergency (ER) | payer MEDICARE ==
[2020-10-01 09:43] VITALS: BP 151/51
--- NOTE | 2020-10-01 10:25 | Emergency Department Report ---
ED Extremity Problem HPI - General Chief complaint: Back Pain/Injury Stated complaint: RT HIP PAINS Time Seen by Provider: 10/01/20 10:12 Source: patient Mode of arrival: Ambulatory Limitations: No Limitations - History of Present Illness Initial comments: The patient was evaluated in the emergency department for symptoms described in the history of present illness. He/she was evaluated in the context of the global COVID-19 pandemic, which necessitated consideration that the patient might be at risk for infection with the virus that causes COVID-19. Institutional protocols and algorithms that pertain to the evaluation of patients at risk for COVID-19 are in a state of rapid change based on information released by regulatory bodies including the CDC and federal and state organizations. These policies and algorithms were followed during the patient's care in the emergency department. Please note that these policies, procedures and recommendations changed on a rapid basis. 70-year-old female that is well-known here in our emergency room comes in for nontraumatic right hip pain. Patient states that she woke up in the morning and started having pain in her right hip. Patient denies any trauma has not taken anything for pain. She denies any dysuria no vaginal bleeding or vaginal discharge. She denies any fever chills no nausea no vomiting. Patient has multiple allergies to Toradol codeine and Robaxin. Patient has a significant history of fibromyalgia arthritis GERD COPD and multiple surgeries. Patient does have a primary care doctor Dr. Demarcus Alba has not seen in 2 months. MD Complaint: extremity pain Location: right Severity scale (0 -10): 8 Quality: aching, sharp Consistency: constant Improves with: immobilization Worsens with: weight bearing, walking Associated Symptoms: denies other symptoms - Related Data Home Medications Medication Instructions Recorded Confirmed Last Taken Zolpidem [Ambien] 5 mg PO QHS PRN 09/24/18 08/18/19 Unknown Previous Rx's Medication Instructions Recorded Last Taken Type ALPRAZolam [Xanax TAB] 1 mg PO BID PRN #30 tablet 09/21/17 Unknown Rx Amlodipine Besylate [Norvasc] 5 mg PO QDAY #30 tablet 09/21/17 Unknown Rx Albuterol Sulfate [Proair 90 mcg IH Q4HR PRN #2 aer.pow.ba 08/18/19 Unknown Rx Respiclick] Aspirin [Aspirin BABY CHEW TAB] 81 mg PO QDAY #30 tab.chew 08/18/19 Unknown Rx Famotidine [Pepcid] 20 mg PO BID #10 tablet 08/18/19 Unknown Rx ALBUTEROL NEB's [Proventil 0.083% 5 mg IH TID PRN #20 neb 09/13/19 Unknown Rx NEBS] Benzonatate [Tessalon Perles] 100 mg PO Q8HR #10 capsule 09/13/19 Unknown Rx DOXYCYCLINE Hyclate [Vibramycin 100 mg PO Q12HR #14 capsule 09/13/19 Unknown Rx CAP] HYDROcodone/APAP 5-325 [[place] 1 each PO Q6HR PRN #14 tablet 09/13/19 Unknown Rx 5/325] Dicyclomine [Bentyl] 20 mg PO Q6H PRN #24 tablet 12/06/19 Unknown Rx Ondansetron [Zofran Odt] 4 mg PO Q6HR PRN #20 tab.rapdis 12/06/19 Unknown Rx tiZANidine [Zanaflex 4mg TAB] 4 mg PO Q8H PRN #21 tablet 12/06/19 Unknown Rx traMADoL [Ultram] 50 mg PO Q6HR PRN #12 tablet 12/06/19 Unknown Rx Metaxalone [Skelaxin] 800 mg PO TID #20 tablet 01/16/20 Unknown Rx Acetaminophen [Tylenol] 500 mg PO Q6HR PRN #30 tablet 08/06/20 Unknown Rx predniSONE [Deltasone] 50 mg PO QDAY #5 tab 08/06/20 Unknown Rx Acetaminophen [Non-Aspirin Extra 500 mg PO Q6HR PRN #30 tablet 10/01/20 Unknown Rx Strength] Allergies Allergy/AdvReac Type Severity Reaction Status Date / Time codeine Allergy THROAT Verified 12/06/19 16:16 CLOSES Iodinated Contrast Media Allergy ITCHES, Verified 12/06/19 16:16 [Iodinated Contrast- Oral FEELS LIKE and IV Dye] SHE IS ON FIRE ketorolac [From Toradol] Allergy Headache Verified 12/06/19 16:16 ketorolac tromethamine Allergy Headache Verified 12/06/19 16:16 [From Toradol] methocarbamol [From Robaxin] Allergy Headache Verified 12/06/19 16:16 Penicillins Allergy Swelling Verified 12/06/19 16:16 OF FACE HAND AND THROAT CLOSES strawberry Allergy Rash Verified 12/06/19 16:16 aspirin AdvReac Bleeding Verified 12/06/19 16:16 strawberry Allergy Hives Uncoded 09/13/19 13:13 ED Review of Systems ROS: Stated complaint: RT HIP PAINS Other details as noted in HPI Comment: All other systems reviewed and negative ED Past Medical Hx - Past Medical History Hx Hypertension: Yes Hx Pulmonary Embolism: Yes (40 years ago) Hx GERD: Yes Hx Sickle Cell Disease: No Hx Arthritis: Yes Hx Headaches / Migraines: Yes Hx Kidney Stones: Yes Hx Asthma: Yes Hx COPD: Yes (no home O2) Additional medical history: Fibromyalgia, MVP, peptic ulcers, repeat pneumonia - Surgical History Hx Pacemaker: No Hx Internal Defibrillator: No Hx Cholecystectomy: Yes Additional Surgical History: right wrist metal plate, Right ovarian cyst removal. cataract, left Achilles tendon repair and left ankle instrumentation, gall bladder removal - Social History Smoking Status: Current Every Day Smoker Substance Use Type: None - Medications Home Medications: Home Medications Medication Instructions Recorded Confirmed Last Taken Type ALPRAZolam [Xanax TAB] 1 mg PO BID PRN #30 tablet 09/21/17 08/18/19 Unknown Rx Amlodipine Besylate [Norvasc] 5 mg PO QDAY #30 tablet 09/21/17 08/18/19 Unknown Rx Zolpidem [Ambien] 5 mg PO QHS PRN 09/24/18 08/18/19 Unknown History Albuterol Sulfate [Proair 90 mcg IH Q4HR PRN #2 aer.pow.ba 08/18/19 Unknown Rx Respiclick] Aspirin [Aspirin BABY CHEW TAB] 81 mg PO QDAY #30 tab.chew 08/18/19 Unknown Rx Famotidine [Pepcid] 20 mg PO BID #10 tablet 08/18/19 Unknown Rx ALBUTEROL NEB's [Proventil 0.083% 5 mg IH TID PRN #20 neb 09/13/19 Unknown Rx NEBS] Benzonatate [Tessalon Perles] 100 mg PO Q8HR #10 capsule 09/13/19 Unknown Rx DOXYCYCLINE Hyclate [Vibramycin 100 mg PO Q12HR #14 capsule 09/13/19 Unknown Rx CAP] HYDROcodone/APAP 5-325 [[place] 1 each PO Q6HR PRN #14 tablet 09/13/19 Unknown Rx 5/325] Dicyclomine [Bentyl] 20 mg PO Q6H PRN #24 tablet 12/06/19 Unknown Rx Ondansetron [Zofran Odt] 4 mg PO Q6HR PRN #20 tab.rapdis 12/06/19 Unknown Rx tiZANidine [Zanaflex 4mg TAB] 4 mg PO Q8H PRN #21 tablet 12/06/19 Unknown Rx traMADoL [Ultram] 50 mg PO Q6HR PRN #12 tablet 12/06/19 Unknown Rx Metaxalone [Skelaxin] 800 mg PO TID #20 tablet 01/16/20 Unknown Rx Acetaminophen [Tylenol] 500 mg PO Q6HR PRN #30 tablet 08/06/20 Unknown Rx predniSONE [Deltasone] 50 mg PO QDAY #5 tab 08/06/20 Unknown Rx Acetaminophen [Non-Aspirin Extra 500 mg PO Q6HR PRN #30 tablet 10/01/20 Unknown Rx Strength] ED Physical Exam - General Limitations: No Limitations General appearance: alert, in no apparent distress - Head Head exam: Present: atraumatic, normocephalic - Eye Eye exam: Present: normal appearance - ENT ENT exam: Present: mucous membranes moist - Neck Neck exam: Present: normal inspection - Respiratory Respiratory exam: Absent: accessory muscle use - Cardiovascular Cardiovascular Exam: Present: regular rate, normal rhythm. Absent: systolic murmur, diastolic murmur, rubs, gallop - GI/Abdominal GI/Abdominal exam: Present: soft. Absent: distended, tenderness, guarding - Expanded Lower Extremity Exam Right Hip exam: Present: full ROM, tenderness (Pelvic iliac crest) Upper Leg exam: Present: full ROM Knee exam: Present: normal inspection, full ROM Lower Leg exam: Present: normal inspection, full ROM Ankle exam: Present: normal inspection, full ROM Neuro vascular tendon exam: Present: no vascular compromise Gait: Positive: observed and limited by pain ED Course Vital Signs 10/01/20 09:40 Temperature 97.6 F Pulse Rate 81 Respiratory 20 Rate Blood Pressure 151/51 O2 Sat by Pulse 95 Oximetry ED Medical Decision Making - Medical Decision Making 70-year-old female that is well-known here in our emergency room comes in for nontraumatic right hip pain. Patient states that she woke up in the morning and started having pain in her right hip. Patient denies any trauma has not taken anything for pain. She denies any dysuria no vaginal bleeding or vaginal discharge. She denies any fever chills no nausea no vomiting. Patient has multiple allergies to Toradol codeine and Robaxin. Patient has a significant history of fibromyalgia arthritis GERD COPD and multiple surgeries. Patient does have a primary care doctor Dr. Demarcus Alba has not seen in 2 months. I discussed with patient that she can try taking her Tylenol for pain management and to follow-up with her primary care provider which is Dr. Demarcus Alba. Critical care attestation.: If time is entered above; I have spent that time in minutes in the direct care of this critically ill patient, excluding procedure time. ED Disposition Clinical Impression: Hip pain, right, Arthritis, Fibromyalgia Disposition: TO HOME OR SELFCARE Is pt being admited?: No Does the pt Need Aspirin: No Condition: Stable Instructions: Myofascial Pain Syndrome and Fibromyalgia, Arthritis, Easy-to-Re ad Additional Instructions: Take your pain medication as prescribed follow-up with Dr. Demarcus Alba the next week. Prescriptions: Acetaminophen [Non-Aspirin Extra Strength] 500 mg PO Q6HR PRN #30 tablet PRN Reason: Pain , Severe (7-10) Referrals: PRIMARY MD NUZHAT [Primary Care Provider] - 3-5 Days DEMARCUS ALBA MD [Staff Physician] - 3-5 Days
== END 2020-10-01 11:00 | disposition home or self-care (01) ==
LOC: ED 09:33
DX: M79.7 Fibromyalgia (principal); I10 Essential (primary) hypertension; K21.9 Gastro-esophageal reflux disease without esophagitis; M19.91 Primary osteoarthritis, unspecified site; G43.909 Migraine, unspecified, not intractable, without status migrainosus; J44.9 Chronic obstructive pulmonary disease, unspecified; F17.200 Nicotine dependence, unspecified, uncomplicated; Z90.49 Acquired absence of other specified parts of digestive tract; Z98.890 Other specified postprocedural states; Z79.899 Other long term (current) drug therapy; Z88.8 Allergy status to other drugs, medicaments and biological substances
CPT/HCPCS: 99281

== ENCOUNTER 2020-12-18 11:45 | Emergency (ER) | payer MEDICARE ==
[2020-12-18 12:20] VITALS: BP 141/73
[2020-12-18] MEDS ORDERED: traMADol 50 MG TAB PO ONE (12:32)
[2020-12-18] MEDS ORDERED: ACETAMINOPHEN 500 MG TAB PO ONE (12:32)
--- NOTE | 2020-12-18 12:33 | Emergency Department Report ---
ED Back Pain/Injury HPI - General Chief Complaint: Pain General Stated Complaint: HIP BONE/PAIN Time Seen by Provider: 12/18/20 12:22 Source: patient Limitations: Physical Limitation - History of Present Illness Initial Comments: 70-year-old female with a past medical history of COPD, not on home O2, hypertension, arthritis, peptic ulcer disease, fibromyalgia, anxiety and depre ssion presents to ED c/o Right lower back pain. Onset yesterday. She states she was stretching when she felt a pop in her right lower back pain. She states pain has been constant and worse with ambulation, weight bearing and bending. She reports mild numbness down into her right thigh but denies radiation of pain down her legs. She reports chronic urinary incontinence, nothing worse since pain started. She denies any bowel incontinence, urinary retention, abdominal pain, chest pain, SOB, UTI symptoms, fever or chills. She states she took a gabapentin which her PCP prescribed her before but it did not help with pain. She states she ran out of her ultram about 3 days ago. MD Complaint: back pain, back injury -: Sudden (yesterday ) - Related Data Previous Rx's Medication Instructions Recorded Last Taken Type ALPRAZolam [Xanax TAB] 1 mg PO BID PRN #30 tablet 09/21/17 Unknown Rx Amlodipine Besylate [Norvasc] 5 mg PO QDAY #30 tablet 09/21/17 Unknown Rx Albuterol Sulfate [Proair 90 mcg IH Q4HR PRN #2 aer.pow.ba 08/18/19 Unknown Rx Respiclick] Aspirin [Aspirin BABY CHEW TAB] 81 mg PO QDAY #30 tab.chew 08/18/19 Unknown Rx ALBUTEROL NEB's [Proventil 0.083% 5 mg IH TID PRN #20 neb 09/13/19 Unknown Rx NEBS] Metaxalone [Skelaxin] 800 mg PO TID #20 tablet 12/18/20 Unknown Rx traMADoL [Ultram 50 MG tab] 50 mg PO Q6HR PRN #12 tablet 12/18/20 Unknown Rx Allergies Allergy/AdvReac Type Severity Reaction Status Date / Time codeine Allergy THROAT Verified 12/06/19 16:16 CLOSES Iodinated Contrast Media Allergy ITCHES, Verified 12/06/19 16:16 [Iodinated Contrast- Oral FEELS LIKE and IV Dye] SHE IS ON FIRE ketorolac [From Toradol] Allergy Headache Verified 12/06/19 16:16 ketorolac tromethamine Allergy Headache Verified 12/06/19 16:16 [From Toradol] methocarbamol [From Robaxin] Allergy Headache Verified 12/06/19 16:16 Penicillins Allergy Swelling Verified 12/06/19 16:16 OF FACE HAND AND THROAT CLOSES strawberry Allergy Rash Verified 12/06/19 16:16 aspirin AdvReac Bleeding Verified 12/06/19 16:16 strawberry Allergy Hives Uncoded 09/13/19 13:13 ED Review of Systems ROS: Stated complaint: HIP BONE/PAIN Other details as noted in HPI Comment: All other systems reviewed and negative Musculoskeletal: back pain. denies: joint swelling, arthralgia, myalgia ED Past Medical Hx - Past Medical History Hx Hypertension: Yes Hx Pulmonary Embolism: Yes (40 years ago) Hx GERD: Yes Hx Sickle Cell Disease: No Hx Arthritis: Yes Hx Headaches / Migraines: Yes Hx Kidney Stones: Yes Hx Asthma: Yes Hx COPD: Yes (no home O2) Additional medical history: Fibromyalgia, MVP, peptic ulcers, repeat pneumonia - Surgical History Hx Pacemaker: No Hx Internal Defibrillator: No Hx Cholecystectomy: Yes Additional Surgical History: right wrist metal plate, Right ovarian cyst removal. cataract, left Achilles tendon repair and left ankle instrumentation, gall bladder removal - Social History Smoking Status: Current Every Day Smoker Substance Use Type: Prescribed - Medications Home Medications: Home Medications Medication Instructions Recorded Confirmed Last Taken Type ALPRAZolam [Xanax TAB] 1 mg PO BID PRN #30 tablet 09/21/17 08/18/19 Unknown Rx Amlodipine Besylate [Norvasc] 5 mg PO QDAY #30 tablet 09/21/17 08/18/19 Unknown Rx Albuterol Sulfate [Proair 90 mcg IH Q4HR PRN #2 aer.pow.ba 08/18/19 Unknown Rx Respiclick] Aspirin [Aspirin BABY CHEW TAB] 81 mg PO QDAY #30 tab.chew 08/18/19 Unknown Rx ALBUTEROL NEB's [Proventil 0.083% 5 mg IH TID PRN #20 neb 09/13/19 Unknown Rx NEBS] Metaxalone [Skelaxin] 800 mg PO TID #20 tablet 12/18/20 Unknown Rx traMADoL [Ultram 50 MG tab] 50 mg PO Q6HR PRN #12 tablet 12/18/20 Unknown Rx ED Physical Exam - General Limitations: Physical Limitation General appearance: alert, in no apparent distress - Head Head exam: Present: atraumatic, normocephalic, normal inspection - Eye Eye exam: Present: normal appearance, PERRL, EOMI Pupils: Present: normal accommodation - Respiratory Respiratory exam: Present: normal lung sounds bilaterally. Absent: respiratory distress - Cardiovascular Cardiovascular Exam: Present: regular rate, normal rhythm, normal heart sounds - GI/Abdominal GI/Abdominal exam: Present: soft. Absent: distended, tenderness - Back Exam Back exam: Present: normal inspection, tenderness (soft tissue/paraspinal muscle right lower lumbar and mild line lower lumbar), paraspinal tenderness (right lower lumbar), vertebral tenderness (lower lumbar). Absent: full ROM (Reduced due to pain. ) - Neurological Exam Neurological exam: Present: alert, oriented X3, CN II-XII intact, normal gait - Psychiatric Psychiatric exam: Present: normal affect, normal mood - Skin Skin exam: Present: intact ED Course Vital Signs 12/18/20 12/18/20 12/18/20 12:19 13:32 13:59 Temperature 98.2 F Pulse Rate 64 Respiratory 24 18 18 Rate Blood Pressure 141/73 O2 Sat by Pulse 99 Oximetry 12/18/20 14:00 Temperature Pulse Rate Respiratory 18 Rate Blood Pressure O2 Sat by Pulse Oximetry ED Medical Decision Making - Radiology Data Radiology results: report reviewed Findings [facility] [address] [place] [address] XRay Report Signed Patient: AMY BENTLEY MR#: [id number] : 1950 Acct:[id number] Age/Sex: 70 / F ADM Date: 12/18/20 Loc: ED Attending Dr: Ordering Physician: CATE SHERIDAN Date of Service: 12/18/20 Procedure(s): XR spine lumbosacral 2-3V Accession Number(s): [id number] cc: CATE SHERIDAN Fluoro Time In Minutes: LUMBAR SPINE 3 VIEWS INDICATION: Low back pain after fall. COMPARISON: CT lumbar spine without contrast from 08/06/2020. FINDINGS: VERTEBRAE: No acute fracture. Normal alignment. DISC SPACES: Similar generalized moderate discogenic degenerative changes. FACET JOINTS: Multilevel facet hypertrophy is unchanged. SOFT TISSUES: No acute abnormality. Severe aortoiliac atherosclerosis is again noted. ADDITIONAL FINDINGS: No additional significant findings. IMPRESSION: 1. No acute findings. 2. Stable moderate lumbar spondylosis. Signer Name: Eric Dunlap MD Signed: 12/18/2020 1:33 PM Workstation Name: [id number] Transcribed By: [place] Dictated By: Eric Dunlap MD Electronically Authenticated By: Eric Dunlap MD Signed Date/Time: 12/18/201332 DD/ 31 TD/TT: - Medical Decision Making The patient presented with back pain. The patient is resting comfortably and is alert, talkative, interactive and in no distress. The patient is neurolo gically intact and is ambulatory in the ED. the patient has no fever, no bowel or bladder incontinence, no saddle anesthesia and is otherwise alert and well- appearing. Her history, physical examination and diagnostic testing does not suggest the presence of acute spinal epidural abscess, acute epidural bleed, cauda equina syndrome, abdominal/thoracic aortic aneurysm, aortic dissection or other acute process requiring further testing, treatment or consultation in the emergency department. The vital signs have been stable. The patient condition is stable and appropriate for discharge. The patient will pursue further outpatient evaluation with the primary care physician or other designated or consulting physician as indicated in the discharge instructions. Critical care attestation.: If time is entered above; I have spent that time in minutes in the direct care of this critically ill patient, excluding procedure time. ED Disposition Clinical Impression: Lumbar spine strain Disposition: - TO HOME OR SELFCARE Is pt being admited?: No Does the pt Need Aspirin: No Condition: Stable Instructions: Lumbar Sprain Additional Instructions: Take the ultram and muscle relaxer as prescribed. You can also do over the counter rubs or patches like (salon Pas). Follow up with your PCP next week. Return to ED if your symptoms changes or worsens. Prescriptions: Metaxalone [Skelaxin] 800 mg PO TID #20 tablet traMADoL [Ultram 50 MG tab] 50 mg PO Q6HR PRN #12 tablet PRN Reason: Pain Referrals: PAT ACOSTA MD [Primary Care Provider] - 3-5 Days Time of Disposition: 13:47
--- NOTE | 2020-12-18 13:38 | XRay Report ---
LUMBAR SPINE 3 VIEWS INDICATION: Low back pain after fall. COMPARISON: CT lumbar spine without contrast from 08/06/2020. FINDINGS: VERTEBRAE: No acute fracture. Normal alignment. DISC SPACES: Similar generalized moderate discogenic degenerative changes. FACET JOINTS: Multilevel facet hypertrophy is unchanged. SOFT TISSUES: No acute abnormality. Severe aortoiliac atherosclerosis is again noted. ADDITIONAL FINDINGS: No additional significant findings. IMPRESSION: 1. No acute findings. 2. Stable moderate lumbar spondylosis. Signer Name: Eric Dunlap MD Signed: 12/18/2020 1:33 PM Workstation Name: [id number]
== END 2020-12-18 14:00 | disposition home or self-care (01) ==
LOC: ED 11:45
DX: S39.012A Strain of muscle, fascia and tendon of lower back, initial encounter (principal); I10 Essential (primary) hypertension; K21.9 Gastro-esophageal reflux disease without esophagitis; G43.909 Migraine, unspecified, not intractable, without status migrainosus; J45.909 Unspecified asthma, uncomplicated; Z90.49 Acquired absence of other specified parts of digestive tract; F17.200 Nicotine dependence, unspecified, uncomplicated; Z98.890 Other specified postprocedural states; Z79.82 Long term (current) use of aspirin; Z79.899 Other long term (current) drug therapy; Z88.6 Allergy status to analgesic agent; Z88.8 Allergy status to other drugs, medicaments and biological substances; X58.XXXA Exposure to other specified factors, initial encounter; Y93.89 Activity, other specified; Y92.89 Other specified places as the place of occurrence of the external cause; Y99.8 Other external cause status
CPT/HCPCS: 72100; 99283

== ENCOUNTER 2021-05-06 22:55 | Emergency (ER) | payer MEDICARE ==
[2021-05-07 03:26] LABS: Basophils % (Auto) 0.3 % (0.0-1.8); Eosinophils # (Auto) 0.1 K/mm3 (0.0-0.4); Eosinophils % (Auto) 0.9 % (0.0-4.3); Hematocrit 32.9 % (30.3-42.9); Lymphocytes # (Auto) 1.9 K/mm3 (1.2-5.4); Lymphocytes % (Auto) 23.3 % (13.4-35.0); Mean Corpuscular HGB Conc 33 % (30-34); Mean Corpuscular Volume 81 fl (79-97); Monocytes # (Auto) 0.9 K/mm3 (0.0-0.8); Monocytes % (Auto) 11.5 % (0.0-7.3); Platelet Count 322 K/mm3 (140-440); Red Blood Count 4.08 M/mm3 (3.65-5.03); Red Cell Distribution Width 15.8 % (13.2-15.2)
[2021-05-07 03:30] LABS: Blood Urea Nitrogen 7 mg/dL (7-17); Calcium 9.1 mg/dL (8.4-10.2); Hemolysis Index 3
[2021-05-07 03:32] LABS: BUN/Creatinine Ratio 14
--- NOTE | 2021-05-07 05:20 | Emergency Department Report ---
ED General Adult HPI - General Chief complaint: Extremity Injury, Lower Stated complaint: FEET/LEGS SWELLING/PAINFUL Time Seen by Provider: 05/07/21 01:47 Source: patient Mode of arrival: Ambulatory Limitations: No Limitations - History of Present Illness Initial comments: 70-year-old female with a past medical history of COPD, current lung cancer diagnosed in January 2021 and undergoing chemo, hypertension presents emerged department complaining of a 1 to 2-week history of progressively worsening lower extremity swelling of unknown etiology. She was seen by primary care provider on yesterday and underwent an ultrasound which showed no blood clots but states that the swelling has progressed from her left lower extremity and began to include her right lower extremity for reasons unknown. She reports no shortness of breath reports no exertional dyspnea reports no fever, chills, sweats reports no nausea, no vomiting states she just started chemo and had taken her of her first round shortly after the swelling has began Radiation: non-radiation Quality: dull Improves with: none Worsens with: none Associated Symptoms: denies: confusion, chest pain, cough, loss of appetite, malaise, nausea/vomiting, rash, syncope, weakness - Related Data Home Medications Medication Instructions Recorded Confirmed Last Taken ALBUTEROL NEB's [Proventil 0.083% 5 mg IH BID PRN 01/09/21 01/09/21 Unknown NEBS] Amlodipine Besylate [Norvasc] 10 mg PO QDAY 01/09/21 01/09/21 01/08/21 Mirabegron [Myrbetriq] 25 mg PO DAILY 01/09/21 01/09/21 Unknown Zolpidem [Ambien] 10 mg PO QHS 01/09/21 01/09/21 01/08/21 Previous Rx's Medication Instructions Recorded Last Taken Type ALPRAZolam [Xanax TAB] 1 mg PO BID PRN #30 tablet 09/21/17 01/08/21 Rx Albuterol Sulfate [Proair 90 mcg IH Q4HR PRN #2 aer.[email or web address] 08/18/19 Unknown Rx Respiclick] traMADoL [Ultram 50 MG tab] 50 mg PO Q6HR PRN #12 tablet 12/18/20 01/08/21 Rx oxyCODONE /ACETAMINOPHEN [Percocet 1 tab PO Q6H PRN 2 Days #8 tablet 01/11/21 Unknown Rx 5/325 mg] oxyCODONE ER [oxyCONTIN ER] 10 mg PO Q12HR #10 tablet 01/12/21 Unknown Rx predniSONE [Deltasone] 20 mg PO QDAY #6 tab 01/12/21 Unknown Rx Compression Socks, Large 1 each MC DAILY #1 each 05/07/21 Unknown Rx [Lifestylecomfort Socks] Allergies Allergy/AdvReac Type Severity Reaction Status Date / Time codeine Allergy THROAT Verified 12/06/19 16:16 CLOSES Iodinated Contrast Media Allergy ITCHES, Verified 12/06/19 16:16 [Iodinated Contrast- Oral FEELS LIKE and IV Dye] SHE IS ON FIRE ketorolac [From Toradol] Allergy Headache Verified 12/06/19 16:16 ketorolac tromethamine Allergy Headache Verified 12/06/19 16:16 [From Toradol] methocarbamol [From Robaxin] Allergy Headache Verified 12/06/19 16:16 Penicillins Allergy Swelling Verified 12/06/19 16:16 OF FACE HAND AND THROAT CLOSES strawberry Allergy Rash Verified 12/06/19 16:16 aspirin AdvReac Bleeding Verified 12/06/19 16:16 strawberry Allergy Hives Uncoded 09/13/19 13:13 ED Review of Systems ROS: Stated complaint: FEET/LEGS SWELLING/PAINFUL Other details as noted in HPI Comment: All other systems reviewed and negative ED Past Medical Hx - Past Medical History Previous Medical History?: Yes Hx Hypertension: Yes Hx Pulmonary Embolism: Yes (40 years ago) Hx GERD: Yes Hx Sickle Cell Disease: No Hx Arthritis: Yes Hx Headaches / Migraines: Yes Hx Kidney Stones: Yes Hx Asthma: Yes Hx COPD: Yes (no home O2) Additional medical history: Fibromyalgia, MVP, peptic ulcers, repeat pneumonia, Lung cancer - Surgical History Hx Pacemaker: No Hx Internal Defibrillator: No Hx Cholecystectomy: Yes Additional Surgical History: right wrist metal plate, Right ovarian cyst removal. cataract, left Achilles tendon repair and left ankle instrumentation, gall bladder removal - Social History Smoking Status: Current Every Day Smoker - Medications Home Medications: Home Medications Medication Instructions Recorded Confirmed Last Taken Type ALPRAZolam [Xanax TAB] 1 mg PO BID PRN #30 tablet 09/21/17 01/09/21 01/08/21 Rx Albuterol Sulfate [Proair 90 mcg IH Q4HR PRN #2 aer.pow.ba 08/18/19 01/09/21 Unknown Rx Respiclick] traMADoL [Ultram 50 MG tab] 50 mg PO Q6HR PRN #12 tablet 12/18/20 01/09/21 01/08/21 Rx ALBUTEROL NEB's [Proventil 0.083% 5 mg IH BID PRN 01/09/21 01/09/21 Unknown History NEBS] Amlodipine Besylate [Norvasc] 10 mg PO QDAY 01/09/21 01/09/21 01/08/21 History Mirabegron [Myrbetriq] 25 mg PO DAILY 01/09/21 01/09/21 Unknown History Zolpidem [Ambien] 10 mg PO QHS 01/09/21 01/09/21 01/08/21 History oxyCODONE /ACETAMINOPHEN [Percocet 1 tab PO Q6H PRN 2 Days #8 tablet 01/11/21 Unknown Rx 5/325 mg] oxyCODONE ER [oxyCONTIN ER] 10 mg PO Q12HR #10 tablet 01/12/21 Unknown Rx predniSONE [Deltasone] 20 mg PO QDAY #6 tab 01/12/21 Unknown Rx Compression Socks, Large 1 each MC DAILY #1 each 05/07/21 Unknown Rx [Lifestylecomfort Socks] ED Physical Exam - General Limitations: No Limitations General appearance: alert, in no apparent distress - Head Head exam: Present: atraumatic, normocephalic - Eye Eye exam: Present: normal appearance, PERRL, EOMI Pupils: Present: normal accommodation - ENT ENT exam: Present: normal exam, mucous membranes moist. Absent: normal orophraynx - Neck Neck exam: Present: normal inspection, full ROM - Respiratory Respiratory exam: Present: normal lung sounds bilaterally. Absent: respiratory distress - Cardiovascular Cardiovascular Exam: Present: regular rate, normal rhythm. Absent: systolic murmur, diastolic murmur, rubs, gallop - GI/Abdominal GI/Abdominal exam: Present: soft, normal bowel sounds. Absent: guarding - Extremities Exam Extremities exam: Present: normal inspection, pedal edema (Nonpitting pulses 2+ no Homans' sign no cord sign no popliteal mass) - Back Exam Back exam: Present: normal inspection - Neurological Exam Neurological exam: Present: alert, oriented X3 - Psychiatric Psychiatric exam: Present: normal affect, normal mood - Skin Skin exam: Present: warm, dry, intact, normal color. Absent: rash ED Course Vital Signs 05/06/21 05/06/21 23:09 23:10 Temperature 98.6 F Pulse Rate 78 Respiratory 18 18 Rate Blood Pressure 153/67 ED Medical Decision Making - Lab Data Result diagrams: 05/07/21 02:56 05/07/21 02:56 Lab Results 05/07/21 05/07/21 Range/Units 02:56 02:56 WBC 8.1 (4.5-11.0) K/mm3 RBC 4.08 (3.65-5.03) M/mm3 Hgb 11.0 (10.1-14.3) gm/dl Hct 32.9 (30.3-42.9) % MCV 81 (79-97) fl MCH 27 L (28-32) pg MCHC 33 (30-34) % RDW 15.8 H (13.2-15.2) % Plt Count 322 (140-440) K/mm3 Lymph % (Auto) 23.3 (13.4-35.0) % [place] % (Auto) 11.5 H (0.0-7.3) % Eos % (Auto) 0.9 (0.0-4.3) % Baso % (Auto) 0.3 (0.0-1.8) % Lymph # (Auto) 1.9 (1.2-5.4) K/mm3 [place] # (Auto) 0.9 H (0.0-0.8) K/mm3 Eos # (Auto) 0.1 (0.0-0.4) K/mm3 Baso # (Auto) 0.0 (0.0-0.1) K/mm3 Seg Neutrophils % 64.0 (40.0-70.0) % Seg Neutrophils # 5.2 (1.8-7.7) K/mm3 Sodium 141 (137-145) mmol/L Potassium 4.0 (3.6-5.0) mmol/L Chloride 104.0 (98-107) mmol/L Carbon Dioxide 25 (22-30) mmol/L Anion Gap 16 mmol/L BUN 7 (7-17) mg/dL Creatinine 0.5 L (0.6-1.2) mg/dL Estimated GFR > 60 ml/min BUN/Creatinine Ratio 14 % Glucose 105 H (65-100) mg/dL Calcium 9.1 (8.4-10.2) mg/dL NT-Pro-B Natriuret Pep 54.98 (0-900) pg/mL - Medical Decision Making 70-year-old female with admitted with lower extremity swelling likely secondary to her chemotherapy. No evidence of any infectious process or other vaso- occlusive process present we will start patient on MARCELA stockings have her follow-up with her primary care provider Critical care attestation.: If time is entered above; I have spent that time in minutes in the direct care of this critically ill patient, excluding procedure time. ED Disposition Clinical Impression: Lower extremity edema Disposition: - TO HOME OR SELFCARE Is pt being admited?: No Does the pt Need Aspirin: No Condition: Stable Instructions: Peripheral Edema Additional Instructions: You were seen in the emergency department today for lower extremity edema with evaluation today and on yesterday by your primary care provider with negative ultrasound did not show any evidence of any conditions require any emergent intervention at this time Recommend follow-up with your primary care provider and chemo provider to alert them of your swelling and follow the recommendations for any necessary intervention. If needed you can alternate Tylenol and Motrin for your disc. Please be sure to follow-up with the listed provider in the timeframe recommended. Return to the ER immediately for worsening or uncontrolled pain, difficulty walking, numbness or weakness in your arms or legs, chest pain, shortness of breath, confusion, vomiting, or for any other concerning symptoms. Prescriptions: Compression Socks, Large [Lifestylecomfort Socks] 1 each DAILY #1 each Referrals: BINH ORTIZ MD [Staff Physician] - 3-5 Days PRIMARY CARE, [Primary Care Provider] - 3-5 Days
[2021-05-07 06:35] VITALS: BP 148/69
== END 2021-05-07 06:00 | disposition home or self-care (01) ==
LOC: ED 22:55
DX: R60.0 Localized edema (principal); I10 Essential (primary) hypertension; K21.9 Gastro-esophageal reflux disease without esophagitis; G43.909 Migraine, unspecified, not intractable, without status migrainosus; M19.90 Unspecified osteoarthritis, unspecified site; J44.9 Chronic obstructive pulmonary disease, unspecified; F17.200 Nicotine dependence, unspecified, uncomplicated; Z87.442 Personal history of urinary calculi; Z86.711 Personal history of pulmonary embolism; Z88.5 Allergy status to narcotic agent; Z88.8 Allergy status to other drugs, medicaments and biological substances; Z91.041 Radiographic dye allergy status
CPT/HCPCS: 36415; 80048; 83880; 85025; 99283

== ENCOUNTER 2021-06-06 08:48 | Outpatient (CLI) | payer MEDICARE ==
--- NOTE | 2021-06-06 10:00 | XRay Report ---
LEFT ANKLE 2 VIEWS INDICATION: EDEMA OF SOFT TISSUE OF LEFT ANKLE REGION. COMPARISON: None. IMPRESSION: There is mild diffuse soft tissue swelling or edema. Borderline to mild osteopenia is starr spected. Minimal osteoarthritic changes are identified at the tibiotalar joint. No fracture or bone lesion. LEFT FOOT 2 VIEWS INDICATION: EDEMA OF SOFT TISSUE OF LEFT ANKLE REGION. COMPARISON: None. IMPRESSION: There is mild soft tissue swelling or edema. Borderline bone mineralization. Mild osteoa rthritic changes are identified at the first metatarsophalangeal joint. No erosive joint pathology. No acute osseous abnormality or bone lesion. Moderate to large plantar spur is noted on the lateral v iew. Signer Name: Darrion Echeverria Jr, MD Signed: 06/06/2021 9:55 AM Workstation Name: [id number]
== END 2021-06-06 08:49 | disposition home or self-care (01) ==
LOC: XRAY 08:48
PROVIDERS: ATTEND Internal Medicine Hematology & Oncology
DX: M19.072 Primary osteoarthritis, left ankle and foot (principal); R60.0 Localized edema; M79.89 Other specified soft tissue disorders; M77.8 Other enthesopathies, not elsewhere classified

== ENCOUNTER 2021-11-30 08:21 | Emergency (ER) | payer MEDICARE ==
[2021-11-30] MEDS ORDERED: MORPHINE 4 MG/1 ML INJ IV ONE (09:13)
[2021-11-30] MEDS ORDERED: ONDANSETRON 4 MG/2 ML INJ IV ONE (09:13)
--- NOTE | 2021-11-30 09:53 | Emergency Department Report ---
ED General Adult HPI - General Chief complaint: Medical Clearance Stated complaint: CAN'T SWALLOW PUI?: No Time Seen by Provider: 11/30/21 08:45 Source: patient, RN notes reviewed, old records reviewed Mode of arrival: Ambulatory Limitations: No Limitations - History of Present Illness Initial comments: The patient was evaluated in the emergency department for symptoms described in the history of present illness. He/she was evaluated in the context of the global COVID-19 pandemic, which necessitated consideration that the patient might be at risk for infection with the virus that causes COVID-19. Institutional protocols and algorithms that pertain to the evaluation of patients at risk for COVID-19 are in a state of rapid change based on information released by regulatory bodies including the CDC and federal and state organizations. These policies and algorithms were followed during the patient's care in the emergency department. Please note that these policies, procedures and recommendations changed on a rapid basis. The patient is a 71-year-old female. Her past medical history includes probable lung cancer and she is receiving chemotherapy. She also has a history of hypertension, tobacco use disorder, COPD, peptic ulcer disease, asthma, fibromyalgia, renal stones, migraine. The patient presents to the ER with 2 complaints. Her first complaint is difficulty swallowing for the past week. She is able to take some of her prescription medications, but has reportedly run out of her pain medications. Denies fever, loss of taste and smell, new/different cough, lower abdominal pain, vomiting. She is passing gas and defecating. Her next complaint is right flank pain, dark-colored urine, dysuria, and urinary frequency. The patient reports "I think I have a urinary tract infection or a kidney inf ection." The symptoms in her right flank have been going on for a few weeks. -: Gradual, days(s), week(s) Location: right (Flank) Radiation: non-radiation Quality: other Consistency: other Improves with: other Worsens with: other - Related Data Home Medications Medication Instructions Recorded Confirmed Last Taken ALBUTEROL NEB's [Proventil 0.083% 5 mg IH BID PRN 01/09/21 01/09/21 Unknown NEBS] Amlodipine Besylate [Norvasc] 10 mg PO QDAY 01/09/21 01/09/21 01/08/21 Mirabegron [Myrbetriq] 25 mg PO DAILY 01/09/21 01/09/21 Unknown Zolpidem [Ambien] 10 mg PO QHS 01/09/21 01/09/21 01/08/21 Previous Rx's Medication Instructions Recorded Last Taken Type Albuterol Sulfate [Proair 90 mcg IH Q4HR PRN #2 aer.pow.ba 08/18/19 Unknown Rx Respiclick] oxyCODONE /ACETAMINOPHEN [Percocet 1 tab PO Q6H PRN 2 Days #8 tablet 01/11/21 Unknown Rx 5/325 mg] oxyCODONE ER [oxyCONTIN ER] 10 mg PO Q12HR #10 tablet 01/12/21 Unknown Rx predniSONE [Deltasone] 20 mg PO QDAY #6 tab 01/12/21 Unknown Rx Compression Socks, Large 1 each MC DAILY #1 each 05/07/21 Unknown Rx [Lifestylecomfort Socks] Deepali Root [Deepali] 250 mg PO QID PRN #30 capsule 11/30/21 Unknown Rx Ondansetron [Zofran Odt] 4 mg PO Q8HR PRN #20 tab.rapdis 11/30/21 Unknown Rx Oxycodone HCl [oxyCODONE 1 MG/ML 5 mg PO Q6HR PRN 5 Days #1 bottle 11/30/21 Unknown Rx ORAL LIQ] levoFLOXacin [Levaquin] 750 mg PO QDAY #10 tablet 11/30/21 Unknown Rx Allergies Allergy/AdvReac Type Severity Reaction Status Date / Time codeine Allergy THROAT Verified 12/06/19 16:16 CLOSES Iodinated Contrast Media Allergy ITCHES, Verified 12/06/19 16:16 [Iodinated Contrast- Oral FEELS LIKE and IV Dye] SHE IS ON FIRE ketorolac [From Toradol] Allergy Headache Verified 12/06/19 16:16 ketorolac tromethamine Allergy Headache Verified 12/06/19 16:16 [From Toradol] methocarbamol [From Robaxin] Allergy Headache Verified 12/06/19 16:16 Penicillins Allergy Swelling Verified 12/06/19 16:16 OF FACE HAND AND THROAT CLOSES strawberry Allergy Rash Verified 12/06/19 16:16 aspirin AdvReac Bleeding Verified 12/06/19 16:16 strawberry Allergy Hives Uncoded 09/13/19 13:13 ED Review of Systems ROS: Stated complaint: CAN'T SWALLOW Other details as noted in HPI Constitutional: malaise. denies: fever Eyes: denies: eye discharge ENT: denies: epistaxis Respiratory: cough (Chronic cough) Cardiovascular: denies: chest pain Gastrointestinal: abdominal pain (Epigastric abdominal pain). denies: vomiting Genitourinary: urgency, dysuria, frequency Musculoskeletal: back pain Neurological: weakness Hematological/Lymphatic: denies: easy bleeding ED Past Medical Hx - Past Medical History Hx Hypertension: Yes Hx Pulmonary Embolism: Yes (40 years ago) Hx GERD: Yes Hx Sickle Cell Disease: No Hx Arthritis: Yes Hx Headaches / Migraines: Yes Hx Kidney Stones: Yes Hx Asthma: Yes Hx COPD: Yes (no home O2) Additional medical history: Fibromyalgia, MVP, peptic ulcers, repeat pneumonia, Lung cancer - Surgical History Hx Pacemaker: No Hx Internal Defibrillator: No Hx Cholecystectomy: Yes Additional Surgical History: right wrist metal plate, Right ovarian cyst removal. cataract, left Achilles tendon repair and left ankle instrumentation, gall bladder removal - Social History Smoking Status: Current Every Day Smoker - Medications Home Medications: Home Medications Medication Instructions Recorded Confirmed Last Taken Type Albuterol Sulfate [Proair 90 mcg IH Q4HR PRN #2 aer.pow.ba 08/18/19 01/09/21 Unknown Rx Respiclick] ALBUTEROL NEB's [Proventil 0.083% 5 mg IH BID PRN 01/09/21 01/09/21 Unknown History NEBS] Amlodipine Besylate [Norvasc] 10 mg PO QDAY 01/09/21 01/09/21 01/08/21 History Mirabegron [Myrbetriq] 25 mg PO DAILY 01/09/21 01/09/21 Unknown History Zolpidem [Ambien] 10 mg PO QHS 01/09/21 01/09/21 01/08/21 History oxyCODONE /ACETAMINOPHEN [Percocet 1 tab PO Q6H PRN 2 Days #8 tablet 01/11/21 Unknown Rx 5/325 mg] oxyCODONE ER [oxyCONTIN ER] 10 mg PO Q12HR #10 tablet 01/12/21 Unknown Rx predniSONE [Deltasone] 20 mg PO QDAY #6 tab 01/12/21 Unknown Rx Compression Socks, Large 1 each MC DAILY #1 each 05/07/21 Unknown Rx [Lifestylecomfort Socks] Deepali Root [Deepali] 250 mg PO QID PRN #30 capsule 11/30/21 Unknown Rx Ondansetron [Zofran Odt] 4 mg PO Q8HR PRN #20 tab.rapdis 11/30/21 Unknown Rx Oxycodone HCl [oxyCODONE 1 MG/ML 5 mg PO Q6HR PRN 5 Days #1 bottle 11/30/21 Unknown Rx ORAL LIQ] levoFLOXacin [Levaquin] 750 mg PO QDAY #10 tablet 11/30/21 Unknown Rx ED Physical Exam - General Limitations: No Limitations General appearance: alert, in no apparent distress - Head Head exam: Present: atraumatic, normocephalic - Eye Eye exam: Present: normal appearance, EOMI. Absent: nystagmus - ENT ENT exam: Present: normal exam, normal orophraynx, mucous membranes moist, normal external ear exam - Neck Neck exam: Present: normal inspection, full ROM. Absent: tenderness, meningismus - Respiratory Respiratory exam: Present: normal lung sounds bilaterally. Absent: respiratory distress, wheezes, rales, rhonchi, stridor, decreased breath sounds - Cardiovascular Cardiovascular Exam: Present: regular rate, normal rhythm, normal heart sounds. Absent: bradycardia, tachycardia, irregular rhythm, systolic murmur, diastolic murmur, rubs, gallop - GI/Abdominal GI/Abdominal exam: Present: soft. Absent: distended, tenderness, guarding, rebound, rigid, pulsatile mass - Extremities Exam Extremities exam: Present: normal inspection, full ROM, pedal edema, other (2+ pulses noted in the bilateral upper and lower extremities. There is no palpable cord. negative Homans sign. Muscular compartments are soft. The pelvis is stable.). Absent: calf tenderness - Back Exam Back exam: Present: normal inspection, CVA tenderness (R), paraspinal tenderness. Absent: tenderness, CVA tenderness (L), vertebral tenderness - Neurological Exam Neurological exam: Present: alert, oriented X3, normal gait, other (No facial droop. Tongue midline. Extraocular movements intact bilaterally. Facial sensation intact to light touch in V1, V2, V3 distribution bilaterally. 5 and a 5 strength in 4 extremities. Sensation intact to light touch in 4 extremities.). Absent: motor sensory deficit - Psychiatric Psychiatric exam: Present: normal affect, normal mood - Skin Skin exam: Present: warm, dry, intact, normal color. Absent: rash ED Course Vital Signs 11/30/21 08:34 Temperature 97.6 F Pulse Rate 71 Respiratory 16 Rate Blood Pressure 155/53 O2 Sat by Pulse 100 Oximetry - Reevaluation(s) Reevaluation #1: 11/30/21 09:51 Differential diagnosis, including but not limited to: Urinary tract infection, dysphasia, dehydration, electrolyte derangement, anemia Assessment and plan: 71-year-old female with 2 complaints. complaint #1, dysphagia for about 1-1/2 weeks. I provided this patient with an oral challenge with apple juice. She was able to drink a little bit of apple juice, but had a great deal of difficulty. She is reportedly scheduled for a barium swallow tomorrow. Since she is here, we will perform the barium swallow today. We will also check appropriate laboratory studies and EKG. Complaints #2, urinary symptoms and right flank pain. Check urinalysis and appropriate laboratory studies. Treat this patient's symptoms. As per review of prior medical records, she can tolerate morphine. Reassess after data points have resulted. Discussed this with the patient. She articulated understanding. 11/30/21 13:07 Laboratory studies reviewed and appreciated. She is found to have pyuria. Comprehensive metabolic panel unremarkable. CBC shows mild anemia, and mild leukopenia, likely related to recent chemotherapy. However, significant neutropenia is not demonstrated. X-ray the chest shows no acute findings. Swallow study demonstrates esophageal dysmotility without any obstructive process. I discussed these findings with the patient. She prefers to be discharged out of concern for COVID-19 numbers in the hospital. She reports that she is reliable to follow-up. She also is requesting a refill on her hydrocodone., she can tolerate hydromorphone as per review of prior charts. Load with Levaquin, discharge with Levaquin Which she has taken in the past, administer IV hydromorphone here in the emergency room for chronic pain control, have counseled patient that we can discharge with hydrocodone 5 mg, 4 to 5-day supply. She will need to follow-up with her outpatient primary care doctor, pain specialist or hematology applications specialist. Patient observed in this ER for hours without clinical decompensation. She can follow-up with an outpatient primary care provider or GI physician for her esophageal dysmotility. All questions answered. Return precautions reviewed 11/30/21 13:08 ED Medical Decision Making - Lab Data Result diagrams: 11/30/21 11:34 11/30/21 11:34 Vital Signs 11/30/21 08:34 Temperature 97.6 F Pulse Rate 71 Respiratory 16 Rate Blood Pressure 155/53 O2 Sat by Pulse 100 Oximetry Lab Results 11/30/21 11/30/21 11/30/21 Range/Units 11:34 11:34 11:34 WBC 2.5 L (4.5-11.0) K/mm3 RBC 3.37 L (3.65-5.03) M/mm3 Hgb 9.1 L (10.1-14.3) gm/dl Hct 28.0 L (30.3-42.9) % MCV 83 (79-97) fl MCH 27 L (28-32) pg MCHC 33 (30-34) % RDW 21.8 H (13.2-15.2) % Plt Count 196 (140-440) K/mm3 Lymph % (Auto) 33.4 (13.4-35.0) % [place] % (Auto) 9.2 H (0.0-7.3) % Eos % (Auto) 6.1 H (0.0-4.3) % Baso % (Auto) 0.6 (0.0-1.8) % Lymph # (Auto) 0.8 L (1.2-5.4) K/mm3 [place] # (Auto) 0.2 (0.0-0.8) K/mm3 Eos # (Auto) 0.2 (0.0-0.4) K/mm3 Baso # (Auto) 0.0 (0.0-0.1) K/mm3 Seg Neutrophils % 50.7 (40.0-70.0) % Seg Neutrophils # 1.3 L (1.8-7.7) K/mm3 PT 13.6 (12.2-14.9) Sec. INR 0.94 (0.87-1.13) Sodium 139 (137-145) mmol/L Potassium 4.1 (3.6-5.0) mmol/L Chloride 105.1 (98-107) mmol/L Carbon Dioxide 21 L (22-30) mmol/L Anion Gap 17 mmol/L BUN 13 (7-17) mg/dL Creatinine 0.6 (0.6-1.2) mg/dL Estimated GFR > 60 ml/min BUN/Creatinine Ratio 22 % Glucose 96 (65-100) mg/dL Calcium 9.4 (8.4-10.2) mg/dL Magnesium 1.90 (1.7-2.3) mg/dL Total Bilirubin 0.30 (0.1-1.2) mg/dL AST 17 (5-40) units/L ALT 16 (7-56) units/L Alkaline Phosphatase 107 (35-129) units/L Total Creatine Kinase 40 (30-135) units/L Total Protein 6.7 (6.3-8.2) g/dL Albumin 4.3 (3.9-5) g/dL Albumin/Globulin Ratio 1.8 % Urine Color (Yellow) Urine Turbidity (Clear) Urine pH (5.0-7.0) Ur Specific [place] (1.003-1.030) Urine Protein (Negative) mg/dL Urine Glucose (UA) (Negative) mg/dL Urine Ketones (Negative) mg/dL Urine Blood (Negative) Urine Nitrite (Negative) Urine Bilirubin (Negative) Urine Urobilinogen (<2.0) mg/dL Ur Leukocyte Esterase (Negative) Urine WBC (Auto) (0.0-6.0) /HPF Urine RBC (Auto) (0.0-6.0) /HPF U Epithel Cells (Auto) (0-13.0) /HPF 11/30/21 Range/Units Unknown WBC (4.5-11.0) K/mm3 RBC (3.65-5.03) M/mm3 Hgb (10.1-14.3) gm/dl Hct (30.3-42.9) % MCV (79-97) fl MCH (28-32) pg MCHC (30-34) % RDW (13.2-15.2) % Plt Count (140-440) K/mm3 Lymph % (Auto) (13.4-35.0) % [place] % (Auto) (0.0-7.3) % Eos % (Auto) (0.0-4.3) % Baso % (Auto) (0.0-1.8) % Lymph # (Auto) (1.2-5.4) K/mm3 [place] # (Auto) (0.0-0.8) K/mm3 Eos # (Auto) (0.0-0.4) K/mm3 Baso # (Auto) (0.0-0.1) K/mm3 Seg Neutrophils % (40.0-70.0) % Seg Neutrophils # (1.8-7.7) K/mm3 PT (12.2-14.9) Sec. INR (0.87-1.13) Sodium (137-145) mmol/L Potassium (3.6-5.0) mmol/L Chloride (98-107) mmol/L Carbon Dioxide (22-30) mmol/L Anion Gap mmol/L BUN (7-17) mg/dL Creatinine (0.6-1.2) mg/dL Estimated GFR ml/min BUN/Creatinine Ratio % Glucose (65-100) mg/dL Calcium (8.4-10.2) mg/dL Magnesium (1.7-2.3) mg/dL Total Bilirubin (0.1-1.2) mg/dL AST (5-40) units/L ALT (7-56) units/L Alkaline Phosphatase (35-129) units/L Total Creatine Kinase (30-135) units/L Total Protein (6.3-8.2) g/dL Albumin (3.9-5) g/dL Albumin/Globulin Ratio % Urine Color Yellow (Yellow) Urine Turbidity Slightly-cloudy (Clear) Urine pH 5.0 (5.0-7.0) Ur Specific [place] 1.017 (1.003-1.030) Urine Protein 30 mg/dl (Negative) mg/dL Urine Glucose (UA) Neg (Negative) mg/dL Urine Ketones Neg (Negative) mg/dL Urine Blood Neg (Negative) Urine Nitrite Pos (Negative) Urine Bilirubin Neg (Negative) Urine Urobilinogen < 2.0 (<2.0) mg/dL Ur Leukocyte Esterase Neg (Negative) Urine WBC (Auto) < 1.0 (0.0-6.0) /HPF Urine RBC (Auto) < 1.0 (0.0-6.0) /HPF U Epithel Cells (Auto) < 1.0 (0-13.0) /HPF - EKG Data -: EKG Interpreted by Nd EKG shows normal: sinus rhythm Rate: normal - EKG Data 11/30/21 13:00 The EKG is interpreted at 11: 05 Sinus rhythm, 65 bpm. Normal axis, normal intervals, poor R wave progression, abnormal EKG. Not a STEMI. - Radiology Data Radiology results: pending, report reviewed, image reviewed BARIUM SWALLOW Indication: dysphagia. Technique: Single contrast barium technique utilized to evaluate the esophagus. FINDINGS: To begin the exam, swallowing was evaluated in the lateral position under direct fluoroscopy. Swallowing was normal. No mucosal irregularity, mass, mass effect, or critical stenosis. Multiple tertiary contractions were identified throughout this exam consistent with esophageal dysmotility. No hiatal hernia or reflux was witnessed during this exam. IMPRESSION: Esophageal dysmotility. No focal esophageal lesion or stricture. Fluoroscopic time: 0.9 minutes Number of fluoroscopic images: 37 Signer Name: Darrion Echeverria Jr, MD Signed: 11/30/2021 10:33 AM Workstation Name: [id number] CHEST 2 VIEWS INDICATION: Epigastric pain, dysphagia. COMPARISON: 01/12/2021 FINDINGS: Support devices: Right [id number]-[id number] is in good position terminating near the cavoatrial junction. Heart: Within normal limits. Lungs/pleura: Right hilar mass or adenopathy has decreased in size from 4.5 x 3.9 cm to 3.6 x 3.0 cm. The remainder of the lungs are generally clear. No acute infiltrate, pleural effusion or pneumothorax. Additional findings: None. IMPRESSION: No acute findings. Decreased size of the right hilar mass or adenopathy as described. Signer Name: Darrion Echeverria Jr, MD Signed: 11/30/2021 10:31 AM Workstation Name: [id number] Critical care attestation.: If time is entered above; I have spent that time in minutes in the direct care of this critically ill patient, excluding procedure time. ED Disposition Clinical Impression: Pyuria, Esophageal dysmotility, Medication refill Disposition: 01 HOME / SELF CARE / HOMELESS Is pt being admited?: No Does the pt Need Aspirin: No Condition: Good Additional Instructions: Please follow-up with your primary care doctor or a personal lines account manager within the next 5 to 7 days for esophageal dysmotility. Avoid consumption of Motrin, ibuprofen, Naprosyn, Aleve, heavy and spicy foods, and advance diet as tolerated. Drink liquids in small sips. Please have your outpatient physician contact medical records department, and obtain copies of laboratory studies imaging studies and follow-up on culture results. Expect cultures to come back within the next 5 to 7 days. Recommend follow-up with your outpatient physician within the next 5 days. Please continue current outpatient medications. Patient will receive a 5-day supply of liquid oxycodone. She will need to follow-up with her primary care doctor for further narcotic refills. Please return to the emergency room right away with new pain, worsened pain, migration of pain, projectile vomiting, change in mental status, confusion, inability tolerate liquid feeds, new, worsened or different symptoms not present on the initial emergency room evaluation Referrals: PAT ACOSTA MD [Primary Care Provider] - 3-5 Days [facility] [Provider Group] - 3-5 Days
[2021-11-30 10:49] LABS: Bilirubin,Urine NEG (Negative); Blood,Urine NEG (Negative); Color,Urine Yellow (Yellow); RBC,Urine < 1.0 /HPF (0.0-6.0); Urobilinogen,Urine < 2.0 mg/dL (<2.0); WBC,Urine < 1.0 /HPF (0.0-6.0)
--- NOTE | 2021-11-30 11:35 | XRay Report ---
CHEST 2 VIEWS INDICATION: Epigastric pain, dysphagia. COMPARISON: 01/12/2021 FINDINGS: Support devices: Right Xvsmie-u-Ivyj is in good position terminating near the cavoatrial junction. Heart: Within normal limits. Lungs/pleura: Right hilar mass or adenopathy has decreased in size from 4.5 x 3.9 cm to 3.6 x 3.0 cm. The remainder of the lungs are generally clear. No acute infiltrate, pleural effusion or pneumothor ax. Additional findings: None. IMPRESSION: No acute findings. Decreased size of the right hilar mass or adenopathy as described. Signer Name: Darrion Echeverria Jr, MD Signed: 11/30/2021 11:31 AM Workstation Name: [id number]
--- NOTE | 2021-11-30 11:37 | Fluoroscopy Report ---
BARIUM SWALLOW Indication: dysphagia. Technique: Single contrast barium technique utilized to evaluate the esophagus. FINDINGS: To begin the exam, swallowing was evaluated in the lateral position under direct fluorosco py. Swallowing was normal. No mucosal irregularity, mass, mass effect, or critical stenosis. Multiple tertiary contractions we re identified throughout this exam consistent with esophageal dysmotility. No hiatal hernia or reflux was witnessed during this exam. IMPRESSION: Esophageal dysmotility. No focal esophageal lesion or stricture. Fluoroscopic time: 0.9 minutes Number of fluoroscopic images: 37 Signer Name: Darrion Echeverria Jr, MD Signed: 11/30/2021 11:33 AM Workstation Name: [id number]
[2021-11-30 12:11] LABS: Basophils % (Auto) 0.6 % (0.0-1.8); Eosinophils # (Auto) 0.2 K/mm3 (0.0-0.4); Eosinophils % (Auto) 6.1 % (0.0-4.3); Hemoglobin 9.1 gm/dl (10.1-14.3); Lymphocytes # (Auto) 0.8 K/mm3 (1.2-5.4); Lymphocytes % (Auto) 33.4 % (13.4-35.0); Mean Corpuscular HGB Conc 33 % (30-34); Mean Corpuscular Volume 83 fl (79-97); Monocytes # (Auto) 0.2 K/mm3 (0.0-0.8); Monocytes % (Auto) 9.2 % (0.0-7.3); Platelet Count 196 K/mm3 (140-440); Red Blood Count 3.37 M/mm3 (3.65-5.03)
[2021-11-30 12:12] LABS: Red Cell Distribution Width 21.8 % (13.2-15.2)
[2021-11-30 12:22] LABS: INR 0.94 (0.87-1.13)
[2021-11-30 12:25] LABS: Alanine Aminotransferase 16 units/L (7-56); Albumin 4.3 g/dL (3.9-5); Blood Urea Nitrogen 13 mg/dL (7-17); Calcium 9.4 mg/dL (8.4-10.2); Hemolysis Index 0
[2021-11-30 12:27] LABS: BUN/Creatinine Ratio 22
[2021-11-30] MEDS ORDERED: HYDROmorphone 1 MG/1 ML INJ IV ONE (13:06)
[2021-11-30 13:33] VITALS: BP 151/73
--- NOTE | 2021-12-01 10:23 | Electrocardiograph Report ---
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
== END 2021-11-30 14:30 | disposition home or self-care (01) ==
LOC: ED 08:21
DX: R82.81 Pyuria (principal); K22.4 Dyskinesia of esophagus; Z76.0 Encounter for issue of repeat prescription; F17.200 Nicotine dependence, unspecified, uncomplicated; J45.909 Unspecified asthma, uncomplicated; I10 Essential (primary) hypertension; Z90.49 Acquired absence of other specified parts of digestive tract; Z88.6 Allergy status to analgesic agent; Z91.018 Allergy to other foods; Z88.0 Allergy status to penicillin; Z88.9 Allergy status to unspecified drugs, medicaments and biological substances
CPT/HCPCS: 36415; 71046; 74220; 80053; 81001; 82550; 83735; 85025; 85610; 87086; 93005; 93010; 96365; 96375; 99284; J1170; J1956; J2270; J2405

== ENCOUNTER 2022-07-19 14:27 | Emergency (ER) | payer MEDICARE ==
[2022-07-19] MEDS ORDERED: HYDROcodone/ACETAMINOPHEN 10-325MG TAB PO ONE (16:06)
[2022-07-19] MEDS ORDERED: ACETAMINOPHEN 325 MG TAB PO ONE (16:06)
--- NOTE | 2022-07-19 16:22 | Emergency Department Report ---
ED General Adult HPI - General Chief complaint: Fall Stated complaint: FALL FROM STANDING/LEFT RIB PAIN PUI?: No Time Seen by Provider: 07/19/22 15:31 Source: patient, EMS Mode of arrival: Stretcher Limitations: Physical Limitation - History of Present Illness Initial comments: THIS IS A 71 YEAR OLD FEMALE WHO CLAIMS SHE HAS HISTORY OF NON-SMALL CELL LUNG CANCER STAGE 2 CURRENTLY GETTING TREATMENT, COPD, ASTHMA, AND HYPERTENSION CAME IN TODAY AFTER SHE SUSTAINED A FALL. STATES SHE ROLLED/FELL OUT OF HER BED ABOUT 2 FEET HIGH AND LANDED ON THE LEFT SIDE OF HER CHEST BETWEEN THE BED AND NIGHT STAND. STATES PAIN IS 10/10. STATES SHE IS USUALLY ON HYDROCODONE BUT IS CURRENTLY OUT OF HER PAIN MEDICATION. DENIES HITTING HER HEAD OR LOSS OF CONSCIOUSNESS. DENIES PAIN ANYWHERE ELSE. STATES IT HURTS MORE TO BREATH WHEN SHE TAKES DEEP BREATH. PATIENT DENIES ANY OTHER SYMPTOMS. - Related Data Home Medications Medication Instructions Recorded Confirmed Last Taken ALPRAZolam [Xanax TAB] 1 mg PO BID PRN 01/20/20 01/20/20 Unknown Albuterol Mdi (or & Nicu Only) 2 puff INHALATION DAILY PRN 01/20/20 01/20/20 Unknown [ProAir HFA Inhaler] Zolpidem (Nf) [Ambien (Nf)] 10 mg PO QHS 01/20/20 01/20/20 Unknown amLODIPine 10 mg PO DAILY 01/20/20 01/20/20 Unknown traMADoL [Ultram 50 MG tab] 50 mg PO Q6HR PRN 01/20/20 01/20/20 Unknown ALBUTEROL NEB's [Proventil 0.083% 5 mg IH BID PRN 01/09/21 01/09/21 Unknown NEBS] Amlodipine Besylate [Norvasc] 10 mg PO QDAY 01/09/21 01/09/21 01/08/21 Mirabegron [Myrbetriq] 25 mg PO DAILY 01/09/21 01/09/21 Unknown Zolpidem [Ambien] 10 mg PO QHS 01/09/21 01/09/21 01/08/21 Previous Rx's Medication Instructions Recorded Last Taken Type Albuterol Sulfate [Proair 90 mcg IH Q4HR PRN #2 aer.[email or web address] 08/18/19 Unknown Rx Respiclick] levoFLOXacin [Levaquin] 750 mg PO QDAY #7 tablet 01/20/20 Unknown Rx oxyCODONE /ACETAMINOPHEN [Percocet 1 tab PO Q6H PRN 2 Days #8 tablet 01/11/21 Unknown Rx 5/325 mg] oxyCODONE ER [oxyCONTIN ER] 10 mg PO Q12HR #10 tablet 01/12/21 Unknown Rx predniSONE [Deltasone] 20 mg PO QDAY #6 tab 01/12/21 Unknown Rx Compression Socks, Large 1 each MC DAILY #1 each 05/07/21 Unknown Rx [Lifestylecomfort Socks] Deepali Root [Deepali] 250 mg PO QID PRN #30 capsule 11/30/21 Unknown Rx Ondansetron [Zofran Odt] 4 mg PO Q8HR PRN #20 tab.rapdis 11/30/21 Unknown Rx Oxycodone HCl [oxyCODONE 1 MG/ML 5 mg PO Q6HR PRN 5 Days #1 bottle 11/30/21 Unknown Rx ORAL LIQ] levoFLOXacin [Levaquin] 750 mg PO QDAY #10 tablet 11/30/21 Unknown Rx HYDROcodone/APAP 5-325 [[place] 1 each PO Q4HR PRN #12 tablet 07/19/22 Unknown Rx 5/325] Moxifloxacin HCl [Avelox] 400 mg PO QDAY 7 Days #7 07/19/22 Unknown Rx Allergies Allergy/AdvReac Type Severity Reaction Status Date / Time codeine Allergy THROAT Verified 12/29/21 11:06 CLOSES Iodinated Contrast Media Allergy ITCHES, Verified 12/29/21 11:06 [Iodinated Contrast- Oral FEELS LIKE and IV Dye] SHE IS ON FIRE Iodine and Iodide Containing Allergy Unknown Verified 12/29/21 11:06 Produc ketorolac [From Toradol] Allergy Headache Verified 12/29/21 11:06 ketorolac tromethamine Allergy Headache Verified 12/29/21 11:06 [From Toradol] methocarbamol [From Robaxin] Allergy Headache Verified 12/29/21 11:06 Penicillins Allergy Swelling Verified 12/29/21 11:06 OF FACE HAND AND THROAT CLOSES strawberry Allergy Rash Verified 12/29/21 11:06 aspirin AdvReac Bleeding Verified 12/29/21 11:06 strawberry Allergy Hives Uncoded 12/29/21 11:06 ED Review of Systems ROS: Stated complaint: FALL FROM STANDING/LEFT RIB PAIN Other details as noted in HPI Comment: All other systems reviewed and negative Constitutional: no symptoms reported, see HPI Eyes: as per HPI ENT: as per HPI Respiratory: no symptoms reported Cardiovascular: as per HPI, chest pain (LEFT LATERAL RIB PAIN) Endocrine: no symptoms reported, see HPI Gastrointestinal: as per HPI Genitourinary: as per HPI Musculoskeletal: as per HPI Skin: as per HPI Neurological: as per HPI Psychiatric: as per HPI Hematological/Lymphatic: as per HPI ED Past Medical Hx - Past Medical History Previous Medical History?: Yes Hx Hypertension: Yes Hx Pulmonary Embolism: Yes (40 years ago) Hx GERD: Yes Hx Sickle Cell Disease: No Hx Arthritis: Yes Hx Headaches / Migraines: Yes Hx Kidney Stones: Yes Hx Asthma: Yes Hx COPD: Yes Additional medical history: Fibromyalgia, MVP, peptic ulcers, repeat pneumonia, Lung cancer - Surgical History Hx Pacemaker: No Hx Internal Defibrillator: No Hx Cholecystectomy: Yes Additional Surgical History: right wrist metal plate, Right ovarian cyst removal. cataract, left Achilles tendon repair and left ankle instrumentation, gall bladder removal - Social History Smoking Status: Current Every Day Smoker - Medications Home Medications: Home Medications Medication Instructions Recorded Confirmed Last Taken Type Albuterol Sulfate [Proair 90 mcg IH Q4HR PRN #2 aer.[email or web address] 08/18/19 01/09/21 Unknown Rx Respiclick] ALPRAZolam [Xanax TAB] 1 mg PO BID PRN 01/20/20 01/20/20 Unknown History Albuterol Mdi (or & Nicu Only) 2 puff INHALATION DAILY PRN 01/20/20 01/20/20 Unknown History [ProAir HFA Inhaler] Zolpidem (Nf) [Ambien (Nf)] 10 mg PO QHS 01/20/20 01/20/20 Unknown History amLODIPine 10 mg PO DAILY 01/20/20 01/20/20 Unknown History levoFLOXacin [Levaquin] 750 mg PO QDAY #7 tablet 01/20/20 Unknown Rx traMADoL [Ultram 50 MG tab] 50 mg PO Q6HR PRN 01/20/20 01/20/20 Unknown History ALBUTEROL NEB's [Proventil 0.083% 5 mg IH BID PRN 01/09/21 01/09/21 Unknown History NEBS] Amlodipine Besylate [Norvasc] 10 mg PO QDAY 01/09/21 01/09/21 01/08/21 History Mirabegron [Myrbetriq] 25 mg PO DAILY 01/09/21 01/09/21 Unknown History Zolpidem [Ambien] 10 mg PO QHS 01/09/21 01/09/21 01/08/21 History oxyCODONE /ACETAMINOPHEN [Percocet 1 tab PO Q6H PRN 2 Days #8 tablet 01/11/21 Unknown Rx 5/325 mg] oxyCODONE ER [oxyCONTIN ER] 10 mg PO Q12HR #10 tablet 01/12/21 Unknown Rx predniSONE [Deltasone] 20 mg PO QDAY #6 tab 01/12/21 Unknown Rx Compression Socks, Large 1 each MC DAILY #1 each 05/07/21 Unknown Rx [Lifestylecomfort Socks] Deepali Root [Deepali] 250 mg PO QID PRN #30 capsule 11/30/21 Unknown Rx Ondansetron [Zofran Odt] 4 mg PO Q8HR PRN #20 tab.rapdis 11/30/21 Unknown Rx Oxycodone HCl [oxyCODONE 1 MG/ML 5 mg PO Q6HR PRN 5 Days #1 bottle 11/30/21 Unknown Rx ORAL LIQ] levoFLOXacin [Levaquin] 750 mg PO QDAY #10 tablet 11/30/21 Unknown Rx HYDROcodone/APAP 5-325 [[place] 1 each PO Q4HR PRN #12 tablet 07/19/22 Unknown Rx 5/325] Moxifloxacin HCl [Avelox] 400 mg PO QDAY 7 Days #7 07/19/22 Unknown Rx ED Physical Exam - General Limitations: Physical Limitation General appearance: alert, in no apparent distress - Head Head exam: Present: atraumatic, normocephalic, normal inspection - Eye Eye exam: Present: normal appearance, PERRL, EOMI Pupils: Present: normal accommodation - ENT ENT exam: Present: normal exam, mucous membranes moist - Neck Neck exam: Present: normal inspection, full ROM - Respiratory Respiratory exam: Present: normal lung sounds bilaterally, chest wall tenderness (LEFT LATERAL CHEST; NO OBVIOUS DEFORMITY OR RASH.). Absent: respiratory distress, wheezes, rales, rhonchi, stridor, accessory muscle use, decreased breath sounds, prolonged expiratory - Cardiovascular Cardiovascular Exam: Present: regular rate, normal rhythm, normal heart sounds - GI/Abdominal GI/Abdominal exam: Present: soft - Extremities Exam Extremities exam: Present: normal inspection, full ROM, normal capillary refill - Back Exam Back exam: Present: normal inspection, full ROM - Neurological Exam Neurological exam: Present: alert, oriented X3, CN II-XII intact - Psychiatric Psychiatric exam: Present: normal affect, normal mood - Skin Skin exam: Present: normal color ED Course Vital Signs 07/19/22 14:41 Temperature 98.6 F Pulse Rate 97 H Respiratory 18 Rate Blood Pressure 130/82 [Left] O2 Sat by Pulse 97 Oximetry - Reevaluation(s) Reevaluation #1: 07/19/22 18:06 X-RAY WITH MINIMALLY DISPLACED ACUTE LATERAL LEFT 7-9TH RIB FRACTURES. ATELECTASIS OR INFILTRATION. DOUBT INFILTRATION/PNA PATIENT DID NOT HAVE ANY COUGH OR FEVER. HOWEVER, REVIEW OF PATIENT'S CT DID REVEAL RLL NEOPLASM IN THE PAST. ATELECTASIS/INFILTRATION IS IN RIGHT MID LUNG; I WILL GO AHEAD AND COVER HER ANAEROBICALLY INCASE IF THERE IS PNA WITH MOXIFLOXACILLIN 500MG QD FOR 7 DAYS. Critical care attestation.: If time is entered above; I have spent that time in minutes in the direct care of this critically ill patient, excluding procedure time. ED Disposition Clinical Impression: Ribs, multiple fractures, Pain, Pulmonary infiltrate in right lung on chest x- ray Disposition: 01 HOME / SELF CARE / HOMELESS Is pt being admited?: No Does the pt Need Aspirin: No Condition: Stable Instructions: Rib Fracture Additional Instructions: YOU HAVE SUSTAINED LEFT 7TH TO 9TH MINIMALLY DISPLACED FRACTURE FROM YOU FALL AND YOUR X-RAY ALSO REVEALED RIGHT MID LOBE ATELECTASIS VS INFILTRATION. PLEASE TAKE PAIN MEDICATION THAT'S PRESCRIBED FOR YOU AND ALSO THE ANTIBIOTICS. FOLLOW UP WITH YOUR PRIMARY CARE PROVIDER TO BE SEEN WITHIN 3 DAYS. RETURN TO THE EMERGENCY ROOM IF YOU HAVE ANY NEW SYMPTOMS. Prescriptions: Moxifloxacin HCl [Avelox] 400 mg PO QDAY 7 Days #7 HYDROcodone/APAP 5-325 [[place] 5/325] 1 each PO Q4HR PRN #12 tablet PRN Reason: Pain Time of Disposition: 18:10
--- NOTE | 2022-07-19 16:47 | XRay Report ---
LEFT RIBS 5 VIEWS INDICATION / CLINICAL INFORMATION: Hx Lung CA; fell on left side; rib pain. COMPARISON: Chest radiograph 11/30/2021 FINDINGS: RIBS: There is a healed posterolateral right fifth rib fracture. There are minimally displaced latera l seventh, eighth, and ninth rib fractures which appear acute. LUNGS: Perihilar right lung mass is again noted. New linear opacities in the right mid lung may be du e to atelectasis or infiltrate. No pneumothorax. ADDITIONAL FINDINGS: None. IMPRESSION: 1. Minimally displaced acute lateral left seventh-ninth rib fractures. No pneumothorax. 2. Pulmonary findings as above. Signer Name: Johann Ross MD Signed: 07/19/2022 4:42 PM Workstation Name: [id number]
[2022-07-19 18:39] VITALS: BP 136/74
== END 2022-07-19 18:45 | disposition home or self-care (01) ==
LOC: ED 14:27
DX: S22.49XA Multiple fractures of ribs, unspecified side, initial encounter for closed fracture (principal); R07.81 Pleurodynia; R91.8 Other nonspecific abnormal finding of lung field; I10 Essential (primary) hypertension; I26.99 Other pulmonary embolism without acute cor pulmonale; K21.9 Gastro-esophageal reflux disease without esophagitis; M19.90 Unspecified osteoarthritis, unspecified site; G43.909 Migraine, unspecified, not intractable, without status migrainosus; J45.909 Unspecified asthma, uncomplicated; N20.0 Calculus of kidney; Z90.49 Acquired absence of other specified parts of digestive tract; F17.200 Nicotine dependence, unspecified, uncomplicated; Z88.6 Allergy status to analgesic agent; Z91.02 Food additives allergy status; Z88.0 Allergy status to penicillin; Z91.09 Other allergy status, other than to drugs and biological substances; W19.XXXA Unspecified fall, initial encounter; Y93.89 Activity, other specified; Y92.89 Other specified places as the place of occurrence of the external cause; Y99.8 Other external cause status
CPT/HCPCS: 99283